=== PATIENT | female | born 1975 | race Caucasian/White ===

== ENCOUNTER 2024-12-13 10:16 | Outpatient (CLI) | payer BC, SELFPAY ==
--- OUTSIDE RECORDS SUMMARY | 2024-10-13 09:06 | XMS_ITS | Encounter Summary ---
Author Organization [place] [address] Care Team Providers Care Tankman Name Role Phone Chip Burt MD Primary Care Provider [phone] Reason for Referral * Ultrasound (Routine) - Pending Review Specialty Diagnoses / Procedures Referred By Contac t Referred To Contact Radiology Diagnoses Elevated LDL cholesterol level Transaminitis Procedures US RIGHT UPPER QUADRANT Chip Burt MD [address] [place] [address] Phone: tel: fax: Referral ID Status Reason Start Date Expiration Date V isits Requested Visits Authorized [id number] Pending Review 10/08/2024 10/08/2025 1 1 Reason for Visit * Ultrasound (Routine) - Pending Review Specialty Diagnoses / Procedures Referred By Rosemary t Referred To Contact Radiology Diagnoses Elevated LDL cholesterol level Transaminitis Procedures US RIGHT UPPER QUADRANT Chip Burt MD [address] [place] [address] Phone: tel: fax: Referral ID Status Reason Start Date Expiration Date V isits Requested Visits Authorized [id number] Pending Review 10/08/2024 10/08/2025 1 1 Encounter Details Date Type Department Care Team (Latest Contact Info) Description 10/13/2024 9:06 AM EDT - 10/13/2024 11:59 PM EDT Hospital Encounter [facility] [address] [place] [id number] Chip Burt MD [address] [place] [address] Elevated LDL cholesterol level; Transaminitis Discharge Disposition: Home or Self Care Social History Tobacco Use Types Packs/Day Years Used Date Smoking Tobacco: Some Days Cigarettes 0.5 25.6 Started: 1999 Smokeless Tobacco: Never Alcohol Use Standard Drinks/Week Comments Yes 0 (1 standard drink = 0.6 oz pur e alcohol) socially PHQ-2 Answer Date Recorded PHQ-2 Total Score 0 09/29/2024 Comments No Sex and Gender Information Value Date Recorded Sex Assigned at Not on file Legal Sex Female 12:57 AM EDT Gender Identity Not on file Sexual Orientation Not on file documented as of this encounter Functional Status * Is the person deaf or does he/she have serious difficulty hearing? Answer Date of Assessment Author No 09/29/2024 1:42 PM Shiva Lopez MA * Is the person blind or does he/she have serious difficulty seeing even when wearing glasses? Answer Date of Assessment Author No 09/29/2024 1:42 PM Shiva Lopez MA * Does this person have serious difficulty walking or climbing stairs? Answer Date of Assessment Author No 09/29/2024 1:42 PM Shiva Lopez MA * Does this person have difficulty dressing or bathing? Answer Date of Assessment Author No 09/29/2024 1:42 PM Shiva Lopez MA * Because of a physical, mental or emotional condition, does this person have difficulty doing errands alone such as visiting a doctor's office or shopping? Answer Date of Assessment Author No 09/29/2024 1:42 PM Shiva Lopez MA documented as of this encounter Mental Status * Because of a physical, mental or emotional condition, does this person have serious difficulty concentrating, remembering or making decisions? Answer Entry Date Author No 09/29/2024 1:42 PM Shiva Lopez MA documented in this encounter Medications at Time of Discharge ergocalciferol (VITAMIN D) 1,250 mcg (50,000 unit) Oral CapsuleIndications: Vitamin D deficiency Take 1 Capsule by mouth once a week. 4 Capsule 2 10/11/2024 ibuprofen (ADVIL;MOTRIN) 600 mg tablet Take 1 Tab by mouth every 8 hours as needed for Pain for 21 doses. 21 Tab 0 04/01/2012 nitrofurantoin, macrocrystal-monohy drate, (MACROBID) 100 mg Oral CapsuleIndications: UTI (urinary tract infection), uncomplicated Take 1 Capsule by mouth 2 times daily for 5 days. 10 Capsule 10/11/2024 5 documented as of this encounter Discharge Disposition Disposition Code Departure Means Destination Home or Self Care documented in this encounter Plan of Treatment Upcoming Encounters Date Type Department Care Team (Late st Contact Info) Description 12/15/2024 9:45 AM EDT Hospital Encounter [facility] [address] [place] [address] [address] [place] [address] Binh Brody MD [address] [place] [address] 12/15/2024 3:20 PM EDT Office Visit [facility] [address] [facility] [address] [place] [address] Chip Burt MD [address] [place] [address] 12/25/2024 2:00 PM EDT Appointment [facility] [address] [place] [address] Binh Brody MD [address] [place] [address] 01/04/2025 8:45 AM EDT [place] [facility] [place] [address] [place] [id number] Chuyita Moscoso MD [address] [place] [address] 02/02/2025 1:40 PM EDT Office Visit [facility] [address] [facility] [address] [place] [address] Chip Burt MD [address] [place] [address] 04/09/2025 10:00 AM EST Office Visit [facility] [address] [place] [address] Anh Patel, SCREEN CLEANER 1 [facility] [place] [address] documented as of this encounter Goals Goal Patient Goal Type Associated Problems Recent Progress Patient-Stated? Author Maintain a healthy diet, exercise regularly and maintain an ideal body weight General No Philippe Hansen MA Stay Tobacco Free Lifestyle No Philippe Hansen MA documented as of this encounter Procedures Procedure Name Priority Date/Time Associated Diagnosis Comments US RIGHT UPPER QUADRANT Routine 10/13/2024 10:00 AM EDT Elevated LDL cholesterol level Transaminitis documented in this encounter Results * US RIGHT UPPER QUADRANT (10/13/2024 10:00 AM EDT) Anatomical Region Laterality Modality Abdomen Ultrasound 10/13/2024 10:0 0 AM EDT Impressions 10/13/2024 10:33 AM EDT 1. Normal study. - - Note: Radiology results need to be interpreted within a comprehensive clinical context. If you have questions about the radiology report, please contact the office of the ordering clinician. Narrative 10/13/2024 10:33 AM EDT US RIGHT UPPER QUADRANT: 10/13/2024 10:00 AM CLINICAL HISTORY: 49 years-old; E78.00-Pure hypercholesterolemia, qoclhdardmf-NQU-22-CM R74.01-Elevation of levels of liver transaminase ucxoyc-RXH-22-CM. COMPARISON: Noncontrast abdomen and pelvis CT 02/06/2016. PROCEDURE COMMENTS: Ultrasound examination of the right upper quadrant performed by the technologist. Sent to PACS along with tech notes for radiologist review. FINDINGS: Liver echogenicity is homogeneous and normal. No focal hepatic defects identified. No intra or extra hepatic ductal dilation. Common bile duct diameter is 4 mm. Gallbladder is normal. No shadowing stones, echogenic sludge or abnormal wall thickening. Gallbladder wall thickness is 1 mm. No pericholecystic fluid or other ascites. Senior Control Systems Engineer indicates clinically negative Willson's sign while scanning. Limited assessment of proximal pancreas is unremarkable. Right kidney measures 9.2 cm in length. Total renal volume is 82.4 cm3. No hydronephrosis, solid or cystic mass lesion or echogenic shadowing stone. Procedure Note Katey Hdz MD - 10/13/2024 US RIGHT UPPER QUADRANT: 10/13/2024 10:00 AM CLINICAL HISTORY: 49 years-old; E78.00-Pure hypercholesterolemia, ttalqgjshir-QWJ-28-CM R74.01-Elevation of levels of liver transaminase wolhwz-ZNF-14-CM. COMPARISON: Noncontrast abdomen and pelvis CT 02/06/2016. PROCEDURE COMMENTS: Ultrasound examination of the right upper quadrantperformed by the technologist. Sent to PACS along with tech notes for radiologistreview. FINDINGS: Liver echogenicity is homogeneous and normal. No focal hepatic defects identified. No intra or extra hepatic ductal dilation. Common bileduct diameter is 4 mm. Gallbladder is normal. No shadowing stones, echogenic sludge or abnormalwall thickening. Gallbladder wall thickness is 1 mm. No pericholecystic fluidor other ascites. Senior Control Systems Engineer indicates clinically negative Willson's signwhile scanning. Limited assessment of proximal pancreas is unremarkable. Right kidneymeasures 9.2 cm in length. Total renal volume is 82.4 cm3. No hydronephrosis, solidor cystic mass lesion or echogenic shadowing stone. IMPRESSION: 1. Normal study. - - Note: Radiology results need to be interpreted within a comprehensiveclinical context. If you have questions about the radiology report, please contactthe office of the ordering clinician. us Chip Burt MD [facility] [place] ORDERABLES Final Resul t documented in this encounter Visit Diagnoses Diagnosis Elevated LDL cholesterol level Pure hypercholesterolemia Transaminitis Nonspecific elevation of levels of transaminase or lactic acid dehydrogenase (LDH) documented in this encounter Care Teams Tankman Relationship Specialty Start Date End Date Chip Burt MD [address] [place] [address] PCP - General Family Medicine 09/29/24 documented as of this encounter
--- OUTSIDE RECORDS SUMMARY | 2024-11-02 11:00 | XMS_ITS | Encounter Summary ---
Author Organization [place] [address] Care Team Providers Care Freight Manager Name Role Phone Chip Burt MD Primary Care Provider [phone] Reason for Referral * Consultation (Routine) - Pending Review Specialty Diagnoses / Procedures Referred By Rosemary singer Referred To Contact Otolaryngology Diagnoses Dizziness Procedures VT OFFICE/OUTPATIENT NEW MODERATE MDM 45 MINUTES Chip Burt MD [address] [place] [address] Phone: tel: fax: Jose Monsivais MD [address] [facility] [address] [place] [address] Phone: tel: fax: Referral ID Status Reason Start Date Expiration Date V isits Requested Visits Authorized [id number] Pending Review 11/02/2024 11/02/2025 99 99 Reason for Visit * Reason Comments Follow-up 4 weeks Encounter Details Date Type Department Care Team (Late st Contact Info) Description 11/02/2024 11:00 AM EDT Office Visit [facility] [address] [facility] [address] [place] [address] Chip Burt MD [address] [place] [address] Syncope, unspecified syncope type (Primary Dx); Dizziness; Cigarette smoker; Elevated LDL cholesterol level; Transaminitis; Vitamin D deficiency; Perimenopause; Other fatigue Social History Tobacco Use Types Packs/Day Years Used Date Smoking Tobacco: Some Days Cigarettes 0.5 25.6 Started: 1999 Smokeless Tobacco: Never Tobacco Cessation:Ready [...] Assessment Author No 09/29/2024 1:42 PM EDT Sihva Hansen MA * Does this person have [...] Exercises (maneuvers) for benign paroxysmal positional vertigo (Italian) documented in this encounter Ordered Prescriptions Prescription Sig Dispense Quantity Refills Last Filled Start Date End Date Blood Pressure Monitor [facility] KitIndications:Syn cope, unspecified syncope type,Other fatigue 1 Kit by [facility].(Non-Drug; Combo Route) route daily. 1 Kit 11/02/2024 [...] Echo pending Orders: - Blood Pressure Monitor [facility] Kit; 1 Kit by [facility].(Non-Drug; Combo Route) route daily. Dispense: 1 Kit; [...] hx -amenable to: NRT gum/lozenges Orders: - VT TOBACCO USE CESSATION INTERMEDIATE 3-10 MINUTES - [...] Overview: supp Lab Results Component Value Date [id number] 18.7 (L) 10/07/2024 Orders: - COMPREHENSIVE METABOLIC PANEL; Future - VITAMIN D 25 HYDROXY; Future Perimenopause Overview: supp care -LMP ~3yrs ago Orders: - COMPREHENSIVE METABOLIC PANEL; Future Other fatigue Comments: Improved Orders: - Blood Pressure Monitor [employer] Kit; 1 Kit by [employer].(Non-Drug; Combo Route) route daily. 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 Deep Tendon Reflexes: Reflexes normal. Comments: [place] Hallpike borderline+ Psychiatric: Mood and Affect: Mood normal. Behavior: Behavior normal. documented in this encounter Plan of Treatment Upcoming Encounters Date Type Department Care Team (Late st Contact Info) Description 12/15/2024 9:45 AM EDT Hospital Encounter [facility] [address] [place] [address] [address] [place] [address] Binh Brody MD [address] [place] [address] 12/15/2024 3:20 PM EDT Office Visit [facility] [address] [facility] [address] [place] [address] Chip Burt MD [address] [place] [address] 12/25/2024 2:00 PM EDT Appointment [facility] [address] [place] [address] Binh Brody MD [address] [place] [address] 01/04/2025 8:45 AM EDT Office Visit [facility] [address] [place] [address] Chuyita Moscoso MD [address] [place] [address] 02/02/2025 1:40 PM EDT Office Visit [facility] [address] [facility] [address] [place] [address] Chip Burt MD [address] [place] [address] 04/09/2025 10:00 AM EST Office Visit [facility] [place] [id number] Anh Patel, BID ANALYST 1 [facility] [place] [address] Scheduled Orders Name Type Priority Associated Diagnoses Orde r Schedule VT TOBACCO USE CESSATION INTERMEDIATE 3-10 MINUTES VT Charge Routine Cigarette smoker Ordered: 11/02/2024 COMPREHENSIVE METABOLIC PANEL Lab Routine Syncope, unspecified syncope type Other fatigue Vitamin D deficiency Transaminitis Perimenopause Elevated LDL cholesterol level Cigarette smoker Dizziness 1 Occurrences starting 11/02/2024 until 11/02/2025 CBC W/DIFF ANEMIA REFLEX Lab Routine Other fatigue Cigarette smoker Dizziness 1 Occurrences starting 11/02/2024 until 11/02/2025 Scheduled Referrals Name Type Priority Associated Diagnoses [...] Date End Da te Blood Pressure Monitor [facility] KitIndications:Annual physical exam,Syncope, unspecified syncope type,Other fatigue 1 Kit by [facility].(Non-Drug; Combo Route) route daily. Reorder 09/29/2024 11/02/2024 documented as of this encounter Orders Lab Orders Without Results Count Last Ordered D ate First Ordered Date LIPID SCREEN 1 11/02/2024 VITAMIN D 25 HYDROXY 1 11/02/2024 documented in this encounter Care Teams Freight Manager Relationship Specialty Start Date End Date Chip Burt MD [address] [place] [address] PCP - General Family Medicine 09/29/24 documented as of this encounter
--- OUTSIDE RECORDS SUMMARY | 2024-11-17 07:54 | XMS_ITS | Encounter Summary ---
Author Organization [place] [address] Care Team Providers Care Geologist Petroleum Name Role Phone Chip Burt MD Primary Care Provider [phone] Reason for Referral * Echo (Urgent) - PCP Precert Acquired Specialty Diagnoses / Procedures Referred By Rosemary singer Referred To Contact Radiology Diagnoses Syncope, unspecified syncope type Palpitations Other fatigue Procedures EC ECHOCARDIOGRAM COMPLETE W DOPPLER AND COLOR FLOW MAPPING EC ECHOCARDIOGRAM COMPLETE W DOPPLER AND COLOR FLOW MAPPING Chip Burt MD [address] [place] [address] Phone: tel: fax: Referral ID Status Reason Start Date Expiration Date V isits Requested Visits Authorized [id number] PCP Precert Acquired 09/29/2024 09/29/2026 1 1 Reason for Visit * Echo (Urgent) - PCP Precert Acquired Specialty Diagnoses / Procedures Referred By Rosemary singer Referred To Contact Radiology Diagnoses Syncope, unspecified syncope type Palpitations Other fatigue Procedures EC ECHOCARDIOGRAM COMPLETE W DOPPLER AND COLOR FLOW MAPPING EC ECHOCARDIOGRAM COMPLETE W DOPPLER AND COLOR FLOW MAPPING Chip Burt MD [address] [place] [address] Phone: tel: fax: Referral ID Status Reason Start Date Expiration Date V isits Requested Visits Authorized [id number] PCP Precert Acquired 09/29/2024 09/29/2026 1 1 Encounter Details Date Type Department Care Team (Latest Contact Info) Description 11/17/2024 7:54 AM EDT Hospital Encounter [facility] [address] [place] [place] [address] Chip Burt MD [address] [place] [address] Syncope, unspecified syncope type; Palpitations; Other fatigue [...] at Time of Discharge Blood Pressure Monitor [facility] KitIndications:Syn cope, unspecified syncope type,Other fatigue 1 Kit by [facility].(Non-El g; Combo Route) route daily. 1 Kit [...] AM EDT Hospital Encounter [facility] [address] [place] [address] [address] [place] [address] Binh Brody MD [address] [place] [address] [place] [address] 12/15/2024 3:20 PM EDT Office Visit [facility] [address] [facility] [address] [place] [address] Chip Burt MD [address] [place] [address] 12/25/2024 2:00 PM EDT Appointment [facility] [address] [place] [address] Binh Brody MD [address] [place] [address] [place] [address] 01/04/2025 8:45 AM EDT Office Visit [facility] Neu[facility] [address] [place] [address] Chuyita Moscoso MD [address] [place] [address] 02/02/2025 1:40 PM EDT Office Visit [facility] [address] [place] [address] Chip Burt MD [address] [place] [address] 04/09/2025 10:00 AM EST Office Visit [facility] [place] [address] [place] [address] Anh Patel, TRACK LAYING MACHINE OPERATOR 1 [facility] [place] [address] documented as of this encounter Goals Goal [...] normal with an estimated ejectionfraction of 55%. us Chip Burt MD IMG ECHO ORDERABLES Final Res ult documented in this encounter Visit Diagnoses Diagnosis Syncope, unspecified syncope type Palpitations Other fatigue documented in this encounter Care Teams Geologist Petroleum Relationship Specialty Start Date End Date Chip Burt MD [address] [place] [address] PCP - General Family Medicine 09/29/24 documented as of this encounter
--- OUTSIDE RECORDS SUMMARY | 2024-11-17 07:55 | XMS_ITS | Encounter Summary ---
Author Organization [place] [address] Care Team Providers Care Hot Roller Name Role Phone Chip Burt MD Primary Care Provider [phone] Encounter Details Date Type Department Care Team (Latest Contact Info) Description 11/17/2024 7:55 AM EDT - 11/17/2024 10:19 AM EDT Hospital Encounter [facility] [address] [place] [address] Chip Burt MD [address] [place] [address] Discharge Disposition: Home or Self Care Social [...] Entry Date Author No 09/29/2024 1:42 PM EDT Shiva Hansen MA documented in this encounter Medications at Time of Discharge Blood Pressure Monitor [facility] KitIndications:Syn cope, unspecified syncope type,Other fatigue 1 Kit by [facility].(Non-El g; Combo Route) route daily. 1 Kit [...] AM EDT Hospital Encounter [facility] [address] [place] [address] [address] [place] [address] Binh Brody MD [address] [place] [address] 12/15/2024 3:20 PM EDT Office Visit [facility] [address] [facility] [address] [place] [address] Chip Burt MD [address] [place], [place] [id number] 12/25/2024 2:00 PM EDT Appointment [facility] [address] [place] [address] Binh Brody MD [address] [place] [address] 01/04/2025 8:45 AM EDT Office Visit [facility] Neurology [facility] [address] [place] [address] Chuyita Moscoso MD [address] [place], [place] [id number] 02/02/2025 1:40 PM EDT Office Visit [facility] [address] [address] Chip Burt MD [address] [place] [address] 04/09/2025 10:00 AM EST Office Visit [facility] [address] [place] [address] Anh Patel, SHAFTING WORKER 1 [place] [address] documented as of this encounter Goals Goal Patient Goal Type Associated Problems Recent Progress Patient-Stated? Author Maintain a healthy diet, exercise regularly and maintain an ideal body weight General No Philippe Hansen MA Stay Tobacco Free Lifestyle No Philippe Hansen MA documented as of this encounter Visit Diagnoses Not on filedocumented in this encounter Care Teams Hot Roller Relationship Specialty Start Date End Date Chip Burt MD [address] [place] [address] PCP - General Family Medicine 09/29/24 documented as of this encounter
--- OUTSIDE RECORDS SUMMARY | 2024-11-17 10:20 | XMS_ITS | Encounter Summary ---
Author Organization [place] [address] Care Team Providers Care Cigar Patcher Name Role Phone Chip Burt MD Primary Care Provider [phone] Encounter Details Date Type Department Care Team (Latest Contact Info) Description 11/17/2024 10:20 AM EDT Hospital Encounter [facility] [address] [facility] [place] [address] [place] light chain disease; Elevated LDL cholesterol level; Vitamin D deficiency; Urinary frequency Discharge Disposition: Home or Self Care Social [...] at Time of Discharge Blood Pressure [place] [facility] KitIndications:Syn cope, unspecified syncope type,Other fatigue 1 Kit by [facility]Non-El g; Combo Route) route daily. 1 Kit [...] AM EDT Hospital Encounter [facility] [address] [place] [address] [address] [place] [id number] Binh Brody MD [address] [place] [address] 12/15/2024 3:20 PM EDT Office Visit [facility] [address] [facility] [address] [place] [address] Chip Burt MD [address] [place] [address] 12/25/2024 2:00 PM EDT Appointment [facility] [address] [place] [address] Binh Brody MD 1 [place] [address] 01/04/2025 8:45 AM EDT Office Visit SEP Neurology [facility] [address] [place] [phone] Chuyita Moscoso MD [address] [place] [id number] 02/02/2025 1:40 PM EDT Office Visit [facility] [address] [address] Chip Burt MD [address] [place] [address] 04/09/2025 10:00 AM EST Office [place] [facility] [place] [address] [place] [address] Ahn Patel, JEWEL BEARING POLISHER [address] [facility] [place], [place] [id number] documented as of this encounter Goals Goal Patient Goal Type Associated Problems Recent Progress Patient-Stated? Author Maintain a healthy diet, exercise regularly and maintain an ideal body weight General No Philippe Hansen MA Stay Tobacco Free Lifestyle No Philippe Hansen MA documented as of this encounter Procedures Procedure Name Priority Date/Time Associated Diagnosis Comments URINALYSIS Routine 11/17/2024 10:42 AM EDT Urinary frequency URINE CULTURE (NO STAIN) Routine 11/17/2024 10:42 AM EDT Urinary frequency CBC WITH DIFF STAT 11/17/2024 10:37 AM EDT [place] light chain disease COMPREHENSIVE METABOLIC PANEL STAT 11/17/2024 10:37 AM EDT [place] light chain disease documented in this encounter Results * (ABNORMAL) URINE CULTURE (NO STAIN) (11/17/2024 10:42 AM EDT) Pathologist [facility] Culture Positive Growth(A) 11/19/2024 1:32 PM EDT PREFERRED 51 Auto Culture >100,000 CFU/mL Lactobacillus species SUSCEPTIB ILITY RESULT 11/19/2024 1:32 PM EDT [facility] Comment:No further workup. Urine STRUCTURE OF URINARY TRACT PROPER / Unknown 11/17/2024 10:42 AM EDT 11/17/2024 10:47 AM EDT us Fabby Joya MD MICROBIOLOGY - GENERAL ORDERA BLES Final Result [facility] [address] [facility], [place] [address] * (ABNORMAL) URINALYSIS (11/17/2024 10:42 AM EDT) Pathologist [facility] UA Color Yellow 11/17/2024 11:14 AM EDT [facility] UA Appear Clear Clear 11/17/2024 11:14 AM EDT [facility] UA Glucose Negative Negative mg/dL 11/17/2024 11:14 AM EDT [facility] UA Ketones Negative Negative mg/dL 11/17/2024 11:14 AM EDT [facility] UA Blood Trace-Intac t(A) Negative 11/17/2024 11:14 AM EDT [facility] UA pH 6.0 5.0 - 8.0 pH 11/17/2024 11:14 AM EDT [facility] UA Protein Negative Negative mg/dL 11/17/2024 11:14 AM EDT [facility] UA Urobilinogen 0.2 <=1 mg/dL 11:14 AM EDT [facility] UA Bili Negative Negative 11/17/2024 11:14 AM EDT [facility] UA Nitrite Negative Negative 11/17/2024 11:14 AM EDT [facility] UA Leuk Est Small(A) Negative 11/17/2024 11:14 AM EDT [facility] UA Spec Grav 1.015 1.001 - 1.035 no units 11/17/2024 11:14 AM EDT [facility] Comment:Reference range nick d for random specimens only. UA WBC 1 0 - 4 /HPF 11/17/2024 11:14 AM EDT [facility] UA RBC 1 0 - 3 /HPF 11/17/2024 11:14 AM EDT [facility] UA Squam Epi 1+ /LPF 11/17/2024 11:14 AM EDT [facility] Urine STRUCTURE OF URINARY TRACT PROPER / Unknown 11/17/2024 10:42 AM EDT 11/17/2024 10:47 AM EDT us Fabby Joya MD URINE ORDERABLES Final Result [facility] [address] [place] [address] * (ABNORMAL) CBC WITH DIFF (11/17/2024 10:37 AM EDT) WBC 7.7 3.7 - 10.3 x10(3)/mcL 11/17/2024 10:42 AM EDT [facility] RBC 4.37 3.90 - 5.20 x10(6)/mcL 11/17/2024 10:42 AM EDT [facility] Hgb 13.6 11.2 - 15.7 g/dL 11/17/2024 10:42 AM EDT [facility] Hct 40.3 34.0 - 45.0 % 11/17/2024 10:42 AM EDT [facility] MCV 92.2 80.0 - 100.0 fL 11/17/2024 10:42 AM EDT [facility] MCH 31.1 26.0 - 34.0 pg 11/17/2024 10:42 AM EDT [facility] MCHC 33.7 30.7 - 35.5 g/dL 11/17/2024 10:42 AM EDT [facility] RDW 13.7 <=14.9 % 11/17/2024 10:42 AM EDT [facility] Platelet 265 155 - 369 x10(3)/mcL 11/17/2024 10:42 AM EDT [facility] MPV 9.2 8.8 - 12.5 fL 11/17/2024 10:42 AM EDT [facility] Neut Percent 48.2 % 11/17/2024 10:42 AM EDT [facility] Comment:Neutrophils equals s egs plus bands Imm Gran% 0.3 % 11/17/2024 10:42 AM EDT [facility] Comment:Automated count of m etamyelocytes, myelocytes and promyelocytes. Lymph Percent 28.0 % 11/17/2024 10:42 AM EDT [facility] [place] Percent 7.9 % 11/17/2024 10:42 AM EDT [facility] Eos Percent 14.8 % 11/17/2024 10:42 AM EDT [facility] Baso Percent 0.8 % 11/17/2024 10:42 AM EDT [facility] Neut # 3.7 1.6 - 6.1 x10(3)/[facility] 11/17/2024 10:42 AM EDT [facility] Comment:Neutrophils equals s egs plus bands IMMGRAN# 0.0 0.0 - 0.1 x10(3)/[facility] 11/17/2024 10:42 AM EDT [facility] Comment:Automated count of m etamyelocytes, myelocytes and promyelocytes. An absolute IG <0.1 is reported as 0.0. Lymph # 2.2 1.2 - 3.9 x10(3)/mcL 11/17/2024 10:42 AM EDT [facility] [place] # 0.6 0.3 - 0.9 x10(3)/[facility] 11/17/2024 10:42 AM EDT [facility] Eos# 1.1(H) 0.0 - 0.5 x10(3)/[facility] 11/17/2024 10:42 AM EDT [facility] Baso # 0.1 0.0 - 0.1 x10(3)/mcL 11/17/2024 10:42 AM EDT [facility] Blood VENOUS BLOOD / Unknown Venipuncture / Unknown 11/17/2024 10:37 AM EDT 11/17/2024 10:40 AM EDT us Fredi Trevizo MD HEMATOLOGY ORDERABLES Final Re sult [facility] [address] [place] [address] * COMPREHENSIVE METABOLIC PANEL (11/17/2024 10:37 AM EDT) Sodium 140 136 - 145 mmol/L 11/17/2024 10:57 AM EDT [facility] Potassium 3.9 3.5 - 5.0 mmol/L 11/17/2024 10:57 AM EDT [facility] Chloride 104 98 - 107 mmol/L 11/17/2024 10:57 AM EDT [facility] Total CO2 26 22 - 29 mmol/L 11/17/2024 10:57 AM EDT [facility] Anion Gap 10 7 - 16 mmol/L 11/17/2024 10:57 AM EDT [facility] Calcium 8.8 8.6 - 10.4 mg/dL 11/17/2024 10:57 AM EDT [facility] Glucose Lvl 88 70 - 99 mg/dL 11/17/2024 10:57 AM EDT [facility] BUN 13 6 - 20 mg/dL 11/17/2024 10:57 AM EDT [facility] Creatinine 0.62 0.51 - 1.30 mg/dL 11/17/2024 10:57 AM EDT [facility] Albumin 4.2 3.5 - 5.2 gm/dL 11/17/2024 10:57 AM EDT [facility] Total Protein 6.6 6.4 - 8.3 gm/dL 11/17/2024 10:57 AM EDT [facility] Bili Total 0.3 0.2 - 1.3 mg/dL 11/17/2024 10:57 AM EDT [facility] ALT 17 <=41 U/L 11/17/2024 10:57 AM EDT [facility] AST 19 <=40 U/L 11/17/2024 10:57 AM EDT [facility] Alk Phos 111 36 - 123 U/L 11/17/2024 10:57 AM EDT [facility] eGFR (CKD-EPIcr 2020) 109 >=60 mL/min/1.7 3 m2 11/17/2024 10:57 AM EDT [facility] Comment:Estimated GFR was ca lculated using the CKD-EPIcr (2020) equation refit without race. The equation is recommended by the National Kidney Foundation - [place] [employer] of Nephrology Task Force. Blood VENOUS BLOOD / Unknown Venipuncture / Unknown 11/17/2024 10:37 AM EDT 11/17/2024 10:40 AM EDT us Fredi Trevizo MD CHEMISTRY ORDERABLES Final Res ult 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
--- OUTSIDE RECORDS SUMMARY | 2024-11-17 10:21 | XMS_ITS | Encounter Summary ---
Author [place] [address] Care Team Providers Care Friction Saw Operator Name Role Phone Chip Burt MD Primary Care Provider Reason for Referral * Consultation (Routine) - Authorization Not Needed Specialty Diagnoses / Procedures Referred By Contac t Referred To Contact Cardiology Diagnoses Syncope, unspecified syncope type EKG abnormality Procedures [place] OFFICE/OUTPATIENT NEW MODERATE MDM 45 MINUTES Fredi Trevizo MD [address] [place] [address] [address] [place] [address] Phone: tel: fax: [facility] [address] [facility] [address] [place] [address] Phone: tel: fax: Referral ID Status Reason Start Date Expiration Date Visits Requested Visits Authorized [id number] Authorization Not Needed 11/17/2024 11/17/2025 99 99 Comments syncope arrhythmias * Genetic Lab Test (Emergency) - Authorization Not Needed Specialty Diagnoses / Procedures Referred By Contac t Referred To Contact 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 Procedures [place] OFFICE/OUTPATIENT NEW MODERATE MDM 45 MINUTES Chip Burt MD [address] [place] [address] Phone: tel: fax: Referral ID Status Reason Start Date Expiration Date V isits Requested Visits Authorized [id number] Pending Review 10/13/2024 10/13/2025 99 99 Encounter Details Date Type Department Care Team (Latest Contact Info) Description 11/17/2024 10:21 AM EDT - 11/17/2024 11:59 PM EDT Hospital Encounter [facility] [address] [facility] [address] [place] [address] Fredi Trevizo MD 1 [place] [address] [place]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); Syncope, unspecified [...] at Time of Discharge Blood Pressure Monitor [facility] KitIndications:Sync ope, unspecified syncope type,Other fatigue 1 Kit by [facility].(Non-El g; Combo Route) [...] Trevizo MD - 11/17/2024 11:20 AM EDT [facility] Hematology and Medical Oncology Patient: Sheryl Thompson CSN: [id number] Date of : 1975 Age: 49 y.o. 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 Elevated [place] Light Chains Labs drawn 10/07/24 with PCP [...] complex tasks: 1) Reviewing medical records in [facility] and if applicable outside records as well [...] Fredi Trevizo MD Hematology and Medical Oncology [facility] 2` documented in this encounter Plan of Treatment Upcoming Encounters Date Type Department Care Team (Late st Contact Info) Description 12/15/2024 9:45 AM EDT Hospital Encounter [facility] [address] [place] [address] [address] [place] [address] Binh Brody MD [address] [place] [address] 12/15/2024 3:20 PM EDT Office Visit [facility] [address] [facility] [address] [place] [address] Chip Burt MD [address] [place] [address] 12/25/2024 2:00 PM EDT Appointment [facility] [address] [place] [address] Binh Brody MD [address] [place] [address] 01/04/2025 8:45 AM EDT Office Visit SEP Neurology [facility] [address] [place] [address] Chuyita Moscoso MD [address] [place] [address] 02/02/2025 1:40 PM EDT Office Visit [facility] [address] [facility] [address] [place] [address] Chip Burt MD [address] [place] [address] 04/09/2025 10:00 AM EST Office Visit [facility] [place] [address] [place] [address] Anh Patel APRN 1 [place], [place] [id number] Scheduled Orders Name Type Priority Associated Diagnoses Orde r Schedule KAPPA/LAMBDA FREE LIGHT CHAINS Lab STAT [place] light chain disease Expected: 11/19/2024, Expires: 11/16/2025 [...] - 145 mmol/L 11/17/2024 10:57 AM EDT [facility] Potassium 3.9 3.5 - 5.0 mmol/L 11/17/2024 10:57 AM EDT [facility] Chloride 104 98 - 107 mmol/L 11/17/2024 10:57 AM EDT [facility] Total CO2 26 22 - 29 mmol/L 11/17/2024 10:[facility] Anion Gap 10 7 - 16 mmol/L 11/17/2024 10:57 AM [facility] Calcium 8.8 8.6 - 10.4 mg/dL 11/17/2024 10:57 [facility] Glucose Lvl 88 70 - 99 mg/dL 11/17/2024 10:57 AM [facility] BUN 13 6 - 20 mg/dL 11/17/2024 10:57 AM EDT [facility] Creatinine 0.62 0.51 - 1.30 mg/dL 11/17/2024 10:57 AM [facility] Albumin 4.2 3.5 - 5.2 gm/dL 11/17/2024 10:57 AM [facility] Total Protein 6.6 6.4 - 8.3 gm/dL 11/17/2024 10:57 AM [facility] Bili Total 0.3 0.2 - 1.3 mg/dL 11/17/2024 10:57 AM [facility] ALT 17 <=41 U/L 11/17/2024 10:57 AM [facility] AST 19 <=40 U/L 11/17/2024 10:57 AM [facility] Alk Phos 111 36 - 123 U/L 11/17/2024 10:57 AM [facility] eGFR (CKD-EPIcr 2020) 109 >=60 mL/min/1.7 3 m2 11/17/2024 10:57 AM [facility] Comment:Estimated GFR was ca lculated using the CKD-EPIcr (2020) equation refit without race. The equation is recommended by the National Kidney Foundation - [place] [employer] of Nephrology Task Force. Blood VENOUS BLOOD / Unknown Venipuncture / Unknown 11/17/2024 10:37 AM EDT 11/17/2024 10:40 AM EDT us Fredi Trevizo MD CHEMISTRY ORDERABLES Final Res ult [facility] [address] [facility] [place], [place] [id number] * (ABNORMAL) CBC WITH DIFF (11/17/2024 10:37 AM EDT) WBC 7.7 3.7 - 10.3 x10(3)/mcL 11/17/2024 10:42 AM EDT [facility] RBC 4.37 3.90 - 5.20 x10(6)/mcL 11/17/2024 10:42 AM EDT [facility] Hgb 13.6 11.2 - 15.7 g/dL 11/17/2024 10:42 AM EDT [facility] Hct 40.3 34.0 - 45.0 % 11/17/2024 10:42 AM EDT [facility] MCV 92.2 80.0 - 100.0 fL 11/17/2024 10:42 AM EDT [facility] MCH 31.1 26.0 - 34.0 pg 11/17/2024 10:42 AM EDT [facility] MCHC 33.7 30.7 - 35.5 g/dL 11/17/2024 10:42 AM EDT [facility] RDW 13.7 <=14.9 % 11/17/2024 10:42 AM EDT [facility] Platelet 265 155 - 369 x10(3)/mcL 11/17/2024 10:42 AM EDT [facility] MPV 9.2 8.8 - 12.5 fL 11/17/2024 10:42 AM EDT [facility] Neut Percent 48.2 % 11/17/2024 10:42 AM EDT [facility] Comment:Neutrophils equals s egs plus bands Imm Gran% 0.3 % 11/17/2024 10:42 AM EDT [facility] Comment:Automated count of m etamyelocytes, myelocytes and promyelocytes. Lymph Percent 28.0 % 11/17/2024 10:42 AM EDT [facility] [place] Percent 7.9 % 11/17/2024 10:42 AM EDT [facility] Eos Percent 14.8 % 11/17/2024 10:42 AM EDT [facility] Baso Percent 0.8 % 11/17/2024 10:42 AM EDT [facility] Neut # 3.7 1.6 - 6.1 x10(3)/[facility] 11/17/2024 10:42 AM EDT [facility] Comment:Neutrophils equals s egs plus bands IMMGRAN# 0.0 0.0 - 0.1 x10(3)/[facility] 11/17/2024 10:42 AM EDT [facility] Comment:Automated count of m etamyelocytes, myelocytes and promyelocytes. An absolute IG <0.1 is reported as 0.0. Lymph # 2.2 1.2 - 3.9 x10(3)/[facility] 11/17/2024 10:42 AM EDT [facility] [place] # 0.6 0.3 - 0.9 x10(3)/[facility] 11/17/2024 10:42 AM EDT [facility] Eos# 1.1(H) 0.0 - 0.5 x10(3)/[facility] 11/17/2024 10:42 AM EDT [facility] Baso # 0.1 0.0 - 0.1 x10(3)/[facility] 11/17/2024 10:42 AM EDT [facility] Blood VENOUS BLOOD / Unknown Venipuncture / Unknown 11/17/2024 10:37 AM EDT 11/17/2024 10:40 AM EDT us Fredi Trevizo MD HEMATOLOGY ORDERABLES Final Re sult [facility] [address] [place] [address] documented in this encounter Visit Diagnoses Diagnosis [place] light chain disease- Primary Multiple myeloma, without mention of having achieved remission Syncope, unspecified syncope type EKG abnormality Nonspecific abnormal electrocardiogram (ECG) (EKG) documented in this encounter Care Teams Friction Saw Operator Relationship Specialty Start Date End Date Chip Burt MD [address] [place] [address] PCP - General Family Medicine 09/29/24 documented as of this encounter
--- OUTSIDE RECORDS SUMMARY | 2024-11-23 10:20 | XMS_ITS | Encounter Summary ---
Author [place] [address] Care Team Providers Care Channel Process Supervisor Name Role Phone Marleny Burt MD Primary Care Provider [phone] Reason for Referral * Holter Monitor (Routine) - Authorization Not Needed Specialty Diagnoses / Procedures Referred By Contac t Referred To Contact Radiology Diagnoses Syncope, unspecified syncope type Dizziness Intermittent palpitations Abnormal EKG Procedures HOLTER MONITOR RECORDING AND ANALYSIS Marleny Burt MD [address] [place] [address] Phone: tel: fax: Referral ID Status Reason Start Date Expiration Date Visits Requested Visits Authorized [id number] Authorization Not Needed 11/23/2024 11/23/2026 1 1 * MRI/CAT Scan (Urgent) - PCP Precert Acquired Specialty Diagnoses / Procedures Referred By Contac t Referred To Contact Radiology Diagnoses Transient leg weakness Procedures MRI LUMBAR SPINE W WO CONTRAST Marleny Burt MD [address] [place] [address] Phone: tel: fax: Referral ID Status Reason Start Date Expiration Date V isits Requested Visits Authorized [id number] PCP Precert Acquired 11/23/2024 11/23/2025 1 1 * MRI/CAT Scan (Routine) - PCP Precert Acquired Specialty Diagnoses / Procedures [facility] To Contact Radiology Diagnoses Syncope, unspecified syncope type Dizziness Vision changes Transient leg weakness Procedures MRI BRAIN W WO CONTRAST Marleny Burt MD [address] [place] [address] Phone: tel: fax: Referral ID Status Reason Start Date Expiration Date V isits Requested Visits Authorized [id number] PCP Precert Acquired 11/23/2024 11/23/2025 1 1 * Consultation (Routine) - Authorization Not Needed Specialty Diagnoses / Procedures Referred By Contac t Referred To Contact Neurology Diagnoses Syncope, unspecified syncope type Dizziness Vision changes Transient leg weakness Procedures MO OFFICE/OUTPATIENT NEW MODERATE MDM 45 MINUTES Marleny Burt MD [address] [place] [address] Phone: tel: fax: [facility] Neurology [place] [address] [place] [address] Phone: tel: fax: Referral ID Status Reason Start Date Expiration Date Visits Requested Visits Authorized [id number] Authorization Not Needed 11/23/2024 11/23/2025 99 99 * MRI/CAT Scan (Urgent) - PCP Precert Acquired Specialty Diagnoses / Procedures Referred By Contac t Referred To Contact Radiology Diagnoses Syncope, unspecified syncope type Dizziness Vision changes Transient leg weakness Procedures CT ANGIOGRAM HEAD AND NECK W CONTRAST Marleny Burt MD [address] [place] [address] Phone: tel: fax: Referral ID Status Reason Start Date Expiration Date V isits Requested Visits Authorized [id number] PCP Precert Acquired 11/23/2024 11/23/2025 1 1 * MRI/CAT Scan (Emergency) - PCP Precert Acquired Specialty Diagnoses / Procedures Referred By Contac t Referred To Contact Radiology Diagnoses Syncope, unspecified syncope type Dizziness Vision changes Transient leg weakness Procedures CT HEAD WO CONTRAST Marleny Burt MD [address] [place] [address] Phone: tel: fax: Referral ID Status Reason Start Date Expiration Date V isits Requested Visits Authorized [id number] PCP Precert Acquired 11/23/2024 11/23/2025 1 1 * Consultation (Routine) - Closed Specialty Diagnoses / Procedures Referred By Contart t Referred To Contact Behavioral Health Diagnoses Generalized anxiety disorder Marleny Burt MD [address] [place] [address] Phone: tel: fax: [address] [place] [address] Phone: tel: fax: Referral ID Status Reason Start Date Expiration Date V isits Requested Visits Authorized [id number] Closed Specialty Services Required 11/23/2024 11/23/2025 99 99 Question Answer Provider Options First Available Reason for Visit * Reason Comments Dizziness pt state Wednesday a t work she felt overheated light headed and loss of vision. Encounter Details Date Type Department Care Team (Late st Contact Info) Description 11/23/2024 10:20 AM EDT Office Visit [facility] [address] [facility] [address] [place] [address] Marleny Burt MD [address] [place] [address] Syncope, unspecified syncope type (Primary Dx); Dizziness; Vision changes; Intermittent palpitations; Abnormal EKG; Cigarette smoker; UTI (urinary tract infection), uncomplicated; Elevated LDL cholesterol level; Transaminitis; Transient leg weakness; Generalized anxiety disorder Social History Tobacco Use Types Packs/Day Years Used Date Smoking Tobacco: Some Days Cigarettes 0.5 25.6 Started: 1999 Smokeless Tobacco: Never Tobacco Cessation:Ready to Q uit: No; Counseling Given: Not Answered Alcohol Use Standard [...] Sign Reading Time Taken Comments Blood Pressure 110/70 11/23/2024 10:27 AM EDT Pulse 87 11/23/2024 10:27 AM EDT Temperature 36.2 C (97.2 F) 11/23/2024 10:27 AM EDT Respiratory Rate - - Oxygen Saturation 99% 11/23/2024 10:27 AM EDT Inhaled Oxygen Concentration - - Weight 52.3 kg (115 lb 3.2 oz) 11/23/2024 10:27 AM EDT Height 152.4 cm (5') 11/23/2024 10:27 AM EDT Body Mass Index 22.5 11/23/2024 10:27 AM EDT documented in this encounter Functional [...] cannot be sent through Care Everywhere. * Coping with worry and stress (Italian) documented in this encounter Ordered Prescriptions Prescription Sig Dispense Quantity Refills Last Filled Start Date End Date busPIRone (BUSPAR) 5 mg Oral TabletIndications:G eneralized anxiety disorder Take 1 Tablet by mouth 2 times daily as needed. 60 Tablet 1 11/23/2024 documented in this encounter Progress Notes * Marleny Burt MD - 11/23/2024 10:20 AM EDT Assessment Diagnoses and all orders for this visit: Syncope, unspecified syncope type Comments: BG 91 Overview: Echo 10/2024 nml Head imaging pending Cardiology, Neurology referrals Orders: - CT HEAD WO CONTRAST; Future - CT ANGIOGRAM HEAD AND NECK W CONTRAST; Future - AMB REFERRAL TO NEUROLOGY - MRI BRAIN W WO CONTRAST; Future - UA W/REFLEX TO CULTURE; Future - POCT GLUCOSE - HM HOLTER MONITOR RECORDING AND ANALYSIS; Future Dizziness Comments: BG 91 Overview: Cardiology, ENT, Neurology referrals Dramamine as needed helps at times CT head, MRI head pending Echo 10/2204 LVEF 55% hydration/supp care, vestibular exercises Orders: - CT HEAD WO CONTRAST; Future - CT ANGIOGRAM HEAD AND NECK W CONTRAST; Future - AMB REFERRAL TO NEUROLOGY - MRI BRAIN W WO CONTRAST; Future - UA W/REFLEX TO CULTURE; Future - POCT GLUCOSE - HM HOLTER MONITOR RECORDING AND ANALYSIS; Future Vision changes - CT HEAD WO CONTRAST; Future - CT ANGIOGRAM HEAD AND NECK W CONTRAST; Future - AMB REFERRAL TO NEUROLOGY - MRI BRAIN W WO CONTRAST; Future Intermittent palpitations Overview: Cardiology referral Holter EKG 08/2024 SR LAD, possible LAE, iRBBB w/LAFB T wave inversions V1-V3 similar to previous 06/2024, 12/2023 No other STTW changes compared to prior Echo 10/2024 nml Orders: - HOLTER MONITOR RECORDING AND ANALYSIS; Future Abnormal EKG Overview: Cardiology referral EKG 08/2024, 06/2024, 12/2023 Orders: - HOLTER MONITOR RECORDING AND ANALYSIS; Future Cigarette smoker Overview: Worse 1ppd Prev ~0.5ppd, 25.4 years; Total pack years: 12.7 -previously tried NRT patches SE skin rxn, NRT gum ok at work, chantix worsened cravings Bupropion min relief -No seizure hx -amenable to: NRT gum -consider Bupoprion Orders: - MO TOBACCO USE CESSATION INTERMEDIATE 3-10 MINUTES UTI (urinary tract infection), uncomplicated Comments: complete Abx bactrim, hydration Orders: - UA W/REFLEX TO CULTURE; Future Elevated LDL cholesterol level Overview: diet (reduce fried foods), exercise, smoking cessation The 10-year ASCVD risk score (Diana SAENZ, et al., 2019) is: 2.6% Values used to calculate the score: Age: 49 years Sex: Female Is Non- : No Diabetic: No Tobacco smoker: Yes Systolic Blood Pressure: 110 mmHg Is BP treated: No HDL Cholesterol: 51 mg/dL Total Cholesterol: 191 mg/dL Lab Results Component Value Date CHOLESTEROL 191 10/07/2024 Lab Results Component Value Date HDL 51 10/07/2024 Lab Results Component Value Date LDLCALC 128 (H) 10/07/2024 Lab Results Component Value Date TRIG 64 10/07/2024 No results found for: CHOLHDL Transaminitis Overview: Improving US RUQ 10/2024 reassuring Lab Results Component Value Date ALT 17 11/17/2024 AST 19 11/17/2024 ALKPHOS 111 11/17/2024 Transient leg weakness - CT HEAD WO CONTRAST; Future - CT ANGIOGRAM HEAD AND NECK W CONTRAST; Future - AMB REFERRAL TO NEUROLOGY - MRI BRAIN W WO CONTRAST; Future - MRI LUMBAR SPINE W WO CONTRAST; Future Generalized anxiety disorder Overview: Mildly worse BH referral, CBT, ld buspar bid prn Orders: - AMB REFERRAL TO BEHAVIORAL HEALTH - busPIRone (BUSPAR) 5 mg Oral Tablet; Take 1 Tablet by mouth 2 times daily as needed. Dispense: 60Tablet; Refill: 1 Pt declined rec to go to ED, but amenable to complete other aspects of plan as noted. Return in about 1 week (around 11/30/2024), or if symptoms worsen or fail to improve, for Dizziness. Patient/family understood and agreed to plan. Marleny Burt MD Progress Note: Vitals: 11/23/24 1027 BP: 110/70 BP Location: Left arm Patient Position: Sitting Pulse: 87 Temp: 97.2 ??F (36.2 ??C) TempSrc: Forehead SpO2: 99% Weight: 115 lb 3.2 oz (52.3 kg) Height: 5' (1.524 m) SUBJECTIVE: Chief Complaint Patient presents with Dizziness pt state Wednesday at work she felt overheated light headed and loss of vision. Accompanied by friend Anh HPI: Dizziness intermittent, but more frequent and lasting longer now since last visit Blurry vision intermittent feels like film or bright light over eyes during episodes, none recently Hx Palpitations no episodes recently iRBBB EKG 08/2024, 06/2024, 12/2023 Hx syncope no episodes recently Intermittent Low BP? Leg weakness Merlos? Fatigue Myalgias CHAVEZ front/top of head, photophobia/sonophobia, no aura; no episodes recently Hx nausea w/o emesis seldom at times; no episodes recently CT head, CT-angio head/neck 06/2204 naf sxs worse with heat. Uhthoffs phenomenon? -Amenable to: hydration/supp care, CT head, CT angio head/neck, MRI brain, MRI L spine, ENT follow-up, Cardiology (appt 12/11/24) -->Ophthalmology (pt will reschedule appt as missed recent appt) -->Pt will consider PT, steroids Tobacco use Time spent 3min Worse 1ppd Prev ~0.5ppd, 25.4 years; Total pack years: 12.7 -previously tried NRT patches SE skin rxn, NRT gum ok at work, chantix worsened cravings Bupropion min relief -No seizure hx -amenable to: NRT gum -consider Bupoprion Vit D defic -supp Elevated LDL diet (reduce fried foods), exercise, smoking cessation vegetarian Transaminitis labs, monitor US RUQ 10/2024 reassuring [place] light chain disease -Follows with Hematology last appt 11/17/24 UTI Hx Subj fever/overheating? no flank/abdom pain or urinary sxs UA/Ucx 11/17/24 lactobacillus -Finish Bactrim Abx Anxiety possible multifactorial Mildly worse BH referral, CBT, ld buspar bid prn Psychotherapy Performed Time 11:02-11:18, 16 min Discussed triggers, responses, coping skills, and resources. Triggers: health matters, episodes of panic attacks randomly Responses: smoking, naps, talking to friends Coping Skills: per above Resources/Support: family, friends Reviewed/Discussed following -Care management -On License Of [facility] Assistance Line *Labs and imaging reviewed Review of Systems [...] Pulmonary: Effort: No respiratory distress. Breath sounds: No rales, rhonchi, wheezing or stridor Abdominal: Palpations: Abdomen is soft. Tenderness: There [...] Gait normal. Deep Tendon Reflexes: Reflexes normal. Psychiatric: Mood and Affect: Mood normal. Behavior: Behavior normal. documented in this encounter Miscellaneous Notes * Addendum Note - Marleny Burt MD - 11/23/2024 10:20 AM EDTAddended by: MARLENY BURT on: 11/23/2024 12:05 PM Modules accepted: Orders * Addendum Note - Marleny Burt MD - 11/23/2024 10:20 AM EDTAddended by: MARLENY BURT on: 11/23/2024 12:24 PM Modules accepted: Orders * Addendum Note - Silvina Newman RMA - 11/23/2024 10:20 AM EDTAddended by: SILVINA NEWMAN on: 11/23/2024 12:26 PM Modules accepted: Orders * Addendum Note - Marleny Burt MD - 11/23/2024 10:20 AM EDTAddended by: MARLENY BURT on: 11/23/2024 12:43 PM Modules accepted: Orders documented in this encounter Plan of Treatment Upcoming Encounters Date Type Department Care Team (Late st Contact Info) Description 12/15/2024 9:45 AM EDT Hospital Encounter [facility] [address] [place] [address] [address] [place] [address] Binh Brody MD [address] [place] [address] 12/15/2024 3:20 PM EDT Office Visit [facility] [address] [facility] [address] [place] [address] Marleny Burt MD [address] [place] [address] 12/25/2024 2:00 PM EDT Appointment [facility] [address] [place] [address] Binh Brody MD [address] [place] [address] 01/04/2025 8:45 AM EDT Office Visit [facility] [address] [place] [id number] Chuyita Mosocso MD [address] [place] [address] 02/02/2025 1:40 PM EDT Office Visit [facility] [address] [address] Marleny Burt MD [address] [place] [address] 04/09/2025 10:00 AM EST Office Visit [facility] [place] [address] [place], [place] [id number] Anh Patel, TOWBOAT CAPTAIN [address] [place] [address] Scheduled Orders Name Type Priority Associated Diagnoses Orde r Schedule MO TOBACCO USE CESSATION INTERMEDIATE 3-10 MINUTES MO Charge Routine Cigarette smoker Ordered: 11/23/2024 UA W/REFLEX TO CULTURE Lab Routine Syncope, unspecified syncope type Dizziness UTI (urinary tract infection), uncomplicated 1 Occurrences starting 11/23/2024 until 11/23/2025 POCT GLUCOSE Point of Care Testing Routine Syncope, unspecified syncope type Dizziness Ordered: 11/23/2024 Scheduled Referrals Name Type Priority Associated Diagnoses Orde r Schedule AMB REFERRAL TO BEHAVIORAL HEALTH Outpatient Referral Routine Generalized anxiety disorder Ordered: 11/23/2024 AMB REFERRAL TO NEUROLOGY Outpatient Referral Routine Syncope, unspecified syncope type Dizziness Vision changes Transient leg weakness Ordered: 11/23/2024 documented as of this encounter Goals Goal Patient Goal Type Associated Problems Recent Progress Patient-Stated? Author Maintain a healthy diet, exercise regularly and maintain an ideal body weight General No Philippe Hansen MA Stay Tobacco Free Lifestyle No Philippe Hansen MA documented as of this encounter Results * MRI LUMBAR SPINE W WO CONTRAST (12/01/2024 3:26 PM EDT) Anatomical Region Laterality Modality Spine, L-spine Magnetic Resonan ce 12/01/2024 3:26 PM EDT Impressions 12/01/2024 4:06 PM EDT . Multilevel discogenic disease with foraminal narrowing as described. - Note: Radiology results need to be interpreted within a comprehensive clinical context. If you have questions about the radiology report, please contact the office of the ordering clinician. Narrative 12/01/2024 4:06 PM EDT MRI LUMBAR SPINE WITH AND WITHOUT CONTRAST, 12/01/2024 3:26 PM CLINICAL HISTORY: Legs feeling heavy R29.898-Other symptoms and signs involving the musculoskeletal gjgsxc-XSJ-55-CM. COMPARISON: No prior lumbar spine MR studies are available. PROCEDURE COMMENTS: Multiplanar multiecho MR imaging of the lumbar spine with and without gadolinium. Gadolinium contrast given as recorded in Epic. FINDINGS: Normal conus medullaris positioning and signal. No enhancing mass lesion or evidence of acute infectious/inflammatory process. Mild retrolisthesis of L5 on S1. Signal alteration seen in the discs at multiple levels consistent with degenerative disc disease, most prominent at L2-S1 Marrow signal: Modic type-1 and/or type-2 marrow signal change involves one or more levels between L3 and S1. Level by level analysis: L1-L2: Unremarkable. L2-L3: Otherwise unremarkable L3-L4: Mild facet arthropathy. Mild discogenic disease with associated spurring and mild narrowing of the left L3 neural foramen. L4-L5: Mild facet arthropathy and ligamentum flavum hypertrophy. Mild broad-based discogenic disease with ventral flattening of the thecal sac. Mild narrowing of the left L4 neural foramen. L5-S1: Broad-based discogenic disease/pseudodisc bulging with associated spurring and mild narrowing of the L5 neural foramina. Mild facet arthropathy. Small amount of signal alteration posterior aspect of disc which could be due to annular cleft. Procedure Note George Keen MD - 12/01/2024 MRI LUMBAR SPINE WITH AND WITHOUT CONTRAST, 12/01/2024 3:26 PM CLINICAL HISTORY: Legs feeling heavy R29.898-Other symptoms and signsinvolving the musculoskeletal smveau-HGC-93-CM. COMPARISON: No prior lumbar spine MR studies are available. PROCEDURE COMMENTS: Multiplanar multiecho MR imaging of the lumbar spinewith and without gadolinium. Gadolinium contrast given as recorded in Epic. FINDINGS: Normal conus medullaris positioning and signal. No enhancing mass lesionor evidence of acute infectious/inflammatory process. Mild retrolisthesis of L5 on S1. Signal alteration seen in the discs at multiple levels consistent with degenerative disc disease, most prominent at L2-S1 Marrow signal: Modic type-1 and/or type-2 marrow signal change involvesone or more levels between L3 and S1. Level by level analysis: L1-L2: Unremarkable. L2-L3: Otherwise unremarkable L3-L4: Mild facet arthropathy. Mild discogenic disease with associatedspurring and mild narrowing of the left L3 neural foramen. L4-L5: Mild facet arthropathy and ligamentum flavum hypertrophy. Mild broad-based discogenic disease with ventral flattening of the thecal sac.Mild narrowing of the left L4 neural foramen. L5-S1: Broad-based discogenic disease/pseudodisc bulging with associated spurring and mild narrowing of the L5 neural foramina. Mild facetarthropathy. Small amount of signal alteration posterior aspect of disc which could bedue to annular cleft. IMPRESSION: . Multilevel discogenic disease with foraminal narrowing as described. - Note: Radiology results need to be interpreted within a comprehensiveclinical context. If you have questions about the radiology report, please contactthe office of the ordering clinician. us Marleny Burt MD [facility] MRI ORDERABLES Final Resu lt * MRI BRAIN W WO CONTRAST (12/01/2024 3:25 PM EDT) Anatomical Region Laterality Modality Head Magnetic Resonan ce 12/01/2024 3:25 PM EDT Impressions 12/01/2024 3:50 PM EDT No acute or enhancing abnormality. - Note: Radiology results need to be interpreted within a comprehensive clinical context. If you have questions about the radiology report, please contact the office of the ordering clinician. Narrative 12/01/2024 3:50 PM EDT MRI BRAIN W WO CONTRAST 12/01/2024 3:25 PM CLINICAL HISTORY: U15-Zqitezq and kxfwtedj-GAA-92-CM N66-Fgkuewpix and sevodduqd-VSD-45-CM H53.9-Unspecified visual galsegyaotj-KNH-61-CM R29.898-Other symptoms and signs involving the musculoskeletal tcjyre-[facility]-35-CM. COMPARISON: Head CT 11/23/2024 PROCEDURE COMMENTS: Multiplanar multiecho MR imaging of the brain per protocol before and following IV contrast administration. Gadolinium contrast given as recorded in Epic. FINDINGS: Mild motion artifact noted. Midline structures normally formed. Ventricles normal. No evidence of acute stroke, mass, or hemorrhage. Diffusion imaging normal. No abnormal enhancement. Major vascular flow voids preserved, suggesting patency. Included portions of the paranasal sinuses, mastoids, and orbits unremarkable. Procedure Note George Keen MD - 12/01/2024 MRI BRAIN W WO CONTRAST 12/01/2024 3:25 PM CLINICAL HISTORY: C14-Aekfwbs and csxyjzyv-ZJG-81-CM U72-Gvvicvydj and vqjslfqzm-BKT-27-CM H53.9-Unspecified visual zxfanpsomrl-TCF-05-CM R29.898-Other symptoms and signs involving the ywxbcirgwgnbfimcopwwk-WLD-24-CM. COMPARISON: Head CT 11/23/2024 PROCEDURE COMMENTS: Multiplanar multiecho MR imaging of the brain perprotocol before and following IV contrast administration. Gadolinium contrast givenas recorded in Epic. FINDINGS: Mild motion artifact noted. Midline structures normally formed. Ventricles normal. No evidence ofacute stroke, mass, or hemorrhage. Diffusion imaging normal. No abnormal enhancement. Major vascular flow voids preserved, suggesting patency. Included portions of the paranasal sinuses, mastoids, and orbitsunremarkable. IMPRESSION: No acute or enhancing abnormality. - Note: Radiology results need to be interpreted within a comprehensiveclinical context. If you have questions about the radiology report, please contactthe office of the ordering clinician. us Marleny Burt MD [facility] MRI ORDERABLES Final Resu lt * HM HOLTER MONITOR RECORDING AND ANALYSIS (12/01/2024 11:12 AM EDT) Anatomical Region Laterality Modality Holter/Event Mon itoring 12/07/2024 8:25 AM EDT Impressions 12/07/2024 10:[address] 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 Marleny Burt MD Patient was monitored for 48 hours. INDICATIONS: R55 Syncope and collapse CONCLUSION: The predominant rhythm was Sinus. The Maximum Heart Rate recorded was 143 bpm, 12/02 18:49:05, the Minimum Heart Rate recorded was 52 bpm, 12/03 09:11:39, and the Average Heart Rate was 82 bpm. There were 6 VE beats with a burden of <1 %. There were 6 SVE beats with a burden of <1 %. There was 1 Patient Trigger. SINUS RHYTHM AND SINUS BRADYCARDIA Electronically Signed On 12-07-2024 10:44:58 EDT by Donnie Lam MD Narrative Procedure Note Donnie Lam MD - 12/07/[address] 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 Marleny Burt MD Patient was monitored for 48 hours. INDICATIONS: R55 Syncope and collapse CONCLUSION: The predominant rhythm was Sinus. The Maximum Heart Rate recorded was 143 bpm, 12/02 18:49:05, theMinimum Heart Rate recorded was 52 bpm, 12/03 09:11:39, and the Average HeartRate was 82 bpm. There were 6 VE beats with a burden of <1 %. There were 6 SVE beats with a burden of <1 %. There was 1 Patient Trigger. SINUS RHYTHM AND SINUS BRADYCARDIA Electronically Signed On 12-07-2024 10:44:58 EDT by Donnie Lam MD us Marleny Burt MD IMG HOLTER MONITOR ORDERABLES Final Result * CT ANGIOGRAM HEAD AND NECK W CONTRAST (11/24/2024 10:27 AM EDT) Anatomical Region Laterality Modality Head Computed Tomogra phy 11/24/2024 10:2 7 AM EDT Impressions 11/24/2024 11:00 AM EDT No large vessel occlusion, dissection, or aneurysm identified. - Note: Radiology results need to be interpreted within a comprehensive clinical context. If you have questions about the radiology report, please contact the office of the ordering clinician. NASCET criteria used for estimates of stenosis. Narrative 11/24/2024 11:00 AM EDT CTA HEAD AND NECK WITH CONTRAST, 11/24/2024 10:27 AM CLINICAL HISTORY: F32-Eitwgfl and oftlgoac-QQC-88-CM J55-Zwzfkvvjb and gupwiidjd-NUI-41-CM H53.9-Unspecified visual feoigraefhk-NSJ-08-CM R29.898-Other symptoms and signs involving the musculoskeletal swyhqh-ZRI-06-CM. COMPARISON: Concurrently obtained CT brain, CTA 06/24/2024 PROCEDURE COMMENTS: Isovue 370 IV contrast given as recorded in EPIC. Subsequently, multi-detector helical scanning was performed through the head and neck and multiplanar reconstructions generated per protocol. Review included 3D MIP reconstructions. Dose 1 : CT DLP Total : 156.53 mGycm DLP Spiral Max : 150.23 mGycm Maximum CTDI Vol : 3.9 mGy FINDINGS: CTA NECK: ARCH: Visible aortic arch patent shows no gross aneurysm or dissection. RIGHT CAROTID SYSTEM: Common carotid artery and cervical segments of the internal carotid artery are patent without evidence of flow-limiting stenosis or dissection. LEFT CAROTID SYSTEM: Common carotid artery and cervical segments of the internal carotid artery are patent without evidence of flow-limiting stenosis or dissection. VERTEBRAL ARTERIES: Dominant left vertebral artery. 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 Vertebral arteries are grossly patent without flow-limiting stenosis or dissection. CTA HEAD: No occlusion or flow limiting stenosis of the central intracranial circulation. No aneurysm. OTHER: Visualized lung apices are clear. No neck mass or suspicious lymph nodes. Cervical spine degenerative changes. Procedure Note Cullen Rosen MD - 11/24/2024 CTA HEAD AND NECK WITH CONTRAST, 11/24/2024 10:27 AM CLINICAL HISTORY: X50-Ylmgsdv and dlnweyrx-QVY-72-CM H48-Haqeebivt and aqyhcojow-HIN-10-CM H53.9-Unspecified visual rcjeotwrzxv-IDH-02-CM R29.898-Other symptoms and signs involving the qcbkycqpbcqnptzfvqead-UDY-54-CM. COMPARISON: Concurrently obtained CT brain, CTA 06/24/2024 PROCEDURE COMMENTS: Isovue 370 IV contrast given as recorded in EPIC. Subsequently, multi-detector helical scanning was performed through thehead and neck and multiplanar reconstructions generated per protocol. Review included 3D MIP reconstructions. Dose 1 : CT DLP Total : 156.53 mGycm DLP Spiral Max : 150.23 mGycm Maximum CTDI Vol : 3.9 mGy FINDINGS: CTA NECK: ARCH: Visible aortic arch patent shows no gross aneurysm or dissection. RIGHT CAROTID SYSTEM: Common carotid artery and cervical segments of the internal carotid artery are patent without evidence of flow-limitingstenosis or dissection. LEFT CAROTID SYSTEM: Common carotid artery and cervical segments of theinternal carotid artery are patent without evidence of flow-limiting stenosis or dissection. VERTEBRAL ARTERIES: Dominant left vertebral artery. 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 Vertebral arteries are grossly patentwithout flow-limiting stenosis or dissection. CTA HEAD: No occlusion or flow limiting stenosis of the centralintracranial circulation. No aneurysm. OTHER: Visualized lung apices are clear. No neck mass or suspicious lymphnodes. Cervical spine degenerative changes. IMPRESSION: No large vessel occlusion, dissection, or aneurysm identified. - Note: Radiology results need to be interpreted within a comprehensiveclinical context. If you have questions about the radiology report, please contactthe office of the ordering clinician. NASCET criteria used for estimates of stenosis. us Marleny Burt MD IMG CT ORDERABLES Final Resul t * CT HEAD WO CONTRAST (11/23/2024 1:11 PM EDT) Anatomical Region Laterality Modality Head Computed Tomogra phy 11/23/2024 1:11 PM EDT Impressions 11/23/2024 1:16 PM EDT No acute intracranial abnormality. - Note: Radiology results need to be interpreted within a comprehensive clinical context. If you have questions about the radiology report, please contact the office of the ordering clinician. Narrative 11/23/2024 1:[address] HEAD WO CONTRAST 11/23/2024 1:11 PM CLINICAL HISTORY: M39-Pahzlso and bgpyvhkt-XIT-51-CM D27-Kxqoepeie and iwgaylmwt-OXP-00-CM H53.9-Unspecified visual qlxichbtrga-UDU-41-CM R29.898-Other symptoms and signs involving the musculoskeletal iqgsby-BSK-26-CM. COMPARISON: None. PROCEDURE COMMENTS: Routine noncontrast head CT with multiplanar reconstructions. Dose 1 : CT DLP Total : 696.99 mGycm DLP Spiral Max : 692.02 mGycm Maximum CTDI Vol : 44.06 mGy FINDINGS: HEMORRHAGE: No evidence of acute intracranial hemorrhage. MASS EFFECT / MASS LESION: No mass effect. There is no evidence of an intracranial mass or extraaxial fluid collection. ACUTE ISCHEMIC CHANGE: None. CHRONIC ISCHEMIC CHANGE: None. PARENCHYMA: The brain parenchyma is otherwise within normal limits for age. VENTRICLES: Normal caliber and morphology. OTHER: The visualized calvarium, skull base, orbits and extracranial soft tissues are normal. The visualized paranasal sinuses and mastoid air cells are clear. Procedure Note Jeremi Garnica MD - 11/23/2024 CT HEAD WO CONTRAST 11/23/2024 1:11 PM CLINICAL HISTORY: I38-Lnqtwyp and btjmgjxu-FSY-05-CM P40-Igntmrfwv and iegnbvgtj-YNQ-55-CM H53.9-Unspecified visual jycnsfsjvdh-HMR-75-CM R29.898-Other symptoms and signs involving the nheqjogiqdxcmvsqkebhj-NUF-52-CM. COMPARISON: None. PROCEDURE COMMENTS: Routine noncontrast head CT with multiplanar reconstructions. Dose 1 : CT DLP Total : 696.99 mGycm DLP Spiral Max : 692.02 mGycm Maximum CTDI Vol : 44.06 mGy FINDINGS: HEMORRHAGE: No evidence of acute intracranial hemorrhage. MASS EFFECT / MASS LESION: No mass effect. There is no evidence of an intracranial mass or extraaxial fluid collection. ACUTE ISCHEMIC CHANGE: None. CHRONIC ISCHEMIC CHANGE: None. PARENCHYMA: The brain parenchyma is otherwise within normal limits forage. VENTRICLES: Normal caliber and morphology. OTHER: The visualized calvarium, skull base, orbits and extracranialsoft tissues are normal. The visualized paranasal sinuses and mastoid air cellsare clear. IMPRESSION: No acute intracranial abnormality. - Note: Radiology results need to be interpreted within a comprehensiveclinical context. If you have questions about the radiology report, please contactthe office of the ordering clinician. us Marleny Burt MD IMG CT ORDERABLES Final Resul t documented in this encounter Visit Diagnoses Diagnosis Syncope, unspecified syncope type- Primary Dizziness Dizziness and giddiness Vision changes Unspecified visual disturbance Intermittent palpitations Abnormal EKG Nonspecific abnormal electrocardiogram (ECG) (EKG) Cigarette smoker Tobacco use disorder UTI (urinary tract infection), uncomplicated Urinary tract infection, site not specified Elevated LDL cholesterol level Pure hypercholesterolemia Transaminitis Nonspecific elevation of levels of transaminase or lactic acid dehydrogenase (LDH) Transient leg weakness Generalized anxiety disorder Syncope, unspecified syncope type Dizziness Dizziness and giddiness Vision changes Unspecified visual disturbance Transient leg weakness Syncope, unspecified syncope type Dizziness Dizziness and giddiness Vision changes Unspecified visual disturbance Transient leg weakness Syncope, unspecified syncope type Dizziness Dizziness and giddiness Intermittent palpitations Abnormal EKG Nonspecific abnormal electrocardiogram (ECG) (EKG) Transient leg weakness Syncope, unspecified syncope type Dizziness Dizziness and giddiness Vision changes Unspecified visual disturbance Transient leg weakness documented in this encounter Discontinued Medications Medication Sig Discontinue Reason Start Date End Da te dextroamphetamine-amphet amine (ADDERALL XR) 15 mg Oral Capsule, Sust. Release 24 hrIndications:unsure of exact dosage Take 15 mg by mouth daily. Indications: unsure of exact dosage Cancelled by 11/23/2024 oxyCODONE-acetaminophen (PERCOCET) 5-325 mg Oral Tablet Take 1-2 Tabs by mouth every 4 hours as needed for Pain. Cancelled by 02/06/2016 11/23/2024 documented as of this encounter Care Teams Channel Process Supervisor Relationship Specialty Start Date End Date Marleny Burt MD [address] [place] [address] PCP - General Family Medicine 09/29/24 documented as of this encounter
--- OUTSIDE RECORDS SUMMARY | 2024-11-23 13:04 | XMS_ITS | Encounter Summary ---
Author Organization [place] [address] Care Team Providers Care Laborer Road Name Role Phone Chip Burt MD Primary Care Provider [phone] Reason for Referral * MRI/CAT Scan (Emergency) - PCP Precert Acquired Specialty Diagnoses / Procedures Referred By Contac t Referred To Contact Radiology Diagnoses Syncope, unspecified syncope type Dizziness Vision changes Transient leg weakness Procedures CT HEAD WO CONTRAST Chip Burt MD [address] [place] [address] Phone: tel: fax: Referral ID Status Reason Start Date Expiration Date V isits Requested Visits Authorized [id number] PCP Precert Acquired 11/23/2024 11/23/2025 1 1 Reason for Visit * MRI/CAT Scan (Emergency) - PCP Precert Acquired Specialty Diagnoses / Procedures Referred By Contac t Referred To Contact Radiology Diagnoses Syncope, unspecified syncope type Dizziness Vision changes Transient leg weakness Procedures CT HEAD WO CONTRAST Chip Burt MD [address] [place] [address] Phone: tel: fax: Referral ID Status Reason Start Date Expiration Date V isits Requested Visits Authorized [id number] PCP Precert Acquired 11/23/2024 11/23/2025 1 1 Encounter Details Date Type Department Care Team (Latest Contact Info) Description 11/23/2024 1:04 PM EDT - 11/23/2024 11:59 PM EDT Hospital Encounter [facility] [place] [address] [address] Chip Burt MD [address] [place] [address] Syncope, unspecified syncope type; Dizziness; Vision changes; Transient leg weakness Discharge Disposition: Home or Self Care Social [...] at Time of Discharge Blood Pressure Monitor [facility] KitIndications:Syn cope, unspecified syncope type,Other fatigue 1 Kit by [facility].(Non-El g; Combo Route) route daily. 1 Kit 11/02/2024 busPIRone (BUSPAR) 5 mg Oral TabletIndications: Generalized anxiety disorder Take 1 Tablet by mouth 2 times daily as needed. 60 Tablet 1 11/23/2024 ergocalciferol (VITAMIN D) 1,250 mcg (50,000 unit) [...] AM EDT Hospital Encounter [facility] [address] [place] [address] [address] [place] [address] Binh Brody MD [address] [place] [address] 12/15/2024 3:20 PM EDT Office Visit [facility] [address] [facility] [address] [place] [address] Chip Burt MD [address] [place] [address] 12/25/2024 2:00 PM EDT Appointment [facility] [address] [place] [address] Binh Brody MD [address] [place] [address] 01/04/2025 8:45 AM EDT Office Visit [facility] Neurology [address] [place] [address] Chuyita Moscoso MD [address] [place] [address] 02/02/2025 1:40 PM EDT Office Visit [facility] [address] [place] [address] Chip Burt MD [address] [place] [address] 04/09/2025 10:00 AM EST [facility] [place] [address] [place] [address] Anh Patel, BACKEND JAVA DEVELOPER [address] [place] [address] documented as of this encounter Goals Goal Patient Goal Type Associated Problems Recent Progress Patient-Stated? Author Maintain a healthy diet, exercise regularly and maintain an ideal body weight General No Philippe Hansen MA Stay Tobacco Free Lifestyle No Philippe Hansen MA documented as of this encounter Procedures Procedure Name Priority Date/Time Associated Diagnosis Comments CT HEAD WO CONTRAST STAT 11/23/2024 1 :11 PM EDT Syncope, unspecified syncope type Dizziness Vision changes Transient leg weakness documented in this encounter Results * CT HEAD WO CONTRAST (11/23/2024 1:11 [...] WO CONTRAST 11/23/2024 1:11 PM CLINICAL HISTORY: K85-Fxouifh and csjavryf-FRO-20-CM O66-Zoowyxtlo and mzhvaufip-QDT-09-CM H53.9-Unspecified visual lfetwfsrwgq-AWY-58-CM R29.898-Other symptoms and signs involving the musculoskeletal zlnmdy-INM-40-CM. COMPARISON: None. PROCEDURE COMMENTS: Routine noncontrast head [...] WO CONTRAST 11/23/2024 1:11 PM CLINICAL HISTORY: J54-Bwjetba and gfhgdohb-ARS-56-CM N83-Efzbgwumv and sksmmjlyp-NNO-98-CM H53.9-Unspecified visual yeueawjwfte-VMW-22-CM R29.898-Other symptoms and signs involving the rjgexqtyibnqbxdhhcnzi-HNO-96-CM. COMPARISON: None. PROCEDURE COMMENTS: Routine noncontrast head [...] the ordering clinician. us Chip Burt MD IM CT ORDERABLES Final Resul t documented in this encounter Visit Diagnoses Diagnosis Syncope, unspecified syncope type Dizziness Dizziness and giddiness Vision changes Unspecified visual disturbance Transient leg weakness documented in this encounter Care Teams Laborer Road Relationship Specialty Start Date End Date Chip Burt MD [address] [place] [address] PCP - General Family Medicine 09/29/24 documented as of this encounter
--- OUTSIDE RECORDS SUMMARY | 2024-11-24 10:07 | XMS_ITS | Encounter Summary ---
Author Organization [place] [address] Care Team Providers Care Barn Hand Name Role Phone Chip Burt MD Primary Care Provider [phone] Reason for Referral * MRI/CAT Scan (Urgent) - PCP Precert Acquired Specialty Diagnoses / Procedures Referred By Gisellac t Referred To Contact Radiology Diagnoses Syncope, unspecified syncope type Dizziness Vision changes Transient leg weakness Procedures CT ANGIOGRAM HEAD AND NECK W CONTRAST Chip Burt MD [address] [place] [address] Phone: tel: fax: Referral ID Status Reason Start Date Expiration Date V isits Requested Visits Authorized [id number] PCP Precert Acquired 11/23/2024 11/23/2025 1 1 Reason for Visit * MRI/CAT Scan (Urgent) - PCP Precert Acquired Specialty Diagnoses / Procedures Referred By Contac t Referred To Contact Radiology Diagnoses Syncope, unspecified syncope type Dizziness Vision changes Transient leg weakness Procedures CT ANGIOGRAM HEAD AND NECK W CONTRAST Chip Burt MD [address] [place] [address] Phone: tel: fax: Referral ID Status Reason Start Date Expiration Date V isits Requested Visits Authorized [id number] PCP Precert Acquired 11/23/2024 11/23/2025 1 1 Encounter Details Date Type Department Care Team (Latest Contact Info) Description 11/24/2024 10:07 AM EDT - 11/24/2024 11:59 PM EDT Hospital Encounter [facility] [address] [place] [phone] Chip Burt MD [address] [place] [address] Syncope, unspecified syncope type; Dizziness; Vision changes; [...] at Time of Discharge Blood [place] [facility] KitIndications:Syn cope, unspecified syncope type,Other fatigue 1 Kit by [facility]Non-El g; Combo Route) route [...] AM EDT Hospital Encounter [facility] [address] [place] [address] [address] [place] [address] Binh Brody MD [address] [place] [address] 12/15/2024 3:20 PM EDT Office Visit [facility] [address] [facility] [address] [place] [address] Chip Burt MD [address] [place] [address] 12/25/2024 2:00 PM EDT Appointment [facility] [address] [place] [address] Binh Brody MD [address] [place] [address] [place] [address] 01/04/2025 8:45 AM EDT Office Visit [facility]rology [facility] [address] [place] [address] Chuyita Moscoso MD [address] [place] [address] 02/02/2025 1:40 PM EDT Office Visit [facility] [address] [place] [address] Chip Burt MD [address] [place] [address] 04/09/2025 10:00 AM EST Office Visit [facility] [place] [address] [place] [address] Anh Patel, EMT/PARAMEDIC 1 [facility] [place] [address] documented as of this encounter Goals Goal [...] WITH CONTRAST, 11/24/2024 10:27 AM CLINICAL HISTORY: S77-Hwmuwet and qamkxgew-SXM-31-CM O93-Aflqxrrep and iuhgwlwzw-QEL-13-CM H53.9-Unspecified visual kutqpameaxh-COP-80-CM R29.898-Other symptoms and signs involving the musculoskeletal riamwi-GQS-47-CM. COMPARISON: Concurrently obtained CT brain, CTA 06/24/2024 [...] WITH CONTRAST, 11/24/2024 10:27 AM CLINICAL HISTORY: E91-Wyjfdvl and kkkuapkz-ZTS-63-CM M47-Jzklnrpro and ygaokjows-WQQ-48-CM H53.9-Unspecified visual dxyiqlpzqzj-CUA-20-CM R29.898-Other symptoms and signs involving the jfkcgocygnlddhwzltvej-QUP-62-CM. COMPARISON: Concurrently obtained CT brain, CTA 06/24/2024 [...] NASCET criteria used for estimates of stenosis. Chip Burt MD IMG CT ORDERABLES Final [...] EDT documented in this encounter Care Teams Barn Hand Relationship Specialty Start Date End Date Chip Burt MD [address] [place] [address] PCP - General Family Medicine 09/29/24 documented as of this encounter
--- OUTSIDE RECORDS SUMMARY | 2024-11-24 13:40 | XMS_ITS | Encounter Summary ---
Author Organization [facility] Address [address] [place] [address] Care Team Providers Care Pst Supervisor Name Role Phone Gretchen Juarez MD Primary Care Provider Tiffanie bullard Reason for Visit * Reason Comments Gynecologic Exam Encounter Details Date Type Department Care Team (Late st Contact Info) Description 11/24/2024 1:40 PM EDT Office Visit [facility] - Obstetrics & Gynecology, [place] [address] [place] [address] Amalia Joya, MATERIALS HANDLING EQUIPMENT OPERATOR [address] [place] [address] Gynecologic exam normal (Primary Dx); Vaginitis and [...] 3:34 PM EST documented in this encounter Plan of Treatment Scheduled Orders Name Type Priority Associated Diagnoses Orde r Schedule MDL ONE SWAB Lab Routine Vaginitis and vulvovaginitis Ordered: 11/24/2024 documented as of this encounter Results * PAP HPV DNA, AZALIA (11/24/2024 2:43 PM EDT) Diagnosis Comment [facility] SECURITY COMPLIANCE ENGINEER AL [facility] Comment:NEGATIVE FOR INTRAEP ITHELIAL LESION OR MALIGNANCY. Adequacy Comment [facility] SECURITY COMPLIANCE ENGINEER [facility] Comment: Satisfactory for evaluation. Endocervical and/or squamous metaplastic cells (endocervical component) are present. Performed Comment [facility] SECURITY COMPLIANCE ENGINEER [facility] Comment:Anh Lainez, Cyto logist (ASCP) Notes Comment [facility] SECURITY COMPLIANCE ENGINEER AL [facility] Comment: The Pap smear is a screening test designed to aid in the detection of premalignant and malignant conditions of the uterine cervix. It is not a diagnostic procedure and should not be used as the sole means of detecting cervical cancer. Both false-positive and false-negative reports do occur. HPV 16 Henrik Negative Negative [facility] HPV 18, Henrik Negative Negative [facility] Comment: This nucleic acid amplification test detects fourteen high-risk HPV types: HPV16, HPV18 and twelve other high-risk types (31,33,35,39,45,51,52,56,58,59,66,68) without differentiation. Performed at: [facility] [address] [id number] School Counselor: Shazia Marrero MD, Phone: [phone] Performed at: - [facility] [id number] School Counselor: Shazia Marrero MD, Phone: [phone] HPV Other Types, Henrik Negative Negative [facility] Pap Vial 11/24/2024 2:43 PM EDT 11/28/2024 3:07 PM EDT us Amalia Joya MATERIALS HANDLING EQUIPMENT OPERATOR PATHOLOGY/CYTOLOGY ORDERABL ES Final Result [facility] [address] documented in this encounter Visit Diagnoses Diagnosis Gynecologic exam normal- Primary Reserved for inherently not codable concepts WITHOUT codable children Vaginitis and vulvovaginitis Postmenopausal bleeding documented in this encounter Care Teams Pst Supervisor Relationship Specialty Start Date End Date Gretchen Juarez MD PCP - General Family Medicine 05/13/12 documented as of this encounter
--- OUTSIDE RECORDS SUMMARY | 2024-11-24 14:40 | XMS_ITS | Encounter Summary ---
Author Organization [facility] Address [address] [place] [address] Care Team Providers Care Machine Pack Assembler Name Role Phone Gretchen Juarez MD Primary Care Provider Tiffanie bullard Encounter Details Date Type Department Care Team (Latest Contact Info) Description 11/24/2024 2:40 PM EDT - 11/24/2024 11:59 PM EDT Hospital Encounter Laboratory [address] [facility] [place] [address] [place] [address] Gynecologic exam normal Discharge Disposition: Home or [...] AZALIA (11/24/2024 2:43 PM EDT) Diagnosis Comment [facility] FEATURES EDITOR AL LAB Comment:NEGATIVE FOR INTRAEP ITHELIAL LESION OR MALIGNANCY. Adequacy Comment [facility] FEATURES EDITOR AL LAB Comment: Satisfactory for evaluation. Endocervical and/or squamous metaplastic cells (endocervical component) are present. Performed Comment [facility] FEATURES EDITOR AL LAB Comment:Anh Lainez, Cyto logist (ASCP) Notes Comment [facility] FEATURES EDITOR AL LAB Comment: The Pap smear is [...] types (31,33,35,39,45,51,52,56,58,59,66,68) without differentiation. Performed at: - [address] [id number] Seam Closer: Shazia Marrero MD, Phone: [phone] Performed at: = - [facility] [id number] Seam Closer: Shazia Marrero MD, Phone: [phone] HPV Other Types, Henrik Negative Negative [facility] EXTER[facility] Pap Vial 11/24/2024 2:43 PM EDT 11/28/2024 3:07 PM EDT Amalia Joya AUTO SERVICE MECHANIC PATHOLOGY/CYTOLOGY ORDERABL ES Final Result [facility] EX[facility] [address] documented in this encounter Visit Diagnoses Diagnosis Gynecologic exam normal Reserved for inherently not codable concepts WITHOUT codable children documented in this encounter Care Teams Machine Pack Assembler Relationship Specialty Start Date End Date Gretchen Juarez MD PCP - General Family Medicine 05/13/12 documented as of this encounter
--- OUTSIDE RECORDS SUMMARY | 2024-11-30 14:45 | XMS_ITS | Encounter Summary ---
Author Organization [place] [address] Care Team Providers Care Industrial Servicer Name Role Phone Chip Burt MD Primary Care Provider Reason for Visit * Reason Comments Follow-up 1 week Urinary Frequency smell to urine jessica tamez has been getting treated Encounter Details Date Type Department Care Team (Latest Contact Info) Description 11/30/2024 2:45 PM EDT Office Visit [facility] [address] [facility] [address] [place] [phone] Fabby Joya MD [address] [facility] [address] [place] [address] Dizziness (Primary Dx); Urinary frequency; UTI (urinary tract infection), uncomplicated Social History Tobacco Use Types Packs/Day Years Used Date Smoking Tobacco: Every Day Cigarettes 0.5 25.6 Started: 05/03/1999 Smokeless Tobacco: Never Alcohol Use [...] AM EDT Hospital Encounter [facility] [address] [place] [address] [address] [place] [address] Binh Brody MD [address] [place] [address] 12/15/2024 3:20 PM EDT Office Visit [facility] [address] [facility] [address] [place] [address] Chip Burt MD [address] [place] [address] 12/25/2024 2:00 PM EDT Appointment [facility] [address] [place] [address] Binh Broyd MD [address] [place] [address] 01/04/2025 8:45 AM EDT Office Visit [facility] [address] [place] [address] Chuyita Moscoso MD [address] [id number] 02/02/2025 1:40 PM EDT Office Visit [facility] [address] [address] Chip Burt MD [address] [place] [id number] 04/09/2025 10:00 AM EST Office [place] [facility] [place] [address] [place] [address] Anh Patel, CENTER LEAD CONSULTANT 1 [facility] [place] [address] documented as of this encounter Goals Goal [...] 30 hours. 12/02/2024 1:48 PM EDT PREFERRED LAB mii Urine STRUCTURE OF URINARY TRACT PROPER / Unknown 11/30/2024 3:30 PM EDT 11/30/2024 3:30 PM EDT Fabby Joya MD MICROBIOLOGY - GENERAL ORDERA BLES Final Result PREFERRED [facility] 1 [facility] , [place] [address] * (ABNORMAL) SEP URINALYSIS POC (11/30/2024 3:24 [...] POINT OF CARE TEST ORDERABLES Final Result [facility] [place] [address], [address] [place] [address] documented in this encounter Visit Diagnoses Diagnosis [...] documented as of this encounter Care Teams Industrial Servicer Relationship Specialty Start Date End Date Chip Burt MD [address] [place] [id number] PCP - General Family Medicine 09/29/24 documented as of this encounter
--- OUTSIDE RECORDS SUMMARY | 2024-12-01 10:47 | XMS_ITS | Encounter Summary ---
Author Organization [place] [address] Care Team Providers Care Defensive Fire Control Systems Operator Name Role Phone Marleny Burt MD Primary Care Provider [phone] Reason for Referral * Holter Monitor (Routine) - Authorization Not Needed Specialty Diagnoses / Procedures Referred By Contac t Referred To Contact Radiology Diagnoses Syncope, unspecified syncope type Dizziness Intermittent palpitations Abnormal EKG Procedures HOLTER MONITOR RECORDING AND ANALYSIS Marleny Burt MD [address] [place] [address] Phone: tel: fax: Referral ID Status Reason Start Date Expiration Date Visits Requested Visits Authorized [id number] Authorization Not Needed 11/23/2024 11/23/2026 1 1 Reason for Visit * Holter Monitor (Routine) - Authorization Not Needed Specialty Diagnoses / Procedures Referred By Contac t Referred To Contact Radiology Diagnoses Syncope, unspecified syncope type Dizziness Intermittent palpitations Abnormal EKG Procedures HOLTER MONITOR RECORDING AND ANALYSIS Marleny Burt MD [address] [place] [address] Phone: tel: fax: Referral ID Status Reason Start Date Expiration Date Visits Requested Visits Authorized [id number] Authorization Not Needed 11/23/2024 11/23/2026 1 1 Encounter Details Date Type Department Care Team (Latest Contact Info) Description 12/01/2024 10:47 AM EDT - 12/01/2024 1:34 PM EDT Hospital Encounter COV H[place]TER [place] [address] Marleny Burt MD [address] [place] [address] Syncope, unspecified syncope type; Dizziness; Intermittent palpitations; [...] of Assessment Author No 09/29/2024 1:42 PM Sihva Lopez MA * Because of a physical, [...] of Discharge Blood Pressure [place] [facility] KitIndications:Syn cope, unspecified syncope type,Other fatigue 1 Kit by [facility]Non-El [place]; Combo Route) route daily. 1 Kit [...] AM EDT Hospital Encounter [facility] [address] [place] [address] [address] [place] [address] Binh Brody MD [address] [place] [address] [place] [address] 12/15/2024 3:20 PM EDT Office Visit [facility] [address] [facility] [address] [place] [address] Marleny Burt MD [address] [place] [id number] 12/25/2024 2:00 PM EDT Appointment [facility] [address] [place] [address] Binh Brody MD [address] [place] [address] [place] [address] 01/04/2025 8:45 AM EDT Office Visit [facility] [place] [address] [place] [address] Chuyita Moscoso MD [address] [place] [address] 02/02/2025 1:40 PM EDT Office Visit [facility] [address] [place] [address] Marleny Burt MD [address] [place] [address] 04/09/2025 10:00 AM EST Office Visit [facility] [place] [address] [place] [address] Anh Patel APRN 1 [place] [address] documented as of this encounter Goals Goal [...] AM EDT Impressions 12/07/2024 10:45 AM EDT [facility] Test Date: 2024-12-07 Pat Name: SHERYL THOMPSON Department: DEPID Room: Gender: Female Oil Lease Buyer: : 1975 Requested By: MARLENY Villagomez Order Number: [id number] Michael MD: Donnie Lam MD Interpretive Statements Manager Games Date: 12/01/2024 Referring Provider: Dr. Marleny Burt [...] [facility] Test Date: 2024-12-07 Pat Name: SHERYL THOMPSON Department: DEPID Room: Gender: Female Oil Lease Buyer: : 1975 Requested By: MARLENY Villagomez Order Number: [id number] Reading MD: Donnie Lam MD Interpretive Statements Manager Games Date: 12/01/2024 Referring Provider: Dr. Marleny Burt [...] (EKG) documented in this encounter Care Teams Defensive Fire Control Systems Operator Relationship Specialty Start Date End Date Marleny Burt MD [address] [place] [address] PCP - General Family Medicine 09/29/24 documented as of this encounter
--- OUTSIDE RECORDS SUMMARY | 2024-12-01 13:35 | XMS_ITS | Encounter Summary ---
Author Organization [place] [address] Care Team Providers Care Radio Electronics Technician Name Role Phone Chip Burt MD Primary Care Provider [phone] Reason for Referral * MRI/CAT Scan (Urgent) - PCP Precert Acquired Specialty Diagnoses / Procedures Referred By Contac t Referred To Contact Radiology Diagnoses Transient leg weakness Procedures MRI LUMBAR SPINE W WO CONTRAST Chip Burt MD [address] [place] [address] Phone: tel: fax: Referral ID Status Reason Start Date Expiration Date V isits Requested Visits Authorized [id number] PCP Precert Acquired 11/23/2024 11/23/2025 1 1 Reason for Visit * MRI/CAT Scan (Urgent) - PCP Precert Acquired Specialty Diagnoses / Procedures Referred By Contac t Referred To Contact Radiology Diagnoses Transient leg weakness Procedures MRI LUMBAR SPINE W WO CONTRAST Chip Burt MD [address] [place] [address] Phone: tel: fax: Referral ID Status Reason Start Date Expiration Date V isits Requested Visits Authorized [id number] PCP Precert Acquired 11/23/2024 11/23/2025 1 1 Encounter Details Date Type Department Care Team (Latest Contact Info) Description 12/01/2024 1:35 PM EDT Hospital Encounter [facility] MRI [address] [place] [address] Chip Burt MD [address] [place] [address] Transient leg weakness Discharge Disposition: Home or [...] at Time of Discharge Blood Pressure Monitor [facility] KitIndications:Syn cope, unspecified syncope type,Other fatigue 1 Kit by [facility].(Non-El g; Combo Route) route daily. 1 [...] AM EDT Hospital Encounter [facility] [address] [place] [address] [address] [place] [address] Binh Brody MD [address] [place] [address] 12/15/2024 3:20 PM EDT Office Visit [facility] [address] [facility] [address] [place] [address] Chip Burt MD [address] [place] [address] 12/25/2024 2:00 PM EDT Appointment [facility] [address] [place] [address] Binh Brody MD [address] [place] [address] [place] [address] 01/04/2025 8:45 AM EDT Office [place] [facility] [place] [facility] [address] [place] [address] Chuyita Moscoso MD [address] [place] [address] 02/02/2025 1:40 PM EDT Office Visit [facility] [address] [place] [address] Chip Butr MD [address] [place] [address] 04/09/2025 10:00 AM EST Office Visit [facility] [place] [address] [place] [address] Anh Patel, INGREDIENT SPECIALIST 1 [facility] [place] [address] documented as of this encounter Goals Goal [...] R29.898-Other symptoms and signs involving the musculoskeletal swnhhm-VLC-66-CM. COMPARISON: No prior lumbar spine MR studies [...] heavy R29.898-Other symptoms and signsinvolving the musculoskeletal dogtpn-CKR-17-CM. COMPARISON: No prior lumbar spine MR studies [...] the ordering clinician. us Chip Burt MD IMG MRI ORDERABLES Final Resu lt documented in this encounter Visit Diagnoses Diagnosis Transient leg weakness documented in this encounter Care Teams Radio Electronics Technician Relationship Specialty Start Date End Date Chip Burt MD [address] [place] [address] PCP - General Family Medicine 09/29/24 documented as of this encounter
--- OUTSIDE RECORDS SUMMARY | 2024-12-01 13:36 | XMS_ITS | Encounter Summary ---
Author Organization [place] [address] Care Team Providers Care Kiln Operator Helper Name Role Phone Chip Burt MD Primary Care Provider [phone] Reason for Referral * MRI/CAT Scan (Routine) - PCP Precert Acquired Specialty Diagnoses / Procedures Referred By Contac t Referred To Contact Radiology Diagnoses Syncope, unspecified syncope type Dizziness Vision changes Transient leg weakness Procedures MRI BRAIN W WO CONTRAST Chip Burt MD [address] [place] [address] Phone: tel: fax: Referral ID Status Reason Start Date Expiration Date V isits Requested Visits Authorized [id number] PCP Precert Acquired 11/23/2024 11/23/2025 1 1 Reason for Visit * MRI/CAT Scan (Routine) - PCP Precert Acquired Specialty Diagnoses / Procedures Referred By Contac t Referred To Contact Radiology Diagnoses Syncope, unspecified syncope type Dizziness Vision changes Transient leg weakness Procedures MRI BRAIN W WO CONTRAST Chip Burt MD [address] [place] [address] Phone: tel: fax: Referral ID Status Reason Start Date Expiration Date V isits Requested Visits Authorized [id number] PCP Precert Acquired 11/23/2024 11/23/2025 1 1 Encounter Details Date Type Department Care Team (Latest Contact Info) Description 12/01/2024 1:36 PM EDT - 12/01/2024 11:59 PM EDT Hospital Encounter [facility] MRI [address] [place] [address] Chip Burt MD [facility] [place] [address] Syncope, unspecified syncope type; Dizziness; Vision changes; [...] Date Author No 09/29/2024 1:42 PM Shiva Loepz MA documented in this encounter Medications at Time of Discharge Blood Pressure Monitor [facility] KitIndications:Syn cope, unspecified syncope type,Other fatigue 1 Kit by [facility].(Non-El g; Combo Route) route daily. [...] AM EDT Hospital Encounter [facility] [address] [place] [address] [address] [place] [id number] Binh Brody MD [address] [place] [address] 12/15/2024 3:20 PM EDT Office Visit [facility] [address] [facility] [address] [place] [address] Chip Burt MD [address] [place] [phone] 12/25/2024 2:00 PM EDT Appointment [facility] [address] [place] [address] Binh Brody MD [address] [place] [address] 01/04/2025 8:45 AM EDT Office Visit [facility] Neurology [place] [address] [place] [address] Chuyita Moscoso MD [address] [place] [address] 02/02/2025 1:40 PM EDT Office Visit [facility] [address] [place] [address] Chip Butr MD [address] [place] [address] 04/09/2025 10:00 AM EST Office Visit [facility] [address] [place] [address] Anh Patel APRN 1 [facility] [place] [address] documented as of this encounter Goals Goal [...] WO CONTRAST 12/01/2024 3:25 PM CLINICAL HISTORY: O97-Jxzklej and fgruzyoo-IJN-91-CM F78-Uctofxkcc and gepcebcga-VXV-47-CM H53.9-Unspecified visual zgadgyendqy-YVI-74-CM R29.898-Other symptoms and signs involving the musculoskeletal slddnj-XIR-80-CM. COMPARISON: Head CT 11/23/2024 PROCEDURE COMMENTS: Multiplanar [...] WO CONTRAST 12/01/2024 3:25 PM CLINICAL HISTORY: M61-Hmcnwdr and rwtsxpxp-SXS-12-CM A28-Yrottwtgp and eycfalmmc-PCZ-28-CM H53.9-Unspecified visual ekpspwkyfiq-GPS-99-CM R29.898-Other symptoms and signs involving the cfyzoqijvjeqvzdsawttr-SJR-11-CM. COMPARISON: Head CT 11/23/2024 PROCEDURE COMMENTS: Multiplanar [...] ordering clinician. us Chip Burt MD IM MRI ORDERABLES Final Resu lt documented in [...] 12/01/2024 documented in this encounter Care Teams Kiln Operator Helper Relationship Specialty Start Date End Date Chip Burt MD [address] [place] [address] PCP - General Family Medicine 09/29/24 documented as of this encounter
--- OUTSIDE RECORDS SUMMARY | 2024-12-06 15:45 | XMS_ITS | Encounter Summary ---
Author Organization [place] [address] Care Team Providers Care Underground Electrician Name Role Phone Chip Burt MD Primary Care Provider [phone] Reason for Referral * Holter Monitor (Emergency) - Closed Specialty Diagnoses / Procedures Referred By Rosemary singer Referred To Contact Radiology Diagnoses Chest pain, unspecified type Procedures HOLTER MONITOR RECORDING AND ANALYSIS Gabriela Bhatt APRN [address] [place] [address] Phone: tel: fax: Referral ID Status Reason Start Date Expiration Date Visits Re quested Visits Authorized [id number] Closed 12/06/2024 12/06/2026 1 1 Reason for Visit * Reason Comments Chest Pain Pt c/o mid CP radiat ing to back. Also sts she is light headed and her legs feel heavy. Sts cannot take deep breath. Cpta:ibuprofen Encounter Details Date Type Department Care Team (Late st Contact Info) Description 12/06/2024 3:45 PM EDT - 12/06/2024 7:29 PM EDT Emergency [facility] [address] [place] [id number] Sandra Barahona MD [address] [place] [address] [place] [address] Chest pain, unspecified type (Primary [...] 3:38 PM EDT Ember Reyna RN * [place] Suicide Severity Rating Scale (Q shift for [...] this encounter Discharge Instructions * Discharge Instructions* Gabriela Bhatt APRN - 12/06/2024 7:10 PM EDT Schedule holter monitor and con continue with cardiology follow-up. Return the emergency room for new or worsening symptoms * Attachments The following attachments cannot be sent through Care Everywhere. * Chest pain (Botswanan) documented in this encounter Medications at Time of Discharge Blood Pressure Monitor [facility] KitIndications:Syn cope, unspecified syncope type,Other fatigue 1 Kit by [facility].(Non-El g; Combo Route) route daily. 1 Kit [...] Means Destination Comment s Home or Self Fpc documented in this encounter ED Notes * Kevin Gabriela Jarvis, CAYDEN - 12/06/2024 3:36 PM EDT [...] 50 mL, 50 mL, Intravenous, PRN, Mangus, Gabriela R, LINING FINISHER sodium chloride 0.9% syringe 5-10 mL, 5-10 mL, Intravenous, PRN, Mangus, Gabriela R, LINING FINISHER Current Outpatient Medications: Blood Pressure Monitor [facility] Kit, 1 Kit by [facility].(Non-Drug; Combo Route) route daily., Disp: 1 Kit, [...] 69.6 Imm Gran% 0.1 Lymph Percent 22.6 [place] Percent 4.9 Eos Percent 2.4 Baso Percent 0.4 Neut # 6.8 (*) IMMGRAN# 0.0 Lymph # 2.2 [place] # 0.5 Eos# 0.2 Baso # 0.0 [...] HIGH SENSITIVITY BASELINE W/ REFLEX - Normal fp-sNbbmnutg-O <6 Narrative: Ingestion of caleb doses of biotin (>5 mg/day) taken within 8 hours of drawing blood sample can interfere with this immunoassay test. MAGNESIUM LEVEL - Normal Magnesium 1.9 TROPONIN-T HIGH SENSITIVITY 2HR - Normal hf-zZfnppiyd-Z 2HR 7 hs-cTnT 2Hr Delta from Baseline >1 Narrative: Ingestion of caleb doses of biotin (>5 mg/day) taken within 8 hours of drawing blood sample can interfere with this immunoassay test. URINE CULTURE (NO STAIN) UA W/REFLEX TO CULTURE Narrative: The following orders were created for panel order UA W/REFLEX TO CULTURE. Procedure Abnormality Status --------- ------ URINALYSIS REFLEX[[id number]] Abnormal Final result EXTRA DEL CID URINE CX[[id number]] Final result Please view results for these [...] FINAL IMPRESSION 1. Chest pain, unspecified type Gabriela Bhatt APRN 12/06/241917 Gabriela Bhatt APRN 12/06/241919 Cosigned by Sandra Barahona [...] with KAITLYNN. ED Course as of 12/06/24 [id number] Sandra Barahona's Documentation Wed Dec 06, 2024 [...] AM EDT Hospital Encounter [facility] [address] [place] [address] [address] [place] [address] Binh Brody MD [address] [place], [place] [id number] 12/15/2024 3:20 PM EDT Office Visit [facility] [address] [facility] [address] [place] [address] Chip Burt MD [address] [place] [address] 12/25/2024 2:00 PM EDT Appointment [facility] [address] [place] [address] Binh Brody MD [address] [facility] [place] [place] [address] 01/04/2025 8:45 AM EDT Office Visit [facility] Neu[facility] [address] [place] [address] Chuyita Moscoso MD [address] [place] [address] 02/02/2025 1:40 PM EDT Office Visit [facility] [address] [facility] [address] [place] [address] Chip Burt MD [address] [place] [address] 04/09/2025 10:00 AM EST Office Visit [facility] [place] [address] [place] [address] Anh Patel, LINING FINISHER [address] [facility] [place] [address] Pending Results Name Type Priority Associated Diagnoses Date /Time HOLTER MONITOR RECORDING AND ANALYSIS Imaging Cardiology STAT Chest pain, unspecified type 12/07/2024 3:18 PM EDT Scheduled Orders Name Type Priority Associated Diagnoses Orde r Schedule HOLTER MONITOR RECORDING AND ANALYSIS Imaging Cardiology STAT Chest pain, unspecified type Expected: 12/07/2024, Expires: 12/06/2026 documented as of this encounter Goals Goal [...] EDT documented in this encounter Results * TROPONIN-T HIGH SENSITIVITY 2HR (12/06/2024 6:39 PM EDT) il-nBdkyrcno-K 2HR 7 <14 ng/L 12/06/2024 7:06 PM EDT [facility] hs-cTnT 2Hr Delta from Baseline >1 <4 ng/L 12/06/2024 7:06 PM EDT [facility] Blood VENOUS BLOOD / Unknown Venipuncture / Unknown 12/06/2024 6:39 PM EDT 12/06/2024 6:48 PM EDT Narrative [facility] - 12/06/2024 7:06 PM EDT Ingestion of caleb doses of biotin (>5 mg/day) taken within 8 hours of drawing blood sample can interfere with this immunoassay test. us Gabriela R Mangus LINING FINISHER CHEMISTRY ORDERABLES Final Result Performing Organization Address [facility]/ZIP Co de Phone Number [facility] [address] [place] [address] * URINE CULTURE (NO STAIN) (12/06/2024 5:04 PM EDT) Culture No growth at 30 hours. 12/08/2024 11:43 AM EDT [facility] Urine STRUCTURE OF URINARY TRACT PROPER / Unknown 12/06/2024 5:04 PM EDT 12/06/2024 5:15 PM EDT Gabriela Bhatt APRN MICROBIOLOGY - GENERAL ORDE RABLES Final Result Performing Organization Address [facility] Co de Phone Number [facility] [address] [place] [address], [facility] [place] [address] * EXTRA DEL CID URINE CX (12/06/2024 5:04 PM EDT) Urine STRUCTURE OF URINARY TRACT PROPER / Unknown 12/06/2024 5:04 PM EDT 12/06/2024 5:06 PM EDT Gabriela Bhatt APRN MICROBIOLOGY - GENERAL ORDE RABLES Final Result Performing Organization Address [facility] Co de Phone Number [facility] [address] [place] [address] * (ABNORMAL) URINALYSIS REFLEX (12/06/2024 5:04 PM EDT) UA Color Yellow 12/06/2024 5:15 PM EDT [facility] UA Appear Clear Clear 12/06/2024 5:15 PM EDT [facility] UA Glucose Negative Negative mg/dL 12/06/2024 5:15 PM EDT [facility] UA Ketones Negative Negative mg/dL 12/06/2024 5:15 PM EDT [facility] UA Blood Negative Negative 12/06/2024 5:15 PM EDT [facility] UA pH 6.0 5.0 - 8.0 pH 12/06/2024 5:15 PM EDT [facility] UA Protein Negative Negative mg/dL 12/06/2024 5:15 PM EDT [facility] UA Urobilinogen 0.2 <=1 mg/dL 5:15 PM EDT [facility] UA Bili Negative Negative 12/06/2024 5:15 PM EDT [facility] UA Nitrite Negative Negative 12/06/2024 5:15 PM EDT [facility] UA Leuk Est Small(A) Negative 12/06/2024 5:15 PM EDT [facility] UA Spec Grav 1.010 1.001 - 1.035 no units 12/06/2024 5:15 PM EDT [facility] Comment:Reference range nick d for random specimens only. UA WBC 5(H) 0 - 4 /HPF 12/06/2024 5:15 PM EDT [facility] UA RBC 1 0 - 3 /HPF 12/06/2024 5:15 PM EDT [facility] UA Squam Epi Rare /LPF 12/06/2024 5:15 PM EDT [facility] UA Mucus 1+ /LPF 12/06/2024 5:15 PM EDT [facility] UA Amorph Trace /HPF 12/06/2024 5:15 PM EDT [facility] Urine STRUCTURE OF URINARY TRACT PROPER / Unknown 12/06/2024 5:04 PM EDT 12/06/2024 5:06 PM EDT us Gabriela Bhatt LINING FINISHER URINE ORDERABLES Final Resu lt [facility] [address] [place] [address] * MAGNESIUM LEVEL (12/06/2024 4:51 PM EDT) Magnesium 1.9 1.6 - 2.4 mg/dL 12/06/2024 5:24 PM EDT [facility] Blood VENOUS BLOOD / Unknown Venipuncture / Unknown 12/06/2024 4:51 PM EDT 12/06/2024 4:56 PM EDT Gabriela Brownus LINING FINISHER CHEMISTRY ORDERABLES Final Result Performing Organization Address [facility] Co de Phone Number [facility] [address] [place], [place] [phone] * TROPONIN-T HIGH SENSITIVITY BASELINE W/ REFLEX (12/06/2024 4:51 PM EDT) Pathologist [facility] ue-aUtbnwxqd-P <6 <14 ng/L 12/06/2024 5:19 PM EDT [facility] Blood VENOUS BLOOD / Unknown Venipuncture / Unknown 12/06/2024 4:51 PM EDT 12/06/2024 4:56 PM EDT Narrative [facility] - 12/06/2024 5:19 PM EDT Ingestion of caleb doses of biotin (>5 mg/day) taken within 8 hours of drawing blood sample can interfere with this immunoassay test. Gabriela Brownus LINING FINISHER CHEMISTRY ORDERABLES Final Result Performing Organization Address [facility] de Phone Number [place] [address] [address] [place] [phone] * LIPASE LEVEL (12/06/2024 4:51 PM EDT) [facility] Lipase Lvl 21 13 - 60 U/L 12/06/2024 5:24 PM EDT [facility] Blood VENOUS BLOOD / Unknown Venipuncture / Unknown 12/06/2024 4:51 PM EDT 12/06/2024 4:56 PM EDT Gabriela R Mangus LINING FINISHER CHEMISTRY ORDERABLES Final Result Performing Organization Address [facility] Co de Phone Number [facility] [address] [place] [address] * COMPREHENSIVE METABOLIC PANEL (12/06/2024 4:51 PM EDT) Pathologist [facility] Sodium 141 136 - 145 mmol/L 12/06/2024 5:24 PM EDT [facility] Potassium 3.8 3.5 - 5.0 mmol/L 12/06/2024 5:24 PM EDT [facility] Chloride 105 98 - 107 mmol/L 12/06/2024 5:24 PM EDT [facility] Total CO2 28 22 - 29 mmol/L 12/06/2024 5:24 PM EDT [facility] Anion Gap 8 7 - 16 mmol/L 12/06/2024 5:24 PM EDT [facility] Calcium 8.8 8.6 - 10.4 mg/dL 12/06/2024 5:24 PM EDT [facility] Glucose Lvl 75 70 - 99 mg/dL 12/06/2024 5:24 PM EDT [facility] BUN 10 6 - 20 mg/dL 12/06/2024 5:24 PM EDT [facility] Creatinine 0.69 0.51 - 1.30 mg/dL 12/06/2024 5:24 PM EDT [facility] Albumin 4.1 3.5 - 5.2 gm/dL 12/06/2024 5:24 PM EDT [facility] Total Protein 6.6 6.4 - 8.3 gm/dL 12/06/2024 5:24 PM EDT [facility] Bili Total 0.4 0.2 - 1.3 mg/dL 12/06/2024 5:24 PM EDT [facility] ALT 14 <=41 U/L 12/06/2024 5:24 PM EDT [facility] AST 16 <=40 U/L 12/06/2024 5:24 PM EDT [facility] Alk Phos 119 36 - 123 U/L 12/06/2024 5:24 PM EDT [facility] eGFR (CKD-EPIcr 2020) 106 >=60 mL/min/1.7 3 m2 12/06/2024 5:24 PM EDT [facility] Comment:Estimated GFR was ca lculated using the CKD-EPIcr (2020) equation refit without race. The equation is recommended by the National Kidney Foundation - [place] Society of Nephrology Task Force. Blood VENOUS BLOOD / Unknown Venipuncture / Unknown 12/06/2024 4:51 PM EDT 12/06/2024 4:56 PM EDT us Gabriela Bhatt LINING FINISHER CHEMISTRY ORDERABLES Final Result [facility] [address] [place] [phone] * (ABNORMAL) CBC WITH DIFF (12/06/2024 4:51 PM EDT) WBC 9.8 3.7 - 10.3 x10(3)/mcL 12/06/2024 4:58 PM EDT [facility] RBC 4.42 3.90 - 5.20 x10(6)/mcL 12/06/2024 4:58 PM EDT [facility] Hgb 13.6 11.2 - 15.7 g/dL 12/06/2024 4:58 PM EDT [facility] Hct 41.6 34.0 - 45.0 % 12/06/2024 4:58 PM EDT [facility] MCV 94.1 80.0 - 100.0 fL 12/06/2024 4:58 PM EDT [facility] MCH 30.8 26.0 - 34.0 pg 12/06/2024 4:58 PM EDT [facility] MCHC 32.7 30.7 - 35.5 g/dL 12/06/2024 4:58 PM EDT [facility] RDW 12.9 <=14.9 % 12/06/2024 4:58 PM EDT [facility] Platelet 316 155 - 369 x10(3)/mcL 12/06/2024 4:58 PM EDT [facility] MPV 9.0 8.8 - 12.5 fL 12/06/2024 4:58 PM EDT [facility] Neut Percent 69.6 % 12/06/2024 4:58 PM EDT [facility] Comment:Neutrophils equals s egs plus bands Imm Gran% 0.1 % 12/06/2024 4:58 PM EDT [facility] Comment:Automated count of m etamyelocytes, myelocytes and promyelocytes. Lymph Percent 22.6 % 12/06/2024 4:58 PM EDT [facility] [place] Percent 4.9 % 12/06/2024 4:58 PM EDT [facility] Eos Percent 2.4 % 12/06/2024 4:58 PM EDT [facility] Baso Percent 0.4 % 12/06/2024 4:58 PM EDT [facility] Neut # 6.8(H) 1.6 - 6.1 x10(3)/[facility] 12/06/2024 4:58 PM EDT [facility] Comment:Neutrophils equals s egs plus bands IMMGRAN# 0.0 0.0 - 0.1 x10(3)/[facility] 12/06/2024 4:58 PM EDT [facility] Comment:Automated count of m etamyelocytes, myelocytes and promyelocytes. An absolute IG <0.1 is reported as 0.0. Lymph # 2.2 1.2 - 3.9 x10(3)/[facility] 12/06/2024 4:58 PM EDT [facility] [place] # 0.5 0.3 - 0.9 x10(3)/[facility] 12/06/2024 4:58 PM EDT [facility] Eos# 0.2 0.0 - 0.5 x10(3)/[facility] 12/06/2024 4:58 PM EDT [facility] Baso # 0.0 0.0 - 0.1 x10(3)/[facility] 12/06/2024 4:58 PM EDT [facility] Blood VENOUS BLOOD / Unknown Venipuncture / Unknown 12/06/2024 4:51 PM EDT 12/06/2024 4:56 PM EDT us Gabriela Bhatt LINING FINISHER HEMATOLOGY ORDERABLES Final Result [facility] [address] [place] [address] * XR CHEST PA AND LATERAL (12/06/2024 [...] normal in size. IMPRESSION: No acute finding. us Gabriela R Kevinus LINING FINISHER IMG DIAGNOSTIC IMAGING ORDE RONALDO Final Result * EK EKG 12 LEAD (12/06/2024 3:37 PM EDT) Anatomical Region Laterality Modality Electrocardiogra phy 12/06/2024 3:43 PM EDT Impressions 12/07/2024 10:17 AM EDT [facility] Test Date: 2024-12-06 Pat Name: SHERYL CORDERO Department: DEPID Room: Gender: Female Materials Technician: [facility] : 1975 Requested By: [facility] Order Number: [id number] Reading MD: Donnie Lam MD Measurements Intervals [place] Rate: 68 P: 73 HI: 159 QRS: -75 QRSD: 98 T: 86 QT: 396 QTc: 424 Interpretive Statements SINUS RHYTHM PATTERN CONSISTENT WITH PULMONARY DISEASE LEFT ANTERIOR FASCICULAR BLOCK Electronically Signed On 12-07-2024 10:17:51 EDT by Donnie Lam MD Narrative Procedure Note Donnie Lam MD - 12/07/[address] [facility] Test Date: 2024-12-06 Pat Name: SHERYL CORDERO Department: DEPID Room: Gender: Female Materials Technician: [facility] : 1975 Requested By: [facility] Order Number: [id number] Reading MD: Donnie Lam MD Measurements Intervals [place] Rate: 68 P: 73 HI: 159 QRS: -75 QRSD: 98 T: 86 QT: 396 QTc: 424 Interpretive Statements SINUS RHYTHM PATTERN CONSISTENT WITH PULMONARY DISEASE LEFT ANTERIOR FASCICULAR BLOCK Electronically Signed On 12-07-2024 10:17:51 EDT by Donnie Lam MD Sandra Barahona MD IMG ECG ORDERABLES Final Re sult documented in this encounter Visit Diagnoses Diagnosis Chest pain, unspecified type- Primary documented in this encounter Administered Medications Inactive Administered Medications - up to 1 most recent administrations Medication Order MAR Action Action Date Dose Rate Site sodium chloride 0.9% IV line flush 50 mL 50 mL, Intravenous, at 999 mL/hr, PRN, Starting on Wed12/06/24 at 1605, Until Wed12/06/24 at 2329, Line Care, Flush with 50 mL after IVPB to insure complete administration of the dose. May use the saline infusion to back flush IVPB tubing as needed., Use this order to document priming and flushing IV line after medication administration. sodium chloride 0.9% syringe 5-10 mL 5-10 mL, Intravenous, PRN, Starting on Wed12/06/24 at 1605, Until Wed12/06/24 at 2329, Line Care, Flush with 5 mL saline [...] sodium chloride 0.9% syringe 5-10 mL 1 10/2024 documented in this encounter Care Teams Underground Electrician Relationship Specialty Start Date End Date hCip Burt MD [address] [place] [address] PCP - General Family Medicine 09/29/24 documented as of this encounter
--- OUTSIDE RECORDS SUMMARY | 2024-12-07 14:56 | XMS_ITS | Encounter Summary ---
Author Organization [place] [address] Care Team Providers Care Patrol Conductor Name Role Phone Chip Burt MD Primary Care Provider [phone] Reason for Referral * Holter Monitor (Emergency) - Closed Specialty Diagnoses / Procedures Referred By Contac t Referred To Contact Radiology Diagnoses Chest pain, unspecified type Procedures HM HOLTER MONITOR RECORDING AND ANALYSIS Gabriela Bhatt APRN [address] [place] [address] Phone: tel: fax: Referral ID Status Reason Start Date Expiration Date Visits Re quested Visits Authorized [id number] Closed 12/06/2024 12/06/2026 1 1 Reason for Visit * Holter Monitor (Emergency) - Closed Specialty Diagnoses / Procedures Referred By Rosemary singer Referred To Contact Radiology Diagnoses Chest pain, unspecified type Procedures HOLTER MONITOR RECORDING AND ANALYSIS Gabriela Bhatt APRN [address] [place] [address] Phone: tel: fax: Referral ID Status Reason Start Date Expiration Date Visits Re quested Visits Authorized [id number] Closed 12/06/2024 12/06/2026 1 1 Encounter Details Date Type Department Care Team (Latest Contact Info) Description 12/07/2024 2:56 PM EDT - 12/07/2024 11:59 PM EDT Hospital Encounter [facility] [address] [facility] [address] [place] [address] Gabriela Bhatt R, SOFT BOARDER [address] [place] [address] Chest pain, unspecified type Discharge Disposition: Home or Self Care Social [...] at Time of Discharge Blood Pressure Monitor Misc KitIndications:Syn cope, unspecified syncope type,Other fatigue 1 Kit by [facility].(Non-El g; Combo Route) route daily. 1 Kit [...] AM EDT Hospital Encounter [facility] [address] [place] [address] [address] [place] [address] Binh Brody MD [address] [place] [address] 12/15/2024 3:20 PM EDT Office Visit [facility] [address] [facility] [address] [place] [phone] Chip Burt MD [address] [place] [address] 12/25/2024 2:00 PM EDT Appointment [facility] [address] [place] [phone] Binh Brody MD [address] [place] [address] [place] [address] 01/04/2025 8:45 AM EDT Office Visit [facility] [address] [place] [address] Chuyita Moscoso MD [address] [place], [place] [id number] 02/02/2025 1:40 PM EDT Office Visit [facility] [address] [place] [address] Chip Burt MD [address] [place] [address] 04/09/2025 10:00 AM EST Office Visit [facility] H&V [address] [address] Anh Patel, SOFT BOARDER [address] [place] [address] Pending Results Name Type Priority Associated Diagnoses Date /Time HOLTER MONITOR RECORDING AND ANALYSIS Imaging Cardiology STAT Chest pain, unspecified type 12/07/2024 3:18 PM EDT Scheduled Orders Name Type Priority Associated Diagnoses Orde r Schedule HOLTER MONITOR RECORDING AND ANALYSIS Imaging Cardiology STAT Chest pain, unspecified type 1 Occurrences starting 12/07/2024 until 12/07/2024 documented as of this encounter Goals Goal Patient Goal Type Associated Problems Recent Progress Patient-Stated? Author Maintain a healthy diet, exercise regularly and maintain an ideal body weight General No Philippe [place] MA Stay Tobacco Free Lifestyle No Philippe Hnasen MA documented as of this encounter Visit Diagnoses Diagnosis Chest pain, unspecified type documented in this encounter Care Teams Patrol Conductor Relationship Specialty Start Date End Date Chip Burt MD [address] [place] [address] PCP - General Family Medicine 09/29/24 documented as of this encounter
--- OUTSIDE RECORDS SUMMARY | 2024-12-08 10:00 | XMS_ITS | Encounter Summary ---
Author Organization [facility] Address [address] [place] [address] Care Team Providers Care Pie Dough Roller Name Role Phone Gretchen Juarez MD Primary Care Provider Tiffanie bullard Reason for Visit * Reason Comments Ultrasound Encounter Details Date Type Department Care Team (Latest Contact Info) Description 12/08/2024 10:00 AM EDT MA/Nurse Visit [facility] Physicians - Obstetrics & Gynecology, [place] [address] [place] [address] Postmenopausal bleeding (Primary Dx) Social [...] Priority Associated Diagnoses Orde r Schedule 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
--- OUTSIDE RECORDS SUMMARY | 2024-12-11 08:30 | XMS_ITS | Encounter Summary ---
Author Organization [place] [address] Care Team Providers Care Supervisor Endless Track Vehicle Name Role Phone Chip Burt MD Primary Care Provider [phone] Reason for Referral * Holter Monitor (Routine) - Pending Review Specialty Diagnoses / Procedures Referred By Gisellac t Referred To Contact Radiology Diagnoses Heart palpitations Procedures EV EVENT MONITOR Binh Brody MD [address] [place] [address] Phone: tel: fax: Referral ID Status Reason Start Date Expiration Date V isits Requested Visits Authorized [id number] Pending Review 12/11/2024 12/11/2026 1 1 * MRI/CAT Scan (Routine) - Pending Review Specialty Diagnoses / Procedures Referred By Rosemary singer Referred To Contact Radiology Diagnoses Precordial pain Procedures CT ANGIOGRAM CORONARY W CONTRAST Binh Brody MD [address] [place] [address] Phone: tel: fax: Referral ID Status Reason Start Date Expiration Date V isits Requested Visits Authorized [id number] Pending Review 12/11/2024 12/11/2025 1 1 Reason for Visit * Reason Comments New Patient Referral Dr. Trevizo Dizziness All the time When sh e feels her body get hot and her legs get weak, when she is moving around she really feels the dizziness * Consultation (Routine) - Authorization Not Needed Specialty Diagnoses / Procedures Referred By Contac t Referred To Contact Cardiology Diagnoses Syncope, unspecified syncope type EKG abnormality Procedures IN OFFICE/OUTPATIENT NEW MODERATE MDM 45 MINUTES Fredi Trevizo MD [address] [place] [address] Phone: tel: fax: [facility] [place] [address] [facility] [address] [place] [address] Phone: tel: fax: Referral ID Status Reason Start Date Expiration Date Visits Requested Visits Authorized [id number] Authorization Not Needed 11/17/2024 11/17/2025 99 99 Encounter Details Date Type Department Care Team (Late st Contact Info) Description 12/11/2024 8:30 AM EDT Office Visit [facility] [place] [address] [place] [address] Binh Brody MD [address] [place] [address] Precordial pain (Primary Dx); Heart palpitations Social History Tobacco Use Types Packs/Day Years Used Date Smoking Tobacco: Every Day Cigarettes 0.5 25.6 Started: 05/03/1999 Smokeless Tobacco: Never Tobacco Cessation:Ready to Q uit: No; Counseling Given: No Alcohol Use Standard Drinks/Week Comments Not Currently [...] Sign Reading Time Taken Comments Blood Pressure 110/80 12/11/2024 8:27 AM EDT Pulse 85 12/11/2024 8:27 AM EDT Temperature - - Respiratory Rate - - Oxygen Saturation 98% 12/11/2024 8:27 AM EDT Inhaled Oxygen Concentration - - Weight 52.6 kg (116 lb) 12/11/2024 8:27 AM EDT Height 152.4 cm (5') 12/11/2024 8:27 AM EDT Body Mass Index 22.65 12/11/2024 8:27 AM EDT documented in this encounter Functional [...] Shiva Lopez MA documented in this encounter Ordered Prescriptions Prescription Sig Dispense Quantity Refills Last Filled Start Date End Date metoprolol succinate (TOPROL-XL) 25 mg Oral Tablet Sustained Release 24 hr Take 1 Tablet by mouth daily. 25 Tablet 11 12/11/2024 documented in this encounter Miscellaneous Notes * Patient Instructions - Tarik Sauceda MA - 12/11/2024 8:30 AM EDT You may receive a survey via phone, mail or e-mail, regarding your visit today. Your feedback is important to us. We ask that you please take a few minutes to fill out the survey. You were assisted by Dr. Binh Brody and Blaine ELI. Thank You for choosing [facility]. We sincerely thank you for the opportunity to be a part of your care. documented in this encounter Plan of Treatment Upcoming Encounters Date Type Department Care Team (Late st Contact Info) Description 12/15/2024 9:45 AM EDT Hospital Encounter [facility] [address] [place] [address] [address] [place] [address] Binh Brody MD [address] [place] [address] 12/15/2024 3:20 PM EDT Office Visit [facility] [address] [phone] Chip Burt MD [address] [place] [address] 12/25/2024 2:00 PM EDT Appointment [facility] [address] [place] [phone] Binh Brody MD [address] [place] [address] 01/04/2025 8:45 AM EDT Office Visit [facility] Neurology [address] [place] [address] Chuyita Moscoso MD [address] [place], [place] [id number] 02/02/2025 1:40 PM EDT Office Visit [facility] [address] [phone] Chip Burt MD [address] [place] [address] 04/09/2025 10:00 AM EST Office Visit [facility] [place] [address] [place] [address] Anh Patel, VIDEO COORDINATOR [address] [facility] [address] Scheduled Orders Name Type Priority Associated Diagnoses Orde r Schedule CT ANGIOGRAM CORONARY W CONTRAST Imaging Routine Precordial pain 1 Occurrences starting 12/11/2024 until 12/11/2025 EV EVENT MONITOR Imaging Cardiology Routine Heart palpitations 1 Occurrences starting 12/11/2024 until 12/11/2026 documented as of this encounter Goals Goal Patient Goal Type Associated Problems Recent Progress Patient-Stated? Author Maintain a healthy diet, exercise regularly and maintain an ideal body weight General No Philippe Hansen MA Stay Tobacco Free Lifestyle No Philippe Hansen MA documented as of this encounter Visit Diagnoses Diagnosis Precordial pain- Primary Heart palpitations Palpitations documented in this encounter Care Teams Supervisor Endless Track Vehicle Relationship Specialty Start Date End Date Chip Burt MD [address] [place] [address] PCP - General Family Medicine 09/29/24 documented as of this encounter
--- OUTSIDE RECORDS SUMMARY | 2024-12-13 10:24 | XMS_ITS | Encounter Summary ---
Author Organization [place] [address] Care Team Providers Care Medical Collections Name Role Phone Chip Burt MD Primary Care Provider [phone] Encounter Details Date Type Department Care Team (Late st Contact Info) Description 10/14/2024 Results Follow-Up [facility] [address] [facility] [address] [place] [phone] Chip Burt MD [address] [place] [address] RIGHT UPPER QUADRANT Social History Tobacco Use Types Packs/Day Years [...] of Assessment Author No 09/29/2024 1:42 PM Shvia Lopez MA * Does this person have [...] Shiva Hansen MA documented in this encounter Plan of Treatment Upcoming Encounters Date Type Department Care Team (Late st Contact Info) Description 12/15/2024 9:45 AM EDT Hospital Encounter [facility] [address] [place] [address] [address] [place] [address] Binh Brody MD [address] [place] [address] 12/15/2024 3:20 PM EDT Office Visit [facility] [address] [facility] [address] [place] [address] Chip Burt MD [address] [place] [address] 12/25/2024 2:00 PM EDT Appointment [facility] [address] [place] [address] Binh Brody MD [address] [place] [address] 01/04/2025 8:45 AM EDT Office Visit [facility] [address] [place] [address] Chuyita Moscoso MD [address] [place] [address] 02/02/2025 1:40 PM EDT Office Visit [facility] [address] [place] [address] Chip Burt MD [address] [place] [address] 04/09/2025 10:00 AM EST Office Visit [facility] [place] [address] [place], [place] [phone] Anh Patel APRN 1 [place] [address] documented as of this encounter Goals Goal Patient Goal Type Associated Problems Recent Progress Patient-Stated? Author Maintain a healthy diet, exercise regularly and maintain an ideal body weight General No Philippe Hansen MA Stay Tobacco Free Lifestyle No Philippe Hansen MA documented as of this encounter Visit Diagnoses Not on filedocumented in this encounter Care Teams Medical Collections Relationship Specialty Start Date End Date Chip Burt MD [address] [place] [address] PCP - General Family Medicine 09/29/24 documented as of this encounter
--- OUTSIDE RECORDS SUMMARY | 2024-12-13 10:24 | XMS_ITS | Encounter Summary ---
Author Organization [place] [address] Care Team Providers Care News Intern Name Role Phone Chip Burt MD Primary Care Provider [phone] Encounter Details Date Type Department Care Team (Late st Contact Info) Description 11/17/2024 Telephone [facility] [address] [facility] [address] [place] [address] Keri Peralta MA Social History Tobacco Use Types Packs/Day Years [...] Shiva Hansen MA documented in this encounter Miscellaneous Notes * Telephone Encounter - Gabriela Garduno - 11/17/2024 10:40 AM EDT FORWARDING TO CLASS * Telephone Encounter - Keri Peralta MA - 11/17/2024 10:30 AM EDT [place] lambda ordered by Dr. Trevizo on 11/17/24. Needs PA documented in this encounter Plan of Treatment Upcoming Encounters Date Type Department Care Team (Late st Contact Info) Description 12/15/2024 9:45 AM EDT Hospital Encounter [facility] [address] [place] [address] [address] [place] [address] Binh Brody MD [address] [place] [address] 12/15/2024 3:20 PM EDT Office Visit [facility] [address] [facility] [address] [place] [address] Chip Burt MD [address] [place] [address] 12/25/2024 2:00 PM EDT Appointment [facility] [address] [place] [address] Binh Brody MD [address] [place] [address] 01/04/2025 8:45 AM EDT Office Visit [facility] Neu[facility] [address] [place] [address] Chuyita Moscoso MD [address] [place] [address] 02/02/2025 1:40 PM EDT Office Visit [facility] [address] [facility] [address] [place] [address] Chip Burt MD [address] [place] [address] 04/09/2025 10:00 AM EST Office Visit [facility] [place] [address] [place] [address] Anh Patel, PAINT SPRAYING MACHINE OPERATOR HELPER [address] [facility] [place] [address] documented as of this encounter Goals Goal Patient Goal Type Associated Problems Recent Progress Patient-Stated? Author Maintain a healthy diet, exercise regularly and maintain an ideal body weight General No Philippe Hansen MA Stay Tobacco Free Lifestyle No Philippe Hansen MA documented as of this encounter Visit Diagnoses Not on filedocumented in this encounter Care Teams News Intern Relationship Specialty Start Date End Date Chip Burt MD [address] [place] [address] PCP - General Family Medicine 09/29/24 documented as of this encounter
--- OUTSIDE RECORDS SUMMARY | 2024-12-13 10:24 | XMS_ITS | Encounter Summary ---
Author Organization [place] [address] Care Team Providers Care Cushion Filler Name Role Phone Chip Burt MD Primary Care Provider [phone] Reason for Visit * Reason Onset Date Comments Results 11/23/2024 Encounter Details Date Type Department Care Team (Late st Contact Info) Description 11/23/2024 Telephone [facility] [address] [facility] [address] [place] [address] Leti Bustillo MA Results Social History Tobacco Use Types Packs/Day Years [...] No 09/29/2024 1:42 PM EDShiva Patterson MA * Is the person blind or [...] encounter Miscellaneous Notes * Telephone Encounter - Philippe Hansen MA - 11/23/2024 2:09 PM EDT Laboratory results received, patient notified by: Patient informed directly. * Telephone Encounter - Chip Burt MD - 11/23/2024 1:[address] head naf as noted ty * Telephone Encounter - Leti Bustillo MA - 11/23/2024 1:21 PM EDT Clementine from Radiology called and CT of the head is Final documented in this encounter Plan of Treatment Upcoming Encounters Date Type Department Care Team (Late st Contact Info) Description 12/15/2024 9:45 AM EDT Hospital Encounter [facility] [address] [place] [address] [address] [place] [address] Binh Brody MD [address] [place] [address] 12/15/2024 3:20 PM EDT Office Visit [facility] [address] [facility] [address] [place] [address] Chip Burt MD [address] [place] [address] 12/25/2024 2:00 PM EDT Appointment [facility] [address] [place] [address] Binh Brody MD [address] [place] [address] 01/04/2025 8:45 AM EDT Office Visit [facility] [address] [place] [address] Chuyita Moscoso MD [address] [place] [address] 02/02/2025 1:40 PM EDT Office Visit [facility] [address] [phone] Chip Burt MD [address] [place] [address] 04/09/2025 10:00 AM EST Office Visit [facility] [place] [address] [place] [address] Anh Patel APRN 1 [place] [address] documented as of this encounter Goals Goal Patient Goal Type Associated Problems Recent Progress Patient-Stated? Author Maintain a healthy diet, exercise regularly and maintain an ideal body weight General No Philippe Hansen MA Stay Tobacco Free Lifestyle No Philippe Hansen MA documented as of this encounter Visit Diagnoses Not on filedocumented in this encounter Care Teams Cushion Filler Relationship Specialty Start Date End Date Chip Burt MD [address] [place] [address] PCP - General Family Medicine 09/29/24 documented as of this encounter
--- OUTSIDE RECORDS SUMMARY | 2024-12-13 10:24 | XMS_ITS | Encounter Summary ---
Author Organization [place] [address] Care Team Providers Care Cotton Header Name Role Phone Chip Burt MD Primary Care Provider [phone] Encounter Details Date Type Department Care Team (Late st Contact Info) Description 11/17/2024 Results Follow-Up [facility] 1500 [facility] [address] [place] [address] Fabby Joya MD 1500 [facility] [address] [place] [address] URINALYSIS, URINE CULTURE (NO STAIN) Social History Tobacco Use Types Packs/Day Years [...] 09/29/2024 1:42 PM EDShiva Patterson MA * Does this person have serious [...] Shiva Hansen MA documented in this encounter Ordered Prescriptions Prescription Sig Dispense Quantity Refills Last Filled Start Date End Date sulfamethoxazole-tr imethoprim (BACTRIM DS) 800-160 mg Oral TabletIndications:U TI (urinary tract infection), uncomplicated Take 1 Tablet by mouth every 12 hours for 5 days. 10 Tablet 11/17/2024 documented in this encounter Plan of Treatment Upcoming Encounters Date Type Department Care Team (Late st Contact Info) Description 12/15/2024 9:45 AM EDT Hospital Encounter [facility] [address] [place] [address] [address] [place] [id number] Binh Brody MD [address] [place] [address] 12/15/2024 3:20 PM EDT Office Visit SEP [facility] [address] [facility] [address] [place] [address] Chip Burt MD [address] [place] [address] 12/25/2024 2:00 PM EDT Appointment [facility] [address] [place] [address] Binh Brody MD [address] [place] [address] 01/04/2025 8:45 AM EDT Office Visit SEP Neurology [facility] [address] [place] [address] Chuyita Moscoso MD [address] [place] [address] 02/02/2025 1:40 PM EDT Office Visit [facility] [address] [facility] [address] [place] [address] Chip Burt MD [address] [place] [address] 04/09/2025 10:00 AM EST Office Visit [facility] [address] [place] [address] Anh Patel APRN 1 [place] [address] documented as of this encounter Goals Goal Patient Goal Type Associated Problems Recent Progress Patient-Stated? Author Maintain a healthy diet, exercise regularly and maintain an ideal body weight General No Philippe Hansen MA Stay Tobacco Free Lifestyle No Philippe Hansen MA documented as of this encounter Visit Diagnoses Diagnosis UTI (urinary tract infection), uncomplicated- Primary Urinary tract infection, site not specified documented in this encounter Care Teams Cotton Header Relationship Specialty Start Date End Date Chip Burt MD [address] [place] [address] PCP - General Family Medicine 09/29/24 documented as of this encounter
--- OUTSIDE RECORDS SUMMARY | 2024-12-13 10:24 | XMS_ITS | Encounter Summary ---
Author Organization [place] [address] Care Team Providers Care Filer Helper Name Role Phone Chip Burt MD Primary Care Provider [phone] Reason for Visit * Reason Onset Date Comments Other 11/17/2024 Encounter Details Date Type Department Care Team (Late st Contact Info) Description 11/17/2024 Telephone [facility] 1500 [facility] 201 [place] [address] Leti Bustillo MA Other Social History Tobacco Use Types Packs/Day Years [...] encounter Miscellaneous Notes * Telephone Encounter - Leti Bustillo MA - 11/17/2024 8:17 AM EDT Alissa from EKG downstairs called double checking if patient is supposed to have EKG- looked through notes and did not see anything, we actually were trying to get her in for an appointment today. Echocardiogram was the only thing I could see ordered. documented in this encounter Plan of Treatment Upcoming Encounters Date Type Department Care Team (Late st Contact Info) Description 12/15/2024 9:45 AM EDT Hospital Encounter [facility] [address] [place] [address] [address] [place] [address] Binh Brody MD [address] [place] [address] 12/15/2024 3:20 PM EDT Office Visit [facility] [address] [facility] [address] [place] [address] Chip Burt MD [address] [place] [address] 12/25/2024 2:00 PM EDT Appointment [facility] [address] [place] [address] Binh Brody MD [address] [place] [address] 01/04/2025 8:45 AM EDT Office Visit SEP Neurology [facility] [address] [place] [address] Chuyita Moscoso MD [address] [place] [address] 02/02/2025 1:40 PM EDT Office Visit [facility] [address] [place] [address] Chip Burt MD [address] [place] [address] 04/09/2025 10:00 AM EST Office Visit [facility] [place] [address] [place] [address] Anh Patel, TRANSLATOR 1 [facility] [place] [address] documented as of this encounter Goals Goal Patient Goal Type Associated Problems Recent Progress Patient-Stated? Author Maintain a healthy diet, exercise regularly and maintain an ideal body weight General No Philippe Hansen MA Stay Tobacco Free Lifestyle No Philippe Hansen MA documented as of this encounter Visit Diagnoses Not on filedocumented in this encounter Care Teams Filer Helper Relationship Specialty Start Date End Date Chip Burt MD [address] [place] [address] PCP - General Family Medicine 09/29/24 documented as of this encounter
--- OUTSIDE RECORDS SUMMARY | 2024-12-13 10:24 | XMS_ITS | Encounter Summary ---
Author Organization [place] [address] Care Team Providers Care Slasher Name Role Phone Marleny Burt MD Primary Care Provider [phone] Reason for Referral * Consultation (Routine) - Pending Review Specialty Diagnoses / Procedures Referred By Rosemary singer Referred To Contact Internal Medicine-Hematology and Oncology Diagnoses Euharlee light chain disease Procedures RI OFFICE/OUTPATIENT NEW MODERATE MDM 45 MINUTES Marleny Burt MD [address] [place] [address] Phone: tel: fax: Referral ID Status Reason Start Date Expiration Date V isits Requested Visits Authorized [id number] Pending Review 10/13/2024 10/13/2025 99 99 Question Answer Service Hematology Provider Options First Available * Ultrasound (Routine) - Pending Review Specialty Diagnoses / Procedures Referred By Rosemary singer Referred To Contact Radiology Diagnoses Elevated LDL cholesterol level Transaminitis Procedures US RIGHT UPPER QUADRANT Marleny Burt MD [address] [place] [address] Phone: tel: fax: Referral ID Status Reason Start Date Expiration Date V isits Requested Visits Authorized [id number] Pending Review 10/08/2024 10/08/2025 1 1 Reason for Visit * Reason Onset Date Comments Results 10/08/2024 Labs 10/07- Dr.Gor mota / Results given Medication Management 10/08/2024 FYI pharma cy change Encounter Details Date Type Department Care Team (Latest Contact Info) Description 10/08/2024 Results Follow-Up SEP [facility] [address] [place] [address] Marleny Burt MD [address] [place] [address] HEPATITIS B SURFACE ANTIBODY, COMPREHENSIVE METABOLIC PANEL, LIPID SCREEN, Additional followed-up results: 21 Social History Tobacco Use Types Packs/Day Years [...] Refills Last Filled Start Date End Date cefdinir (OMNICEF) 300 mg Oral CapsuleIndications :Acute cystitis without hematuria Take 1 Capsule by mouth 2 times daily for 7 days. 14 Capsule 10/09/2024 5 ergocalciferol (VITAMIN D) 1,250 mcg (50,000 unit) Oral CapsuleIndications :Vitamin D deficiency Take 1 Capsule by mouth once a week. 4 Capsule 2 10/09/2024 5 cefdinir (OMNICEF) 300 mg Oral CapsuleIndications :Acute cystitis without hematuria Take 1 Capsule by mouth 2 times daily for 7 days. 14 Capsule 10/08/2024 5 ergocalciferol (VITAMIN D) 1,250 mcg (50,000 unit) Oral CapsuleIndications :Vitamin D deficiency Take 1 Capsule by mouth once a week. 4 Capsule 2 10/08/2024 5 documented in this encounter Miscellaneous Notes * Addendum Note - Marleny Burt MD - 10/13/2024 8:37 AM EDTAddended by: MARLENY BURT on: 10/13/2024 08:37 AM Modules accepted: Orders * Addendum Note - Josue Sosa MA - 10/09/2024 12:15 PM EDTAddended by: JOSUE SOSA on: 10/09/2024 12:15 PM Modules accepted: Orders * Telephone Encounter - Josue Sosa MA - 10/09/2024 12:05 PM EDT Images from the original note were not included. Select the most appropriate reason for this telephone message: Patient Calling for Results Patient called for results on Lab Which Provider ordered the test? Marleny Burt MD Date of test: 10/07 Advised patient of: Below result. Patient Instructions/ Questions: Patient aware -She states that she is still having symptoms, would like to proceed with the ultrasound. Please place order. -Says that she still plans to complete the 24 urine, has not had a chance to do this yet. Plans to do this weekend. Medications Ordered/Pended (if yes, list medication): Yes - Vitamin D and Omnicef sent to pharmacy already Medications/Orders Needed (if yes, list orders): Yes - Ultrasound not yet ordered Pharmacy Location Verified: Yes Pharmacy Location: - Medications were sent to incorrect pharmacy, see message below. [id number] [place] [id number] - [address] [facility] - [phone] [[id number]] Other: Please put in the patient results note that patient is aware of the following results thank you! Marleny Burt MD 10/08/2024 8:28 PM EDT Urinalysis suggestive of urinary tract infection with urine culture in process. Start antibiotic Omnicef, ensure adequate hydration, monitor symptoms. Will adjust antibiotic if needed per urine culture. Liver enzyme AST marginally/borderline elevated. Will monitor. Alkaline phosphatase borderline elevated, but better then prev. Will monitor. Can consider right upper abdominal ultrasound if having symptoms/patient amenable. Bad cholesterol/LDL marginally elevated. Vitamin D is low. Please start supplement. Otherwise overall your results from your recent labs/tests were stable compared to your previous blood work. Continue a healthy diet and regular exercise in addition to your medications. Select the most appropriate reason for this telephone message: Medication Management/Problem Who is calling? Patient What medication(s) do you have concerns about: ergocalciferol (VITAMIN D) 1,250 mcg (50,000 unit) Oral Capsule4 Darmrrs52/8/2025-- Sig - Route: Take 1 Capsule by mouth once a week. - Oral cefdinir (OMNICEF) 300 mg Oral Schpdmn08 Cyzmipg95/ Sig - Route: Take 1 Capsule by mouth 2 times daily for 7 days. - Oral Prescribing provider: What are your concerns/request: [facility] I spoke to Loretta at [facility], cancelled on their end. [facility] Receipt confirmed by pharmacy per [facility]. Desired outcome: Direct Contact - see encounter details Is medication requested to be corrected prescribed from hospitalist/ER Physician?: No Last appointment date: 09/29 Pharmacy: [id number] - [place] [phone] - [address] [facility] [phone] [[id number]] Return Method of Communication: N/A Additional Information: FYI Pharmacy change per patient request, verified original Rx is cancelled,Rx resent to requested pharmacy.No further workup needed. documented in this encounter Plan of Treatment Upcoming Encounters Date Type Department Care Team (Late st Contact Info) Description 12/15/2024 9:45 AM EDT Hospital Encounter [facility] [address] [place] [address] [address] [place] [address] Binh Brody MD [address] [place] [address] 12/15/2024 3:20 PM EDT Office Visit [facility] [address] [facility] 201 [place] [address] Marleny Burt MD [address] [place] [address] 12/25/2024 2:00 PM EDT Appointment [facility] [address] [place] [address] Binh Brody MD [address] [place] [address] 01/04/2025 8:45 AM EDT Office Visit SEP Neurology [facility] [address] [place] [address] Chuyita Moscoso MD [address] [place] [address] 02/02/2025 1:40 PM EDT Office Visit [facility] [address] [address] Marleny Burt MD [address] [place] [address] 04/09/2025 10:00 AM EST Office Visit [facility] [address] [place] [address] Anh Patel APRN 1 [facility] [place] [address] Scheduled Referrals Name Type Priority Associated Diagnoses Order Schedule AMB REFERRAL TO HEMATOLOGY ONCOLOGY Outpatient Referral Routine Euharlee light chain disease Ordered: 10/13/2024 documented as of this encounter Goals Goal Patient Goal Type Associated Problems Recent Progress Patient-Stated? Author Maintain a healthy diet, exercise regularly and maintain an ideal body weight General No Philippe Hansen MA Stay Tobacco Free Lifestyle No Philippe Hansen MA documented as of this encounter Results * US RIGHT UPPER [...] AM CLINICAL HISTORY: 49 years-old; E78.00-Pure hypercholesterolemia, ympnzuizbgc-YSL-56-CM R74.01-Elevation of levels of liver transaminase otqekr-OFK-39-CM. COMPARISON: Noncontrast abdomen and pelvis CT 02/06/2016. [...] mm. No pericholecystic fluid or other ascites. Returned Telephone Equipment Appraiser indicates clinically negative Willson's sign while scanning. Limited assessment of proximal pancreas is unremarkable. Right kidney measures 9.2 cm in length. Total renal volume is 82.4 cm3. No hydronephrosis, solid or cystic mass lesion or echogenic shadowing stone. Procedure Note Katey Hdz MD - 10/13/2024 US RIGHT UPPER QUADRANT: 10/13/2024 10:00 AM CLINICAL HISTORY: 49 years-old; E78.00-Pure hypercholesterolemia, fnfauqbmkns-LHG-27-CM R74.01-Elevation of levels of liver transaminase hadadp-OWN-98-CM. COMPARISON: Noncontrast abdomen and pelvis CT 02/06/2016. [...] 1 mm. No pericholecystic fluidor other ascites. Returned Telephone Equipment Appraiser indicates clinically negative Willson's signwhile scanning. Limited [...] please contactthe office of the ordering clinician. Marleny Burt MD [facility] US ORDERABLES Final Resul t documented in this encounter Visit Diagnoses Diagnosis Elevated LDL cholesterol level- Primary Pure hypercholesterolemia Transaminitis Nonspecific elevation of levels of transaminase or lactic acid dehydrogenase (LDH) Vitamin D deficiency Unspecified vitamin D deficiency Acute cystitis without hematuria Acute cystitis Euharlee light chain disease Multiple myeloma, without mention of having achieved remission Elevated LDL cholesterol level Pure hypercholesterolemia Transaminitis Nonspecific elevation of levels of transaminase or lactic acid dehydrogenase (LDH) documented in this encounter Discontinued Medications Medication Sig Discontinue Reason Start Date End Da te ergocalciferol (VITAMIN D) 1,250 mcg (50,000 unit) Oral CapsuleIndications:Vitam in D deficiency Take 1 Capsule by mouth once a week. Reorder 10/08/2024 10/09/2024 cefdinir (OMNICEF) 300 mg Oral CapsuleIndications:Acute cystitis without hematuria Take 1 Capsule by mouth 2 times daily for 7 days. Reorder 10/08/2024 10/09/2024 documented as of this encounter Care Teams Slasher Relationship Specialty Start Date End Date Marleny Burt MD [address] [place] [address] PCP - General Family Medicine 09/29/24 documented as of this encounter
--- OUTSIDE RECORDS SUMMARY | 2024-12-13 10:25 | XMS_ITS | Encounter Summary ---
Author Organization [place] [address] Care Team Providers Care Mission Systems Engineer Name Role Phone Chip Burt MD Primary Care Provider [phone] Reason for Visit * Reason Onset Date Comments Central Order Completion Outreach 11/30/2024 cologuard Encounter Details Date Type Department Care Team (Late st Contact Info) Description 11/30/2024 Patient Outreach SEP [facility] [address] [place] [address] Chip Burt MD [address] [place] [address] Central Order Completion Outreach (cologuard) Social History Tobacco Use Types Packs/Day Years [...] documented in this encounter Progress Notes * Eli Fuentes RN - 11/30/2024 9:09 AM EDT SEP Order Completion Outcome Tracking Contact Attempt:: No Contact Attempted Cologuard Outcome:: Acute Reason (acute visit with pcp today) documented in this encounter Plan of Treatment Upcoming Encounters Date Type Department Care Team (Late st Contact Info) Description 12/15/2024 9:45 AM EDT Hospital Encounter [facility] [place] [address] Binh Brody MD [address] [place] [address] 12/15/2024 3:20 PM EDT Office Visit SE[facility] [address] [facility] [address] [place] [address] Chip Burt MD [address] [place] [address] 12/25/2024 2:00 PM EDT Appointment [facility] [address] [place] [address] Binh Brody MD [address] [place] [address] 01/04/2025 8:45 AM EDT Office Visit SEP Neurology [facility] [address] [place] [address] Chuyita Moscoso MD [address] [place] [address] 02/02/2025 1:40 PM EDT Office Visit [facility] [address] [address] Chip Burt MD [address] [place] [address] 04/09/2025 10:00 AM EST Office Visit [facility] [address] [place] [address] Anh Patel, MACHINE OPERATOR HELPER 1 [place] [address] documented as of this encounter Goals Goal Patient Goal Type Associated Problems Recent Progress Patient-Stated? Author Maintain a healthy diet, exercise regularly and maintain an ideal body weight General No Philippe Hansen MA Stay Tobacco Free Lifestyle No Philippe Hansen MA documented as of this encounter Visit Diagnoses Not on filedocumented in this encounter Care Teams Mission Systems Engineer Relationship Specialty Start Date End Date Chip Burt MD [address] [place] [address] PCP - General Family Medicine 09/29/24 documented as of this encounter
--- OUTSIDE RECORDS SUMMARY | 2024-12-13 10:25 | XMS_ITS | Encounter Summary ---
Author Organization [facility] [place] [address] Care Team Providers Care Wild Life Manager Name Role Phone Chip Burt MD Primary Care Provider [phone] Encounter Details Date Type Department Care Team (Latest Contact Info) Description 12/11/2024 Travel Social History Tobacco Use Types Packs/Day Years [...] 9:45 AM EDT Hospital Encounter [facility] [address] [place] [address] [address] [place] [address] Binh Brody MD [address] [place], [place] [address] 12/15/2024 3:20 PM EDT Office Visit SEP [facility] [address] [facility] 201 [place] [address] Chip Burt MD [address] [place] [address] 12/25/2024 2:00 PM EDT Appointment [facility] [address] [place] [address] Binh Brody MD [address] [place], [place] [address] 01/04/2025 8:45 AM EDT Office Visit [facility] Neurology [place] [address] [place] [address] Chuyita Moscoso MD [address] [place] [address] 02/02/2025 1:40 PM EDT Office Visit [facility] [address] [facility] [address] [place] [address] Chip Burt MD [address] [place] [address] 04/09/2025 10:00 AM EST Office Visit [facility] [address] [place] [address] Anh Patel, STRAW HAT PLUNGER OPERATOR 1 [facility] [place] [address] documented as of this encounter Goals Goal Patient Goal Type Associated Problems Recent Progress Patient-Stated? Author Maintain a healthy diet, exercise regularly and maintain an ideal body weight General No Philippe Hansen MA Stay Tobacco Free Lifestyle No Philippe Hansen MA documented as of this encounter Visit Diagnoses Not on filedocumented in this encounter Care Teams Wild Life Manager Relationship Specialty Start Date End Date Chip Burt MD [address] [place] [address] PCP - General Family Medicine 09/29/24 documented as of this encounter
--- OUTSIDE RECORDS SUMMARY | 2024-12-13 10:25 | XMS_ITS | Encounter Summary ---
Author Organization [facility] [place] [address] Care Team Providers Care Jazz Singer Name Role Phone Chip Burt MD Primary Care Provider [phone] Encounter Details Date Type Department Care Team (Latest Contact Info) Description 11/30/2024 Travel Social History Tobacco Use Types Packs/Day [...] AM EDT Hospital Encounter [facility] BON[facility]AINE [address] [place] [address] [address] [place] [address] Binh Brody MD [address] [place], [place] [address] 12/15/2024 3:20 PM EDT Office Visit SEP [facility] [address] [facility] [address] [place] [address] Chip Burt MD [address] [place] [address] 12/25/2024 2:00 PM EDT Appointment [facility] [address] [place] [address] Binh Brody MD [address] [place], [place] [address] 01/04/2025 8:45 AM EDT Office Visit [facility] Neurology [place] [address] [place] [address] Chuyita Moscoso MD [address] [place] [address] 02/02/2025 1:40 PM EDT Office Visit [facility] [address] [facility] [address] [place] [address] Chip Burt MD [address] [place] [address] 04/09/2025 10:00 AM EST Office Visit [facility] [address] [place] [address] Anh Patel, ORGANIC CHEMISTRY PROFESSOR 1 [facility] [place] [address] documented as of this encounter Goals Goal Patient Goal Type Associated Problems Recent Progress Patient-Stated? Author Maintain a healthy diet, exercise regularly and maintain an ideal body weight General No Philippe Hansen MA Stay Tobacco Free Lifestyle No Philippe Hansen MA documented as of this encounter Visit Diagnoses Not on filedocumented in this encounter Care Teams Jazz Singer Relationship Specialty Start Date End Date Chip Burt MD [address] [place] [address] PCP - General Family Medicine 09/29/24 documented as of this encounter
--- OUTSIDE RECORDS SUMMARY | 2024-12-13 10:25 | XMS_ITS | Clinical Summary ---
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 4:58 PM EDT [facility] Blood VENOUS BLOOD / Unknown Venipuncture / Unknown 12/06/2024 4:51 PM EDT 12/06/2024 4:56 PM EDT us Gabriela R Mangus BEADWORKER HEMATOLOGY ORDERABLES Final Result Performing Organization Address City/[facility] de Phone Number [facility] [address] [place] [address] * MAGNESIUM LEVEL (12/06/2024 4:51 PM EDT) Only the most recent of2 resultswithin the time period is included. Magnesium 1.9 1.6 - 2.4 mg/dL 12/06/2024 5:24 PM EDT [facility] Blood VENOUS BLOOD / Unknown Venipuncture / Unknown 12/06/2024 4:51 PM EDT 12/06/2024 4:56 PM EDT us Gabriela R Mangus BEADWORKER CHEMISTRY ORDERABLES Final Result Performing Organization Address [facility] de Phone Number [facility] [address] [place] [address] * LIPASE LEVEL (12/06/2024 4:51 PM EDT) Lipase Lvl 21 13 - 60 U/L 12/06/2024 5:24 PM EDT [facility] Blood VENOUS BLOOD / Unknown Venipuncture / Unknown 12/06/2024 4:51 PM EDT 12/06/2024 4:56 PM EDT us Gabriela R Mangus BEADWORKER CHEMISTRY ORDERABLES Final Result Performing Organization Address City/[facility] de Phone Number [facility] [address] [place] [address] * COMPREHENSIVE METABOLIC PANEL (12/06/2024 4:51 PM EDT) Only the most recent of3 resultswithin the time period is included. Sodium 141 136 - 145 mmol/L 12/06/2024 5:24 PM EDT [facility] Potassium 3.8 3.5 - 5.0 mmol/L 12/06/2024 5:24 PM EDT [facility] Chloride 105 98 - 107 mmol/L 12/06/2024 5:24 PM EDT [facility] Total CO2 28 22 - 29 mmol/L 12/06/2024 5:24 PM EDT [facility] Anion Gap 8 7 - 16 mmol/L 12/06/2024 5:24 PM EDT [facility] Calcium 8.8 8.6 - 10.4 mg/dL 12/06/2024 5:24 PM EDT [facility] Glucose Lvl 75 70 - 99 mg/dL 12/06/2024 5:24 PM EDT [facility] BUN 10 6 - 20 mg/dL 12/06/2024 5:24 PM EDT [facility] Creatinine 0.69 0.51 - 1.30 mg/dL 12/06/2024 5:24 PM EDT [facility] Albumin 4.1 3.5 - 5.2 gm/dL 12/06/2024 5:24 PM EDT [facility] Total Protein 6.6 6.4 - 8.3 gm/dL 12/06/2024 5:24 PM EDT [facility] Bili Total 0.4 0.2 - 1.3 mg/dL 12/06/2024 5:24 PM EDT [facility] ALT 14 <=41 U/L 12/06/2024 5:24 PM EDT [facility] AST 16 <=40 U/L 12/06/2024 5:24 PM EDT [facility] Alk Phos 119 36 - 123 U/L 12/06/2024 5:24 PM EDT [facility] eGFR (CKD-EPIcr 2020) 106 >=60 mL/min/1.7 3 m2 12/06/2024 5:24 PM EDT [facility] Comment:Estimated GFR was ca lculated using the CKD-EPIcr (2020) equation refit without race. The equation is recommended by the National Kidney Foundation - [place] [employer] of Nephrology Task Force. Blood VENOUS BLOOD / Unknown Venipuncture / Unknown 12/06/2024 4:51 PM EDT 12/06/2024 4:56 PM EDT Gabriela Bhatt BEADWORKER CHEMISTRY ORDERABLES Final Result [facility] [address] [place] [address] * XR CHEST PA AND LATERAL (12/06/2024 [...] size. IMPRESSION: No acute finding. us Gabriela Bhatt BEADWORKER IMG DIAGNOSTIC IMAGING ORDE RABLES Final Result * EK EKG 12 LEAD (12/06/2024 3:37 PM EDT) Anatomical Region Laterality Modality Electrocardiogra phy 12/06/2024 3:43 PM EDT Impressions 12/07/2024 10:[address] [facility] Test Date: 2024-12-06 Pat Name: SHERYL CORDERO Department: DEPID Room: Gender: Female [employer]: [facility] : 1975 Requested By: [employer] [facility] Order Number: [id number] Reading MD: Donnie Lam MD Measurements Intervals [place] Rate: 68 P: 73 [place]: 159 QRS: -75 QRSD: 98 T: 86 QT: 396 QTc: 424 Interpretive Statements SINUS RHYTHM PATTERN CONSISTENT WITH PULMONARY DISEASE LEFT ANTERIOR FASCICULAR BLOCK Electronically Signed On 12-07-2024 10:17:51 EDT by Donnie Lam MD Narrative Procedure Note Donnie Lam MD - 12/07/[address] [facility] Test Date: 2024-12-06 Pat Name: SHERYL CORDERO Department: DEPID Room: Gender: Female [employer]: [facility] : 1975 Requested By: [facility] Order Number: [id number] Reading MD: Donnie Lam MD Measurements Intervals [place] Rate: 68 P: 73 [place]: 159 QRS: -75 QRSD: 98 T: 86 QT: 396 QTc: 424 Interpretive Statements SINUS RHYTHM PATTERN CONSISTENT WITH PULMONARY DISEASE LEFT ANTERIOR FASCICULAR BLOCK Electronically Signed On 12-07-2024 10:17:51 EDT by Donnie Lam MD us Sandra Barahona MD IMG ECG ORDERABLES Final Re sult * MRI LUMBAR SPINE W WO CONTRAST [...] R29.898-Other symptoms and signs involving the musculoskeletal vkaqbk-RKF-48-CM. COMPARISON: No prior lumbar spine MR studies [...] heavy R29.898-Other symptoms and signsinvolving the musculoskeletal kqsbzo-XIA-24-CM. COMPARISON: No prior lumbar spine MR studies [...] WO CONTRAST 12/01/2024 3:25 PM CLINICAL HISTORY: H24-Ierjoic and upyrhyxn-JNU-52-CM X96-Bmjkevtta and qpfffjaog-YUX-59-CM H53.9-Unspecified visual xfllpdwpfjx-BZU-33-CM R29.898-Other symptoms and signs involving the musculoskeletal rrencf-IWL-57-CM. COMPARISON: Head CT 11/23/2024 PROCEDURE COMMENTS: Multiplanar [...] WO CONTRAST 12/01/2024 3:25 PM CLINICAL HISTORY: V61-Busndyq and duwtayac-EWF-56-CM L35-Oyctxjewv and cvxmfuhan-OOJ-58-CM H53.9-Unspecified visual wskwrvasbvu-VPS-62-CM R29.898-Other symptoms and signs involving the wynfomnpbfljocndpbieg-HSI-46-CM. COMPARISON: Head CT 11/23/2024 PROCEDURE COMMENTS: Multiplanar [...] the ordering clinician. 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 Marleny Burt [...] IMG HOLTER MONITOR ORDERABLES Final Result * (ABNORMAL) SEP URINALYSIS POC (11/30/2024 3:24 PM EDT) [facility] UA Color POC Yellow Color 11/30/2024 3:26 [...] POINT OF CARE TEST ORDERABLES Final Result [facility] [address] [facility], [address] [place] [address] * CT ANGIOGRAM HEAD AND NECK W [...] WITH CONTRAST, 11/24/2024 10:27 AM CLINICAL HISTORY: O95-Cxmamck and czelrvum-FYH-83-CM H08-Wmhcoulfx and kjwopipzw-JZQ-34-CM H53.9-Unspecified visual sehagivohzh-FFB-51-CM R29.898-Other symptoms and signs involving the musculoskeletal pzjtgb-RLY-00-CM. COMPARISON: Concurrently obtained CT brain, CTA 06/24/2024 [...] WITH CONTRAST, 11/24/2024 10:27 AM CLINICAL HISTORY: W13-Rnqhjsg and vcqtndxo-OUX-39-CM I32-Yxwzkchib and hjkhucxvu-TGJ-56-CM H53.9-Unspecified visual crndhskxile-TBK-53-CM R29.898-Other symptoms and signs involving the grdsiuoflfonjfoxremcc-QUM-58-CM. COMPARISON: Concurrently obtained CT brain, CTA 06/24/2024 [...] WO CONTRAST 11/23/2024 1:11 PM CLINICAL HISTORY: A49-Iymhzmt and nzgpmckz-DDY-45-CM D58-Vxvyjxmbd and qorftouvr-BHB-00-CM H53.9-Unspecified visual wvmlgttjelp-ELC-59-CM R29.898-Other symptoms and signs involving the musculoskeletal juvhcf-HII-85-CM. COMPARISON: None. PROCEDURE COMMENTS: Routine noncontrast head [...] WO CONTRAST 11/23/2024 1:11 PM CLINICAL HISTORY: I52-Nbgqfqt and kpidykvj-CGJ-10-CM E97-Yokbipdhl and vuhfqsxgl-UMU-18-CM H53.9-Unspecified visual ospebqblhni-YDX-40-CM R29.898-Other symptoms and signs involving the qzeufqetdbpedtbjdibyf-LYF-40-CM. COMPARISON: None. PROCEDURE COMMENTS: Routine noncontrast head [...] of the ordering clinician. Marleny Burt MD [facility] ORDERABLES Final Resul t * (ABNORMAL) URINALYSIS (11/17/2024 10:42 AM EDT) UA Color Yellow 11/17/2024 11:14 AM EDT [facility] UA Appear Clear Clear 11/17/2024 11:14 AM EDT [facility] UA Glucose Negative Negative mg/dL 11/17/2024 11:14 AM EDT [facility] UA Ketones Negative Negative mg/dL 11/17/2024 11:14 AM EDT [facility] UA Blood Trace-Intac t(A) Negative 11/17/2024 11:14 AM EDT [facility] UA pH 6.0 5.0 - 8.0 pH 11/17/2024 11:14 AM EDT [facility] UA Protein Negative Negative mg/dL 11/17/2024 11:14 AM EDT [facility] UA Urobilinogen 0.2 <=1 mg/dL 11:14 AM EDT [facility] UA Bili Negative Negative 11/17/2024 11:14 AM EDT [facility] UA Nitrite Negative Negative 11/17/2024 11:14 AM EDT [facility] UA Leuk Est Small(A) Negative 11/17/2024 11:14 AM EDT [facility] UA Spec Grav 1.015 1.001 - 1.035 no units 11/17/2024 11:14 AM EDT [facility] Comment:Reference range nick d for random specimens only. UA WBC 1 0 - 4 /HPF 11/17/2024 11:14 AM EDT [facility] UA RBC 1 0 - 3 /HPF 11/17/2024 11:14 AM EDT [facility] UA Squam Epi 1+ /LPF 11/17/2024 11:14 AM EDT [facility] Urine STRUCTURE OF URINARY TRACT PROPER / Unknown 11/17/2024 10:42 AM EDT 11/17/2024 10:47 AM EDT us Fabby Joya MD URINE ORDERABLES Final Result [facility] [address] [place] [address] * EC ECHOCARDIOGRAM COMPLETE W DOPPLER AND [...] with an estimated ejectionfraction of 55%. us Marleny Burt MD IMG ECHO ORDERABLES Final Res ult * US RIGHT UPPER QUADRANT (10/13/2024 10:00 [...] AM CLINICAL HISTORY: 49 years-old; E78.00-Pure hypercholesterolemia, pybgtdcbyoz-GGM-20-CM R74.01-Elevation of levels of liver transaminase tvjgjs-EDW-58-CM. COMPARISON: Noncontrast abdomen and pelvis CT 02/06/2016. [...] mm. No pericholecystic fluid or other ascites. Plastic Molder indicates clinically negative Willson's sign while scanning. Limited assessment of proximal pancreas is unremarkable. Right kidney measures 9.2 cm in length. Total renal volume is 82.4 cm3. No hydronephrosis, solid or cystic mass lesion or echogenic shadowing stone. Procedure Note Katey Hdz MD - 10/13/2024 US RIGHT UPPER QUADRANT: 10/13/2024 10:00 AM CLINICAL HISTORY: 49 years-old; E78.00-Pure hypercholesterolemia, yivphjizhdh-QPK-22-CM R74.01-Elevation of levels of liver transaminase oipicc-NTB-67-CM. COMPARISON: Noncontrast abdomen and pelvis CT 02/06/2016. [...] 1 mm. No pericholecystic fluidor other ascites. Plastic Molder indicates clinically negative Willson's signwhile scanning. Limited [...] of the ordering clinician. Marleny Burt MD [facility] ORDERABLES Final Resul t * (ABNORMAL) SERUM IMMUNOTYPING (10/07/2024 10:27 AM EDT) IgA 130 70 - 400 mg/dL 10/09/2024 1:38 PM EDT [facility] IgG 962 700 - 1,600 mg/dL 10/09/2024 1:38 PM EDT [facility] IgM 116 40 - 230 mg/dL 10/09/2024 1:38 PM EDT [facility] Albumin SPE 3.8 3.1 - 5.0 gm/dL 10/09/2024 1:38 PM EDT [facility] Alpha 1 Globulin 0.3 0.1 - 0.3 gm/dL 10/09/2024 1:38 PM EDT [facility] Alpha 2 Globulin 0.6 0.5 - 1.0 gm/dL 10/09/2024 1:38 PM EDT [facility] Beta Globulin 0.7 0.5 - 1.4 gm/dL 10/09/2024 1:38 PM EDT [facility] Gamma Globulin MARY 0.8 0.6 - 1.6 gm/dL 10/09/2024 1:38 PM EDT [facility], [facility] Total Protein 6.2(L) 6.4 - 8.3 gm/dL 10/09/2024 1:38 PM EDT [facility] SPE/IT Interp M-protein not apparent on serum protein electrophoresis. M-protein not apparent on immunotyping (IT). This test has been reviewed and approved by Leo Ferrara MD, JAIRO. 10/09/2024 1:38 PM EDT [facility] Blood VENOUS BLOOD / Unknown Venipuncture / Unknown 10/07/2024 10:27 AM EDT 10/07/2024 10:27 AM EDT us Marleny Burt MD IMMUNOLOGY ORDERABLES Final R esult Performing Organization Address [facility]/ZIP Co de Phone Number [facility] [place] [id number] * ANEMIA REFLEX (10/07/2024 10:27 AM EDT) Blood VENOUS BLOOD / Unknown Venipuncture / Unknown 10/07/2024 10:27 AM EDT 10/07/2024 10:27 AM EDT us Marleny Burt MD CHEMISTRY ORDERABLES Final Re sult Performing Organization Address City/[facility]/ZIP Co de Phone Number [address] [address] * IRON+TIBC (10/07/2024 10:27 AM EDT) Iron 75 30 - 160 mcg/dL 10/07/2024 2:43 PM EDT [facility], [facility] Transferrin 218 200 - 360 mg/dL 10/07/2024 2:43 PM EDT [facility] Transferr[facility] Saturation 25 20 - 50 % 10/07/2024 2:43 PM EDT [facility] TIBC 305 250 - 400 mcg/dL 10/07/2024 2:43 PM EDT [facility] Blood VENOUS BLOOD / Unknown Venipuncture / Unknown 10/07/2024 10:27 AM EDT 10/07/2024 10:27 AM EDT us Marleny Burt MD CHEMISTRY ORDERABLES Final Re sult Performing Organization Address [facility]/ZIP Co de Phone Number [facility] [address] [facility], [place] [address] * LH/FSH (10/07/2024 10:27 AM EDT) LH 43.70 mIU/mL 10/07/2024 2:23 PM EDT [facility] Comment: Suggested Reference Ranges (mIU/mL) Females Follicular Phase 2.4 - 12.6 Ovulation Phase 14.0 - 95.6 Luteal Phase 1.0 - 11.4 Postmenopause 7.7 - 58.5 Males 1.7 - 8.6 FSH 83.20 mIU/mL 10/07/2024 2:23 PM EDT [facility] Comment: Suggested Reference Range (mIU/mL) Females Follicular Phase 3.5 - 12.5 Ovulation Phase 4.7 - 21.5 Luteal Phase 1.7 - 7.7 Postmenopause 25.8 - 134.8 Males 1.5 - 12.4 Blood VENOUS BLOOD / Unknown Venipuncture / Unknown 10/07/2024 10:27 AM EDT 10/07/2024 10:27 AM EDT Narrative [facility] - 10/07/2024 2:23 PM EDT Ingestion of caleb doses of biotin (>5 mg/day) taken within 8 hours of drawing blood sample can interfere with this immunoassay test. us Marleny Burt MD IMMUNOLOGY ORDERABLES Final R esult Performing Organization Address [facility]/ZIP Co de Phone Number [facility] [address] [facility] , [place] [address] * VITAMIN B12/ FOLIC ACID (10/07/2024 10:27 AM EDT) Pathologist [facility] Vitamin B12 409 232 - 1,245 pg/mL 10/07/2024 2:31 PM EDT [facility] Folate 9.87 >=4.80 ng/mL 10/07/2024 2:31 PM EDT [facility] Blood VENOUS BLOOD / Unknown Venipuncture / Unknown 10/07/2024 10:27 AM EDT 10/07/2024 10:27 AM EDT Narrative [facility] - 10/07/2024 2:31 PM EDT Ingestion of caleb doses of biotin (>5 mg/day) taken within 8 hours of drawing blood sample can interfere with this immunoassay test. us Marleny Burt MD CHEMISTRY ORDERABLES Final Re sult Performing Organization Address [facility] de Phone Number [facility] , [place] [address] * (ABNORMAL) VITAMIN D 25 HYDROXY (10/07/2024 10:27 AM EDT) Pathologist [facility] Vit D 25 OH 18.7(L) 30.0 - 150.0 ng/mL 10/07/2024 2:31 PM EDT [facility] Comment: Preferred: >= 30 ng/mL Insufficient: 21-29 ng/mL Deficient <= 20 ng/mL Possible Toxicity: >150 ng/mL Samples should not be taken from patients receiving therapy with high biotin doses (i.e. > 5 mg/day) until at least 8 hours following the last biotin administration. Blood VENOUS BLOOD / Unknown Venipuncture / Unknown 10/07/2024 10:27 AM EDT 10/07/2024 10:27 AM EDT Marleny Burt MD CHEMISTRY ORDERABLES Final Re sult Performing Organization Address [facility] Co de Phone Number [facility] [address] [facility] , [place] [address] * (ABNORMAL) KAPPA/LAMBDA FREE LIGHT CHAINS (10/07/2024 10:27 AM EDT) [place] Free Light Chains 24.58(H) 3.30 - 19.40 mg/L 10/09/2024 10:35 AM EDT [facility] Lambda Free Light Chains 16.63 5.70 - 26.30 mg/L 10/09/2024 10:35 AM EDT [facility] [place]/Lambda FLC Ratio 1.48 0.26 - 1.65 10/09/2024 10:35 AM EDT [facility] Blood VENOUS BLOOD / Unknown Venipuncture / Unknown 10/07/2024 10:27 AM EDT 10/07/2024 10:27 AM EDT us Marleny Burt MD CHEMISTRY ORDERABLES Final Re sult [facility], [facility] [address] [facility] , [place] [address] * ESTROGENS, FRACTIONATED BY TMS -REF LAB (10/07/2024 10:27 AM EDT) Estradiol 18.0 pg/mL 10/17/2024 3:03 PM EDT [employer] Comment: REFERENCE INTERVAL: Estradiol by Fnps For a complete set of all established reference intervals, refer to [employer]/Tests/Pub/[id number]. This test was developed and its performance characteristics determined by [employer]. It has not been cleared or approved by the [place] Food and Drug Administration. This test was performed in a CLIA certified laboratory and is intended for clinical purposes. Estrone by 13.6 pg/mL 10/17/2024 3:03 PM EDT [employer] Comment: INTERPRETIVE INFORMATION: Estrone by Fnps For a complete set of all established reference intervals, refer to [employer]/Tests/Pub/[id number]. This test was developed and its performance characteristics determined by [employer]. It has not been cleared or approved by the [place] Food and Drug Administration. This test was performed in a CLIA certified laboratory and is intended for clinical purposes. Estrogens Total 31.6 pg/mL 3:03 PM EDT [email or web address] Comment: Reference interval of estrogens (pg/mL) Estrone Estradiol Total Estrogens Early follicular <150.0 30.0-100.0 30.0-250.0 Late follicular 100.0-250.0 100.0-400.0 200.0-650.0 Luteal <200.0 50.0-150.0 50.0-350.0 Post-menopausal 3.0-32.0 2.0-21.0 5.0-52.0 REFERENCE INTERVAL: Estrogens Total Calculation For a complete set of all established reference intervals, refer to [email or web address][employer]/Tests/Pub/[id number]. Performed By: [employer] [address] [place] [address] Leather Grader: Larry Olivarez MD, PhD CLIA Number: [id number] Blood VENOUS BLOOD / Unknown Venipuncture / Unknown 10/07/2024 10:27 AM EDT 10/11/2024 5:27 PM EDT us Marleny Burt MD CHEMISTRY ORDERABLES Final Re sult [email or web address] [address] [place] [address] * HEPATITIS B SURFACE ANTIBODY (10/07/2024 10:27 AM EDT) Hep Bs Ab 6.52 mIU/mL 10/07/2024 2:36 PM EDT Memonic Comment: < 10 mIU/mL - Non-reactive (Result not consistent with protective immunity.) >= 10 mIU/mL - Reactive (Result consistent with protective immunity.) Blood VENOUS BLOOD / Unknown Venipuncture / Unknown 10/07/2024 10:27 AM EDT 10/07/2024 10:27 AM EDT Narrative [facility]onic - 10/07/2024 2:36 PM EDT Test performed using [employer] electrochemiluminescence immunassay (ECLIA). us Marleny Burt MD IMMUNOLOGY ORDERABLES Final R esult Performing Organization Address [facility] Co de Phone Number [employer] [facility] [address] [facility] , [place] [address] * THYROID STIMULATING HORMONE (10/07/2024 10:27 AM EDT) TSH 2.840 0.270 - 4.200 mcIU/mL 10/07/2024 2:43 PM EDT [facility] Blood VENOUS BLOOD / Unknown Venipuncture / Unknown 10/07/2024 10:27 AM EDT 10/07/2024 10:27 AM EDT Narrative Memonic - 10/07/2024 2:43 PM EDT Ingestion of caleb doses of biotin (>5 mg/day) taken within 8 hours of drawing blood sample can interfere with this immunoassay test. us Marleny Burt MD CHEMISTRY ORDERABLES Final Re sult Performing Organization Address [facility] de Phone Number Memonic [address] [facility] , [place] [address] * T4, FREE (THYROXINE) (10/07/2024 10:27 AM EDT) Free T4 0.95 0.80 - 1.80 ng/dL 10/07/2024 2:43 PM EDT [facility]onic Blood VENOUS BLOOD / Unknown Venipuncture / Unknown 10/07/2024 10:27 AM EDT 10/07/2024 10:27 AM EDT Narrative Memonic - 10/07/2024 2:43 PM EDT Ingestion of caleb doses of biotin (>5 mg/day) taken within 8 hours of drawing blood sample can interfere with this immunoassay test. us Marleny Burt MD CHEMISTRY ORDERABLES Final Re sult Performing Organization Address [facility] Co de Phone Number Ideal Me [facility] [address] [facility] , [place] [address] * PHOSPHORUS LEVEL (10/07/2024 10:27 AM EDT) Pathologist [facility] Phosphorus 3.1 2.5 - 4.5 mg/dL 10/07/2024 2:43 PM EDT PREFERRED [facility] Blood VENOUS BLOOD / Unknown Venipuncture / Unknown 10/07/2024 10:27 AM EDT 10/07/2024 10:27 AM EDT Marleny Burt MD CHEMISTRY ORDERABLES Final Re sult Performing Organization Address [facility]/ZIP Co de Phone Number PREFERRED Distill [facility] [address] [facility] , [place] [address] * NT PROBNP (10/07/2024 10:27 AM EDT) [facility] NT Pro-BNP <36 <=192 pg/mL 10/07/2024 2:09 PM EDT [facility] Col[facility] Blood VENOUS BLOOD / Unknown Venipuncture / Unknown 10/07/2024 10:27 AM EDT 10/07/2024 10:27 AM EDT Narrative PREFERRED [facility] - 10/07/2024 2:09 PM EDT An NT pro-BNP level less than 300 pg/mL in any patient, regardless of age, effectively rules out acute CHF with a 99% negative predictive value. Ingestion of caleb doses of biotin (>5 mg/day) taken within 8 hours of drawing blood sample can interfere with this immunoassay test. Marleny Burt MD CHEMISTRY ORDERABLES Final Re sult Performing Organization Address [facility]/ZIP Co de Phone Number [facility] [address] [facility] , [place] [address] * HEMOGLOBIN A1C (10/07/2024 10:27 AM EDT) Pathologist [facility] Hgb A1C 5.6 4.2 - 5.6 % 10/07/2024 2:19 PM EDT [facility] Est. Avg Glucose 114 mg/dL 10/07/2024 2:19 PM EDT [facility] Blood VENOUS BLOOD / Unknown Venipuncture / Unknown 10/07/2024 10:27 AM EDT 10/07/2024 10:27 AM EDT Narrative PREFERRED Distill [facility] - 10/07/2024 2:19 PM EDT REFERENCE RANGE: Normal: 4.0-5.6% Pre-diabetes: 5.7-6.4% Provisional diagnosis of diabetes: >6.4% Hgb F>10% and anything which shortens red cell survival, such as hemolytic anemia, or unstable hemoglobin variants such as HbSS, HbSC, or HbCC, will lower the HbA1c value associated with a given level of glycemic control. us Mraleny Burt MD CHEMISTRY ORDERABLES Final Re sult Performing Organization Address City/[facility] Co de Phone Number [facility] [address] [facility] , [place] [address] * CREATINE KINASE (10/07/2024 10:27 AM EDT) CK 177 26 - 192 U/L 10/07/2024 2:43 PM EDT [facility] Blood VENOUS BLOOD / Unknown Venipuncture / Unknown 10/07/2024 10:27 AM EDT 10/07/2024 10:27 AM EDT us Marleny Burt MD CHEMISTRY ORDERABLES Final Re sult Performing Organization Address City/[facility] Co de Phone Number [facility] [address] [facility] , [place] [address] * (ABNORMAL) LIPID SCREEN (10/07/2024 10:27 AM EDT) Cholesterol 191 <200 mg/dL 10/07/2024 2:43 PM EDT [facility] Comment: < 200 Desirable 200 - 239 Borderline High >= 240 High Triglyceride 64 <150 mg/dL 10/07/2024 2:43 PM EDT [facility] Comment: < 150 Normal 150 - 199 Borderline High 200 - 499 High >= 500 Very High HDL 51 >=40 mg/dL 10/07/2024 2:43 PM EDT Memonic Comment: > 60 Optimal 40 - 60 Acceptable < 40 Low LDL Calculated 128(H) <100 mg/dL 10/07/2024 2:43 PM EDT Memonic Comment: < 100 Optimal 100 - 129 Near or above optimal 130 - 159 Borderline High 160 - 189 High >= 190 Very High The National Institutes of Health (NIH) equation is used for all lipid panels that report calculated LDL (LDL-C). Non-HDL-C Calculated 140(H) <=129 mg/dL 10/07/2024 2:43 PM EDT Memonic Comment: <130 Desirable 130-159 Above Desirable 160-189 Borderline High 190-219 High >= 220 Very High Fasting Specimen? Yes None 025 2:43 PM EDT [facility] Blood VENOUS BLOOD / Unknown Venipuncture / Unknown 10/07/2024 10:27 AM EDT 10/07/2024 10:27 AM EDT us Marleny Burt MD CHEMISTRY ORDERABLES Final Re sult [facility] 1 [facility], [place] [address] * (ABNORMAL) POCT EKG (09/29/2024 2:53 PM EDT) 09/29/2024 2:53 PM EDT Impressions SEP OFFICE - 09/29/2024 2:57 PM EDT SR LAD, possible LAE, iRBBB w/LAFB T wave inversions V1-V3 similar to previous 06/2024, 12/2023 No other STTW changes compared to prior us Marleny Burt MD POINT OF CARE CARDIOLOGY Wandy l Result SEP OFFICE * APPLICATION DEVELOPER CYTOLOGY REPORT (11/07/2015 1:27 PM EDT) Blade Sharpener Cytology Report PATIENT NAME:SHERYL CORDERO Blade Sharpener Cytology Report Accession Number Collected Date/Time Received Date/Time [id number] 11/07/15 13:27 EDT 11/07/15 16:13 EDT GY Specimen Source Specimen Vag/Cerv/Endocx?: Cervical Statement of Adequacy Satisfactory for Evaluation. Transformation Zone Absent. Diagnosis NEGATIVE FOR INTRAEPITHELIAL LESION OR MALIGNANCY. Comment This case was not successfully Imaged due to technical reasons and was manually rescreened. The Pap Smear is a screening test that aids in the detection of cervical cancer and cancer precursors. Both false positive and false negative results can occur. The test should be used at regular intervals, and positive results should be confirmed before definitive therapy. Processed using the [employer] Pulley Worker automated cytology screening device ([employer]). Technology Project Manager: DT 11/08/2015 Completed by: NICCI Russell (Electronically signed by) 11/08/2015 [facility] 11/07/2015 1:27 PM EDT Amalia Joya APRN PATHOLOGY ORDERABLES Final Res ult [facility] [address] [place] [address] from Last 3 Months or Most Recently Relevant to Health Maintenance Insurance [facility] [employer] [facility] [address] [place] [address] Member Subscriber Plan / Payer (Ef fective 2024-) Name:Sheryl Cordero Relation to Subscriber:Self Name:Sheryl Cordero Payer ID:[id number] (NAIC) Group ID:Not on file Type:Not on file Address: [address] HEALTH PLAN BY [facility] Care Teams Communication Coordinator Relationship Specialty Start Date End Date Marleny Burt MD [address] [place] [address] PCP - General Family Medicine 09/29/24
--- OUTSIDE RECORDS SUMMARY | 2024-12-13 10:25 | XMS_ITS | Encounter Summary ---
Author Organization [place] [address] Care Team Providers Care Front End Loader Driver Name Role Phone Chpi Burt MD Primary Care Provider [phone] Encounter Details Date Type Department Care Team (Late st Contact Info) Description 12/02/2024 Results Follow-Up [facility] [address] [place] [address] Fabby Joya MD [address] [place] [address] URINE CULTURE (NO STAIN) Social History Tobacco [...] AM EDT Hospital Encounter [facility] [address] [facility] [address] [place] [address] Binh Brody MD [address] [place] [address] [place] [address] 12/15/2024 3:20 PM EDT Office Visit [facility] [place] [facility] [address] [facility] [address] [place] [phone] Chip Burt MD [address] [place] [address] 12/25/2024 2:00 PM EDT Appointment [place] [facility] [address] [place] [phone] Binh Brody MD [address] [place] [address] [place] [address] 01/04/2025 8:45 AM EDT Office Visit [facility] Neurology [address] [place] [address] Chuyita Moscoso MD [address] [place] [address] 02/02/2025 1:40 PM EDT Office Visit [facility] [place] [facility] [address] [place] [address] Chip Burt MD [address] [place] [address] 04/09/2025 10:00 AM EST Office Visit [facility] [place] [address] [place] [address] Anh Patel APRN 1 [place] [address] Scheduled Orders Name Type Priority Associated Diagnoses Orde r Schedule URINALYSIS Lab Routine Hematuria, microscopic 1 Occurrences starting 12/02/2024 until 12/02/2025 documented as of this encounter Goals Goal Patient Goal Type Associated Problems Recent Progress Patient-Stated? Author Maintain a healthy diet, exercise regularly and maintain an ideal body weight General No Philippe Hansen MA Stay Tobacco Free Lifestyle No Philippe Hansen MA documented as of this encounter Visit Diagnoses Diagnosis Hematuria, microscopic- Primary Microscopic hematuria documented in this encounter Care Teams Front End Loader Driver Relationship Specialty Start Date End Date Chip Burt MD [address] [place] [address] PCP - General Family Medicine 09/29/24 documented as of this encounter
--- OUTSIDE RECORDS SUMMARY | 2024-12-13 10:25 | XMS_ITS | Clinical Summary ---
Author Organization [facility] Address [address] [place] [address] Care Team Providers Care Over Hauler Helper Name Role Phone Gretchen Juarez MD Primary Care Provider Tiffanie lable Allergies Active Allergy Reactions Criticality Noted Date Comments Codeine 07/18/2012 Medications ibuprofen (MOTRIN) 600 mg PO tablet prn Active famotidine (PEPCID) 20 mg PO tablet Take 20 mg by mouth 2 times daily. Active sertraline (ZOLOFT) 25 mg tablet 1/2 po qhs for a week then inc to 1 at hs 30 Tab 0 01/15/2016 Active dextroamphetami ne-amphetamine (ADDERALL XR) 15 mg Capsule, Sust. Release 24 hr Take 15 mg by mouth. Active valACYclovir (VALTREX) 1 gram tablet 2 po bid for 1 day 4 Tablet 3 12/25/2020 Active ergocalciferol (ERGOCALCIFEROL ) 1,250 mcg (50,000 unit) Capsule Take 50,000 Units by mouth. Active methylPREDNISol one (MEDROL) 4 mg tablet Take as directed on package insert. May take all tablets for ear day as a single dose in morning with food. 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 Diarrhea 01/10/2013 Foot pain, right 01/10/2013 Epigastric abdominal pain 01/10/2013 ADHD (attention deficit hyperactivity disorder) 01/10/2013 Encounters Date Type Department Care Team Description 12/08/2024 10:00 AM EDT MA/Nurse Visit [facility] [address] [address] Postmenopausal bleeding (Primary Dx) 11/28/2024 Results Follow-Up [facility] [address] [address] Amalia Joya APRN PAP HPV DNA, AZALIA 11/24/2024 2:40 PM EDT - 11/24/2024 11:59 PM EDT Hospital Encounter Laboratory [address] [place] [address] Gynecologic exam normal Discharge Disposition: Home or Self Care 11/24/2024 1:40 PM EDT Office Visit [facility] [address] [place], [place] [address] Amalia Joya APRN Gynecologic exam normal (Primary Dx); Vaginitis and vulvovaginitis; Postmenopausal bleeding from Last 3 Months Family History Medical History Relation Name Comments COPD Mother Heart Problems Mother Thyroid Disease Mother Heart Problems Sister Relation Name Status Comments Mother Sister Social History Tobacco Use Types Packs/Day Years [...] on file Sexual Orientation Not on file Last Filed Vital Signs Vital Sign Reading Time Taken Comments Blood Pressure 106/62 11/24/2024 2:10 PM EDT Pulse 80 01/15/2016 12:05 PM EDT Temperature 36.4 C (97.6 F) 01/15/2016 12:05 PM EDT Respiratory Rate - - Oxygen Saturation - - Inhaled Oxygen Concentration - - Weight 52.2 kg (115 lb) 11/24/2024 2:10 PM EDT Height 152.4 cm (5') 06/24/2016 3:34 PM EST Body Mass Index 22.46 06/24/2016 3:34 PM EST Plan of Treatment Health Maintenance Due Date Last Done Comments Cologuard 1975 Colonoscopy 1975 Colorectal Cancer Screening 1975 FIT 1975 Tobacco Cessation Counseling 1987 Tetanus Vaccination (Every 1 0 Years) 1993 COVID-19 Vaccine (2023-2 5 season) 2024 09/19/2020 Depression Screening 05/03/2024 Influenza Vaccination (#1) 2025 03/18/2020 Cervical Cancer Screening 11/25/20272024, 11/07/2015, 11/07/2015 Lipid Screening 10/07/2029 10/07/2024 Influenza Vaccination (Yearly) Discontinued 03/18/2020 Procedures Procedure Name Priority Date/Time Associated Diagnosis Comments PAP HPV DNA, AZALIA Routine 11/24/2024 2:4 3 PM EDT Gynecologic exam normal from Last 3 Months Results * PAP HPV DNA, AZALIA (11/24/2024 2:43 PM EDT) Diagnosis Comment [facility] INVESTMENT BANKING ANALYST [facility] Comment:NEGATIVE FOR INTRAEP ITHELIAL LESION OR MALIGNANCY. Adequacy Comment [facility] INVESTMENT BANKING ANALYST [facility] Comment: Satisfactory for evaluation. Endocervical and/or squamous metaplastic cells (endocervical component) are present. Performed Comment [facility] INVESTMENT BANKING ANALYST [facility] Comment:Anh Lainez, Cyto logist (ASCP) Notes Comment [facility] INVESTMENT BANKING ANALYST [facility] Comment: The Pap smear is a screening test designed to aid in the detection of premalignant and malignant conditions of the uterine cervix. It is not a diagnostic procedure and should not be used as the sole means of detecting cervical cancer. Both false-positive and false-negative reports do occur. HPV 16 Henrik Negative Negative [facility] EXT ERNAL LAB HPV 18, Henrik Negative Negative [facility] EX TERNAL LAB Comment: This nucleic acid amplification test detects fourteen high-risk HPV types: HPV16, HPV18 and twelve other high-risk types (31,33,35,39,45,51,52,56,58,59,66,68) without differentiation. Performed at: [address], [place] [id number] Dredge Pipe Operator: Shazia Marrero MD, Phone: [phone] Performed at: = - [facility]za[place], [place] [id number] Dredge Pipe Operator: Shazia Marrero MD, Phone: [phone] HPV Other Types, Henrik Negative Negative [facility] EXTERNAL [facility] Pap Vial 11/24/2024 2:43 PM EDT 11/28/2024 3:07 PM EDT us Amalia Joya SENIOR ENLISTED ADVISOR PATHOLOGY/CYTOLOGY ORDERABL ES Final Result [facility] EXTERNAL [facility] [address] [place] [address], [facility] from Last 3 Months Insurance [place] [facility] [address] [place] [address] Care Teams Over Hauler Helper Relationship Specialty Start Date End Date Gretchen Juarez MD PCP - General Family Medicine 05/13/12
--- OUTSIDE RECORDS SUMMARY | 2024-12-13 10:25 | XMS_ITS | Encounter Summary ---
Author Organization [facility] Address [address] [place] [address] Care Team Providers Care Stone Cutter Name Role Phone Gretchen Juarez MD Primary Care Provider Tiffanie bullard Encounter Details Date Type Department Care Team (Late st Contact Info) Description 11/28/2024 Results Follow-Up [facility] Physicians - Obstetrics & Gynecology, [place] [address] [place] [address] Amalia Joya APRN [address] [place], [place] [id number] PAP HPV DNA, AZALIA Social History Tobacco Use Types Packs/Day Years [...] on file documented as of this encounter Plan of Treatment Not on file documented as of this encounter Visit Diagnoses Not on filedocumented in this encounter Care Teams Stone Cutter Relationship Specialty Start Date End Date Gretchen Juarez MD PCP - General Family Medicine 05/13/12 documented as of this encounter
--- OUTSIDE RECORDS SUMMARY | 2024-12-13 10:25 | XMS_ITS | Encounter Summary ---
Author Organization [place] [address] Care Team Providers Care Oil Expert Name Role Phone Chip Hobbs MD Primary Care Provider [phone] Reason for Visit * Reason Onset Date Comments Paperwork/forms 12/04/2024 Encounter Details Date Type Department Care Team (Late st Contact Info) Description 12/04/2024 Telephone [facility] [address] [place] [phone] Chip Hobbs MD [address] [place] [address] Paperwork/forms Social History Tobacco Use Types Packs/Day Years [...] 3:38 PM EDT Ember Reyna RN * [place] Suicide Severity Rating Scale (Q shift for [...] Telephone Encounter - Leti Bustillo MA - 12/08/2024 9:39 AM EDT Called pt and informed her dr hobbs is on vacation, we received the paperwork and will be filled out when he returns. Advised her paperwork timeline is usually 7-10 business days. Pt stated work wasjust wanting an update. * Telephone Encounter - Diamond Young - 12/08/2024 9:36 AM EDT Select the most appropriate reason for this telephone message: Follow Up Follow Up Who is Calling:Patient What is the caller following up on (make sure to reference any prior documentation/encounter): pt wants to know if these forms have been faxed, please advise. Further follow-up needed?:Yes Return Method of Communication:Mychart message Additional Information:N/A * Telephone Encounter - Philippe Hansen MA - 12/04/2024 3:07 PM EDT Forms on desk in pink folder. Thanks * Telephone Encounter - Janna Grayson MA - 12/04/2024 2:34 PM EDT Forms placed in folder and put on MA's desk * Telephone Encounter - Alison Vences - 12/04/2024 2:14 PM EDT Patient came in and dropped of short term disability form to be filled out. Form are in the front back bin. Christopher has been filled out for forms to be faxed after completion. Christopher has been scanned to chart. Call patient when forms are completed. Forms have been paid for of $30. documented in this encounter Plan of Treatment Upcoming Encounters Date Type Department Care Team (Late st Contact Info) Description 12/15/2024 9:45 AM EDT Hospital Encounter [facility] [address] [place] [address] [address] [place] [address] Binh Brody MD [address] [place] [address] [facility] [id number] 12/15/2024 3:20 PM EDT Office Visit [facility] [address] [phone] Chip Hobbs MD [address] [place] [address] 12/25/2024 2:00 PM EDT Appointment [facility] [address] [place] [address] Binh Brody MD [address] [place] [address] 01/04/2025 8:45 AM EDT Office Visit [facility] Neurology [address] [place] [phone] Chuyita Moscoso MD [address] [place] [address] 02/02/2025 1:40 PM EDT Office Visit [facility] [address] [address] Chip Hobbs MD [address] [place] [address] 04/09/2025 10:00 AM EST Office Visit [facility] [place] [address] [place], [place] [phone] Anh Patel APRN [address] [facility] [facility] [place] [address] documented as of this encounter Goals Goal Patient Goal Type Associated Problems Recent Progress Patient-Stated? Author Maintain a healthy diet, exercise regularly and maintain an ideal body weight General No Philippe Hansen MA Stay Tobacco Free Lifestyle No Philippe Hansen MA documented as of this encounter Visit Diagnoses Not on filedocumented in this encounter Care Teams Oil Expert Relationship Specialty Start Date End Date Chip Hobbs MD [address] [place] [address] PCP - General Family Medicine 09/29/24 documented as of this encounter
--- OUTSIDE RECORDS SUMMARY | 2024-12-13 10:25 | XMS_ITS | Encounter Summary ---
Author Organization [place] [address] Care Team Providers Care Apple Peeler Operator Name Role Phone Chip Burt MD Primary Care Provider [phone] Reason for Visit * Reason Onset Date Comments Results 11/23/2024 11/24/24 CT Angio gram Encounter Details Date Type Department Care Team (Late st Contact Info) Description 11/23/2024 Results Follow-Up [facility] [address] [facility] [address] [place] [phone] Chip Burt MD [address] [place] [address] CT HEAD WO CONTRAST, CT ANGIOGRAM HEAD AND NECK W CONTRAST Social History Tobacco Use Types Packs/Day Years [...] encounter Miscellaneous Notes * Telephone Encounter - Lyn Conley MA - 11/27/2024 1:45 PM EDT Select the most appropriate reason for this telephone message: Patient Calling for Results Patient called for results on Imaging CT ANGIOGRAM HEAD AND NECK W CONTRAST Which Provider ordered the test? Chip Burt MD Date of test: 11/24/24 Advised patient of: normal result. Patient Instructions/ Questions: Pt advised to continue plan as otherwise discussed Medications Ordered/Pended (if yes, list medication): N/A Medications/Orders Needed (if yes, list orders): N/A Pharmacy Location Verified: No Other: Please put in the patient results note that pt is aware of the following results Chip Burt MD 11/27/2024 12:19 PM EDT Great news! CT angio head/neck reassuring.. Continue plan as otherwise discussed. documented in this encounter Plan of Treatment Upcoming Encounters Date Type Department Care Team (Late st Contact Info) Description 12/15/2024 9:45 AM EDT Hospital Encounter [facility] [address] [place] [address] [address] [place] [address] Binh Brody MD [address] [place] [address] [place] [address] 12/15/2024 3:20 PM EDT Office Visit [facility] [address] [phone] Chip Burt MD [address] [place] [address] 12/25/2024 2:00 PM EDT Appointment [facility] [address] [place] [address] Binh Brody MD [address] [place] [address] 01/04/2025 8:45 AM EDT Office Visit [facility] Neurology [address] [place] [phone] Chuyita Moscoso MD [address] [place] [address] 02/02/2025 1:40 PM EDT Office Visit SE[facility] [address] [address] Chip Burt MD [address] [place] [address] 04/09/2025 10:00 AM EST Office Visit [facility] [place] [address] [place] [address] Anh Patel APRN 1 [facility] [place] [address] documented as of this encounter Goals Goal Patient Goal Type Associated Problems Recent Progress Patient-Stated? Author Maintain a healthy diet, exercise regularly and maintain an ideal body weight General No Philippe Hansen MA Stay Tobacco Free Lifestyle No Philippe Hansen MA documented as of this encounter Visit Diagnoses Not on filedocumented in this encounter Care Teams Apple Peeler Operator Relationship Specialty Start Date End Date Chip Burt MD [address] [place] [address] PCP - General Family Medicine 09/29/24 documented as of this encounter
--- OUTSIDE RECORDS SUMMARY | 2024-12-13 10:26 | XMS_ITS | Encounter Summary ---
Author Organization [place] [address] Care Team Providers Care Junior Brand Manager Name Role Phone Chip Burt MD Primary Care Provider [phone] Reason for Visit * Reason Onset Date Comments Other 12/08/2024 faxed forms Encounter Details Date Type Department Care Team (Late st Contact Info) Description 12/08/2024 Telephone [facility] [address] [facility] [address] [place] [address] Chip Burt MD [address] [place] [address] Other (faxed forms) Social History Tobacco Use Types Packs/Day Years [...] Encounter - Leti Bustillo MA - 12/08/2024 2:49 PM EDT called back and let them know we received on 12/[address] faby WADE and it can take 7-10 business days for docs to complete paperwork. * Telephone Encounter - Sarthak Barahona - 12/08/2024 2:42 PM EDT Select the most appropriate reason for this telephone message: Other Who is calling (name & relationship to patient if not the patient): concepción west/ daniel matthews What is needed OR why are they calling: Concepción sent over some forms on November 30 to receive officevisit notes for patient and just wanted to make sure that provider is aware of the forms and will like them to be sent back completed as soon as possible. When is this needed by: today Where does this information need to go: Dr Faby Mclaughlin Method of Communication: Phone Call Additional information:N/A documented in this encounter Plan of Treatment Upcoming Encounters Date Type Department Care Team (Late st Contact Info) Description 12/15/2024 9:45 AM EDT Hospital Encounter [facility] [address] [facility] [address] [place] [address] Binh Brody MD [address] [place] [address] [place] [address] 12/15/2024 3:20 PM EDT Office Visit [facility] [address] [facility] [address] [place] [address] Chip Burt MD [address] [place] [address] 12/25/2024 2:00 PM EDT Appointment [facility] [address] [place] [address] Binh Brody MD [address] [place] [address] [place] [address] 01/04/2025 8:45 AM EDT Office Visit [facility] [address] [place] [place] [id number] Chuyita Moscoso MD [address] [place], [place] [address] 02/02/2025 1:40 PM EDT Office Visit [facility] [address] [facility] [address] [place] [address] Chip Burt MD [address] [place] [address] 04/09/2025 10:00 AM EST Office [place] [address] Anh Patel APRN [address] [facility] [address] [place] [address] documented as of this encounter Goals Goal Patient Goal Type Associated Problems Recent Progress Patient-Stated? Author Maintain a healthy diet, exercise regularly and maintain an ideal body weight General No Philippe Hansen MA Stay Tobacco Free Lifestyle No Philippe Hansen MA documented as of this encounter Visit Diagnoses Not on filedocumented in this encounter Care Teams Junior Brand Manager Relationship Specialty Start Date End Date Chip Burt MD [address] [place] [address] PCP - General Family Medicine 09/29/24 documented as of this encounter
--- OUTSIDE RECORDS SUMMARY | 2024-12-13 10:26 | XMS_ITS | Encounter Summary ---
Author Organization [facility] [place] [address] Care Team Providers Care Internet Assessor Name Role Phone Chip Burt MD Primary Care Provider [phone] Encounter Details Date Type Department Care Team (Latest Contact Info) Description 12/06/2024 Travel Social History Tobacco Use Types Packs/Day [...] 3:38 PM EDT Ember Reyna RN * Dodge Suicide Severity Rating Scale (Q shift for [...] AM EDT Hospital Encounter [facility] [address] [place] [address] [address] [place] [address] Binh Brody MD [address] [place] [address] 12/15/2024 3:20 PM EDT Office Visit [facility] [address] [facility] [address] [place] [phone] Chip Burt MD [address] [place] [address] 12/25/2024 2:00 PM EDT Appointment [facility] [address] [place] [address] Binh Brody MD [address] [place] [address] 01/04/2025 8:45 AM EDT Office Visit [facility] [address] [place] [address] Chuyita Moscoso MD [address] [place] [address] 02/02/2025 1:40 PM EDT Office Visit [facility] [address] [address] Chip Burt MD [address] [place] [address] 04/09/2025 10:00 AM EST Office Visit [facility] [place] [address] [place] [address] Anh Patel, CHIEF HYDROELECTRIC STATION OPERATOR 1 [place] [address] documented as of this encounter Goals Goal Patient Goal Type Associated Problems Recent Progress Patient-Stated? Author Maintain a healthy diet, exercise regularly and maintain an ideal body weight General No Philippe Hansen MA Stay Tobacco Free Lifestyle No Philippe Hansen MA documented as of this encounter Visit Diagnoses Not on filedocumented in this encounter Care Teams Internet Assessor Relationship Specialty Start Date End Date Chip Burt MD [address] [place] [address] PCP - General Family Medicine 09/29/24 documented as of this encounter
[2024-12-13 11:17] LABS: Hematocrit 40.3 % (37.0-47.0); Hemoglobin 13.5 g/dL (12.2-16.2); Immature Granulocytes % 0.3 %; Mean Corpuscular HGB Conc 33.5 g/dL (31.8-35.4); Mean Corpuscular Hemoglobin 31.0 pg (27.0-31.2); Mean Corpuscular Volume 92.4 fl (81-99); Nucleated Red Blood Cells % 0 %; Platelet Count 315 K/mm3 (142-424); Red Blood Count 4.36 M/mm3 (4.20-5.40); Red Cell Distribution Width-SD 43.9 fL; White Blood Count 12.2 K/mm3 (4.8-10.8)
[2024-12-13 11:51] LABS: Albumin Level 4.3 g/dl (3.5-5.0); Chloride 103 mmol/L (98-107); Sodium 140 mmol/L (136-145)
[2024-12-13 11:52] LABS: Potassium 4.3 mmoL/L (3.5-5.1)
[2024-12-13 11:54] LABS: Alanine Aminotransferase 15 U/L (12-78); Alkaline Phosphatase 99 U/L (38-126); Anion Gap 9.3 mEq/L (5-15); Aspartate Amino Transferase 25 U/L (14-36); Bilirubin,Direct 0.3 mg/dl (0.0-0.4); Bilirubin,Indirect 0.0 mg/dL (0.0-0.9); Bilirubin,Total 0.3 mg/dl (0.2-1.3); Bilirubin,Unconjugated 0.0 mg/dL (0.0-1.1); Blood Urea Nitrogen 9 mg/dl (7-17); Calcium 9.1 mg/dl (8.4-10.2); Carbon Dioxide 32 mmol/L (22.0-30.0); Cholesterol 195 mg/dl (140-200); Creatinine,Serum 0.50 mg/dl (0.52-1.04); Estimated Glomerular Filt Rate 131 ml/min (>60); GFR (African American) 159 ML/MIN (>60); Glucose 102 mg/dl (74-100); Total Protein,Serum 6.7 g/dl (6.3-8.2); Triglycerides 152 mg/dl (30-150)
[2024-12-13 11:55] LABS: HDL Cholesterol 51 mg/dl (40-60); Magnesium 2.0 mg/dl (1.6-2.3)
[2024-12-13 12:15] LABS: Free T4 (Free Thyroxine) 1.04 ng/dl (0.78-2.19)
[2024-12-13 12:26] LABS: Thyroid Stimulating Hormone 1.58 uIU/mL (0.465-4.68)
== END 2024-12-13 23:59 | disposition home or self-care (01) ==
LOC: LAB 10:19
PROVIDERS: Visit Provider Nurse Practitioner
DX: I49.1 Atrial premature depolarization (principal); I49.3 Ventricular premature depolarization; R55 Syncope and collapse
CPT/HCPCS: 36415; 80048; 80061; 80076; 83735; 84439; 84443; 85025; 93270

== ENCOUNTER 2024-12-28 11:53 | Outpatient (CLI) | payer BC, SELFPAY ==
--- OUTSIDE RECORDS SUMMARY | 2024-11-02 11:00 | XMS_ITS | Encounter Summary ---
Author Organization [place] [address] Care Team Providers Care Gas Engine Repairer Name Role Phone Chip Burt MD Primary Care Provider [phone] Reason for Referral * Consultation (Routine) - Pending Review Specialty Diagnoses / Procedures Referred By Rosemary singer Referred To Contact Otolaryngology Diagnoses Dizziness Procedures MA OFFICE/OUTPATIENT NEW MODERATE MDM 45 MINUTES Chip Burt MD [address] [place] [address] Phone: tel: fax: Jose Monsivais MD [address] [facility] [address] [place] [address] Phone: tel: fax: Referral ID Status Reason Start Date Expiration Date V isits Requested Visits Authorized [id number] Pending Review 11/02/2024 11/02/2025 99 99 Reason for Visit * Reason Comments Follow-up 4 weeks Encounter Details Date Type Department Care Team (Late st Contact Info) Description 11/02/2024 11:00 AM EDT Office Visit [facility] [address] [facility] [address] [place] [address] Chip Burt MD [address] [place] [address] Syncope, unspecified syncope type (Primary Dx); Dizziness; Cigarette smoker; Elevated LDL cholesterol level; Transaminitis; Vitamin D deficiency; Perimenopause; Other fatigue Social History Tobacco Use Types Packs/Day Years Used Date Smoking Tobacco: Some Days Cigarettes 0.5 25.7 Started: 1999 Smokeless Tobacco: Never Tobacco Cessation:Ready to Q uit: Not Asked; Counseling Given: Not Answered Alcohol Use Standard Drinks/Week Comments Yes 0 (1 standard drink = 0.6 oz pur e alcohol) socially PHQ-2 Answer Date Recorded PHQ-2 Total Score 0 09/29/2024 Comments No Sex and Gender Information Value Date Recorded Sex Assigned at Not on file Legal Sex Female 12:57 AM EDT Gender Identity Not on file Sexual Orientation Not on file documented as of this encounter Last Filed Vital Signs Vital Sign Reading Time Taken Comments Blood Pressure 112/72 11/02/2024 11:05 AM EDT Pulse 71 11/02/2024 11:05 AM EDT Temperature 36.2 C (97.1 F) 11/02/2024 11:05 AM EDT Respiratory Rate - - Oxygen Saturation 97% 11/02/2024 11:05 AM EDT Inhaled Oxygen Concentration - - Weight 50.8 kg (112 lb) 11/02/2024 11:05 AM EDT Height 152.4 cm (5') 11/02/2024 11:05 AM EDT Body Mass Index 21.87 11/02/2024 11:05 AM EDT documented in this encounter Functional Status * Is the person deaf or does he/she have serious difficulty hearing? Answer Date of Assessment Author No 09/29/2024 1:42 PM EDT Shiva Hansen MA * Is the person blind or does he/she have serious difficulty seeing even when wearing glasses? Answer Date of Assessment Author No 09/29/2024 1:42 PM EDT Shiva Hansen MA * Does this person have serious difficulty walking or climbing stairs? Answer Date of Assessment Author No 09/29/2024 1:42 PM ASPENT Shiva Hansen MA * Does this person have difficulty dressing or bathing? Answer Date of Assessment Author No 09/29/2024 1:42 PM EDT Shiva Hansen MA * Because of a physical, mental [...] Shiva Lopez MA documented in this encounter Patient Instructions * Attachments The following attachments cannot be sent through Care Everywhere. * Exercises (maneuvers) for benign paroxysmal positional vertigo ([place]) documented in this encounter Ordered Prescriptions Prescription Sig Dispense Quantity Refills Last Filled Start Date End Date Blood Pressure Monitor [facility] [place] KitIndications:Syn cope, unspecified syncope type,Other fatigue 1 Kit by [facility].(Non-Drug; Combo Route) route daily. 1 Kit 11/02/2024 nicotine polacrilex (COMMIT) 2 mg Bucl LozengeIndications :Cigarette smoker Place 1 Lozenge inside cheek as needed for Smoking cessation for up to 30 days. 80 Lozenge 11/02/2024 documented in this encounter Progress Notes * Chip Burt MD - 11/02/2024 11:00 AM EDT Assessment Diagnoses and all orders for this visit: Syncope, unspecified syncope type Comments: Negative Orthostatic vitals : labs, hydration, echo -->Pt will consider US carotid, MRI brain, Cardiology, Neurology referrals Overview: Echo pending Orders: - Blood Pressure Monitor [facility] Kit; 1 Kit by [facility].(Non-Drug; Combo Route) route daily. Dispense: 1 Kit; Refill: 0 - COMPREHENSIVE METABOLIC PANEL; Future Dizziness Overview: Dramamine as needed helps at times hydration/supp care, vestibular exercises, echo 11/17/24, ENT referral -->Pt will consider US carotid, MRI brain, Cardiology, Neurology, PT referrals Orders: - COMPREHENSIVE METABOLIC PANEL; Future - CBC W/DIFF ANEMIA REFLEX; Future - AMB REFERRAL TO ENT Cigarette smoker Overview: Min change ~0.5ppd, 25.4 years; Total pack years: 12.7 -previously tried NRT patches SE skin rxn, NRT gum ok at work, chantix worsened cravings Bupropion min relief -No seizure hx -amenable to: NRT gum/lozenges Orders: - MA TOBACCO USE CESSATION INTERMEDIATE 3-10 MINUTES - nicotine polacrilex (COMMIT) 2 mg Bucl Lozenge; Place 1 Lozenge inside cheek as needed for Smoking cessation for up to 30 days. Dispense: 80 Lozenge; Refill: 0 - COMPREHENSIVE METABOLIC PANEL; Future - CBC W/DIFF ANEMIA REFLEX; Future Elevated LDL cholesterol level Overview: diet (reduce fried foods), exercise, smoking cessation The 10-year ASCVD risk score (Diana SAENZ, et al., 2019) is: 2.7% Values used to calculate the score: Age: 49 years Sex: Female Is Non- : No Diabetic: No Tobacco smoker: Yes Systolic Blood Pressure: 112 mmHg Is BP treated: No HDL Cholesterol: 51 mg/dL Total Cholesterol: 191 mg/dL Lab Results Component Value Date CHOLESTEROL 191 10/07/2024 Lab Results Component Value Date HDL 51 10/07/2024 Lab Results Component Value Date LDLCALC 128 (H) 10/07/2024 Lab Results Component Value Date TRIG 64 10/07/2024 No results found for: CHOLHDL Orders: - COMPREHENSIVE METABOLIC PANEL; Future - LIPID SCREEN; Future Transaminitis Overview: Improving US RUQ 10/2024 reassuring Lab Results Component Value Date ALT 37 10/07/2024 AST 43 (H) 10/07/2024 ALKPHOS 124 (H) 10/07/2024 Orders: - COMPREHENSIVE METABOLIC PANEL; Future Vitamin D deficiency Overview: supp Lab Results Component Value Date ZULH04QW 18.7 (L) 10/07/2024 Orders: - COMPREHENSIVE METABOLIC PANEL; Future - VITAMIN D 25 HYDROXY; Future Perimenopause Overview: supp care -LMP ~3yrs ago Orders: - COMPREHENSIVE METABOLIC PANEL; Future Other fatigue Comments: Improved Orders: - Blood Pressure Monitor [facility] [employer] Kit; 1 Kit by [employer] [facility].(Non-Drug; Combo Route) route daily. Dispense: 1 Kit; Refill: 0 - COMPREHENSIVE METABOLIC PANEL; Future - CBC W/DIFF ANEMIA REFLEX; Future Return in about 3 months (around 02/02/2025), or if symptoms worsen or fail to improve, for Palpitations, CHAVEZ, vit d defic, HDL, ODETTE, BP. Patient/family understood and agreed to plan. Chip Burt MD Progress Note: Vitals: 11/02/24 1105 BP: 112/72 BP Location: Left arm Patient Position: Sitting Pulse: 71 Temp: 97.1 ??F (36.2 ??C) TempSrc: Forehead SpO2: 97% Weight: 112 lb (50.8 kg) Height: 5' (1.524 m) SUBJECTIVE: Chief Complaint Patient presents with Follow-up 4 weeks HPI: Dizziness intermittent, using dramamine Blurry vision intermittent feels like film over eyes during episodes, none recently Hx Palpitations no episodes recently iRBBB EKG 08/2024, 06/2024, 12/2023 Hx syncope no episodes recently Intermittent Low BP? Merlos? Fatigue improving Myalgias improved CHAVEZ front/top of head, photophobia/sonophobia, no aura; no episodes recently Mild nausea w/o emesis seldom at times; no episodes recently Overall improving -Amenable to: hydration/supp care, vestibular exercises, echo 11/17/24, ENT referral -->Pt will consider US carotid, MRI brain, Cardiology, Neurology, PT referrals Tobacco use Time spent 3min ~0.5ppd, 25.4 years; Total pack years: 12.7 -previously tried NRT patches SE skin rxn, NRT gum ok at work, chantix worsened cravings Bupropion min relief -No seizure hx -amenable to: NRT gum Perimenopause sxs doing better -LMP ~3yrs ago Vit D defic -supp Elevated LDL diet (reduce fried foods), exercise, smoking cessation vegetarian Transaminitis labs US RUQ 10/2024 reassuring [place] light chain disease -Hematology appt 11/17/24 Hx UTI Hx Subj fever/overheating? no flank/abdom pain or urinary sxs, n/v/c/d -improved s/p Abx -omnnicef switched to macrobid due to initial concern for possible allergy but pt dx with uri w/adenovirus and denied cont allergic sxs related to Rx omnicef Anxiety possible multifactorial Improving will consider BH, CBT, Rx *Labs and imaging reviewed Review of Systems per above OBJECTIVE: Physical Exam Vitals and nursing note reviewed. Constitutional: General: She is not in acute distress. HENT: Head: Normocephalic and atraumatic. Right Ear: External ear normal. Left Ear: External ear normal. Nose: Nose normal. Mouth/Throat: Mouth: Mucous membranes are moist. Pharynx: No oropharyngeal exudate or posterior oropharyngeal erythema. Eyes: Extraocular Movements: Extraocular movements intact. Pupils: Pupils are equal, round, and reactive to light. Cardiovascular: Rate and Rhythm: Normal rate and regular rhythm. Pulses: Normal pulses. Heart sounds: Normal heart sounds. Pulmonary: Effort: No respiratory distress. Breath sounds: Rhonchi (trace) present. Abdominal: Palpations: Abdomen is soft. Tenderness: There is no abdominal tenderness. There is no right CVA tenderness or left CVA tenderness. Musculoskeletal: General: No tenderness or deformity. Normal range of motion. Cervical back: Normal range of motion and neck supple. No tenderness. Lymphadenopathy: Cervical: No cervical adenopathy. Skin: General: Skin is warm and dry. Coloration: Skin is not jaundiced or pale. Neurological: General: No focal deficit present. Mental Status: She is alert and oriented to person, place, and time. Gait: Gait normal. Deep Tendon Reflexes: Reflexes normal. Comments: [place] borderline+ Psychiatric: Mood and Affect: Mood normal. Behavior: Behavior normal. documented in this encounter Plan of Treatment Upcoming Encounters Date Type Department Care Team (Late st Contact Info) Description 01/04/2025 8:45 AM EDT Office Visit [facility] [place] [facility] [address] [place] [address] Chuytia Moscoso MD [address] [place] [address] 03/12/2025 1:40 PM EST Office Visit [facility] [address] [facility] [address] [place] [address] Chip Burt MD [address] [place] [address] 04/09/2025 10:00 AM EST Office Visit [facility] [place] [facility] [place] [address] [place] [address] Anh Patel, BARREL FILLER HEAD [address] [place] [address] Scheduled Orders Name Type Priority Associated Diagnoses Orde r Schedule MA TOBACCO USE CESSATION INTERMEDIATE 3-10 MINUTES MA Charge Routine Cigarette smoker Ordered: 11/02/2024 Scheduled Referrals Name Type Priority Associated Diagnoses Orde r Schedule AMB REFERRAL TO ENT Outpatient Referral Routine Dizziness Ordered: 11/02/2024 documented as of this encounter Goals Goal Patient Goal Type Associated Problems Recent Progress Patient-Stated? Author Maintain a healthy diet, exercise regularly and maintain an ideal body weight General No Philippe Hansen MA Stay Tobacco Free Lifestyle No Philippe Hansen MA documented as of this encounter Visit Diagnoses Diagnosis Syncope, unspecified syncope type- Primary Dizziness Dizziness and giddiness Cigarette smoker Tobacco use disorder Elevated LDL cholesterol level Pure hypercholesterolemia Transaminitis Nonspecific elevation of levels of transaminase or lactic acid dehydrogenase (LDH) Vitamin D deficiency Unspecified vitamin D deficiency Perimenopause Symptomatic menopausal or female climacteric states Other fatigue documented in this encounter Discontinued Medications Medication Sig Discontinue Reason Start Date End Da te Blood Pressure Monitor [facility] [place] KitIndications:Annual physical exam,Syncope, unspecified syncope type,Other fatigue 1 Kit by [facility].(Non-Drug; Combo Route) route daily. Reorder 09/29/2024 11/02/2024 documented as of this encounter Orders Lab Orders Without Results Count Last Ordered D ate First Ordered Date LIPID SCREEN 1 11/02/2024 VITAMIN D 25 HYDROXY 1 11/02/2024 documented in this encounter Care Teams Gas Engine Repairer Relationship Specialty Start Date End Date Chip Burt MD [address] [place] [address] PCP - General Family Medicine 09/29/24 documented as of this encounter
--- OUTSIDE RECORDS SUMMARY | 2024-11-17 07:54 | XMS_ITS | Encounter Summary ---
Author Organization [place] [address] Care Team Providers Care Warehouse Shipper Name Role Phone Chip Burt MD Primary Care Provider [phone] Reason for Referral * Echo (Urgent) - PCP Precert Acquired Specialty Diagnoses / Procedures Referred By Rosemary singer Referred To Contact Radiology Diagnoses Syncope, unspecified syncope type Palpitations Other fatigue Procedures EC ECHOCARDIOGRAM COMPLETE W DOPPLER AND COLOR FLOW MAPPING EC ECHOCARDIOGRAM COMPLETE W DOPPLER AND COLOR FLOW MAPPING Chip Burt MD [address] [place] [address] Phone: tel: fax: Referral ID Status Reason Start Date Expiration Date V isits Requested Visits Authorized [id number] PCP Precert Acquired 09/29/2024 09/29/2026 1 1 Reason for Visit * Echo (Urgent) - PCP Precert Acquired Specialty Diagnoses / Procedures Referred By Rosemary singer Referred To Contact Radiology Diagnoses Syncope, unspecified syncope type Palpitations Other fatigue Procedures EC ECHOCARDIOGRAM COMPLETE W DOPPLER AND COLOR FLOW MAPPING EC ECHOCARDIOGRAM COMPLETE W DOPPLER AND COLOR FLOW MAPPING Chip Burt MD [address] [place] [address] Phone: tel: fax: Referral ID Status Reason Start Date Expiration Date V isits Requested Visits Authorized [id number] PCP Precert Acquired 09/29/2024 09/29/2026 1 1 Encounter Details Date Type Department Care Team (Latest Contact Info) Description 11/17/2024 7:54 AM EDT Hospital Encounter [facility] [place] [address] Chip Burt MD [address] [place] [address] Syncope, unspecified syncope type; Palpitations; Other fatigue Discharge Disposition: Home or Self Care Social History Tobacco Use Types Packs/Day Years Used Date Smoking Tobacco: Some Days Cigarettes 0.5 25.7 Started: 1999 Smokeless Tobacco: Never Alcohol Use [...] this encounter Medications at Time of Discharge Blood Pressure Monitor [facility] KitIndications:Syn cope, unspecified syncope type,Other fatigue [address] [facility].(Non-El g; Combo Route) route daily. 1 Kit 11/02/2024 ergocalciferol (VITAMIN D) 1,250 mcg (50,000 unit) Oral CapsuleIndications :Vitamin D deficiency Take 1 Capsule by mouth once a week. 4 Capsule 2 10/11/2024 ibuprofen (ADVIL;MOTRIN) 600 mg tablet Take 1 Tab by mouth every 8 hours as needed for Pain for 21 doses. 21 Tab 0 04/01/2012 documented as of this encounter Discharge Disposition Disposition Code Departure Means Destination Home or Self Care documented in this encounter Plan of Treatment Upcoming Encounters Date Type Department Care Team (Late st Contact Info) Description 01/04/2025 8:45 AM EDT Office Visit [facility] Neurology [facility] [address] [place] [address] Chuyita Moscoso MD [address] [place] [address] 03/12/2025 1:40 PM EST Office Visit [facility] [address] [facility] [address] [place] [address] Chip Burt MD [address] [place] [address] 04/09/2025 10:00 AM EST Office Visit [facility] H&[facility] [place] [address] [place] [address] Anh Patel APRN [address] [place] [address] documented as of this encounter Goals Goal Patient Goal Type Associated Problems Recent Progress Patient-Stated? Author Maintain a healthy diet, exercise regularly and maintain an ideal body weight General No Philippe Hansen MA Stay Tobacco Free Lifestyle No Philippe Hansen MA documented as of this encounter Procedures Procedure Name Priority Date/Time Associated Diagnosis Comments EC ECHOCARDIOGRAM COMPLETE W DOPPLER AND COLOR FLOW MAPPING Routine 11/17/2024 8:47 AM EDT Syncope, unspecified syncope type Palpitations Other fatigue documented in this encounter Results * EC ECHOCARDIOGRAM COMPLETE W DOPPLER AND COLOR FLOW MAPPING (11/17/2024 8:47 AM EDT) LV DIASTOLIC PLAX 4.35 cm PYRAMIS Ejection Fraction 55% PYRAMIS MITRAL REGURGITATION trace PYRAMIS AORTIC STENOSIS no PYRAMIS Anatomical Region Laterality Modality Vascular Imaging 11/17/2024 8:10 AM EDT Impressions 11/17/2024 10:06 AM EDT Conclusions * Left ventricular chamber dimension is normal. * Left ventricular function is normal with an estimated ejection fraction of 55%. Narrative Procedure Note Jeffrey Bui MD - 11/17/2024 IMPRESSION Conclusions * Left ventricular chamber dimension is normal. * Left ventricular function is normal with an estimated ejectionfraction of 55%. Chip Burt MD IMG ECHO ORDERABLES Final Res ult documented in this encounter Visit Diagnoses Diagnosis Syncope, unspecified syncope type Palpitations Other fatigue documented in this encounter Care Teams Warehouse Shipper Relationship Specialty Start Date End Date Chip Burt MD [address] [place] [address] PCP - General Family Medicine 09/29/24 documented as of this encounter
--- OUTSIDE RECORDS SUMMARY | 2024-11-17 07:55 | XMS_ITS | Encounter Summary ---
Author Organization [place] [address] Care Team Providers Care Software Program Manager Name Role Phone Chip Burt MD Primary Care Provider [phone] Encounter Details Date Type Department Care Team (Latest Contact Info) Description 11/17/2024 7:55 AM EDT - 11/17/2024 10:19 AM EDT Hospital Encounter [facility] [address] [place] [address] Chip Burt MD [address] [place] [address] Discharge Disposition: Home or Self Care Social [...] 09/29/2024 1:42 PM EDT Shiva Hansen MA documented as of this encounter Mental Status * Because of a physical, mental or emotional condition, does this person have serious difficulty concentrating, remembering or making decisions? Answer Entry Date Author No 09/29/2024 1:42 PM EDShiva Patterson MA documented in this encounter Medications at Time of Discharge Blood Pressure Monitor [facility] KitIndications:Syn cope, unspecified syncope type,Other fatigue 1 Kit by [facility].(Non-El g; Combo Route) route daily. 1 Kit [...] Description 01/04/2025 8:45 AM EDT Office Visit [facility] Neu[facility] [address] [place] [address] Chuyita Moscoso MD [address] [address] 03/12/2025 1:40 PM EST Office Visit [facility] [address] [address] Chip Burt MD [address] [place] [address] 04/09/2025 10:00 AM EST Office Visit [facility] [place] [address] [place] [address] Anh Patel APRN 1 [facility] [place] [address] documented as of this encounter Goals Goal Patient Goal Type Associated Problems Recent Progress Patient-Stated? Author Maintain a healthy diet, exercise regularly and maintain an ideal body weight General No Philippe Hansen MA Stay Tobacco Free Lifestyle No Philippe Hansen MA documented as of this encounter Visit Diagnoses Not on filedocumented in this encounter Care Teams Software Program Manager Relationship Specialty Start Date End Date Chip Burt MD [address] [place] [address] PCP - General Family Medicine 09/29/24 documented as of this encounter
--- OUTSIDE RECORDS SUMMARY | 2024-11-17 10:20 | XMS_ITS | Encounter Summary ---
Author Organization [place] [address] Care Team Providers Care Reheater Helper Name Role Phone Chip Burt MD Primary Care Provider [phone] Encounter Details Date Type Department Care Team (Latest Contact Info) Description 11/17/2024 10:20 AM EDT Hospital Encounter [facility] [address] [facility] [place] [address] [place] light chain disease; Elevated LDL cholesterol level; [...] at Time of Discharge Blood Pressure Monitor [facility] KitIndications:Syn cope, unspecified syncope type,Other fatigue 1 Kit by [facility].(Non-El g; Combo Route) route daily. 1 Kit [...] 8:45 AM EDT Office Visit [facility] Neurology [facility] [address] [place] [address] Chuyita Moscoso MD [address] [place] [address] 03/12/2025 1:40 PM EST Office Visit [facility] [address] [address] Chip Burt MD [address] [place] [address] 04/09/2025 10:00 AM EST Office Visit [facility] [place] [address] [facility] [place] [address] Anh Patel APRN [address] [facility] [place] [address] documented as of this encounter Goals [...] WITH DIFF STAT 11/17/2024 10:37 AM EDT [place] light chain disease COMPREHENSIVE METABOLIC PANEL STAT 11/17/2024 10:37 AM EDT [place] disease documented in this encounter Results * (ABNORMAL) URINE CULTURE (NO STAIN) (11/17/2024 10:42 AM EDT) Culture Positive Growth(A) 11/19/2024 1:32 PM EDT [facility] Culture >100,000 CFU/mL Lactobacillus species SUSCEPTIB ILITY RESULT 11/19/2024 1:32 PM EDT [facility] Comment:No further workup. Urine STRUCTURE OF URINARY TRACT PROPER / Unknown 11/17/2024 10:42 AM EDT 11/17/2024 10:47 AM EDT us Fabby Joya MD MICROBIOLOGY - GENERAL SYLVIE RAIN Final Result [facility] [address] [facility] , [address] [address] * (ABNORMAL) URINALYSIS (11/17/2024 10:42 AM EDT) UA Color Yellow 11/17/2024 11:14 AM EDT [facility] UA Appear Clear Clear 11/17/2024 11:14 AM EDT [facility] UA Glucose Negative Negative mg/dL 11/17/2024 11:14 AM EDT [facility] UA Ketones Negative Negative mg/dL 11/17/2024 11:14 AM EDT [facility] UA Blood Trace-Intac t(A) Negative 11/17/2024 11:14 AM EDT [facility] UA pH 6.0 5.0 - 8.0 pH 11/17/2024 11:14 AM EDT [facility] UA Protein Negative Negative mg/dL 11/17/2024 11:14 AM EDT [facility] UA Urobilinogen 0.2 <=1 mg/dL 11:14 AM EDT [facility] UA Bili Negative Negative 11/17/2024 11:14 AM EDT [facility] UA Nitrite Negative Negative 11/17/2024 11:14 AM EDT [facility] UA Leuk Est Small(A) Negative 11/17/2024 11:14 AM EDT [facility] UA Spec Grav 1.015 1.001 - 1.035 no units 11/17/2024 11:14 AM EDT [facility] Comment:Reference range nick d for random specimens only. UA WBC 1 0 - 4 /HPF 11/17/2024 11:14 AM EDT [facility] UA RBC 1 0 - 3 /HPF 11/17/2024 11:14 AM EDT [facility] UA Squam Epi 1+ /LPF 11/17/2024 11:14 AM EDT [facility] Urine STRUCTURE OF URINARY TRACT PROPER / Unknown 11/17/2024 10:42 AM EDT 11/17/2024 10:47 AM EDT us Fabby Joya MD URINE ORDERABLES Final Result [address] [place] [address] * (ABNORMAL) CBC WITH DIFF (11/17/2024 10:37 AM EDT) [facility] Signature WBC 7.7 3.7 - 10.3 x10(3)/mcL 11/17/2024 10:42 AM EDT [facility] RBC 4.37 3.90 - 5.20 x10(6)/mcL 11/17/2024 10:42 AM EDT [facility] Hgb 13.6 11.2 - 15.7 g/dL 11/17/2024 10:42 AM EDT [facility] Hct 40.3 34.0 - 45.0 % 11/17/2024 10:42 AM EDT [facility] MCV 92.2 80.0 - 100.0 fL 11/17/2024 10:42 AM EDT [facility] MCH 31.1 26.0 - 34.0 pg 11/17/2024 10:42 AM EDT [facility] MCHC 33.7 30.7 - 35.5 g/dL 11/17/2024 10:42 AM EDT [facility] RDW 13.7 <=14.9 % 11/17/2024 10:42 AM EDT [facility] Platelet 265 155 - 369 x10(3)/mcL 11/17/2024 10:42 AM EDT [facility] MPV 9.2 8.8 - 12.5 fL 11/17/2024 10:42 AM EDT [facility] Neut Percent 48.2 % 11/17/2024 10:42 AM EDT [facility] Comment:Neutrophils equals s egs plus bands Imm Gran% 0.3 % 11/17/2024 10:42 AM EDT [facility] Comment:Automated count of m etamyelocytes, myelocytes and promyelocytes. Lymph Percent 28.0 % 11/17/2024 10:42 AM EDT [facility] Bradley Percent 7.9 % 11/17/2024 10:42 AM EDT [facility] Eos Percent 14.8 % 11/17/2024 10:42 AM EDT [facility] Baso Percent 0.8 % 11/17/2024 10:42 AM EDT [facility] Neut # 3.7 1.6 - 6.1 x10(3)/[facility] 11/17/2024 10:42 AM EDT [facility] Comment:Neutrophils equals s egs plus bands IMMGRAN# 0.0 0.0 - 0.1 x10(3)/[facility] 11/17/2024 10:42 AM EDT [facility] Comment:Automated count of m etamyelocytes, myelocytes and promyelocytes. An absolute IG <0.1 is reported as 0.0. Lymph # 2.2 1.2 - 3.9 x10(3)/[facility] 11/17/2024 10:42 AM EDT [facility] Bradley # 0.6 0.3 - 0.9 x10(3)/[facility] 11/17/2024 10:42 AM EDT [facility] Eos# 1.1(H) 0.0 - 0.5 x10(3)/[facility] 11/17/2024 10:42 AM EDT [facility] Baso # 0.1 0.0 - 0.1 x10(3)/[facility] 11/17/2024 10:42 AM EDT [facility] Blood VENOUS BLOOD / Unknown Venipuncture / Unknown 11/17/2024 10:37 AM EDT 11/17/2024 10:40 AM EDT us Fredi Trevizo MD HEMATOLOGY ORDERABLES Final Re sult [facility] [address] [place] [address] * COMPREHENSIVE METABOLIC PANEL (11/17/2024 10:37 AM EDT) Sodium 140 136 - 145 mmol/L 11/17/2024 10:57 AM EDT [facility] Potassium 3.9 3.5 - 5.0 mmol/L 11/17/2024 10:57 AM [facility] Chloride 104 98 - 107 mmol/L 11/17/2024 10:57 AM [facility] Total CO2 26 22 - 29 mmol/L 11/17/2024 10:57 AM [facility] Anion Gap 10 7 - 16 mmol/L 11/17/2024 10:57 AM [facility] Calcium 8.8 8.6 - 10.4 mg/dL 11/17/2024 10:57 AM [facility] Glucose Lvl 88 70 - 99 mg/dL 11/17/2024 10:57 AM [facility] BUN 13 6 - 20 mg/dL 11/17/2024 10:57 AM [facility] Creatinine 0.62 0.51 - 1.30 mg/dL 11/17/2024 10:57 AM [facility] Albumin 4.2 3.5 - 5.2 gm/dL 11/17/2024 10:57 AM [facility] Total Protein 6.6 6.4 - 8.3 gm/dL 11/17/2024 10:57 AM [facility] Bili Total 0.3 0.2 - 1.3 mg/dL 11/17/2024 10:57 AM [facility] ALT 17 <=41 U/L 11/17/2024 10:57 AM [facility] AST 19 <=40 U/L 11/17/2024 10:57 AM [facility] Alk Phos 111 36 - 123 U/L 11/17/2024 10:57 AM [facility] eGFR (CKD-EPIcr 2020) 109 >=60 mL/min/1.7 3 m2 11/17/2024 10:57 AM [facility] Comment:Estimated GFR was ca lculated using the CKD-EPIcr (2020) equation refit without race. The equation is recommended by the [employer] - [place] [employer]ph[employer] Task Force. Blood VENOUS BLOOD / Unknown Venipuncture / Unknown 11/17/2024 10:37 AM EDT 11/17/2024 10:40 AM EDT us Fredi Trevizo MD CHEMISTRY ORDERABLES Final Res ult [facility] [address] [place] [id number] documented in this encounter Visit Diagnoses Diagnosis [place] disease Multiple myeloma, without mention of having achieved remission Elevated LDL cholesterol level Pure hypercholesterolemia Vitamin D deficiency Unspecified vitamin D deficiency Urinary frequency documented in this encounter Care Teams Reheater Helper Relationship Specialty Start Date End Date Chip Burt MD [address] [place] [address] PCP - General Family Medicine 09/29/24 documented as of this encounter
--- OUTSIDE RECORDS SUMMARY | 2024-11-17 10:21 | XMS_ITS | Encounter Summary ---
Author [place] [address] Care Team Providers Care Complaint Inspector Name Role Phone Chip Burt MD Primary Care Provider [phone] Reason for Referral * Consultation (Routine) - Authorization Not Needed Specialty Diagnoses / Procedures Referred By Contac t Referred To Contact Cardiology Diagnoses Syncope, unspecified syncope type EKG abnormality Procedures [place] OFFICE/OUTPATIENT NEW MODERATE MDM 45 MINUTES Fredi Trevizo MD [address] [place] [address] [address] [place] [address] Phone: tel: fax: [facility] [address] [facility] [address] [place] [address] Phone: tel: fax: Referral ID Status Reason Start Date Expiration Date Visits Requested Visits Authorized [id number] Authorization Not Needed 11/17/2024 11/17/2025 99 99 Comments syncope arrhythmias * Genetic Lab Test (Emergency) - Authorization Not Needed Specialty Diagnoses / Procedures Referred By Contac t Referred To Contact 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 Procedures [place] OFFICE/OUTPATIENT NEW MODERATE MDM 45 MINUTES Chip Burt MD [address] [place] [address] Phone: tel: fax: Referral ID Status Reason Start Date Expiration Date V isits Requested Visits Authorized [id number] Pending Review 10/13/2024 10/13/2025 99 99 Encounter Details Date Type Department Care Team (Latest Contact Info) Description 11/17/2024 10:21 AM EDT - 11/17/2024 11:59 PM EDT Hospital Encounter [facility] [address] [facility] [address] [place] [address] Fredi Trevizo MD 1 [place] [address] [place]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); Syncope, unspecified [...] at Time of Discharge Blood Pressure Monitor [facility] KitIndications:Sync ope, unspecified syncope type,Other fatigue 1 Kit by [facility].(Non-El g; Combo Route) route daily. 1 Kit [...] Trevizo MD - 11/17/2024 11:20 AM EDT [facility] Patient: Sheryl Thompson CSN: [id number] Date of : 1975 Age: 49 y.o. Date of Service: 11/17/2024 HEMATOLOGY/ONCOLOGY NEW PATIENT VISIT Primary Care Physician: Chip Burt MD Referring Physician: Chip Burt MD Reason for Referral: Compton Disease DIAGNOSIS & TREATMENT HISTORY: Oncology History [...] 36.8 06/24/2024 25.7 02/06/2016 13.9 04/23/2012 25.7 [place] Percent (%) Date Value 11/17/2024 7.9 10/07/2024 [...] regarding workup of plasma cell dyscrasia. Elevated [place] Light Chains Labs drawn 10/07/24 with PCP [...] complex tasks: 1) Reviewing medical records in [facility] and if applicable outside records as well [...] Fredi Trevizo MD Hematology and Medical Oncology [facility] 2` documented in this encounter Plan of Treatment Upcoming Encounters Date Type Department Care Team (Late st Contact Info) Description 01/04/2025 8:45 AM EDT Office Visit [facility] Neurology [facility] [address] [place] [address] Chuyita Moscoso MD [address] [place] [address] 03/12/2025 1:40 PM EST Office Visit [facility] [address] [facility] [address] [place] [address] Chip Burt MD [address] [place] [address] 04/09/2025 10:00 AM EST Office Visit [facility] H[facility]V [facility] [address] [place] [address] Anh Patel, NUCLEAR LICENSING ENGINEER 1 [facility] [place], [place] [id number] Scheduled Orders Name Type Priority Associated Diagnoses Orde r Schedule KAPPA/LAMBDA FREE LIGHT CHAINS Lab STAT [place] light chain disease Expected: 11/19/2024, Expires: 11/16/2025 [...] - 145 mmol/L 11/17/2024 10:57 AM EDT [facility] Potassium 3.9 3.5 - 5.0 mmol/L 11/17/2024 10:57 AM EDT [facility] Chloride 104 98 - 107 mmol/L 11/17/2024 10:57 AM EDT [facility] Total CO2 26 22 - 29 mmol/L 11/17/2024 10:57 AM [facility] Anion Gap 10 7 - 16 mmol/L 11/17/2024 10:57 AM [facility] Calcium 8.8 8.6 - 10.4 mg/dL 11/17/2024 10:57 AM [facility] Glucose Lvl 88 70 - 99 mg/dL 11/17/2024 10:57 AM EDT [facility] BUN 13 6 - 20 mg/dL 11/17/2024 10:57 AM EDT [facility] Creatinine 0.62 0.51 - 1.30 mg/dL 11/17/2024 10:57 AM T [facility] Albumin 4.2 3.5 - 5.2 gm/dL 11/17/2024 10:57 AM EDT [facility] Total Protein 6.6 6.4 - 8.3 gm/dL 11/17/2024 10:57 AM EDT [facility] Bili Total 0.3 0.2 - 1.3 mg/dL 11/17/2024 10:57 AM EDT [facility] ALT 17 <=41 U/L 11/17/2024 10:57 AM EDT [facility] AST 19 <=40 U/L 11/17/2024 10:57 AM EDT [facility] Alk Phos 111 36 - 123 U/L 11/17/2024 10:57 AM EDT [facility] eGFR (CKD-EPIcr 2020) 109 >=60 mL/min/1.7 3 m2 11/17/2024 10:57 AM EDT [facility] Comment:Estimated GFR was ca lculated using the CKD-EPIcr (2020) equation refit without race. The equation is recommended by the National Kidney Foundation - [place] Society of Nephrology Task Force. Blood VENOUS BLOOD / Unknown Venipuncture / Unknown 11/17/2024 10:37 AM EDT 11/17/2024 10:40 AM EDT us Fredi Trevizo MD CHEMISTRY ORDERABLES Final Res ult [facility] [address] [place] [address] * (ABNORMAL) CBC WITH DIFF (11/17/2024 10:37 AM EDT) WBC 7.7 3.7 - 10.3 x10(3)/mcL 11/17/2024 10:42 AM EDT [facility] RBC 4.37 3.90 - 5.20 x10(6)/mcL 11/17/2024 10:42 AM EDT [facility] Hgb 13.6 11.2 - 15.7 g/dL 11/17/2024 10:42 AM EDT [facility] Hct 40.3 34.0 - 45.0 % 11/17/2024 10:42 AM EDT [facility] MCV 92.2 80.0 - 100.0 fL 11/17/2024 10:42 AM EDT [facility] MCH 31.1 26.0 - 34.0 pg 11/17/2024 10:42 AM EDT [facility] MCHC 33.7 30.7 - 35.5 g/dL 11/17/2024 10:42 AM EDT [facility] RDW 13.7 <=14.9 % 11/17/2024 10:42 AM EDT [facility] Platelet 265 155 - 369 x10(3)/mcL 11/17/2024 10:42 AM EDT [facility] MPV 9.2 8.8 - 12.5 fL 11/17/2024 10:42 AM EDT [facility] Neut Percent 48.2 % 11/17/2024 10:42 AM EDT [facility] Comment:Neutrophils equals s egs plus bands Imm Gran% 0.3 % 11/17/2024 10:42 AM EDT [facility] Comment:Automated count of m etamyelocytes, myelocytes and promyelocytes. Lymph Percent 28.0 % 11/17/2024 10:42 AM EDT [facility] [place] Percent 7.9 % 11/17/2024 10:42 AM EDT [facility] Eos Percent 14.8 % 11/17/2024 10:42 AM EDT [facility] Baso Percent 0.8 % 11/17/2024 10:42 AM EDT [facility] Neut # 3.7 1.6 - 6.1 x10(3)/[facility] 11/17/2024 10:42 AM EDT [facility] Comment:Neutrophils equals s egs plus bands IMMGRAN# 0.0 0.0 - 0.1 x10(3)/mcL 11/17/2024 10:42 AM EDT [facility] Comment:Automated count of m etamyelocytes, myelocytes and promyelocytes. An absolute IG <0.1 is reported as 0.0. Lymph # 2.2 1.2 - 3.9 x10(3)/mcL 11/17/2024 10:42 AM EDT [facility] [place] # 0.6 0.3 - 0.9 x10(3)/[facility] 11/17/2024 10:42 AM EDT [facility] Eos# 1.1(H) 0.0 - 0.5 x10(3)/[facility] 11/17/2024 10:42 AM EDT [facility] Baso # 0.1 0.0 - 0.1 x10(3)/[facility] 11/17/2024 10:42 AM EDT [facility] Blood VENOUS BLOOD / Unknown Venipuncture / Unknown 11/17/2024 10:37 AM EDT 11/17/2024 10:40 AM EDT us Fredi Trevizo MD HEMATOLOGY ORDERABLES Final Re sult 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
--- OUTSIDE RECORDS SUMMARY | 2024-11-23 10:20 | XMS_ITS | Encounter Summary ---
Author Organization [place] [address] Care Team Providers Care Waterproof Bag Sewer Name Role Phone Marleny Burt MD Primary Care Provider [phone] Reason for Referral * Holter Monitor (Routine) - Authorization Not Needed Specialty Diagnoses / Procedures Referred By Contac t Referred To Contact Radiology Diagnoses Syncope, unspecified syncope type Dizziness Intermittent palpitations Abnormal EKG Procedures HOLTER MONITOR RECORDING AND ANALYSIS Marleny Burt MD [address] [place] [address] Phone: tel: fax: Referral ID Status Reason Start Date Expiration Date Visits Requested Visits Authorized [id number] Authorization Not Needed 11/23/2024 11/23/2026 1 1 * MRI/CAT Scan (Urgent) - PCP Precert Acquired Specialty Diagnoses / Procedures Referred By Contac t Referred To Contact Radiology Diagnoses Transient leg weakness Procedures MRI LUMBAR SPINE W WO CONTRAST Marleny Burt MD [address] [place] [address] Phone: tel: fax: Referral ID Status Reason Start Date Expiration Date V isits Requested Visits Authorized [id number] PCP Precert Acquired 11/23/2024 11/23/2025 1 1 * MRI/CAT Scan (Routine) - PCP Precert Acquired Specialty Diagnoses / Procedures [facility] To Contact Radiology Diagnoses Syncope, unspecified syncope type Dizziness Vision changes Transient leg weakness Procedures MRI BRAIN W WO CONTRAST Marleny Burt MD [address] [place] [address] Phone: tel: fax: Referral ID Status Reason Start Date Expiration Date V isits Requested Visits Authorized [id number] PCP Precert Acquired 11/23/2024 11/23/2025 1 1 * Consultation (Routine) - Authorization Not Needed Specialty Diagnoses / Procedures Referred By Contac t Referred To Contact Neurology Diagnoses Syncope, unspecified syncope type Dizziness Vision changes Transient leg weakness Procedures CO OFFICE/OUTPATIENT NEW MODERATE MDM 45 MINUTES Marleny Burt MD [address] [place] [address] Phone: tel: fax: [facility] Neurology [place] [address] [place] [address] Phone: tel: fax: Referral ID Status Reason Start Date Expiration Date Visits Requested Visits Authorized [id number] Authorization Not Needed 11/23/2024 11/23/2025 99 99 * MRI/CAT Scan (Urgent) - PCP Precert Acquired Specialty Diagnoses / Procedures Referred By Contac t Referred To Contact Radiology Diagnoses Syncope, unspecified syncope type Dizziness Vision changes Transient leg weakness Procedures CT ANGIOGRAM HEAD AND NECK W CONTRAST Marleny Burt MD [address] [place] [address] Phone: tel: fax: Referral ID Status Reason Start Date Expiration Date V isits Requested Visits Authorized [id number] PCP Precert Acquired 11/23/2024 11/23/2025 1 1 * MRI/CAT Scan (Emergency) - PCP Precert Acquired Specialty Diagnoses / Procedures Referred By Contac t Referred To Contact Radiology Diagnoses Syncope, unspecified syncope type Dizziness Vision changes Transient leg weakness Procedures CT HEAD WO CONTRAST Marleny Burt MD [address] [place] [address] Phone: tel: fax: Referral ID Status Reason Start Date Expiration Date V isits Requested Visits Authorized [id number] PCP Precert Acquired 11/23/2024 11/23/2025 1 1 * Consultation (Routine) - Closed Specialty Diagnoses / Procedures Referred By Contart t Referred To Contact Behavioral Health Diagnoses Generalized anxiety disorder Marleny Burt MD [address] [place] [address] Phone: tel: fax: [address] [place] [address] Phone: tel: fax: Referral ID Status Reason Start Date Expiration Date V isits Requested Visits Authorized [id number] Closed Specialty Services Required 11/23/2024 11/23/2025 99 99 Question Answer Provider Options First Available Reason for Visit * Reason Comments Dizziness pt state Wednesday a t work she felt overheated light headed and loss of vision. Encounter Details Date Type Department Care Team (Late st Contact Info) Description 11/23/2024 10:20 AM EDT Office Visit [facility] [address] [facility] [address] [place] [address] Marleny Burt MD [address] [place] [address] Syncope, unspecified syncope type (Primary Dx); Dizziness; [...] Everywhere. * Coping with worry and stress (Armenian) documented in this encounter Ordered Prescriptions Prescription [...] to: NRT gum -consider Bupoprion Orders: - CO TOBACCO USE CESSATION INTERMEDIATE 3-10 MINUTES UTI [...] Transaminitis labs, monitor US RUQ 10/2024 reassuring [place] light chain disease -Follows with Hematology last [...] Resources/Support: family, friends Reviewed/Discussed following -Care management -[facility] Assistance Line *Labs and imaging reviewed Review [...] 8:45 AM EDT Office Visit [facility] [address] [place] [address] Chuyita Moscoos MD [address] [place] [address] 03/12/2025 1:40 PM EST Office Visit [facility] [address] [address] Marleny Burt MD [address] [place] [address] 04/09/2025 10:00 AM EST Office Visit [facility] [address] [place] [address] Anh Patel, TOOL GRINDER OPERATOR [address] [facility] VIJAY Guidry [phone] Scheduled Orders Name Type Priority Associated Diagnoses Orde r Schedule CO TOBACCO USE CESSATION INTERMEDIATE 3-10 MINUTES CO Charge Routine Cigarette smoker Ordered: 11/23/2024 UA [...] R29.898-Other symptoms and signs involving the musculoskeletal dwgxft-CKO-32-CM. COMPARISON: No prior lumbar spine MR studies [...] heavy R29.898-Other symptoms and signsinvolving the musculoskeletal eaafxd-URQ-70-CM. COMPARISON: No prior lumbar spine MR studies [...] ordering clinician. us Marleny Burt MD IMG MRI ORDERABLES Final Resu lt * MRI [...] WO CONTRAST 12/01/2024 3:25 PM CLINICAL HISTORY: X74-Ibcddhq and spzuyajk-YYB-19-CM W27-Mvzkrxpby and ccatgrucg-HIN-35-CM H53.9-Unspecified visual jthpattapol-TAV-00-CM R29.898-Other symptoms and signs involving the musculoskeletal sywtym-EQI-01-CM. COMPARISON: Head CT 11/23/2024 PROCEDURE COMMENTS: Multiplanar [...] WO CONTRAST 12/01/2024 3:25 PM CLINICAL HISTORY: L18-Tofpwbp and wntihxqo-AJV-08-CM X17-Rybzwpvir and lslaikcwr-QHA-78-CM H53.9-Unspecified visual qemmrwnxnld-ATW-28-CM R29.898-Other symptoms and signs involving the apzvqjxmphnnqxpvxixpw-YRQ-13-CM. COMPARISON: Head CT 11/23/2024 PROCEDURE COMMENTS: Multiplanar [...] ordering clinician. 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 Marleny Burt [...] 12-07-2024 10:44:58 EDT by Donnie Lam MD Marleny Burt MD IMG HOLTER MONITOR ORDERABLES [...] WITH CONTRAST, 11/24/2024 10:27 AM CLINICAL HISTORY: F52-Vybgqcb and dhfboijm-BMV-37-CM S65-Lzlnpfwoz and fajowawht-FKX-48-CM H53.9-Unspecified visual vgtemmixiff-SIB-65-CM R29.898-Other symptoms and signs involving the musculoskeletal eivnkv-AFR-94-CM. COMPARISON: Concurrently obtained CT brain, CTA 06/24/2024 [...] WITH CONTRAST, 11/24/2024 10:27 AM CLINICAL HISTORY: Y52-Gxrllzx and bsiornbs-BEG-67-CM E67-Vneuomcfs and vwcyrucxb-FJQ-19-CM H53.9-Unspecified visual ctoramycqiv-CTZ-51-CM R29.898-Other symptoms and signs involving the vbymnctfhnpkebinacylx-YNS-62-CM. COMPARISON: Concurrently obtained CT brain, CTA 06/24/2024 [...] WO CONTRAST 11/23/2024 1:11 PM CLINICAL HISTORY: Q39-Potyrxe and nslpcpvg-TDQ-60-CM S99-Updzimiin and aowaueybs-IMQ-03-CM H53.9-Unspecified visual jsjamklxawf-YJZ-31-CM R29.898-Other symptoms and signs involving the musculoskeletal ftewin-PTF-49-CM. COMPARISON: None. PROCEDURE COMMENTS: Routine noncontrast head [...] WO CONTRAST 11/23/2024 1:11 PM CLINICAL HISTORY: Z92-Zlnunog and lxeokmiu-ATU-85-CM A09-Tfsneatbl and lrhhunsxf-BXI-80-CM H53.9-Unspecified visual ifnnnagxgli-QKT-12-CM R29.898-Other symptoms and signs involving the lyefazmeszwqszkpjuqah-EYL-76-CM. COMPARISON: None. PROCEDURE COMMENTS: Routine noncontrast head [...] documented as of this encounter Care Teams Waterproof Bag Sewer Relationship Specialty Start Date End Date Marleny Burt MD [address] [place] [address] PCP - General Family Medicine 09/29/24 documented as of this encounter
--- OUTSIDE RECORDS SUMMARY | 2024-11-23 13:04 | XMS_ITS | Encounter Summary ---
Author Organization [place] [address] Care Team Providers Care Gas Regulator Repairer Helper Name Role Phone Chip Burt MD Primary Care Provider [phone] Reason for Referral * MRI/CAT Scan (Emergency) - PCP Precert Acquired Specialty Diagnoses / Procedures Referred By Contac t Referred To Contact Radiology Diagnoses Syncope, unspecified syncope type Dizziness Vision changes Transient leg weakness Procedures CT HEAD WO CONTRAST Chip Burt MD [address] [place] [address] Phone: tel: fax: Referral ID Status Reason Start Date Expiration Date V isits Requested Visits Authorized [id number] PCP Precert Acquired 11/23/2024 11/23/2025 1 1 Reason for Visit * MRI/CAT Scan (Emergency) - PCP Precert Acquired Specialty Diagnoses / Procedures Referred By Contac t Referred To Contact Radiology Diagnoses Syncope, unspecified syncope type Dizziness Vision changes Transient leg weakness Procedures CT HEAD WO CONTRAST Chip Burt MD [address] [place] [address] Phone: tel: fax: Referral ID Status Reason Start Date Expiration Date V isits Requested Visits Authorized [id number] PCP Precert Acquired 11/23/2024 11/23/2025 1 1 Encounter Details Date Type Department Care Team (Latest Contact Info) Description 11/23/2024 1:04 PM EDT - 11/23/2024 11:59 PM EDT Hospital Encounter [facility] [place] [address] Chip Burt MD [address] [place] [address] Syncope, unspecified syncope type; Dizziness; Vision changes; [...] at Time of Discharge Blood Pressure Monitor [facility] KitIndications:Syn cope, unspecified syncope type,Other fatigue 1 Kit by [facility].(Non-El g; Combo Route) route daily. [...] 8:45 AM EDT Office Visit [facility] [address] [place] [address] Chuyita Moscoso MD [address] [place] [address] 03/12/2025 1:40 PM EST Office Visit [facility] [address] [facility] [address] [place] [address] Chip Burt MD [address] [place] [address] 04/09/2025 10:00 AM EST Office Visit [facility] [place] [address] [place], [place] [id number] Anh Patel APRN 1 [facility] [place] [id number] documented as of this encounter Goals Goal [...] WO CONTRAST 11/23/2024 1:11 PM CLINICAL HISTORY: H35-Acvjukm and xjbgmtmw-WLK-86-CM Y22-Fftqkobnt and azzgklkxr-YEL-06-CM H53.9-Unspecified visual vgxwybcomzc-NIC-73-CM R29.898-Other symptoms and signs involving the musculoskeletal eylkxi-PWD-55-CM. COMPARISON: None. PROCEDURE COMMENTS: Routine noncontrast head [...] WO CONTRAST 11/23/2024 1:11 PM CLINICAL HISTORY: Z01-Fzssjem and ojcygiim-POC-97-CM R74-Itziealuz and zvhpsvqru-LTM-21-CM H53.9-Unspecified visual klizsizazaf-CFP-39-CM R29.898-Other symptoms and signs involving the jmpfauzzwqteplmceauge-KIJ-76-CM. COMPARISON: None. PROCEDURE COMMENTS: Routine noncontrast head [...] weakness documented in this encounter Care Teams Gas Regulator Repairer Helper Relationship Specialty Start Date End Date Chip Burt MD [address] [place] [address] PCP - General Family Medicine 09/29/24 documented as of this encounter
--- OUTSIDE RECORDS SUMMARY | 2024-11-24 10:07 | XMS_ITS | Encounter Summary ---
Author Organization [place] [address] Care Team Providers Care Powder Hand Name Role Phone Chip Burt MD Primary Care Provider [phone] Reason for Referral * MRI/CAT Scan (Urgent) - PCP Precert Acquired Specialty Diagnoses / Procedures Referred By Gisellac t Referred To Contact Radiology Diagnoses Syncope, unspecified syncope type Dizziness Vision changes Transient leg weakness Procedures CT ANGIOGRAM HEAD AND NECK W CONTRAST Chip Burt MD [address] [place] [address] Phone: tel: fax: Referral ID Status Reason Start Date Expiration Date V isits Requested Visits Authorized [id number] PCP Precert Acquired 11/23/2024 11/23/2025 1 1 Reason for Visit * MRI/CAT Scan (Urgent) - PCP Precert Acquired Specialty Diagnoses / Procedures Referred By Contac t Referred To Contact Radiology Diagnoses Syncope, unspecified syncope type Dizziness Vision changes Transient leg weakness Procedures CT ANGIOGRAM HEAD AND NECK W CONTRAST Chip Burt MD [address] [place] [address] Phone: tel: fax: Referral ID Status Reason Start Date Expiration Date V isits Requested Visits Authorized [id number] PCP Precert Acquired 11/23/2024 11/23/2025 1 1 Encounter Details Date Type Department Care Team (Latest Contact Info) Description 11/24/2024 10:07 AM EDT - 11/24/2024 11:59 PM EDT Hospital Encounter [facility] [address] [place] [id number] Chip Burt MD [address] [place] [address] Syncope, unspecified syncope type; Dizziness; Vision changes; [...] at Time of Discharge Blood Pressure Monitor [facility] KitIndications:Syn cope, unspecified syncope type,Other fatigue 1 Kit by [facility].(Non-El g; Combo Route) route daily. 1 Kit [...] 8:45 AM EDT Office Visit [facility] [address] [place] [address] Chuyita Moscoso MD [address] [place] [address] 03/12/2025 1:40 PM EST Office Visit [facility] [address] [facility] [address] [place] [address] Chip Burt MD [address] [place] [address] 04/09/2025 10:00 AM EST Office Visit [facility] [place] [address] [place] [address] Anh Patel APRN 1 [facility] [address] documented as of this encounter Goals Goal Patient Goal Type Associated Problems Recent Progress Patient-Stated? Author Maintain a healthy diet, exercise regularly and maintain an ideal body weight General No Philippe Hansen MA Stay Tobacco Free Lifestyle No Philippe Hansen MA documented as of this encounter Procedures Procedure Name Priority Date/Time Associated Diagnosis Comments CT ANGIOGRAM HEAD AND NECK W CONTRAST WINNIE 11/24/2024 10:27 AM EDT Syncope, unspecified syncope type Dizziness Vision changes Transient leg weakness documented in this encounter Results * CT ANGIOGRAM HEAD AND NECK W [...] WITH CONTRAST, 11/24/2024 10:27 AM CLINICAL HISTORY: A26-Wwijaxi and snfwaxgx-QZP-90-CM U71-Xsfpmjnjp and dblrdudpl-ACV-13-CM H53.9-Unspecified visual gykbowwmkcb-LEM-77-CM R29.898-Other symptoms and signs involving the musculoskeletal suzzvt-RYP-87-CM. COMPARISON: Concurrently obtained CT brain, CTA 06/24/2024 [...] WITH CONTRAST, 11/24/2024 10:27 AM CLINICAL HISTORY: Q39-Evxdbyv and erxlulko-RZN-85-CM T51-Dpvyqvomb and gyytxzrbr-JBX-13-CM H53.9-Unspecified visual tfzwlcqurmt-OQZ-40-CM R29.898-Other symptoms and signs involving the zldentyzohrtdmimsiitf-BFC-72-CM. COMPARISON: Concurrently obtained CT brain, CTA 06/24/2024 [...] criteria used for estimates of stenosis. us Chip Burt MD IMG CT ORDERABLES Final Resul t documented in this encounter Visit Diagnoses Diagnosis Syncope, unspecified syncope type Dizziness Dizziness and giddiness Vision changes Unspecified visual disturbance Transient leg weakness documented in this encounter Administered Medications Inactive Administered Medications - up to 1 most recent administrations Medication Order MAR Action Action Date Dose Rate Site iopamidoL (ISOVUE-370) 370 mg iodine /mL (76 %) injection (LOW) 75 mL 75 mL, Intravenous, ONCE PRN, 1 dose, Starting on Wed11/24/24 at 1016, Until Wed11/24/24 at 1027, Radiography/Imaging, Radiology Procedure, VESICANT , CT (Contrasts) Given 11/24/2024 10:27 AM EDT 75 mL sodium chloride 0.9% syringe Intravenous, ONCE PRN, 1 dose, Starting on Wed11/24/24 at 1016, Until Wed11/24/24 at 1027, Line Care, Flush peripheral lines every 12 hours, central lines every 8 hours, and after IV medication, CT (Contrasts) Given 11/24/2024 10:27 AM EDT documented in this encounter Care Teams Powder Hand Relationship Specialty Start Date End Date Chip Burt MD [address] [place] [address] PCP - General Family Medicine 09/29/24 documented as of this encounter
--- OUTSIDE RECORDS SUMMARY | 2024-11-24 13:40 | XMS_ITS | Encounter Summary ---
Author Organization [facility] Address [address] [place] [address] Care Team Providers Care Criminal Justice Lawyer Name Role Phone Gretchen Juarez MD Primary Care Provider Tiffanie bullard Reason for Visit * Reason Comments Gynecologic Exam Encounter Details Date Type Department Care Team (Late st Contact Info) Description 11/24/2024 1:40 PM EDT Office Visit [facility] Physicians - Obstetrics & Gynecology, [place] [address] [place] [address] Amalia Joya, NETWORK SYSTEMS ANALYST [address] [place] [address] Gynecologic exam normal (Primary Dx); Vaginitis and vulvovaginitis; Postmenopausal bleeding Social History Tobacco Use Types Packs/Day Years Used Date Smoking Tobacco: Some Days Cigarettes Smokeless Tobacco: Never Tobacco Cessation:Ready to Q uit: Not Asked; Counseling Given: Not Answered Alcohol Use Standard Drinks/Week Comments Yes 0 (1 standard drink = 0.6 oz pur e alcohol) socially Comments No Sex and Gender Information Value Date Recorded Sex Assigned at Not on file Legal Sex Female 7:23 PM EST Gender Identity Not on file Sexual Orientation Not on file documented as of this encounter Last Filed Vital Signs Vital Sign Reading Time Taken Comments Blood Pressure 106/62 11/24/2024 2:10 PM EDT Pulse - - Temperature - - Respiratory Rate - - Oxygen Saturation - - Inhaled Oxygen Concentration - - Weight 52.2 kg (115 lb) 11/24/2024 2:10 PM EDT Height - - Body Mass Index 22.46 06/24/2016 3:34 PM EST documented in this encounter Progress Notes * Kalina Joyay AndreGaurang, NETWORK SYSTEMS ANALYST - 11/24/2024 1:40 PM EDT Subjective Subjective: Patient ID: Sheryl Thompson Age: 49 y.o. (: 1975) Ethnicity: Non- Race: White/ Gender: female Chief Complaint: Chief Complaint Patient presents with Gynecologic Exam Annual well female exam. Return to practice. Last seen 2016. LMP 2021 until bleeding November 03-. 10/2024--FSH 83.2 Not currently SA. Tubal ligation. Hx abnormal pap. LEEP 2006. Hx frequent BV infections-- + discharge, odor, lower pelvic aching. Currently on Bactrim for UTI. Has not had mammogram yet. Past Medical History[1] OB History Para Term AB Living 2 2 1 1 2 SAB IAB Ectopic Multiple Live Births 2 # Outcome Date GA Lbr Christian/2nd Weight Sex Type Anes PTL Lv 2 Term 02/07/08 40w0d 3.317 kg (7 lb 5 oz) M Vag-Spont DANUTA 1 09/12/93 36w0d 2.722 kg (6 lb) M Vag-Spont DANUTA Past Surgical History[2] Social History[3] Social History Substance and Sexual Activity Sexual Activity Not Currently Partners: Male control/protection: Surgical Social History Social History Narrative Not on file Family History[4] Medications: Current Medications[5] Allergies: Allergies[6] Review of Systems General Negative Skin Negative Eyes Negative for visions concerns HENT Negative Endo Negative Respiratory Negative for shortness of breath Cardiovascular Negative for chest pain, palpitations Neurological Negative for migraines or neurological issues GI Negative for pain, persistent bloating or ongoing change in bowel habits and bloody stool Negative for incontinence, dysuria, hematuria, currently on antibiotic for UTI, c/o frequent BV,recent bleeding Musculoskeletal Negative Psychological Anxiety Objective Objective: BP 106/62 Wt 115 lb (52.2 kg) LMP 11/03/2024 (Exact Date) BMI 22.46 kg/m?? Physical Exam Vitals reviewed. Constitutional: Appearance: She is well-developed. HENT: Head: Normocephalic and atraumatic. Cardiovascular: Rate and Rhythm: Normal rate and regular rhythm. Heart sounds: Normal heart sounds. Pulmonary: Effort: Pulmonary effort is normal. Breath sounds: Normal breath sounds. Chest: Breasts: Breasts are symmetrical. Right: No mass, nipple discharge or tenderness. Left: No mass, nipple discharge or tenderness. Comments: bilateral implants Abdominal: Palpations: Abdomen is soft. Genitourinary: General: Normal vulva. Vagina: Normal. No vaginal discharge, erythema or tenderness. Cervix: No cervical motion tenderness, discharge or friability. Uterus: Not enlarged and not tender. Adnexa: Right: No mass, tenderness or fullness. Left: No mass, tenderness or fullness. Rectum: Normal. Musculoskeletal: General: Normal range of motion. Cervical back: Normal range of motion. Skin: General: Skin is warm and dry. Neurological: Mental Status: She is alert and oriented to person, place, and time. Psychiatric: Mood and Affect: Mood normal. Behavior: Behavior normal. Thought Content: Thought content normal. Judgment: Judgment normal. Assessment Assessment: ICD-10-CM 1. Gynecologic exam normal Z01.419 PAP HPV DNA, AZALIA 2. Vaginitis and vulvovaginitis N76.0 MDL ONE SWAB 3. Postmenopausal bleeding N95.0 Plan: Orders Placed This Encounter Procedures MDL One Swab PAP IHPV DNA, AZALIA Encounter Meds Discussed recent bleeding episode and possible causes. Plan pelvic u/s to further evaluate. MDL culture obtained to check for infection. Will call with results to discuss further and treat as needed. Pap obtained. Encouraged SBE. Encouraged mammogram---pt declines---worried over old implants and possible rupture. Health maintenance discussed. F/u 1yr/PRN. Follow-up and Dispositions Return in about 1 year (around 11/24/2025) for annual exam. [1] Past Medical History: Diagnosis Date Attention deficit disorder Backache Concussion w/o coma Fever blister [2] Past Surgical History: Procedure Laterality Date HX BREAST ENHANCEMENT SURGERY HX TUBAL LIGATION HX WISDOM TOOTH EXTRACTION [3] Social History Tobacco Use Smoking status: Some Days Current packs/day: 5.00 Types: Cigarettes Smokeless tobacco: Never Vaping Use Vaping status: Never Used Substance Use Topics Alcohol use: Yes Comment: socially Drug use: No [4] Family History Problem Relation Name Age of Onset COPD Mother Heart Problems Mother Thyroid Disease Mother Heart Problems Sister [5] Current Outpatient Medications Medication Sig Dispense Refill dextroamphetamine-amphetamine (ADDERALL XR) 15 mg Capsule, Sust. Release 24 hr Take 15 mg by mouth. ergocalciferol (ERGOCALCIFEROL) 1,250 mcg (50,000 unit) Capsule Take 50,000 Units by mouth. famotidine (PEPCID) 20 mg PO tablet Take 20 mg by mouth 2 times daily. ibuprofen (MOTRIN) 600 mg PO tablet prn methylPREDNISolone (MEDROL) 4 mg tablet Take as directed on package insert. May take all tablets for ear day as a single dose in morning with food. sertraline (ZOLOFT) 25 mg tablet 1/2 po qhs for a week then inc to 1 at hs 30 Tab 0 valACYclovir (VALTREX) 1 gram tablet 2 po bid for 1 day 4 Tablet 3 No current facility-administered medications for this visit. [6] Allergies Allergen Reactions Codeine documented in this encounter Plan of Treatment Scheduled Orders Name Type Priority Associated Diagnoses Orde r Schedule MDL ONE SWAB Lab Routine Vaginitis and vulvovaginitis Ordered: 11/24/2024 documented as of this encounter Results * PAP HPV DNA, AZALIA (11/24/2024 2:43 PM EDT) Diagnosis Comment [facility] Comment:NEGATIVE FOR INTRAEP ITHELIAL LESION OR MALIGNANCY. Adequacy Comment [facility] Comment: Satisfactory for evaluation. Endocervical and/or squamous metaplastic cells (endocervical component) are present. Performed Comment [facility] Comment:Anh Lainez, Cyto logist (ASCP) Notes Comment [facility] Comment: The Pap smear is a screening test designed to aid in the detection of premalignant and malignant conditions of the uterine cervix. It is not a diagnostic procedure and should not be used as the sole means of detecting cervical cancer. Both false-positive and false-negative reports do occur. HPV 16 Henrik Negative Negative [facility] HPV 18, Henrik Negative Negative [facility] Comment: This nucleic acid amplification test detects fourteen high-risk HPV types: HPV16, HPV18 and twelve other high-risk types (31,33,35,39,45,51,52,56,58,59,66,68) without differentiation. Performed at: - [facility] [id number] [employer] Consultant: Shazia Marrero MD, Phone: [phone] Performed at: = - [facility] [address] [id number] [employer] Consultant: Shazia Marrero MD, Phone: [phone] HPV Other Types, Henrik Negative Negative [facility] Pap Vial 11/24/2024 2:43 PM EDT 11/28/2024 3:07 PM EDT Amalia Joya NETWORK SYSTEMS ANALYST PATHOLOGY/CYTOLOGY ORDERABL ES Final Result [facility] [address] [place] [address], [facility] documented in this encounter Visit Diagnoses Diagnosis Gynecologic exam normal- Primary Reserved for inherently not codable concepts WITHOUT codable children Vaginitis and vulvovaginitis Postmenopausal bleeding documented in this encounter Care Teams Criminal Justice Lawyer Relationship Specialty Start Date End Date Gretchen Juarez MD PCP - General Family Medicine 05/13/12 documented as of this encounter
--- OUTSIDE RECORDS SUMMARY | 2024-11-24 14:40 | XMS_ITS | Encounter Summary ---
Author Organization [facility] Address [address] [place] [address] Care Team Providers Care Tax Analyst Name Role Phone Gretchen Juarez MD Primary Care Provider Tiffanie bullard Encounter Details Date Type Department Care Team (Latest Contact Info) Description 11/24/2024 2:40 PM EDT - 11/24/2024 11:59 PM EDT Hospital Encounter Laboratory [address] [facility] [place] [address] [place] [address] Gynecologic exam normal Discharge Disposition: Home or [...] AZALIA (11/24/2024 2:43 PM EDT) Diagnosis Comment [facility] PRODUCTION LINE WELDER AL LAB Comment:NEGATIVE FOR INTRAEP ITHELIAL LESION OR MALIGNANCY. Adequacy Comment [facility] PRODUCTION LINE WELDER AL LAB Comment: Satisfactory for evaluation. Endocervical and/or squamous metaplastic cells (endocervical component) are present. Performed Comment [facility] PRODUCTION LINE WELDER AL LAB Comment:Anh Lainez, Cyto logist (ASCP) Notes Comment [facility] PRODUCTION LINE WELDER AL [facility] Comment: The Pap smear is [...] types (31,33,35,39,45,51,52,56,58,59,66,68) without differentiation. Performed at: - [address] [id number] Junior Marketing Associate: Shazia Marrero MD, Phone: [phone] Performed at: = - [facility] [id number] Junior Marketing Associate: Shazia Marrero MD, Phone: [phone] HPV Other Types, Henrik Negative Negative [facility] EX[facility] Pap Vial 11/24/2024 2:43 PM EDT 11/28/2024 3:07 PM EDT Amalia Joya EDGER MACHINE SETTER PATHOLOGY/CYTOLOGY ORDERABL ES Final Result [facility] EXTERNAL [facility] [address] documented in this encounter Visit Diagnoses Diagnosis Gynecologic exam normal Reserved for inherently not codable concepts WITHOUT codable children documented in this encounter Care Teams Tax Analyst Relationship Specialty Start Date End Date Gretchen Juarez MD PCP - General Family Medicine 05/13/12 documented as of this encounter
--- OUTSIDE RECORDS SUMMARY | 2024-11-30 14:45 | XMS_ITS | Encounter Summary ---
Author Organization [facility] [place] [address] Care Team Providers Care Research And Development Engineer Name Role Phone Chip Burt MD Primary Care Provider Reason for Visit * Reason Comments Follow-up 1 week Urinary Frequency smell to urine jessica tamez has been getting treated Encounter Details Date Type Department Care Team (Latest Contact Info) Description 11/30/2024 2:45 PM EDT Office Visit [facility] [address] [facility] [address] [place] [phone] Fabby Joya MD [address] [facility] [address] [place] [address] Dizziness (Primary Dx); Urinary frequency; UTI (urinary tract infection), uncomplicated Social History Tobacco Use Types Packs/Day Years Used Date Smoking Tobacco: Every Day Cigarettes 0.5 25.7 Started: 05/03/1999 Smokeless Tobacco: Never Alcohol Use Standard Drinks/Week Comments Not Currently 1 (1 standard drink = 0.6 oz pur e alcohol) Socially PHQ-2 Answer Date Recorded PHQ-2 Total Score 0 09/29/2024 Sexually Active Control Partners Comments Not Currently Male Post menopausa l Comments No Sex and Gender Information Value Date Recorded Sex Assigned at Not on file Legal Sex Female 12:57 AM EDT Gender Identity Not on file Sexual Orientation Not on file documented as of this encounter Last Filed Vital Signs Vital Sign Reading Time Taken Comments Blood Pressure 100/70 11/30/2024 2:49 PM EDT Pulse 79 11/30/2024 2:49 PM EDT Temperature 36.2 C (97.1 F) 11/30/2024 2:49 PM EDT Respiratory Rate - - Oxygen Saturation 99% 11/30/2024 2:49 PM EDT Inhaled Oxygen Concentration - - Weight 53 kg (116 lb 12.8 oz) 11/30/2024 2:49 PM EDT Height 152.4 cm (5') 11/30/2024 2:49 PM EDT Body Mass Index 22.81 11/30/2024 2:49 PM EDT documented in this encounter Functional Status [...] Shiva Hansen MA documented in this encounter Progress Notes * Fabby Joya MD - 11/30/2024 2:45 PM EDTAssociated Problem(s): Dizziness Encourage hydration, consider florinef or midodrine if holter monitor and MRI normal * Fabby Joya MD - 11/30/2024 2:45 PM EDT Assessment & Plan Dizziness Encourage hydration, consider florinef or midodrine if holter monitor and MRI normal Urinary frequency Orders: SEP URINALYSIS POC URINE CULTURE (NO STAIN); Future UTI (urinary tract infection), uncomplicated Orders: URINE CULTURE (NO STAIN); Future Progress Note: Vitals: 11/30/24 1449 BP: 100/70 BP Location: Left arm Patient Position: Sitting Pulse: 79 Temp: 97.1 ??F (36.2 ??C) TempSrc: Forehead SpO2: 99% Weight: 116 lb 12.8 oz (53 kg) Height: 5' (1.524 m) Body mass index is 22.81 kg/m??. SUBJECTIVE: Chief Complaint Patient presents with Follow-up 1 week Urinary Frequency smell to urine ongoing has been getting treated HPI: Dizziness: She has been having longer episodes of feeling weak and lightheaded. The lightheadednessimproved some with dramamine yesterday but starting to feel bad again today. It is worse with heat and with standing or walking. When she gets the episodes she starts to get anxiety flare as well. Buspar helps with the anxiety over 1-2 hours. She still has MRI and holter monitor pending. Cardiology appointment is 12/11. Discussed concern for orthostatic hypotension, would consider florinef or midodrine if these are normal. Urinary odor: has been persistent since last UTI. She completed 10 days of antibiotics then second course. Discussed rechecking UA and culture, only treating if culture positive. Review of Systems Constitutional: Positive for activity change. Negative for chills and fever. HENT: Negative for congestion. Eyes: Negative for visual disturbance. Respiratory: Negative for cough and shortness of breath. Cardiovascular: Negative for chest pain and palpitations. Gastrointestinal: Negative for abdominal pain. Genitourinary: Positive for frequency. Negative for dysuria. Neurological: Positive for dizziness and light-headedness. Negative for syncope, weakness and headaches. Psychiatric/Behavioral: The patient is nervous/anxious. OBJECTIVE: Physical Exam Vitals and nursing note reviewed. Constitutional: General: She is not in acute distress. Appearance: Normal appearance. She is well-developed. She is not ill-appearing. HENT: Head: Normocephalic and atraumatic. Mouth/Throat: Mouth: Mucous membranes are moist. Pharynx: Oropharynx is clear. Eyes: Extraocular Movements: Extraocular movements intact. Conjunctiva/sclera: Conjunctivae normal. Neck: Thyroid: No thyromegaly. Trachea: No tracheal deviation. Cardiovascular: Rate and Rhythm: Normal rate and regular rhythm. Heart sounds: Normal heart sounds. No murmur heard. Pulmonary: Effort: Pulmonary effort is normal. No respiratory distress. Breath sounds: Normal breath sounds. No wheezing or rales. Abdominal: General: There is no distension. Palpations: Abdomen is soft. Tenderness: There is no abdominal tenderness. There is no guarding or rebound. Musculoskeletal: General: Normal range of motion. Cervical back: Normal range of motion and neck supple. Right lower leg: No edema. Left lower leg: No edema. Skin: General: Skin is warm and dry. Findings: No erythema or rash. Neurological: Mental Status: She is alert and oriented to person, place, and time. Mental status is at baseline. Motor: No abnormal muscle tone. documented in this encounter Plan of Treatment Upcoming Encounters Date Type Department Care Team (Late st Contact Info) Description 01/04/2025 8:45 AM EDT Office Visit [facility] [address] [place] [phone] Chuyita Moscoso MD [address] [place] [address] 03/12/2025 1:40 PM EST Office Visit [facility] [address] [phone] Chip Burt MD [address] [place] [address] 04/09/2025 10:00 AM EST Office Visit [facility] [place] [address] [place] [address] Anh Patel APRN 1 [facility] [place] [address] documented as of this encounter Goals Goal Patient Goal Type Associated Problems Recent Progress Patient-Stated? Author Maintain a healthy diet, exercise regularly and maintain an ideal body weight General No Philippe Hansen MA Stay Tobacco Free Lifestyle No Philippe Hansen MA documented as of this encounter Procedures Procedure Name Priority Date/Time Associated Diagnosis Comments URINE CULTURE (NO STAIN) Routine 11/30/2024 3:30 PM EDT Urinary frequency UTI (urinary tract infection), uncomplicated SEP URINALYSIS POC Routine 11/30/2024 3: 24 PM EDT Urinary frequency documented in this encounter Results * URINE CULTURE (NO STAIN) (11/30/2024 3:30 PM EDT) Culture No growth at 30 hours. 12/02/2024 1:48 PM EDT [facility] Urine STRUCTURE OF URINARY TRACT PROPER / Unknown 11/30/2024 3:30 PM EDT 11/30/2024 3:30 PM EDT us Fabby Joya MD MICROBIOLOGY - GENERAL ORDERA BLES Final Result [facility] [address] [facility] , [place] [address] * (ABNORMAL) SEP URINALYSIS POC (11/30/2024 3:24 PM EDT) UA Color POC Yellow Color 11/30/2024 3:26 PM EDT [facility] UA Appear POC Clear Clear 11/30/2024 3:26 PM EDT [facility]A Gluc POC Negative Negative mg/dL 11/30/2024 3:26 PM EDT [facility] Bili POC Negative Negative 11/30/2024 3:26 PM EDT [facility] Ketones POC Negative Negative mg/dL 11/30/2024 3:26 PM EDT [facility] UA SG POC 1.015 1.001 - 1.035 no units 11/30/2024 3:26 PM EDT [facility] Blood POC Moderate(A) Negative 11/30/2024 3:26 PM EDT [facility] pH POC 7.0 5.0 - 8.0 pH 11/30/2024 3:26 PM EDT [facility] Protein POC Negative Negative mg/dL 11/30/2024 3:26 PM EDT [facility] Urobilinogen POC 0.2 0.2, 1.0 11/30/2024 3:26 PM EDT [facility] Nitrite POC Negative Negative 11/30/2024 3:26 PM EDT [facility] Leuk Est POC Trace(A) Negative 3:26 PM EDT [facility] Urine STRUCTURE OF URINARY TRACT PROPER / Unknown 11/30/2024 3:24 PM EDT 11/30/2024 3:26 PM EDT us Fabby Joya MD POINT OF CARE TEST ORDERABLES Final Result [facility] [address], [address] [place] [address] documented in this encounter Visit Diagnoses Diagnosis Dizziness- Primary Dizziness and giddiness Urinary frequency UTI (urinary tract infection), uncomplicated Urinary tract infection, site not specified documented in this encounter Discontinued Medications Medication Sig Discontinue Reason Start Date End Da te nicotine polacrilex (COMMIT) 2 mg Bucl LozengeIndications:Ciga rette smoker Place 1 Lozenge inside cheek as needed for Smoking cessation for up to 30 days. Cancelled by 11/02/2024 11/30/2024 documented as of this encounter Care Teams Research And Development Engineer Relationship Specialty Start Date End Date Chip Burt MD [address] [place] [address] PCP - General Family Medicine 09/29/24 documented as of this encounter
--- OUTSIDE RECORDS SUMMARY | 2024-12-01 10:47 | XMS_ITS | Encounter Summary ---
Author Organization [place] [address] Care Team Providers Care Rug Sample Beveler Name Role Phone Chip Burt MD Primary Care Provider [phone] Reason for Referral * Holter Monitor (Routine) - Authorization Not Needed Specialty Diagnoses / Procedures Referred By Contac t Referred To Contact Radiology Diagnoses Syncope, unspecified syncope type Dizziness Intermittent palpitations Abnormal EKG Procedures HOLTER MONITOR RECORDING AND ANALYSIS Chip Burt MD [address] [place] [address] Phone: tel: fax: Referral ID Status Reason Start Date Expiration Date Visits Requested Visits Authorized [id number] Authorization Not Needed 11/23/2024 11/23/2026 1 1 Reason for Visit * Holter Monitor (Routine) - Authorization Not Needed Specialty Diagnoses / Procedures Referred By Contac t Referred To Contact Radiology Diagnoses Syncope, unspecified syncope type Dizziness Intermittent palpitations Abnormal EKG Procedures HOLTER MONITOR RECORDING AND ANALYSIS Chip Burt MD [address] [place] [address] Phone: tel: fax: Referral ID Status Reason Start Date Expiration Date Visits Requested Visits Authorized [id number] Authorization Not Needed 11/23/2024 11/23/2026 1 1 Encounter Details Date Type Department Care Team (Latest Contact Info) Description 12/01/2024 10:47 AM EDT - 12/01/2024 1:34 PM EDT Hospital Encounter [facility]OV HOLTER MONITOR [facility] [place] [address] Chip Burt MD [address] [place] [address] Syncope, unspecified syncope type; Dizziness; Intermittent palpitations; [...] Time of Discharge Blood Pressure Monitor [facility] KitIndications:Syn cope, unspecified syncope type,Other fatigue 1 Kit by [facility].(Non-El g; Combo Route) route [...] Description 01/04/2025 8:45 AM EDT Office Visit [facility] [facility] [place] [facility] [address] [place] [address] Chuyita Moscoso MD [address] [place] [address] 03/12/2025 1:40 PM EST Office Visit [facility] [address] [facility] [address] [place] [address] Chip Burt MD [address] [place] [address] 04/09/2025 10:00 AM EST Office Visit [facility] H&[facility] [place] [address] [place] [address] Anh Patel APRN [address] [facility] [place] [address] documented as of this encounter Goals Goal [...] MANA THOMPSON Department: DEPID Room: Gender: Female Refrigerator Crater: : 1975 Requested By: CHIP Villagomez Order Number: [id number] Michael MD: Donnie Lam MD Interpretive Statements Server Cashier Date: 12/01/2024 Referring Provider: Dr. Chip Burt [...] MANA THOMPSON Department: DEPID Room: Gender: Female Refrigerator Crater: : 1975 Requested By: CHIP Villagomez Order Number: [id number] Michael ALVARADO: Donnie Lam MD Interpretive Statements Server Cashier Date: 12/01/2024 Referring Provider: Dr. Chip Burt [...] (EKG) documented in this encounter Care Teams Rug Sample Beveler Relationship Specialty Start Date End Date Chip Burt MD [address] [place] [address] PCP - General Family Medicine 09/29/24 documented as of this encounter
--- OUTSIDE RECORDS SUMMARY | 2024-12-01 13:35 | XMS_ITS | Encounter Summary ---
Author Organization [place] [address] Care Team Providers Care Chemical Instrumentation Officer Name Role Phone Chip Burt MD Primary Care Provider [phone] Reason for Referral * MRI/CAT Scan (Urgent) - PCP Precert Acquired Specialty Diagnoses / Procedures Referred By Contac t Referred To Contact Radiology Diagnoses Transient leg weakness Procedures MRI LUMBAR SPINE W WO CONTRAST Chip Burt MD [address] [place] [address] Phone: tel: fax: Referral ID Status Reason Start Date Expiration Date V isits Requested Visits Authorized [id number] PCP Precert Acquired 11/23/2024 11/23/2025 1 1 Reason for Visit * MRI/CAT Scan (Urgent) - PCP Precert Acquired Specialty Diagnoses / Procedures Referred By Contac t Referred To Contact Radiology Diagnoses Transient leg weakness Procedures MRI LUMBAR SPINE W WO CONTRAST Chip Burt MD [address] [place] [address] Phone: tel: fax: Referral ID Status Reason Start Date Expiration Date V isits Requested Visits Authorized [id number] PCP Precert Acquired 11/23/2024 11/23/2025 1 1 Encounter Details Date Type Department Care Team (Latest Contact Info) Description 12/01/2024 1:35 PM EDT Hospital Encounter [facility] MRI [address] [place] [address] Chip Burt MD [address] [place] [address] Transient leg weakness Discharge Disposition: Home or [...] Description 01/04/2025 8:45 AM EDT Office Visit [facility] [place] [facility] [address] [place] [address] [place] [address] Chuyita Moscoso MD [address] [place] [address] 03/12/2025 1:40 PM EST Office Visit [facility] [address] [facility] [address] [place] [phone] Chip Burt MD [address] [place], [place] [id number] 04/09/2025 10:00 AM EST Office Visit [facility] [address] [place] [address] Anh Patel APRN 1 [facility] [place], [place] [id number] documented as of this encounter Goals Goal [...] R29.898-Other symptoms and signs involving the musculoskeletal jxotnx-MBM-50-CM. COMPARISON: No prior lumbar spine MR studies [...] heavy R29.898-Other symptoms and signsinvolving the musculoskeletal xdkcaq-CAT-89-CM. COMPARISON: No prior lumbar spine MR studies [...] of the ordering clinician. Chip Burt MD [facility] MRI ORDERABLES Final Resu lt documented in this encounter Visit Diagnoses Diagnosis Transient leg weakness documented in this encounter Care Teams Chemical Instrumentation Officer Relationship Specialty Start Date End Date Chip Burt MD [address] [place] [address] PCP - General Family Medicine 09/29/24 documented as of this encounter
--- OUTSIDE RECORDS SUMMARY | 2024-12-01 13:36 | XMS_ITS | Encounter Summary ---
Author Organization [place] [address] Care Team Providers Care Beading Machine Operator Name Role Phone Chip Burt MD Primary Care Provider [phone] Reason for Referral * MRI/CAT Scan (Routine) - PCP Precert Acquired Specialty Diagnoses / Procedures Referred By Contac t Referred To Contact Radiology Diagnoses Syncope, unspecified syncope type Dizziness Vision changes Transient leg weakness Procedures MRI BRAIN W WO CONTRAST Chip Burt MD [address] [place] [address] Phone: tel: fax: Referral ID Status Reason Start Date Expiration Date V isits Requested Visits Authorized [id number] PCP Precert Acquired 11/23/2024 11/23/2025 1 1 Reason for Visit * MRI/CAT Scan (Routine) - PCP Precert Acquired Specialty Diagnoses / Procedures Referred By Contac t Referred To Contact Radiology Diagnoses Syncope, unspecified syncope type Dizziness Vision changes Transient leg weakness Procedures MRI BRAIN W WO CONTRAST Chip Burt MD [address] [place] [address] Phone: tel: fax: Referral ID Status Reason Start Date Expiration Date V isits Requested Visits Authorized [id number] PCP Precert Acquired 11/23/2024 11/23/2025 1 1 Encounter Details Date Type Department Care Team (Latest Contact Info) Description 12/01/2024 1:36 PM EDT - 12/01/2024 11:59 PM EDT Hospital Encounter [facility] MRI [address] [place] [address] Chip Burt MD [facility] [place] [address] Syncope, unspecified syncope type; Dizziness; Vision changes; [...] at Time of Discharge Blood Pressure Monitor [facility] KitIndications:Syn cope, unspecified syncope type,Other fatigue 1 Kit by [facility].(Non-El g; Combo Route) route daily. 1 Kit [...] Description 01/04/2025 8:45 AM EDT Office Visit [facility] [place] [facility] [address] [place] [address] Chuyita Moscoso MD [address] [place] [address] 03/12/2025 1:40 PM EST Office Visit [facility] [address] [facility] [address] [place] [address] Chip Burt MD [address] [place] [address] 04/09/2025 10:00 AM EST Office Visit [facility] [place] [address] [place] [address] Anh Patel APRN 1 [facility] [place] [address] documented as of this encounter Goals Goal [...] WO CONTRAST 12/01/2024 3:25 PM CLINICAL HISTORY: O17-Jeixyqt and sosqubwq-HVZ-87-CM T86-Dksvqhcwc and cheyglhrw-UUQ-44-CM H53.9-Unspecified visual xbqfotwjnoe-DVD-64-CM R29.898-Other symptoms and signs involving the musculoskeletal uapdyx-IPM-60-CM. COMPARISON: Head CT 11/23/2024 PROCEDURE COMMENTS: Multiplanar [...] WO CONTRAST 12/01/2024 3:25 PM CLINICAL HISTORY: I84-Etsnrfz and yzeqkvhy-VHI-79-CM I19-Wrwcymtvi and yiqrdecxk-NEH-25-CM H53.9-Unspecified visual ztuipruwowj-XOQ-28-CM R29.898-Other symptoms and signs involving the vmyzuwjtuwoxtffppoqnh-PWB-25-CM. COMPARISON: Head CT 11/23/2024 PROCEDURE COMMENTS: Multiplanar [...] 12/01/2024 documented in this encounter Care Teams Beading Machine Operator Relationship Specialty Start Date End Date Chip Burt MD [address] [place] [address] PCP - General Family Medicine 09/29/24 documented as of this encounter
--- OUTSIDE RECORDS SUMMARY | 2024-12-06 15:45 | XMS_ITS | Encounter Summary ---
Author Organization [place] [address] Care Team Providers Care Motor Vehicle Licence Examiner Name Role Phone Chip Burt MD Primary Care Provider Reason for Referral * Holter Monitor (Emergency) - Closed Specialty Diagnoses / Procedures Referred By Rosemary singer Referred To Contact Radiology Diagnoses Chest pain, unspecified type Procedures HOLTER MONITOR RECORDING AND ANALYSIS Rohan Bhatt APRN [address] [place] [address] Phone: tel: fax: Referral ID Status Reason Start Date Expiration Date Visits Re quested Visits Authorized [id number] Closed 12/06/2024 12/06/2026 1 1 Reason for Visit * Reason Comments Chest Pain Pt c/o mid CP radiat ing to back. Also sts she is light headed and her legs feel heavy. Sts cannot take deep breath. Cpta:ibuprofen Encounter Details Date Type Department Care Team (Late st Contact Info) Description 12/06/2024 3:45 PM EDT - 12/06/2024 7:29 PM EDT [facility] [address] [place] [address] Sandra Barahona MD [address] [place] [address] [place] [address] Chest pain, unspecified type (Primary [...] 3:38 PM EDT Ember Reyna RN * [place] Suicide Severity Rating Scale (Q shift for [...] sent through Care Everywhere. * Chest pain (Nigerien) documented in this encounter Medications at Time of Discharge Blood Pressure Monitor [facility] [place] [place] KitIndications:Syn cope, unspecified syncope type,Other fatigue 1 Kit by [facility] [place] [place].(Non-El g; Combo Route) route daily. 1 Kit [...] Means Destination Comment s Home or Self Senior Care documented in this encounter ED Notes * Kevin Rohan Jarvis, CAYDEN - 12/06/2024 3:36 PM [...] 50 mL, Intravenous, PRN, Mangus, Rohan R, LEAD GENERATION MARKETING MANAGER sodium chloride 0.9% syringe 5-10 mL, 5-10 mL, Intravenous, PRN, Mangus, Rohan R, LEAD GENERATION MARKETING MANAGER Current Outpatient Medications: Blood Pressure Monitor [facility] [place] [place] Kit, 1 Kit by [facility] [place] [place].(Non-Drug; Combo Route) route daily., Disp: 1 Kit, [...] 69.6 Imm Gran% 0.1 Lymph Percent 22.6 Sherman Percent 4.9 Eos Percent 2.4 Baso Percent 0.4 Neut # 6.8 (*) IMMGRAN# 0.0 Lymph # 2.2 Sherman # 0.5 Eos# 0.2 Baso # 0.0 [...] HIGH SENSITIVITY BASELINE W/ REFLEX - Normal jx-wFitgmqbk-X <6 Narrative: Ingestion of caleb doses of biotin (>5 mg/day) taken within 8 hours of drawing blood sample can interfere with this immunoassay test. MAGNESIUM LEVEL - Normal Magnesium 1.9 TROPONIN-T HIGH SENSITIVITY 2HR - Normal vy-uIkzqfkft-C 2HR 7 hs-cTnT 2Hr Delta from Baseline >1 Narrative: Ingestion of caleb doses of biotin (>5 mg/day) taken within 8 hours of drawing blood sample can interfere with this immunoassay test. URINE CULTURE (NO STAIN) UA W/REFLEX TO CULTURE Narrative: The following orders were created for panel order UA W/REFLEX TO CULTURE. Procedure Abnormality Status --------- ------ URINALYSIS REFLEX[[id number]] Abnormal Final result EXTRA DEL CID URINE CX[[id number]] Final result Please view results for these [...] with KAITLYNN. ED Course as of 12/06/24 3346 Sandra Barahona's Documentation Wed Dec 06, 2024 [...] AM EDT Office Visit SEP Neurology [facility] [address] [place] [phone] Chuyita Moscoso MD [address] [place] [address] 03/12/2025 1:40 PM EST Office Visit [facility] [address] [facility] [address] [place] [phone] Chip Burt MD [address] [place] [address] 04/09/2025 10:00 AM EST Office Visit [facility]P [facility] [address] [address] Anh Patel, CAY[place] 1 [facility] VIJAY Guidry [phone] documented as of this encounter Goals Goal [...] AM EDT Impressions 12/13/2024 3:54 PM EDT [facility] Test Date: 2024-12-13 Pat Name: SHERYL CORDERO [facility] Gender: Female Wardrobe Manager: : 1975 Requested By: ROHAN Conley Order Number: [id number] Michael MD: Anthony Cummings MD Interpretive Statements Supervisor Travel Information Center Date: 12/07/2024 Referring Provider: Dr. Chip Burt [...] Note Anthony Cummings MD - 12/13/2024 IMPRESSION [facility] Test Date: 2024-12-13 Pat Name: SHERYL CORDERO Department: DEPID Room: Gender: Female Wardrobe Manager: : 1975 Requested By: ROHAN Conley Order Number: [id number] Michael MD: Anthony Cummings MD Interpretive Statements Supervisor Travel Information Center Date: 12/07/2024 Referring Provider: Dr. Chip Burt [...] HIGH SENSITIVITY 2HR (12/06/2024 6:39 PM EDT) rr-iFjsonapd-O 2HR 7 <14 ng/L 12/06/2024 7:06 PM EDT [facility] hs-cTnT 2Hr Delta from Baseline >1 <4 ng/L 12/06/2024 7:06 PM EDT [facility] Blood VENOUS BLOOD / Unknown Venipuncture / Unknown 12/06/2024 6:39 PM EDT 12/06/2024 6:48 PM EDT Narrative [facility] - 12/06/2024 7:06 PM EDT Ingestion of caleb doses of biotin (>5 mg/day) taken within 8 hours of drawing blood sample can interfere with this immunoassay test. Rohan Bhatt APRN CHEMISTRY ORDERABLES Final Result Performing Organization Address City/[facility]/ZIP Co de Phone Number [facility] [address] [place] [phone] * URINE CULTURE (NO STAIN) (12/06/2024 5:04 PM EDT) Culture No growth at 30 hours. 12/08/2024 11:43 AM EDT [facility] Urine STRUCTURE OF URINARY TRACT PROPER / Unknown 12/06/2024 5:04 PM EDT 12/06/2024 5:15 PM EDT Rohan Bhatt APRN MICROBIOLOGY - GENERAL ORDE RABLES Final Result [facility] [address] [place] [address] , [place] [address] * EXTRA DEL CID URINE CX (12/06/2024 5:04 PM EDT) Urine STRUCTURE OF URINARY TRACT PROPER / Unknown 12/06/2024 5:04 PM EDT 12/06/2024 5:06 PM EDT Rohan Bhatt LEAD GENERATION MARKETING MANAGER MICROBIOLOGY - GENERAL ORDE RONALDO Final Result [facility] [address] [place] [address] * (ABNORMAL) URINALYSIS REFLEX (12/06/2024 5:04 PM EDT) UA Color Yellow 12/06/2024 5:15 PM EDT [facility] UA Appear Clear Clear 12/06/2024 5:15 PM EDT [facility] UA Glucose Negative Negative mg/dL 12/06/2024 5:15 PM EDT [facility] UA Ketones Negative Negative mg/dL 12/06/2024 5:15 PM EDT [facility] UA Blood Negative Negative 12/06/2024 5:15 PM EDT [facility] UA pH 6.0 5.0 - 8.0 pH 12/06/2024 5:15 PM EDT [facility] UA Protein Negative Negative mg/dL 12/06/2024 5:15 PM EDT [facility] UA Urobilinogen 0.2 <=1 mg/dL 5:15 PM EDT [facility] UA Bili Negative Negative 12/06/2024 5:15 PM EDT [facility] UA Nitrite Negative Negative 12/06/2024 5:15 PM EDT [facility] UA Leuk Est Small(A) Negative 12/06/2024 5:15 PM EDT [facility] UA Spec Grav 1.010 1.001 - 1.035 no units 12/06/2024 5:15 PM EDT [facility] Comment:Reference range nick d for random specimens only. UA WBC 5(H) 0 - 4 /HPF 12/06/2024 5:15 PM EDT [facility] UA RBC 1 0 - 3 /HPF 12/06/2024 5:15 PM EDT [facility] UA Squam Epi Rare /LPF 12/06/2024 5:15 PM EDT [facility] UA Mucus 1+ /LPF 12/06/2024 5:15 PM EDT [facility] UA Amorph Trace /HPF 12/06/2024 5:15 PM EDT [facility] Urine STRUCTURE OF URINARY TRACT PROPER / Unknown 12/06/2024 5:04 PM EDT 12/06/2024 5:06 PM EDT Rohan R Kevinus LEAD GENERATION MARKETING MANAGER URINE ORDERABLES Final Resu lt [facility] [address] [place] [address] * MAGNESIUM LEVEL (12/06/2024 4:51 PM EDT) Magnesium 1.9 1.6 - 2.4 mg/dL 12/06/2024 5:24 PM EDT [facility] Blood VENOUS BLOOD / Unknown Venipuncture / Unknown 12/06/2024 4:51 PM EDT 12/06/2024 4:56 PM EDT Rohan Bhatt LEAD GENERATION MARKETING MANAGER CHEMISTRY ORDERABLES Final Result Performing Organization Address [facility]/ZIP Co de Phone Number [facility] [address] [place] [address] * TROPONIN-T HIGH SENSITIVITY BASELINE W/ REFLEX (12/06/2024 4:51 PM EDT) ot-uTjirptxo-N <6 <14 ng/L 12/06/2024 5:19 PM EDT [facility] Blood VENOUS BLOOD / Unknown Venipuncture / Unknown 12/06/2024 4:51 PM EDT 12/06/2024 4:56 PM EDT Narrative [facility] - 12/06/2024 5:19 PM EDT Ingestion of caleb doses of biotin (>5 mg/day) taken within 8 hours of drawing blood sample can interfere with this immunoassay test. us Rohan R Mangus LEAD GENERATION MARKETING MANAGER CHEMISTRY ORDERABLES Final Result Performing Organization Address City/[facility]/ZIP Co de Phone Number [facility] [address] [place], [place] [id number] * LIPASE LEVEL (12/06/2024 4:51 PM EDT) Lipase Lvl 21 13 - 60 U/L 12/06/2024 5:24 PM EDT [facility] Blood VENOUS BLOOD / Unknown Venipuncture / Unknown 12/06/2024 4:51 PM EDT 12/06/2024 4:56 PM EDT Rohan R Mangus LEAD GENERATION MARKETING MANAGER CHEMISTRY ORDERABLES Final Result Performing Organization Address [facility] de Phone Number [facility] [address] [place] [address] * COMPREHENSIVE METABOLIC PANEL (12/06/2024 4:51 PM EDT) Sodium 141 136 - 145 mmol/L 12/06/2024 5:24 PM EDT [facility] Potassium 3.8 3.5 - 5.0 mmol/L 12/06/2024 5:24 PM EDT [facility] Chloride 105 98 - 107 mmol/L 12/06/2024 5:24 PM EDT [facility] Total CO2 28 22 - 29 mmol/L 12/06/2024 5:24 PM EDT [facility] Anion Gap 8 7 - 16 mmol/L 12/06/2024 5:24 PM EDT [facility] Calcium 8.8 8.6 - 10.4 mg/dL 12/06/2024 5:24 PM EDT [facility] Glucose Lvl 75 70 - 99 mg/dL 12/06/2024 5:24 PM EDT [facility] BUN 10 6 - 20 mg/dL 12/06/2024 5:24 PM EDT [facility] Creatinine 0.69 0.51 - 1.30 mg/dL 12/06/2024 5:24 PM EDT [facility] Albumin 4.1 3.5 - 5.2 gm/dL 12/06/2024 5:24 PM EDT [facility] Total Protein 6.6 6.4 - 8.3 gm/dL 12/06/2024 5:24 PM EDT [facility] Bili Total 0.4 0.2 - 1.3 mg/dL 12/06/2024 5:24 PM EDT [facility] ALT 14 <=41 U/L 12/06/2024 5:24 PM EDT [facility] AST 16 <=40 U/L 12/06/2024 5:24 PM EDT [facility] Alk Phos 119 36 - 123 U/L 12/06/2024 5:24 PM EDT [facility] eGFR (CKD-EPIcr 2020) 106 >=60 mL/min/1.7 3 m2 12/06/2024 5:24 PM EDT [facility] Comment:Estimated GFR was ca lculated using the CKD-EPIcr (2020) equation refit without race. The equation is recommended by the National Kidney Foundation - [place] [employer] Society of Nephrology Task Force. Blood VENOUS BLOOD / Unknown Venipuncture / Unknown 12/06/2024 4:51 PM EDT 12/06/2024 4:56 PM EDT us Rohan Bhatt LEAD GENERATION MARKETING MANAGER CHEMISTRY ORDERABLES Final Result [facility] [address] [place] [phone] * (ABNORMAL) CBC WITH DIFF (12/06/2024 4:51 PM EDT) WBC 9.8 3.7 - 10.3 x10(3)/mcL 12/06/2024 4:58 PM EDT [facility] RBC 4.42 3.90 - 5.20 x10(6)/mcL 12/06/2024 4:58 PM EDT [facility] Hgb 13.6 11.2 - 15.7 g/dL 12/06/2024 4:58 PM EDT [facility] Hct 41.6 34.0 - 45.0 % 12/06/2024 4:58 PM EDT [facility] MCV 94.1 80.0 - 100.0 fL 12/06/2024 4:58 PM EDT [facility] MCH 30.8 26.0 - 34.0 pg 12/06/2024 4:58 PM EDT [facility] MCHC 32.7 30.7 - 35.5 g/dL 12/06/2024 4:58 PM EDT [facility] RDW 12.9 <=14.9 % 12/06/2024 4:58 PM EDT [facility] Platelet 316 155 - 369 x10(3)/mcL 12/06/2024 4:58 PM EDT [facility] MPV 9.0 8.8 - 12.5 fL 12/06/2024 4:58 PM EDT [facility] Neut Percent 69.6 % 12/06/2024 4:58 PM EDT [facility] Comment:Neutrophils equals s egs plus bands Imm Gran% 0.1 % 12/06/2024 4:58 PM EDT [facility] Comment:Automated count of m etamyelocytes, myelocytes and promyelocytes. Lymph Percent 22.6 % 12/06/2024 4:58 PM EDT [facility] Sherman Percent 4.9 % 12/06/2024 4:58 PM EDT [facility] Eos Percent 2.4 % 12/06/2024 4:58 PM EDT [facility] Baso Percent 0.4 % 12/06/2024 4:58 PM EDT [facility] Neut # 6.8(H) 1.6 - 6.1 x10(3)/mcL 12/06/2024 4:58 PM EDT [facility] Comment:Neutrophils equals s egs plus bands IMMGRAN# 0.0 0.0 - 0.1 x10(3)/mcL 12/06/2024 4:58 PM EDT [facility] Comment:Automated count of m etamyelocytes, myelocytes and promyelocytes. An absolute IG <0.1 is reported as 0.0. Lymph # 2.2 1.2 - 3.9 x10(3)/mcL 12/06/2024 4:58 PM EDT [facility] Sherman # 0.5 0.3 - 0.9 x10(3)/mcL 12/06/2024 4:58 PM EDT [facility] Eos# 0.2 0.0 - 0.5 x10(3)/mcL 12/06/2024 4:58 PM EDT [facility] Baso # 0.0 0.0 - 0.1 x10(3)/mcL 12/06/2024 4:58 PM EDT [facility] Blood VENOUS BLOOD / Unknown Venipuncture / Unknown 12/06/2024 4:51 PM EDT 12/06/2024 4:56 PM EDT us Rohan Bhatt LEAD GENERATION MARKETING MANAGER HEMATOLOGY ORDERABLES Final Result [facility] [address] [place] [address] * XR CHEST PA AND LATERAL (12/06/2024 [...] IMPRESSION: No acute finding. Rohan Jarvis Bhatt LEAD GENERATION MARKETING MANAGER IMG DIAGNOSTIC IMAGING ORDE RONALDO Final Result * EK EKG 12 LEAD (12/06/2024 3:37 PM EDT) Anatomical Region Laterality Modality Electrocardiogra phy 12/06/2024 3:43 PM EDT Impressions 12/07/2024 10:[address] [facility] Test Date: 2024-12-06 Pat Name: SHERYL CORDERO Department: DEPID Room: Gender: Female Wardrobe Manager: [employer] : 1975 Requested By: [facility] Order Number: [id number] Reading MD: Donnie Lam MD Measurements Intervals Sixes Rate: 68 P: 73 WI: 159 QRS: -75 QRSD: 98 T: 86 QT: 396 QTc: 424 Interpretive Statements SINUS RHYTHM PATTERN CONSISTENT WITH PULMONARY DISEASE LEFT ANTERIOR FASCICULAR BLOCK Electronically Signed On 12-07-2024 10:17:51 EDT by Donnie Lam MD Narrative Procedure Note Donnie Lam MD - 12/07/[address] [facility] Test Date: 2024-12-06 Pat Name: SHERYL CORDERO Department: DEPID Room: Gender: Female Wardrobe Manager: [employer] : 1975 Requested By: [facility] Order Number: [id number] Reading MD: Donnie Lam MD Measurements Intervals Sixes Rate: 68 P: 73 WI: 159 QRS: -75 QRSD: 98 T: 86 [...] 10/2024 documented in this encounter Care Teams Motor Vehicle Licence Examiner Relationship Specialty Start Date End Date Chip Burt MD [address] [place] [address] PCP - General Family Medicine 09/29/24 documented as of this encounter
--- OUTSIDE RECORDS SUMMARY | 2024-12-07 14:56 | XMS_ITS | Encounter Summary ---
Author Organization [place] [address] Care Team Providers Care Shingles Roofer Helper Name Role Phone Chip Burt MD Primary Care Provider [phone] Reason for Referral * Holter Monitor (Emergency) - Closed Specialty Diagnoses / Procedures Referred By Contac t Referred To Contact Radiology Diagnoses Chest pain, unspecified type Procedures HM HOLTER MONITOR RECORDING AND ANALYSIS Gabriela Bhatt APRN [address] [place] [address] Phone: tel: fax: Referral ID Status Reason Start Date Expiration Date Visits Re quested Visits Authorized [id number] Closed 12/06/2024 12/06/2026 1 1 Reason for Visit * Holter Monitor (Emergency) - Closed Specialty Diagnoses / Procedures Referred By Rosemary singer Referred To Contact Radiology Diagnoses Chest pain, unspecified type Procedures HOLTER MONITOR RECORDING AND ANALYSIS Gabriela Bhatt APRN [address] [place] [address] Phone: tel: fax: Referral ID Status Reason Start Date Expiration Date Visits Re quested Visits Authorized [id number] Closed 12/06/2024 12/06/2026 1 1 Encounter Details Date Type Department Care Team (Latest Contact Info) Description 12/07/2024 2:56 PM EDT - 12/07/2024 11:59 PM EDT Hospital Encounter [facility] [address] [facility] [address] [place] [address] Gabriela Bhatt R, MUSICAL INSTRUMENT MAKER OR REPAIRER [address] [place] [address] Chest pain, unspecified type Discharge Disposition: Home [...] unspecified syncope type,Other fatigue 1 Kit by [facility]Non-El g; Combo Route) route daily. 1 Kit [...] 01/04/2025 8:45 AM EDT Office Visit [facility] [address] [place] [address] [place] [address] Chuyita Moscoso MD [address] [place] [address] 03/12/2025 1:40 PM EST Office Visit [facility] [address] [facility] [address] [place] [phone] Chip Burt MD [address] [place] [address] 04/09/2025 10:00 AM EST Office [place] [facility] [place] [address] [place] [address] Anh Patel APRN [address] [facility] [place], [place] [id number] documented as of this encounter Goals Goal Patient Goal Type Associated Problems Recent Progress Patient-Stated? Author Maintain a healthy diet, exercise regularly and maintain an ideal body weight General No Philippe Hansen MA Stay Tobacco Free Lifestyle No Philippe Hansen MA documented as of this encounter Procedures Procedure Name Priority Date/Time Associated Diagnosis Comments HOLTER MONITOR RECORDING AND ANALYSIS STAT 12/07/2024 3:18 PM EDT Chest pain, unspecified type documented in this encounter Results * HOLTER MONITOR RECORDING AND ANALYSIS (12/07/2024 3:18 PM EDT) Anatomical Region Laterality Modality Holter/Event Mon itoring 12/13/2024 9:4 2 AM EDT Impressions 12/13/2024 3:54 PM EDT [facility] Test Date: 2024-12-13 Pat Name: MANA THOMPSON Department: DEPID Room: Gender: Female Material Engineer: : 1975 Requested By: GABRIELA Conley Order Number: [id number] Michael MD: Anthony Cummings MD Interpretive Statements Sharepoint Net Developer Date: 12/07/2024 Referring Provider: Dr. Chip Burt [...] Note Anthony Cummings MD - 12/13/2024 IMPRESSION [facility] Test Date: 2024-12-13 Pat Name: MANA THOMPSON Department: DEPID Room: Gender: Female Material Engineer: : 1975 Requested By: GABRIELA Conley Order Number: [id number] Michael MD: Anthony Cummings MD Interpretive Statements Sharepoint Net Developer Date: 12/07/2024 Referring Provider: Dr. Chip Burt [...] 12-13-2024 15:54:08 EDT by Anthony Cummings MD Gabriela Bhatt MUSICAL INSTRUMENT MAKER OR REPAIRER IMG HOLTER MONITOR ORDERABL ES Final Result documented in this encounter Visit Diagnoses Diagnosis Chest pain, unspecified type documented in this encounter Care Teams Shingles Roofer Helper Relationship Specialty Start Date End Date Chip Burt MD [address] [place] [address] PCP - General Family Medicine 09/29/24 documented as of this encounter
--- OUTSIDE RECORDS SUMMARY | 2024-12-08 10:00 | XMS_ITS | Encounter Summary ---
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
--- OUTSIDE RECORDS SUMMARY | 2024-12-11 08:30 | XMS_ITS | Encounter Summary ---
Author Organization [place] [address] Care Team Providers Care Legal Assistant Name Role Phone Chip Burt MD Primary Care Provider [phone] Reason for Referral * Holter Monitor (Routine) - Authorization Not Needed Specialty Diagnoses / Procedures Referred By Contac t Referred To Contact Radiology Diagnoses Heart palpitations Procedures EV EVENT MONITOR Binh Brody MD [address] [place] [address] Phone: tel: fax: Referral ID Status Reason Start Date Expiration Date Visits Requested Visits Authorized [id number] Authorization Not Needed 12/11/2024 12/11/2026 1 1 * MRI/CAT Scan (Routine) - PCP Precert Acquired Specialty Diagnoses / Procedures Referred By Contac t Referred To Contact Radiology Diagnoses Precordial pain Procedures CT ANGIOGRAM CORONARY W CONTRAST Binh Brody MD [address] [place] [address] Phone: tel: fax: Referral ID Status Reason Start Date Expiration Date V isits Requested Visits Authorized [id number] PCP Precert Acquired 12/11/2024 12/11/2025 1 1 Reason for Visit [...] Syncope, unspecified syncope type EKG abnormality Procedures UT OFFICE/OUTPATIENT NEW MODERATE MDM 45 MINUTES Fredi Trevizo MD 1 [place] [address] Phone: tel: fax: [facility] [place] [address] [facility] [address] [place] [address] Phone: tel: fax: Referral ID Status Reason Start Date Expiration Date Visits Requested Visits Authorized [id number] Authorization Not Needed 11/17/2024 11/17/2025 99 99 Encounter Details Date Type Department Care Team (Late st Contact Info) Description 12/11/2024 8:30 AM EDT Office Visit [facility] [place] [address] Binh Brody MD [address] [place] [address] Precordial pain (Primary Dx); Heart palpitations Social History Tobacco Use Types Packs/Day Years Used Date Smoking Tobacco: Every Day Cigarettes 0.5 25.7 Started: 05/03/1999 Smokeless Tobacco: Never Tobacco Cessation:Ready [...] Tablet 11 12/11/2024 documented in this encounter Progress Notes * Binh Brody MD - 12/11/2024 8:30 AM EDT Images from the original note were not included. Heart and Vascular Initial Office Visit CHIEF COMPLAINT Chief Complaint Patient presents with New Patient Referral Dr. Santhosh Domingo All the time When she feels her body get hot and her legs get weak, when she is moving around she really feels the dizziness SUBJECTIVE Sheryl Thompson is a 49 y.o. female without a significant past medical history presents for lightheadedness dizziness. The patient reports what sounds like a vagal type event where she will feel overheated and then felt like she might pass out. The patient is also experiencing chest tightness and some shortness of breath. Interestingly the patient has had 2 Holter monitors and very rapid succession essentially within a week. She is not sure whether or not she had an event while wearing these. Patient is obviously concerned about her ongoing symptoms. The patient does report palpitations. Some of her symptoms are exertional some of them are not Social History: Half a pack a day smoker. No significant alcohol. Works at [employer] Family History: Father had brain cancer Surgical History: Breast enhancement Cardiac Studies Past Surgical History Past Surgical History: Procedure Laterality Date BREAST ENHANCEMENT SURGERY Bilateral TUBAL LIGATION WISDOM TOOTH EXTRACTION Bilateral Allergy Allergies Allergen Reactions Codeine Family History Family History Problem Relation Age of Onset Heart Disease Mother 40 - 49 COPD Mother Arrhythmia Mother Cervical Cancer Mother Not sure of age my mom had hysterectomy Brain Cancer Father Arrhythmia Sister Other (MVC) Brother Social History Social History Tobacco Use Smoking status: Every Day Current packs/day: 0.50 Average packs/day: 0.5 packs/day for 25.6 years (12.8 ttl pk-yrs) Types: Cigarettes Start date: 05/03/1999 Smokeless tobacco: Never Substance Use Topics Alcohol use: Not Currently Alcohol/week: 0.6 oz Types: 1 Standard drinks or equivalent per week Comment: Socially ROS Review of Systems Constitutional: Positive for activity change and fatigue. Negative for chills, diaphoresis and fever. HENT: Negative for dental problem, trouble swallowing and voice change. Eyes: Negative for visual disturbance. Respiratory: Positive for chest tightness and shortness of breath. Negative for cough and wheezing. Cardiovascular: Positive for chest pain and palpitations. Negative for leg swelling. Gastrointestinal: Positive for nausea. Negative for abdominal pain and blood in stool. Endocrine: Negative for polydipsia and polyuria. Genitourinary: Negative for difficulty urinating. Musculoskeletal: Positive for arthralgias and back pain. Negative for myalgias. Skin: Negative for color change and pallor. Neurological: Positive for dizziness, syncope (pre), weakness and light- headedness. Negative for numbness. Hematological: Does not bruise/bleed easily. Psychiatric/Behavioral: Negative for behavioral problems and sleep disturbance. The patient is not nervous/anxious. All other review of systems negative, except for those noted. MEDICATIONS Current Outpatient Medications Medication Sig Dispense Refill busPIRone (BUSPAR) 5 mg Oral Tablet Take 1 Tablet by mouth 2 times daily as needed. 60 Tablet 1 ergocalciferol (VITAMIN D) 1,250 mcg (50,000 unit) Oral Capsule Take 1 Capsule by mouth once a week. 4 Capsule 2 ibuprofen (ADVIL;MOTRIN) 600 mg tablet Take 1 Tab by mouth every 8 hours as needed for Pain for 21 doses. 21 Tab 0 Blood Pressure Monitor Misc Kit 1 Kit by 24Symbols.(Non-Drug; Combo Route) route daily. (Patient not taking: Reported on 12/11/2024) 1 Kit 0 metoprolol succinate (TOPROL-XL) 25 mg Oral Tablet Sustained Release 24 hr Take 1 Tablet by mouth daily. 25 Tablet 11 No current facility-administered medications for this visit. ALLERGIES Allergies Allergen Reactions Codeine PHYSICAL EXAM Vital Signs: BP 110/80 Pulse 85 Ht 5' (1.524 m) Wt 116 lb (52.6 kg) LMP (LMP Unknown) SpO2 98% No BMI 22.65 kg/m?? Physical Exam Vitals reviewed. Constitutional: General: She is not in acute distress. Appearance: Normal appearance. HENT: Head: Normocephalic and atraumatic. Eyes: General: No scleral icterus. Extraocular Movements: Extraocular movements intact. Pupils: Pupils are equal, round, and reactive to light. Cardiovascular: Rate and Rhythm: Normal rate and regular rhythm. Pulses: Normal pulses. Radial pulses are 2+ on the right side. Heart sounds: No murmur heard. Pulmonary: Effort: Pulmonary effort is normal. Prolonged expiration present. No respiratory distress. Breath sounds: No wheezing, rhonchi or rales. Abdominal: General: Abdomen is flat. There is no distension. Palpations: Abdomen is soft. Musculoskeletal: General: No swelling, deformity or signs of injury. Cervical back: Normal range of motion and neck supple. Right lower leg: No edema. Left lower leg: No edema. Skin: General: Skin is warm and dry. Coloration: Skin is not jaundiced. Neurological: General: No focal deficit present. Mental Status: She is alert and oriented to person, place, and time. Psychiatric: Mood and Affect: Mood normal. Behavior: Behavior normal. Thought Content: Thought content normal. Judgment: Judgment normal. LABORATORY AND STUDIES: Any pertinent laboratory/study information has been reviewed, including information on the latest cardiac catheterization, echocardiogram, ECG, stress test or holter monitor. Lab Results Component Value Date CHOLESTEROL 191 10/07/2024 HDL 51 10/07/2024 LDLCALC 128 (H) 10/07/2024 TRIG 64 10/07/2024 No results found for: INR , PROTIME Lab Results Component Value Date WBC 9.8 12/06/2024 HGB 13.6 12/06/2024 HCT 41.6 12/06/2024 MCV 94.1 12/06/2024 PLT 316 12/06/2024 Lab Results Component Value Date HGBA1C 5.6 10/07/2024 Lab Results Component Value Date NA 141 12/06/2024 K 3.8 12/06/2024 BUN 10 12/06/2024 CALCIUM 8.8 12/06/2024 CL 105 12/06/2024 CO2 28 12/06/2024 CREATININE 0.69 12/06/2024 GLU 75 12/06/2024 Lab Results Component Value Date ALT 14 12/06/2024 AST 16 12/06/2024 ALKPHOS 119 12/06/2024 Lab Results Component Value Date TSH 2.840 10/07/2024 ECG: No results found for this visit on 12/11/24. FINAL DIAGNOSIS 1. Precordial pain CT ANGIOGRAM CORONARY W CONTRAST 2. Heart palpitations EV EVENT MONITOR VISIT ORDERS Orders Placed This Encounter Procedures CT angiogram coronary with contrast Standing Status: Future Expiration Date: 12/11/2025 Release to Patient: Immediate Reason for exam:: chest pain DISCHARGE MEDS Outpatient Encounter Medications as of 12/11/2024 Medication Sig Dispense Refill busPIRone (BUSPAR) 5 mg Oral Tablet Take 1 Tablet by mouth 2 times daily as needed. 60 Tablet 1 ergocalciferol (VITAMIN D) 1,250 mcg (50,000 unit) Oral Capsule Take 1 Capsule by mouth once a week. 4 Capsule 2 ibuprofen (ADVIL;MOTRIN) 600 mg tablet Take 1 Tab by mouth every 8 hours as needed for Pain for 21 doses. 21 Tab 0 Blood Pressure Monitor [facility] Kit 1 Kit by Misc.(Non-Drug; Combo Route) route daily. (Patient not taking: Reported on 12/11/2024) 1 Kit 0 metoprolol succinate (TOPROL-XL) 25 mg Oral Tablet Sustained Release 24 hr Take 1 Tablet by mouth daily. 25 Tablet 11 No facility-administered encounter medications on file as of 12/11/2024. ASSESSMENT/PLAN Presyncope Palpitations Chest pain Shortness of breath - Unfortunately symptoms are little nonspecific - Suggested trialing metoprolol for symptomatic relief - Very rapid succession of Holter monitors and patient is not sure whether or not she had symptoms,needs an event monitor for longer-term monitoring - With complaints of chest pain shortness of breath and risk factors for coronary artery disease including tobacco abuse recommend coronary CTA - Normal echo with normal systolic function October 2024 - Reviewed patient's symptoms explained that we need to work through and rule out more serious etiologies - See if metoprolol provides relief 1. The patient indicates understanding of these issues and agrees with the plan. 2. I reviewed the patient's medical information and medical history. 3. I have reviewed the past medical, family, and social history sections including the medications and allergies listed in the above medical record. Electronically signed by: Binh Brody MD, 12/15/2024 8:07 AM documented in this encounter Miscellaneous Notes * Patient Instructions - Tarik Sauceda MA - 12/11/2024 8:30 AM EDT You may receive a survey via phone, mail or e-mail, regarding your visit today. Your feedback is important to us. We ask that you please take a few minutes to fill out the survey. You were assisted by Dr. Binh Brody and Blaine Sauceda [facility]. Thank You for choosing [facility] Heart and Vascular. We sincerely thank you for the opportunity to be a part of your care. documented in this encounter Plan of Treatment Upcoming Encounters Date Type Department Care Team (Late st Contact Info) Description 01/04/2025 8:45 AM EDT Office Visit [facility] Neurology [facility] [address] [place] [address] Chuyita Moscoso MD [address] [place] [address] 03/12/2025 1:40 PM EST Office Visit [facility] [address] [place] [address] Chip Burt MD [address] [place] [address] 04/09/2025 10:00 AM EST Office Visit [facility] [place] [address] [place], [place] [id number] Anh Patel, WAREHOUSE INSULATION WORKER [address] [place] [address] Scheduled Orders Name Type Priority Associated Diagnoses [...] Palpitations documented in this encounter Care Teams Legal Assistant Relationship Specialty Start Date End Date Chip Burt MD [address] [place] [address] PCP - General Family Medicine 09/29/24 documented as of this encounter
--- OUTSIDE RECORDS SUMMARY | 2024-12-15 15:20 | XMS_ITS | Encounter Summary ---
Author Organization [place] [address] Care Team Providers Care Systems Testing Laboratory Technician Name Role Phone Chip Burt MD Primary Care Provider [phone] Reason for Referral * Consultation (Routine) - Closed Specialty Diagnoses / Procedures Referred By Contac t Referred To Contact Neurology Diagnoses Dizziness Syncope, unspecified syncope type Procedures [place] OFFICE/OUTPATIENT NEW MODERATE MDM 45 MINUTES Chip Burt MD [address] [place] [address] Phone: tel: fax: [facility] [place] [facility] [address] [place] [address] Phone: tel: fax: Referral ID Status Reason Start Date Expiration Date Visits Re quested Visits Authorized [id number] Closed 12/15/2024 12/15/2025 99 99 * Consultation (Routine) - Authorization Not Needed Specialty Diagnoses / Procedures Referred By Contac t Referred To Contact Diagnoses Dizziness Syncope, unspecified syncope type Procedures [place] OFFICE/OUTPATIENT NEW MODERATE MDM 45 MINUTES Chip Burt MD [address] [place] [address] Phone: tel: fax: Referral ID Status Reason Start Date Expiration Date Visits Requested Visits Authorized [id number] Authorization Not Needed 12/15/2024 12/15/[address] Patti May in [place] Reason for Visit * Reason Comments Dizziness e and Wednesday wa s horrible with headaches and feeling dizzy. Other pt states getting hi ves on back of knees pt has picture. Encounter Details Date Type Department Care Team (Late st Contact Info) Description 12/15/2024 3:20 PM EDT Office Visit [facility] [address] [facility] [address] [place] [phone] Chip Burt MD [address] [place] [address] Syncope, unspecified syncope type (Primary Dx); Dizziness; Intermittent palpitations; Abnormal EKG; Cigarette smoker; Incomplete RBBB; Elevated LDL cholesterol level; [place] light chain disease; Transaminitis; Nausea; Vitamin D deficiency; Generalized anxiety disorder Social History Tobacco Use [...] Sign Reading Time Taken Comments Blood Pressure 98/50 12/15/2024 3:32 PM EDT Pulse 95 12/15/2024 3:32 PM EDT Temperature 36.2 C (97.2 F) 12/15/2024 3:32 PM EDT Respiratory Rate - - Oxygen Saturation 98% 12/15/2024 3:32 PM EDT Inhaled Oxygen Concentration - - Weight 51.4 kg (113 lb 6.4 oz) 12/15/2024 3:32 P M EDT Height 152.4 cm (5') 12/15/2024 3:32 PM EDT Body Mass Index 22.15 12/15/2024 3:32 PM EDT documented in this encounter Functional [...] Refills Last Filled Start Date End Date meclizine (ANTIVERT) 12.5 mg Oral TabletIndications: Dizziness Take 1 Tablet by mouth 3 times daily as needed for up to 30 doses. 30 Tablet 1 12/15/2024 ondansetron (ZOFRAN-ODT) 4 mg Oral Tablet, Rapid DissolveIndication s:Nausea Dissolve 1 Tablet by mouth every 8 hours as needed for Nausea for up to 20 doses. 20 Tablet 12/15/2024 documented in this encounter Progress Notes * Chip Burt MD - 12/15/2024 3:20 PM EDT Assessment Diagnoses and all orders for this visit: Syncope, unspecified syncope type Overview: Echo 10/2024 nml MRI brain 12/[address] head, CT angio head/neck 10/2024 naf Cardiology following Neurology referral Orders: - AMB REFERRAL TO CARDIOLOGY - AMB REFERRAL TO NEUROLOGY - COMPREHENSIVE METABOLIC PANEL; Future - CBC W/DIFF ANEMIA REFLEX; Future Dizziness Overview: Follows with Cardiology ENT, Neurology referrals Dramamine as needed helps at times CT head 10/[address] angio head/neck 10/2024 naf MRI brain 12/2024 naf Echo 10/2204 LVEF 55% Stress, Cardiac MRI, CT coronary angio pending hydration/supp care, vestibular exercises Orders: - AMB REFERRAL TO CARDIOLOGY - meclizine (ANTIVERT) 12.5 mg Oral Tablet; Take 1 Tablet by mouth 3 times daily as needed for up to 30 doses. Dispense: 30 Tablet; Refill: 1 - AMB REFERRAL TO NEUROLOGY - COMPREHENSIVE METABOLIC PANEL; Future - CBC W/DIFF ANEMIA REFLEX; Future Intermittent palpitations Overview: Follows with Cardiology Holter EKG 08/2024 SR LAD, possible LAE, iRBBB w/LAFB T wave inversions V1-V3 similar to previous 06/2024, 12/2023 No other STTW changes compared to prior Echo 10/2024 nml Orders: - COMPREHENSIVE METABOLIC PANEL; Future - CBC W/DIFF ANEMIA REFLEX; Future Abnormal EKG Overview: Follows with cardiology EKG 08/2024, 06/2024, 12/2023 Orders: - COMPREHENSIVE METABOLIC PANEL; Future Cigarette smoker Overview: Min change 1ppd Prev ~0.5ppd, 25.4 years; Total pack years: 12.7 -previously tried NRT patches [place] skin rxn, NRT gum ok at work, chantix worsened cravings Bupropion min relief -No seizure hx -amenable to: NRT gum -consider Bupoprion Orders: - COMPREHENSIVE METABOLIC PANEL; Future - CBC W/DIFF ANEMIA REFLEX; Future Incomplete RBBB Overview: Follows with Cardiology EKG 08/2024, 06/2024, 12/2023 Orders: - COMPREHENSIVE METABOLIC PANEL; Future Elevated LDL cholesterol level Overview: diet (reduce fried foods), exercise, smoking cessation The 10-year ASCVD risk score (Diana SAENZ, et al., 2019) is: 2.1% Values used to calculate the score: Age: 49 years Sex: Female Is Non- : No Diabetic: No Tobacco smoker: Yes Systolic Blood Pressure: 98 mmHg Is BP treated: No HDL Cholesterol: 51 mg/dL Total Cholesterol: 191 mg/dL Lab Results Component Value Date CHOLESTEROL 191 10/07/2024 Lab Results Component Value Date HDL 51 10/07/2024 Lab Results Component Value Date LDLCALC 128 (H) 10/07/2024 Lab Results Component Value Date TRIG 64 10/07/2024 No results found for: CHOLHDL Orders: - COMPREHENSIVE METABOLIC PANEL; Future - LIPID PANEL REFLEX; Future [place] light chain disease (Chronic) Overview: Follows with Hematology 10/2024 lvl 24.58 Orders: - COMPREHENSIVE METABOLIC PANEL; Future Transaminitis Overview: Improving US RUQ 10/2024 reassuring Lab Results Component Value Date ALT 14 12/06/2024 AST 16 12/06/2024 ALKPHOS 119 12/06/2024 Orders: - COMPREHENSIVE METABOLIC PANEL; Future Nausea - ondansetron (ZOFRAN-ODT) 4 mg Oral Tablet, Rapid Dissolve; Dissolve 1 Tablet by mouth every 8 hours as needed for Nausea for up to 20 doses. Dispense: 20 Tablet; Refill: 0 - COMPREHENSIVE METABOLIC PANEL; Future - CBC W/DIFF ANEMIA REFLEX; Future Vitamin D deficiency Overview: supp Lab Results Component Value Date ZWRJ90VG 18.7 (L) 10/07/2024 Orders: - COMPREHENSIVE METABOLIC PANEL; Future - VITAMIN D 25 HYDROXY; Future Generalized anxiety disorder Overview: Mildly worse BH referral, CBT, ld buspar bid prn Orders: - COMPREHENSIVE METABOLIC PANEL; Future Return in about 3 months (around 03/17/2025), or if symptoms worsen or fail to improve, for Dizziness, Tob Cess, Vit D defic, Elevated LDL. Patient/family understood and agreed to plan. Chip Burt MD Progress Note: Vitals: 12/15/24 1532 BP: 98/50 BP Location: Left arm Patient Position: Sitting Pulse: 95 Temp: 97.2 ??F (36.2 ??C) TempSrc: Forehead SpO2: 98% Weight: 113 lb 6.4 oz (51.4 kg) Height: 5' (1.524 m) SUBJECTIVE: Chief Complaint Patient presents with Dizziness wed and Wednesday was horrible with headaches and feeling dizzy. Other pt states getting hives on back of knees pt has picture. HPI: Dizziness intermittent, but more frequent and lasting longer now since last visit Blurry vision intermittent feels like film or bright light over eyes during episodes, none recently Hx Palpitations no episodes recently iRBBB EKG 08/2024, 06/2024, 12/2023 Hx syncope no episodes recently Intermittent Low BP? Leg weakness Merlos? Fatigue Myalgias Fam hx Arrhythmogenic Right Ventricular Cardiomyopathy? (sister, mom) CHAVEZ front/top of head, photophobia/sonophobia, no aura; new episodes recently restarted Hx nausea w/o emesis seldom at times; episodes recently restarted CT head, CT-angio head/neck 06/2204 naf sxs worse with heat. Uhthoffs phenomenon? -ED visit 12/06/24 -noted Cardiology appt 12/11/24 w/[facility] -external cardiology appt 12/13/24 (Dr. Patti May in [place]) --pt has not started BB yet -Ophthalmology appt -CT head, CT angio head/neck 10/2024 naf -MRI brain 12/2024 naf -MRI L spine 12/2024 Multilevel discogenic disease with foraminal narrowing as described. -Holter monitor -Echo 10/2024 LVEF 55%, trace MR, TR, trivial pericardial effusion -Amenable to: Stress test, CT coronary angiogram, Cardiac MRI, hydration/supp care, ENT follow-up, Cardiology follow-up (Dr. Patti May) , start BB Tobacco use Min change 1ppd Prev ~0.5ppd, 25.4 years; Total pack years: 12.7 -previously tried NRT patches SE skin rxn, NRT gum ok at work, chantix worsened cravings Bupropion min relief -No seizure hx -amenable to: NRT gum -consider Bupoprion Vit D defic -supp Elevated LDL diet (reduce fried foods), exercise, smoking cessation vegetarian Transaminitis labs, monitor US RUQ 10/2024 reassuring [place] light chain disease -Follows with Hematology last appt 11/17/24 Intermittent rash, knees -OTC zyrtec, benadryl, supp care Anxiety possible multifactorial Mildly worse BH referral, CBT, ld buspar bid prn *Labs and imaging reviewed Review of Systems [...] and Affect: Mood normal. Behavior: Behavior normal. *Total time spent in patient care including but not limited to chart reviewing, medical decision making, and educating patient/family 45 min. This time excludes any procedures performed during this encounter. documented in this encounter Plan of Treatment Upcoming Encounters Date Type Department Care Team (Late st Contact Info) Description 01/04/2025 8:45 AM EDT Office Visit [facility] [place] [facility] [address] [place] [address] Chuyita Moscoso MD [facility] [place] [address] 03/12/2025 1:40 PM EST Office Visit [facility] [address] [address] Chip Burt MD [address] [place] [address] 04/09/2025 10:00 AM EST Office Visit [facility] [place] [address] [place] [address] Anh Patel, FIRE CLAIMS ADJUSTER 1 [facility] [place] [address] Scheduled Orders Name Type Priority Associated Diagnoses Orde r Schedule COMPREHENSIVE METABOLIC PANEL Lab Routine Syncope, unspecified syncope type Dizziness Intermittent palpitations Abnormal EKG Cigarette smoker Incomplete RBBB [place] light chain disease Transaminitis Nausea Vitamin D deficiency Generalized anxiety disorder Elevated LDL cholesterol level 1 Occurrences starting 12/15/2024 until 12/15/2025 CBC W/DIFF ANEMIA REFLEX Lab Routine Syncope, unspecified syncope type Dizziness Intermittent palpitations Cigarette smoker Nausea 1 Occurrences starting 12/15/2024 until 12/15/2025 LIPID PANEL REFLEX Lab Routine Elevated LDL cholesterol level 1 Occurrences starting 12/15/2024 until 12/15/2025 VITAMIN D 25 HYDROXY Lab Routine Vitamin D deficiency 1 Occurrences starting 12/15/2024 until 12/15/2025 Scheduled Referrals Name Type Priority Associated Diagnoses Orde r Schedule AMB REFERRAL TO CARDIOLOGY Outpatient Referral Routine Dizziness Syncope, unspecified syncope type Ordered: 12/15/2024 AMB REFERRAL TO NEUROLOGY Outpatient Referral Routine Dizziness Syncope, unspecified syncope type Ordered: 12/15/2024 documented as of this encounter Goals Goal Patient Goal Type Associated Problems Recent Progress Patient-Stated? Author Maintain a healthy diet, exercise regularly and maintain an ideal body weight General No Philippe Hansen MA Stay Tobacco Free Lifestyle No Philippe Hansen MA documented as of this encounter Visit Diagnoses Diagnosis Syncope, unspecified syncope type- Primary Dizziness Dizziness and giddiness Intermittent palpitations Abnormal EKG Nonspecific abnormal electrocardiogram (ECG) (EKG) Cigarette smoker Tobacco use disorder Incomplete RBBB Right bundle branch block Elevated LDL cholesterol level Pure hypercholesterolemia [place] light chain disease Multiple myeloma, without mention of having achieved remission Transaminitis Nonspecific elevation of levels of transaminase or lactic acid dehydrogenase (LDH) Nausea Nausea alone Vitamin D deficiency Unspecified vitamin D deficiency Generalized anxiety disorder documented in this encounter Care Teams Systems Testing Laboratory Technician Relationship Specialty Start Date End Date Chip Burt MD [address] [place] [address] PCP - General Family Medicine 09/29/24 documented as of this encounter
--- NOTE | 2024-12-28 | CA_ITS ---
APPROVED REPORT Exam: Pharmacologic Technologist: Alicia Stevens Ht: 5 ft 0 in Wt: 117 lbs BSA: 1.49 m2 HR: 93 bpm BP: 120/57 mmHg Rhythm: SR no ectopy Medical History Cardiac Risk Factors: Smoking Stress Test Details HR Resting HR: 93 bpm Max Heart Rate (APMHR): 171 bpm Target HR (85% APMHR): 145 bpm Recovery HR: 108 bpm BP Resting BP: 120.0/57.0 mmHg Recovery BP: 116.0/65.0 mmHg ECG Resting ECG: SR no ectopy Stress ECG Conclusion During lexiscan pt experinced CP, abdominal cramps, muscle cramps of extremities. PAC/ one nonconducted complex. Less than .5mm upsloping ST segment changes. Nondiagnostic ECG lexiscan. Electronically signed by : Ania Peacock MD 12/29/2024 00:47:15
--- OUTSIDE RECORDS SUMMARY | 2024-12-28 11:56 | XMS_ITS | Encounter Summary ---
Author [place] [address] Care Team Providers Care Guide Winder Name Role Phone Chip Burt MD Primary Care Provider [phone] Reason for Visit * Reason Onset Date Comments Results 11/23/2024 Encounter Details Date Type Department Care Team (Late st Contact Info) Description 11/23/2024 Telephone [facility] 1500 [facility] [address] [place] [address] Leti Bustillo MA Results Social [...] 8:45 AM EDT Office Visit SEP Neurology [facility] [address] [place] [address] Chuyita Moscoso MD [address] [place] [address] 03/12/2025 1:40 PM EST Office Visit SEP [facility] [address] [facility] [address] [place] [address] Chip Burt MD [address] [place] [address] 04/09/2025 10:00 AM EST Office Visit [facility] [place] [address] [place] [address] Anh Patel APRN 1 [facility] [place] [address] documented as of this encounter Goals Goal Patient Goal Type Associated Problems Recent Progress Patient-Stated? Author Maintain a healthy diet, exercise regularly and maintain an ideal body weight General No Philippe Hansen MA Stay Tobacco Free Lifestyle No Philippe Hansen MA documented as of this encounter Visit Diagnoses Not on filedocumented in this encounter Care Teams Guide Winder Relationship Specialty Start Date End Date Chip Burt MD [address] [place] [address] PCP - General Family Medicine 09/29/24 documented as of this encounter
--- OUTSIDE RECORDS SUMMARY | 2024-12-28 11:56 | XMS_ITS | Encounter Summary ---
Author Organization [place] [address] Care Team Providers Care Retail Department Reset Name Role Phone Chip Burt MD Primary Care Provider [phone] Encounter Details Date Type Department Care Team (Late st Contact Info) Description 11/17/2024 Telephone [facility] [address] [place] [address] Keri Peralta MA Social History [...] of Assessment Author No 09/29/2024 1:42 PM hSiva Lopez MA * Does this person have [...] Peralta MA - 11/17/2024 10:30 AM EDT [place] lambda ordered by Dr. Trevizo on 11/17/24. Needs PA documented in this encounter Plan of Treatment Upcoming Encounters Date Type Department Care Team (Late st Contact Info) Description 01/04/2025 8:45 AM EDT Office Visit SEP Neurology [facility] [address] [place] [address] Chuyita Moscoso MD [facility] [place] [address] 03/12/2025 1:40 PM EST Office Visit SEP [facility] [address] [facility] [address] [place] [address] Chip Burt MD [address] [place] [address] 04/09/2025 10:00 AM EST Office Visit SEP H&V [address] [address] Anh Patel, DIGITAL MARKETING LEAD [address] [facility] [address] [place], [place] [address] documented as of this encounter Goals Goal Patient Goal Type Associated Problems Recent Progress Patient-Stated? Author Maintain a healthy diet, exercise regularly and maintain an ideal body weight General No Philippe Hansen MA Stay Tobacco Free Lifestyle No Philippe Hansen MA documented as of this encounter Visit Diagnoses Not on filedocumented in this encounter Care Teams Retail Department Reset Relationship Specialty Start Date End Date Chip Burt MD [address] [place], [place] [address] PCP - General Family Medicine 09/29/24 documented as of this encounter
--- OUTSIDE RECORDS SUMMARY | 2024-12-28 11:56 | XMS_ITS | Encounter Summary ---
Author Organization [place] [address] Care Team Providers Care Coal Equipment Operator Name Role Phone Chip Burt MD Primary Care Provider [phone] Encounter Details Date Type Department Care Team (Late st Contact Info) Description 12/02/2024 Results Follow-Up [facility] 1500 [place] [address] Fabby Joya MD 1500 [place] [address] URINE CULTURE (NO STAIN) Social History Tobacco [...] 8:45 AM EDT Office Visit SEP Neurology [facility] [address] Field Mechanic/[place] [address] Chuyita Moscoso MD [address] [place] [address] 03/12/2025 1:40 PM EST Office Visit SEP [facility] [address] [facility] [address] [place] [address] Chip Burt MD [address] [place] [address] 04/09/2025 10:00 AM EST Office Visit [facility] [place] [address] [place] [address] Anh Patel APRN 1 [facility] [place] [address] Scheduled Orders Name Type Priority Associated Diagnoses [...] hematuria documented in this encounter Care Teams Coal Equipment Operator Relationship Specialty Start Date End Date Chip Burt MD [address] [place] [address] PCP - General Family Medicine 09/29/24 documented as of this encounter
--- OUTSIDE RECORDS SUMMARY | 2024-12-28 11:56 | XMS_ITS | Encounter Summary ---
Author Organization [place] [address] Care Team Providers Care Supervisor Quilting Name Role Phone Chip Burt MD Primary Care Provider [phone] Reason for Visit * Reason Onset Date Comments Other 11/17/2024 Encounter Details Date Type Department Care Team (Late st Contact Info) Description 11/17/2024 Telephone [facility] 1500 [facility] [address] [place] [address] Leti Bustillo MA Other Social [...] 8:45 AM EDT Office Visit SEP Neurology [facility] [address] [place] [address] Chuyita Moscoso MD [address] [place] [address] 03/12/2025 1:40 PM EST Office Visit SEP [facility] [address] [place] [address] Chip Burt MD [address] [place] [address] 04/09/2025 10:00 AM EST Office Visit [facility] [place] [address] [place] [address] Anh Patel, OFFAL SEPARATOR [address] [facility] [place] [address] documented as of this encounter Goals Goal Patient Goal Type Associated Problems Recent Progress Patient-Stated? Author Maintain a healthy diet, exercise regularly and maintain an ideal body weight General No Philippe Hansen MA Stay Tobacco Free Lifestyle No Philippe Hansen MA documented as of this encounter Visit Diagnoses Not on filedocumented in this encounter Care Teams Supervisor Quilting Relationship Specialty Start Date End Date Chip Burt MD [address] [place] [address] PCP - General Family Medicine 09/29/24 documented as of this encounter
--- OUTSIDE RECORDS SUMMARY | 2024-12-28 11:56 | XMS_ITS | Encounter Summary ---
Author [place] [address] Care Team Providers Care Escrow Closer Name Role Phone Chip Burt MD Primary Care Provider [phone] Encounter Details Date Type Department Care Team (Late st Contact Info) Description 11/17/2024 Results Follow-Up [facility] 1500 [facility] [address] [place] [address] Fabby Joya MD 1500 [facility] 201 [place] [address] URINALYSIS, URINE CULTURE (NO STAIN) Social History [...] 8:45 AM EDT Office Visit SEP Neurology [facility] [address] [place] [address] Chuyita Moscoso MD [address] [place] [address] 03/12/2025 1:40 PM EST Office Visit SEP [facility] [address] [facility] [address] [place] [address] Chip Burt MD [address] [place] [address] 04/09/2025 10:00 AM EST Office Visit [facility] [place] [address] [place] [address] Anh Patel, CAYDEN 1 [facility] [place], [place] [address] documented as of this encounter Goals Goal [...] specified documented in this encounter Care Teams Escrow Closer Relationship Specialty Start Date End Date Chip Burt MD [address] [place] [address] PCP - General Family Medicine 09/29/24 documented as of this encounter
--- OUTSIDE RECORDS SUMMARY | 2024-12-28 11:56 | XMS_ITS | Clinical Summary ---
Author Organization [facility] Address [address] [place] [address] Care Team Providers Care Furniture Designer Name Role Phone Gretchen Juarez MD Primary [...] 12/08/2024 10:00 AM EDT MA/Nurse Visit [facility] [address] [address] Postmenopausal bleeding (Primary Dx) 11/28/2024 Results Follow-Up [facility] [address] [address] Amalia Joya APRN PAP HPV DNA, AZALIA 11/24/2024 2:40 PM EDT - 11/24/2024 11:59 PM EDT Hospital Encounter Laboratory [address] [place] [address] Gynecologic exam normal Discharge Disposition: Home or Self Care 11/24/2024 1:40 PM EDT Office [facility] [address] [place], [place] [address] Amalia [...] AZALIA (11/24/2024 2:43 PM EDT) Diagnosis Comment [facility]ULLET CASTING OPERATOR AL [facility] Comment:NEGATIVE FOR INTRAEP ITHELIAL LESION OR MALIGNANCY. Adequacy Comment [facility]ST[facility] Comment: Satisfactory for evaluation. Endocervical and/or squamous metaplastic cells (endocervical component) are present. Performed Comment [facility]ST[facility]PER[facility] Comment:Anh Lainez, Cyto logist (ASCP) Notes Comment [facility]ST[facility]PER[facility] Comment: The Pap smear is a screening test designed to aid in the detection of premalignant and malignant conditions of the uterine cervix. It is not a diagnostic procedure and should not be used as the sole means of detecting cervical cancer. Both false-positive and false-negative reports do occur. HPV 16 Henrik Negative Negative [facility] EXT ERNAL [facility] HPV 18, Henrik Negative Negative [facility] TER[facility] Comment: This nucleic acid amplification test detects fourteen high-risk HPV types: HPV16, HPV18 and twelve other high-risk types (31,33,35,39,45,51,52,56,58,59,66,68) without differentiation. Performed at: [address], [place] [id number] Commercial Roofer: Shazia Marrero MD, Phone: [phone] Performed at: = - [facility] [address]za[place], [place] [id number] Commercial Roofer: Shazia Marrero MD, Phone: [phone] HPV Other Types, Henrik Negative Negative [facility] Pap Vial 11/24/2024 2:43 PM EDT 11/28/2024 3:07 PM EDT us Amalia Joya PRIVATE BRANCH EXCHANGE REPAIRER PATHOLOGY/CYTOLOGY ORDERABL ES Final Result [facility] [address] [place] [address], [facility] from Last 3 Months Insurance [facility] [facility] Address: [facility] [address] [place] [address] [facility] [address] [place] [address] Care Teams Furniture Designer Relationship Specialty Start Date End Date Gretchen Juarez MD PCP - General Family Medicine 05/13/12
--- OUTSIDE RECORDS SUMMARY | 2024-12-28 11:56 | XMS_ITS | Encounter Summary ---
Author Organization [place] [address] Care Team Providers Care Quarry Plug And Feather Driller Name Role Phone Chip Burt MD Primary Care Provider [phone] Reason for Visit * Reason Onset Date Comments Follow Up 12/20/2024 Short Term Disab ility Encounter Details Date Type Department Care Team (Late st Contact Info) Description 12/20/2024 Telephone [facility] 1500 [facility] [address] [place] [address] Leti Bustillo MA Follow Up (Short Term Disability ) Social History Tobacco Use Types Packs/Day Years [...] encounter Miscellaneous Notes * Telephone Encounter - Brent Cruz RN - 12/27/2024 1:52 PM EDT trying to refax paperwork, only receiving errors faxing to Timmichelle Saab * Telephone Encounter - Philippe Hansen MA - 12/21/2024 1:40 PM EDT I was not the one who faxed them on Wednesday but they were faxed. I printed and re faxed again. * Telephone Encounter - Leti Bustillo MA - 12/21/2024 11:15 AM EDT did you fax this on 12/15 by any chance? if not can it be faxed if you have it? looks like it is in the media tab as well * Telephone Encounter - Keily Lopez - 12/21/2024 11:07 AM EDT Select the most appropriate reason for this telephone message: Follow Up Follow Up Who is Calling:Patient What is the caller following up on (make sure to reference any prior documentation/encounter):pt called to follow up on Short term disability paperwork. Adv pt of message in chart Tim Short term disability on Dr Falcon desk Pt stated that paperwork should be done and already faxed o azul to Tim Saab. Pt stated that Dr Burt filled out [facility] term [facility]. Pt stated pt hasn't received a paycheck this week due to paperwork not being faxed. Pt would like called back. Further follow-up needed?:Yes Return Method of Communication:Phone call Additional Information:N/A * Telephone Encounter - Leti Bustillo MA - 12/20/2024 5:01 PM EDT Tim Saab Short term disability on your desk in yellow folder. documented in this encounter Plan of Treatment Upcoming Encounters Date Type Department Care Team (Late st Contact Info) Description 01/04/2025 8:45 AM EDT Office Visit [facility] Neurology [facility] [address] [place] [address] Chuyita Moscoso MD [address] [place] [address] 03/12/2025 1:40 PM EST Office Visit SEP [facility] [address] [place] [address] Chip Burt MD [address] [place] [address] 04/09/2025 10:00 AM EST Office Visit [facility] H&V [place] [address] [place] [address] Anh Patel APRN [address] [facility] [place] [address] documented as of this encounter Goals Goal Patient Goal Type Associated Problems Recent Progress Patient-Stated? Author Maintain a healthy diet, exercise regularly and maintain an ideal body weight General No Philippe Hansen MA Stay Tobacco Free Lifestyle No Philippe Hansen MA documented as of this encounter Visit Diagnoses Not on filedocumented in this encounter Care Teams Quarry Plug And Feather Driller Relationship Specialty Start Date End Date Chip Burt MD [address] [place] [address] PCP - General Family Medicine 09/29/24 documented as of this encounter
--- OUTSIDE RECORDS SUMMARY | 2024-12-28 11:56 | XMS_ITS | Encounter Summary ---
Author Organization [place] [address] Care Team Providers Care Bulk Driver Name Role Phone Chip Hobbs MD Primary Care Provider [phone] Reason for Visit * Reason Onset Date Comments Paperwork/forms 12/04/2024 Encounter Details Date Type Department Care Team (Late st Contact Info) Description 12/04/2024 Telephone [facility] [address] [place] [address] Chip Hobbs MD [address] [place] [address] Paperwork/forms Social History Tobacco Use Types Packs/Day [...] 3:38 PM EDT Ember Reyna RN * [place] Suicide Severity Rating Scale (Q shift for [...] 8:45 AM EDT Office Visit SEP Neurology [facility] [address] [place] [address] Chuyita Moscoso MD [address] [place] [address] 03/12/2025 1:40 PM EST Office Visit [facility] [address] [place] [phone] Chip Hobbs MD [address] [place] [address] 04/09/2025 10:00 AM EST Office Visit [facility] H&V [place] [address] [place] [address] Anh Patel, ASSOCIATE STORE MANAGER 1 [facility] [place] [address] documented as of this encounter Goals Goal Patient Goal Type Associated Problems Recent Progress Patient-Stated? Author Maintain a healthy diet, exercise regularly and maintain an ideal body weight General No Philippe Hansen MA Stay Tobacco Free Lifestyle No Philippe Hansen MA documented as of this encounter Visit Diagnoses Not on filedocumented in this encounter Care Teams Bulk Driver Relationship Specialty Start Date End Date Chip Hobbs MD [address] [place] [address] PCP - General Family Medicine 09/29/24 documented as of this encounter
--- OUTSIDE RECORDS SUMMARY | 2024-12-28 11:56 | XMS_ITS | Encounter Summary ---
Author Organization [place] [address] Care Team Providers Care Engine Repairer Name Role Phone Chip Burt MD Primary Care Provider [phone] Reason for Referral * Consultation (Routine) - Pending Review Specialty Diagnoses / Procedures Referred By Rosemary singer Referred To Contact Internal Medicine-Hematology and Oncology Diagnoses Belford light chain disease Procedures AR OFFICE/OUTPATIENT NEW MODERATE MDM 45 MINUTES Chip Burt MD [address] [place] [address] Phone: tel: fax: Referral ID Status Reason Start Date Expiration Date V isits Requested Visits Authorized [id number] Pending Review 10/13/2024 10/13/2025 99 99 Question Answer Service Hematology Provider Options First Available * Ultrasound (Routine) - Pending Review Specialty Diagnoses / Procedures Referred By Rosemary singer Referred To Contact Radiology Diagnoses Elevated LDL cholesterol level Transaminitis Procedures US RIGHT UPPER QUADRANT Chip Burt MD [address] [place] [address] Phone: tel: fax: Referral ID Status Reason Start Date Expiration Date V isits Requested Visits Authorized [id number] Pending Review 10/08/2024 10/08/2025 1 1 Reason for Visit * Reason Onset Date Comments Results 10/08/2024 Labs 10/07- Dr.Gor mota / Results given Medication Management 10/08/2024 FYI pharma cy change Encounter Details Date Type Department Care Team (Latest Contact Info) Description 10/08/2024 Results Follow-Up [facility] [address] [place] [address] Chip Burt MD [address] [place] [address] HEPATITIS B SURFACE ANTIBODY, COMPREHENSIVE METABOLIC PANEL, [...] encounter Miscellaneous Notes * Addendum Note - Chip Burt MD - 10/13/2024 8:37 AM EDTAddended by: CHIP BURT on: 10/13/2024 08:37 AM Modules accepted: Orders * Addendum Note - Josue Roldan MA - 10/09/2024 12:15 PM EDTAddended by: JOSUE ROLDAN on: 10/09/2024 12:15 PM Modules accepted: Orders * Telephone Encounter - Josue Roldan MA - 10/09/2024 12:05 PM EDT Images from the original note were not included. Select the most appropriate reason for this telephone message: Patient Calling for Results Patient called for results on Lab Which Provider ordered the test? Chip Burt MD Date of test: 10/07 Advised [...] sent to incorrect pharmacy, see message below. [id number] [place] [id number] - [address] [facility] - [phone] [[id number]] Other: Please put in the patient results note that patient is aware of the following results thank you! Chip Burt MD 10/08/2024 8:28 PM EDT Urinalysis [...] D) 1,250 mcg (50,000 unit) Oral Capsule4 Lwuqiti65/8/2025-- Sig - Route: Take 1 Capsule by mouth once a week. - Oral cefdinir (OMNICEF) 300 mg Oral Cprpfyv14 Madkxht55/ Sig - Route: Take 1 Capsule by mouth 2 times daily for 7 days. - Oral Prescribing provider: What are your concerns/request: [facility], cancelled on their end. [facility] Receipt confirmed by pharmacy per [facility]. Desired outcome: Direct Contact - see encounter details Is medication requested to be corrected prescribed from hospitalist/ER Physician?: No Last appointment date: 09/29 Pharmacy: [id number] - [place] [id number] - [phone] [facility] - [phone] [[id number]] Return Method of Communication: N/A Additional Information: FYI Pharmacy change per patient request, verified original Rx is cancelled,Rx resent to requested pharmacy.No further workup needed. documented in this encounter Plan of Treatment Upcoming Encounters Date Type Department Care Team (Late st Contact Info) Description 01/04/2025 8:45 AM EDT Office Visit [facility] Neurology [facility] [address] [place] [address] Chuyita Moscoso MD [address] [place] [address] 03/12/2025 1:40 PM EST Office Visit [facility] [address] [facility] [address] [place] [address] Chip Burt MD [address] [place] [address] 04/09/2025 10:00 AM EST Office Visit [facility] H&V [place] [address] [place] [address] Anh Patel APRN 1 [facility] [place] [address] Scheduled Referrals Name Type Priority Associated Diagnoses Order Schedule AMB REFERRAL TO HEMATOLOGY ONCOLOGY Outpatient Referral Routine Belford light chain disease Ordered: 10/13/2024 documented as [...] AM CLINICAL HISTORY: 49 years-old; E78.00-Pure hypercholesterolemia, jietfeikvfe-UAA-92-CM R74.01-Elevation of levels of liver transaminase fbjlbp-LAR-49-CM. COMPARISON: Noncontrast abdomen and pelvis CT 02/06/2016. [...] mm. No pericholecystic fluid or other ascites. Forge Shop Machine Repairer indicates clinically negative Willson's sign while scanning. Limited assessment of proximal pancreas is unremarkable. Right kidney measures 9.2 cm in length. Total renal volume is 82.4 cm3. No hydronephrosis, solid or cystic mass lesion or echogenic shadowing stone. Procedure Note Katey Hdz MD - 10/13/2024 US RIGHT UPPER QUADRANT: 10/13/2024 10:00 AM CLINICAL HISTORY: 49 years-old; E78.00-Pure hypercholesterolemia, sytvizhxqqa-EZC-59-CM R74.01-Elevation of levels of liver transaminase rvsaue-SPO-65-CM. COMPARISON: Noncontrast abdomen and pelvis CT 02/06/2016. [...] 1 mm. No pericholecystic fluidor other ascites. Forge Shop Machine Repairer indicates clinically negative Willson's signwhile scanning. Limited [...] the ordering clinician. us Chip Burt MD [facility] [place] ORDERABLES Final Resul t documented in this encounter Visit Diagnoses Diagnosis Elevated LDL cholesterol level- Primary Pure hypercholesterolemia Transaminitis Nonspecific elevation of levels of transaminase or lactic acid dehydrogenase (LDH) Vitamin D deficiency Unspecified vitamin D deficiency Acute cystitis without hematuria Acute cystitis Belford light chain disease Multiple myeloma, without mention [...] documented as of this encounter Care Teams Engine Repairer Relationship Specialty Start Date End Date Chip Burt MD [address] [place] [address] PCP - General Family Medicine 09/29/24 documented as of this encounter
--- OUTSIDE RECORDS SUMMARY | 2024-12-28 11:56 | XMS_ITS | Encounter Summary ---
Author Organization [place] [address] Care Team Providers Care Medication Manager Name Role Phone Chip Burt MD Primary Care Provider [phone] Encounter Details Date Type Department Care Team (Late st Contact Info) Description 10/14/2024 Results Follow-Up SEP [facility] [address] [facility] [address] [place] [phone] Chip Burt MD [address] [place] [address] RIGHT UPPER QUADRANT Social History Tobacco Use [...] 3:38 PM EDT Ember Reyna RN * [place] Suicide Severity Rating Scale (Q shift for moderate and high) Question Answer Date of Assessment Author 1. In the past month, have y ou wished you were or wished you could go to sleep and not wake up? 0 12/06/2024 3:38 PM EDT Kosta Dao, CLAUDE 2. In the past month, have y [...] 8:45 AM EDT Office Visit SEP Neurology [facility] [address] [facility] [place] [address] Chuyita Moscoso MD [address] [place] [address] 03/12/2025 1:40 PM EST Office Visit SEP [facility] [address] [address] Chip Burt MD [address] [place] [address] 04/09/2025 10:00 AM EST Office Visit [facility] [address] [place] [address] Anh Patel APRN 1 [facility] [place] [address] documented as of this encounter Goals Goal Patient Goal Type Associated Problems Recent Progress Patient-Stated? Author Maintain a healthy diet, exercise regularly and maintain an ideal body weight General No Philippe Hansen MA Stay Tobacco Free Lifestyle No Philippe Hansen MA documented as of this encounter Visit Diagnoses Not on filedocumented in this encounter Care Teams Medication Manager Relationship Specialty Start Date End Date Chip Burt MD [address] [place] [address] PCP - General Family Medicine 09/29/24 documented as of this encounter
--- OUTSIDE RECORDS SUMMARY | 2024-12-28 11:56 | XMS_ITS | Encounter Summary ---
Author Organization [facility] Address [address] [place] [address] Care Team Providers Care Fork Lift Technician Name Role Phone Gretchen Juarez MD Primary Care Provider Tiffanie bullard Encounter Details Date Type Department Care Team (Late st Contact Info) Description 11/28/2024 Results Follow-Up [facility] Physicians - Obstetrics & Gynecology, [place] [address] [place] [address] Amalia Joya APRN [address] [place], [place] [id number] PAP HPV DNA, AZAL[place] Social History Tobacco [...] on filedocumented in this encounter Care Teams Fork Lift Technician Relationship Specialty Start Date End Date Gretchen Juarez MD PCP - General Family Medicine 05/13/12 documented as of this encounter
--- OUTSIDE RECORDS SUMMARY | 2024-12-28 11:57 | XMS_ITS | Encounter Summary ---
Author Organization [facility] [place] [address] Care Team Providers Care Power Reactor Supervisor Name Role Phone Chip Burt MD Primary Care Provider [phone] Encounter Details Date Type Department Care Team [...] 8:45 AM EDT Office Visit SEP Neurology [facility] [address] [place] [address] Chuyita Moscoso MD [address] [place] [address] 03/12/2025 1:40 PM EST Office Visit SEP [facility] [address] [facility] [address] [place] [phone] Chip Burt MD [address] [place] [address] 04/09/2025 10:00 AM EST Office Visit [facility] [place] [address] [place], [place] [phone] Anh Patel APRN 1 [place] [address] documented as of this encounter Goals Goal Patient Goal Type Associated Problems Recent Progress Patient-Stated? Author Maintain a healthy diet, exercise regularly and maintain an ideal body weight General No Philippe Hansen MA Stay Tobacco Free Lifestyle No Philippe Hansen MA documented as of this encounter Visit Diagnoses Not on filedocumented in this encounter Care Teams Power Reactor Supervisor Relationship Specialty Start Date End Date Chip Burt MD [address] [place] [address] PCP - General Family Medicine 09/29/24 documented as of this encounter
--- OUTSIDE RECORDS SUMMARY | 2024-12-28 11:57 | XMS_ITS | Encounter Summary ---
Author Organization [facility] [place] [address] Care Team Providers Care Water Softener Service Supervisor Name Role Phone Chip Burt MD Primary Care Provider [phone] Encounter Details Date Type Department Care Team (Latest Contact Info) Description 12/15/2024 Travel Social History Tobacco Use Types Packs/Day [...] 8:45 AM EDT Office Visit SEP Neurology [facility] [address] [place] [address] Chuyita Moscoso MD [address] [place] [address] 03/12/2025 1:40 PM EST Office Visit SEP [facility] [address] [facility] [address] [place] [phone] Chip Burt MD [address] [place] [address] 04/09/2025 10:00 AM EST Office Visit [facility] [place] [address] [place], [place] [phone] Anh Patel APRN 1 [place] [address] documented as of this encounter Goals Goal Patient Goal Type Associated Problems Recent Progress Patient-Stated? Author Maintain a healthy diet, exercise regularly and maintain an ideal body weight General No Philippe Hansen MA Stay Tobacco Free Lifestyle No Philippe Hansen MA documented as of this encounter Visit Diagnoses Not on filedocumented in this encounter Care Teams Water Softener Service Supervisor Relationship Specialty Start Date End Date Chip Burt MD [address] [place] [address] PCP - General Family Medicine 09/29/24 documented as of this encounter
--- OUTSIDE RECORDS SUMMARY | 2024-12-28 11:57 | XMS_ITS | Encounter Summary ---
Author Organization [place] [address] Care Team Providers Care Medicaid Service Coordinator Name Role Phone Chip Burt MD Primary Care Provider [phone] Reason for Visit * Reason Onset Date Comments Release of Information 12/16/2024 Encounter Details Date Type Department Care Team (Late st Contact Info) Description 12/16/2024 Telephone [facility] [address] [facility] [address] [place], [place] [phone] Chip Burt MD [address] [place] [address] Release of Information Social History Tobacco Use Types Packs/Day Years [...] encounter Miscellaneous Notes * Telephone Encounter - Manuela Francisco, Clerical Staff - 12/16/2024 7:34 AM EDT Medical record request sent to [facility] for processing documented in this encounter Plan of Treatment Upcoming Encounters Date Type Department Care Team (Late st Contact Info) Description 01/04/2025 8:45 AM EDT Office Visit SEP Neurology [facility] [address] [place] [address] Chuyita Moscoso MD [facility] [place] [address] 03/12/2025 1:40 PM EST Office Visit SEP [facility] [address] [address] Chip Burt MD [address] [place] [address] 04/09/2025 10:00 AM EST Office Visit SEP [facility] [address] [address] Anh Patel, RATE CLERK 1 [facility] [address] [place], [place] [id number] documented as of this encounter Goals Goal Patient Goal Type Associated Problems Recent Progress Patient-Stated? Author Maintain a healthy diet, exercise regularly and maintain an ideal body weight General No Philippe Hansen MA Stay Tobacco Free Lifestyle No Philippe Hansen MA documented as of this encounter Visit Diagnoses Not on filedocumented in this encounter Care Teams Medicaid Service Coordinator Relationship Specialty Start Date End Date Chip Burt MD [address] [place], [place] [id number] PCP - General Family Medicine 09/29/24 documented as of this encounter
--- OUTSIDE RECORDS SUMMARY | 2024-12-28 11:57 | XMS_ITS | Encounter Summary ---
Author Organization [place] [address] Care Team Providers Care Stonecutter Name Role Phone Chip Burt MD Primary Care Provider [phone] Reason for Visit * Reason Onset Date Comments Results 11/23/2024 11/24/24 CT Angio gram Encounter Details Date Type Department Care Team (Late st Contact Info) Description 11/23/2024 Results Follow-Up SEP [facility] [address] [facility] [address] [place] [phone] Chip Burt MD [address] [place] [address] CT HEAD WO CONTRAST, CT ANGIOGRAM HEAD [...] Description 01/04/2025 8:45 AM EDT Office Visit [facility] Neurology [facility] [address] [place] [address] Chuyita Moscoso MD [address] [place] [place] [address] 03/12/2025 1:40 PM EST Office Visit SEP [facility] [facility] [address] [place] [phone] Chip Burt MD [address] [place] [address] 04/09/2025 10:00 AM EST Office Visit [facility] [place] [address] [place], [place] [phone] Anh Patel APRN 1 [place] [address] documented as of this encounter Goals Goal Patient Goal Type Associated Problems Recent Progress Patient-Stated? Author Maintain a healthy diet, exercise regularly and maintain an ideal body weight General No Philippe Hansen MA Stay Tobacco Free Lifestyle No Philippe Hansen MA documented as of this encounter Visit Diagnoses Not on filedocumented in this encounter Care Teams Stonecutter Relationship Specialty Start Date End Date Chip Burt MD [address] [place] [address] PCP - General Family Medicine 09/29/24 documented as of this encounter
--- OUTSIDE RECORDS SUMMARY | 2024-12-28 11:57 | XMS_ITS | Encounter Summary ---
Author Organization [facility] [place] [address] Care Team Providers Care Music Internship Name Role Phone Chip Burt MD Primary Care Provider [phone] Encounter Details Date Type Department Care Team [...] Assessment Author No 09/29/2024 1:42 PM Shiva Lpoez MA * Does this person have serious [...] EDT Office Visit SEP Neurology [facility] [address] [place] [address] Chuyita Moscoso MD [address] [place] [address] 03/12/2025 1:40 PM EST Office Visit SEP [facility] [address] [facility] [address] [place] [phone] Chip Burt MD [address] [place] [address] 04/09/2025 10:00 AM EST Office Visit [facility]P [facility] [place] [address] [place], [place] [phone] Anh Patel APRN 1 [place] [address] documented as of this encounter Goals Goal Patient Goal Type Associated Problems Recent Progress Patient-Stated? Author Maintain a healthy diet, exercise regularly and maintain an ideal body weight General No Philippe Hansen MA Stay Tobacco Free Lifestyle No Philippe Hansen MA documented as of this encounter Visit Diagnoses Not on filedocumented in this encounter Care Teams Music Internship Relationship Specialty Start Date End Date Chip Burt MD [address] [place] [address] PCP - General Family Medicine 09/29/24 documented as of this encounter
--- OUTSIDE RECORDS SUMMARY | 2024-12-28 11:57 | XMS_ITS | Encounter Summary ---
Author Organization [facility] [address] Care Team Providers Care Mobile Development Manager Name Role Phone Chip Burt MD Primary Care Provider [phone] Encounter Details Date Type Department Care Team [...] No Risk 12/06/2024 3:38 PM EDT Ember Ryena RN * [place] Suicide Severity Rating Scale (Q shift for [...] 8:45 AM EDT Office Visit SEP Neurology [facility] [address] [place] [phone] Chuyita Moscoso MD [address] [place] [address] 03/12/2025 1:40 PM EST Office Visit SEP [facility] [address] [phone] Chip Burt MD [address] [place] [address] 04/09/2025 10:00 AM EST Office Visit [facility] [place] [address] [place], [place] [phone] Anh Patel APRN 1 [facility] [place] [address] documented as of this encounter Goals Goal Patient Goal Type Associated Problems Recent Progress Patient-Stated? Author Maintain a healthy diet, exercise regularly and maintain an ideal body weight General No Philippe Hansen MA Stay Tobacco Free Lifestyle No Philippe Hansen MA documented as of this encounter Visit Diagnoses Not on filedocumented in this encounter Care Teams Mobile Development Manager Relationship Specialty Start Date End Date Chip Burt MD [address] [place] [address] PCP - General Family Medicine 09/29/24 documented as of this encounter
--- OUTSIDE RECORDS SUMMARY | 2024-12-28 11:57 | XMS_ITS | Clinical Summary ---
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 S22-Jfbatve and awkicdvx-XZI-56-CM E50-Cwmjbtvjc and sfxdmftjd-UIQ-91-CM H53.9-Unspecified visual yzjuevsgqvt-JJI-70-CM R29.898-Other symptoms and signs involving the musculoskeletal qfckwr-MPK-38-CM. COMPARISON: Concurrently obtained CT brain, CTA 06/24/2024 [...] WITH CONTRAST, 11/24/2024 10:27 AM CLINICAL HISTORY: Q15-Qgbcmkr and kswztuad-REY-52-CM Y24-Wiylkszyv and qblffsvtw-CEX-15-CM H53.9-Unspecified visual vdjxzhwpurs-OKD-73-CM R29.898-Other symptoms and signs involving the tjvkufpgigggpetcvzhpk-NLB-07-CM. COMPARISON: Concurrently obtained CT brain, CTA 06/24/2024 [...] estimates of stenosis. us Chip Burt MD [facility] CT ORDERABLES Final Resul t * CT [...] WO CONTRAST 11/23/2024 1:11 PM CLINICAL HISTORY: D62-Clmyehw and xgijexyr-PAT-97-CM U17-Mkgcnuhdq and mhgkivjss-RXF-94-CM H53.9-Unspecified visual hnzfintjjqf-MXD-54-CM R29.898-Other symptoms and signs involving the musculoskeletal yxvzxa-MXB-78-CM. COMPARISON: None. PROCEDURE COMMENTS: Routine noncontrast head [...] WO CONTRAST 11/23/2024 1:11 PM CLINICAL HISTORY: O74-Rterdpx and sjhfhubj-PAV-90-CM T09-Idruvlgfs and lvbbvwawn-IUN-60-CM H53.9-Unspecified visual fqsmamkxnlv-QYD-47-CM R29.898-Other symptoms and signs involving the uyzzmakobznlirfundqkx-IUA-39-CM. COMPARISON: None. PROCEDURE COMMENTS: Routine noncontrast head [...] IMG CT ORDERABLES Final Resul t * (ABNORMAL) URINALYSIS (11/17/2024 10:42 AM EDT) UA Color Yellow 11/17/2024 11:14 AM EDT [facility] UA Appear Clear Clear 11/17/2024 11:14 AM EDT [facility] UA Glucose Negative Negative mg/dL 11/17/2024 11:14 AM EDT [facility] UA Ketones Negative Negative mg/dL 11/17/2024 11:14 AM EDT [facility] UA Blood Trace-Intac t(A) Negative 11/17/2024 11:14 AM EDT [facility] UA pH 6.0 5.0 - 8.0 pH 11/17/2024 11:14 AM EDT [facility] UA Protein Negative Negative mg/dL 11/17/2024 11:14 AM EDT [facility] UA Urobilinogen 0.2 <=1 mg/dL 11:14 AM EDT [facility] UA Bili Negative Negative 11/17/2024 11:14 AM EDT [facility] UA Nitrite Negative Negative 11/17/2024 11:14 AM EDT [facility] UA Leuk Est Small(A) Negative 11/17/2024 11:14 AM EDT [facility] UA Spec Grav 1.015 1.001 - 1.035 no units 11/17/2024 11:14 AM EDT [facility] Comment:Reference range nick d for random specimens only. UA WBC 1 0 - 4 /HPF 11/17/2024 11:14 AM EDT [facility] UA RBC 1 0 - 3 /HPF 11/17/2024 11:14 AM EDT [facility] UA Squam Epi 1+ /LPF 11/17/2024 11:14 AM EDT [facility] Urine STRUCTURE OF URINARY TRACT PROPER / Unknown 11/17/2024 10:42 AM EDT 11/17/2024 10:47 AM EDT us Fabby Joya MD URINE ORDERABLES Final Result [facility] [address] [facility] [place] [address] * EC ECHOCARDIOGRAM COMPLETE W [...] AM CLINICAL HISTORY: 49 years-old; E78.00-Pure hypercholesterolemia, nfxkqkbuqql-AIJ-81-CM R74.01-Elevation of levels of liver transaminase hkqqpi-UKU-41-CM. COMPARISON: Noncontrast abdomen and pelvis CT 02/06/2016. [...] mm. No pericholecystic fluid or other ascites. Excellence Manager indicates clinically negative Willson's sign while scanning. Limited assessment of proximal pancreas is unremarkable. Right kidney measures 9.2 cm in length. Total renal volume is 82.4 cm3. No hydronephrosis, solid or cystic mass lesion or echogenic shadowing stone. Procedure Note Katey Hdz MD - 10/13/2024 US RIGHT UPPER QUADRANT: 10/13/2024 10:00 AM CLINICAL HISTORY: 49 years-old; E78.00-Pure hypercholesterolemia, qhjpzbglvav-TWZ-57-CM R74.01-Elevation of levels of liver transaminase gbqcje-JZQ-44-CM. COMPARISON: Noncontrast abdomen and pelvis CT 02/06/2016. [...] 1 mm. No pericholecystic fluidor other ascites. Excellence Manager indicates clinically negative Willson's signwhile scanning. Limited [...] contactthe office of the ordering clinician. Chip Brut MD [facility] US ORDERABLES Final Resul t * (ABNORMAL) SERUM IMMUNOTYPING (10/07/2024 10:27 AM EDT) IgA 130 70 - 400 mg/dL 10/09/2024 1:38 PM EDT [facility] IgG 962 700 - 1,600 mg/dL 10/09/2024 1:38 PM EDT [facility] IgM 116 40 - 230 mg/dL 10/09/2024 1:38 PM EDT [facility] Albumin SPE 3.8 3.1 - 5.0 gm/dL 10/09/2024 1:38 PM EDT [facility] Alpha 1 Globulin 0.3 0.1 - 0.3 gm/dL 10/09/2024 1:38 PM EDT [facility] Alpha 2 Globulin 0.6 0.5 - 1.0 gm/dL 10/09/2024 1:38 PM EDT [facility] Beta Globulin 0.7 0.5 - 1.4 gm/dL 10/09/2024 1:38 PM EDT [facility] Gamma Globulin MARY 0.8 0.6 - 1.6 gm/dL 10/09/2024 1:38 PM EDT [facility] Total Protein 6.2(L) 6.4 - 8.3 gm/dL 10/09/2024 1:38 PM EDT [facility] SPE/IT Interp M-protein not apparent on serum protein electrophoresis. M-protein not apparent on immunotyping (IT). This test has been reviewed and approved by Leo Ferrara MD, JAIRO. 10/09/2024 1:38 PM EDT [facility] [place], [facility] Blood VENOUS BLOOD / Unknown Venipuncture / Unknown 10/07/2024 10:27 AM EDT 10/07/2024 10:27 AM EDT us Chip Burt MD IMMUNOLOGY ORDERABLES Final R esult [facility] [place], [facility] [address] [facility] , [place] [address] * ANEMIA REFLEX (10/07/2024 10:27 AM EDT) Blood VENOUS BLOOD / Unknown Venipuncture / Unknown 10/07/2024 10:27 AM EDT 10/07/2024 10:27 AM EDT us Chip Burt MD CHEMISTRY ORDERABLES Final Re sult Performing Organization Address [facility]/ZIP Co de Phone Number [facility] [address] [place] [address] * IRON+TIBC (10/07/2024 10:27 AM EDT) Iron 75 30 - 160 mcg/dL 10/07/2024 2:43 PM EDT [facility] Transferrin 218 200 - 360 mg/dL 10/07/2024 2:43 PM EDT [facility] Saturation 25 20 - 50 % 10/07/2024 2:43 PM EDT [facility] TIBC 305 250 - 400 mcg/dL 10/07/2024 2:43 PM EDT [facility] [place], [facility] Blood VENOUS BLOOD / Unknown Venipuncture / Unknown 10/07/2024 10:27 AM EDT 10/07/2024 10:27 AM EDT Chip Burt MD CHEMISTRY ORDERABLES Final Re sult Performing Organization Address [facility] Co de Phone Number [facility], [facility] [address] [facility] [address], [place] [address] * LH/FSH (10/07/2024 10:27 AM EDT) LH 43.70 mIU/mL 10/07/2024 2:23 PM EDT [facility] [place], [facility] Comment: Suggested Reference Ranges (mIU/mL) Females Follicular Phase 2.4 - 12.6 Ovulation Phase 14.0 - 95.6 Luteal Phase 1.0 - 11.4 Postmenopause 7.7 - 58.5 Males 1.7 - 8.6 FSH 83.20 mIU/mL 10/07/2024 2:23 PM EDT [facility] [place] Comment: Suggested Reference Range (mIU/mL) Females Follicular Phase 3.5 - 12.5 Ovulation Phase 4.7 - 21.5 Luteal Phase 1.7 - 7.7 Postmenopause 25.8 - 134.8 Males 1.5 - 12.4 Blood VENOUS BLOOD / Unknown Venipuncture / Unknown 10/07/2024 10:27 AM EDT 10/07/2024 10:27 AM EDT Narrative [facility] - 10/07/2024 2:23 PM EDT Ingestion of caleb doses of biotin (>5 mg/day) taken within 8 hours of drawing blood sample can interfere with this immunoassay test. Chip Brut MD IMMUNOLOGY ORDERABLES Final R esult Performing Organization Address [facility] Co de Phone Number [facility] [employer] [address] , [place] [address] * VITAMIN B12/ FOLIC ACID (10/07/2024 10:27 AM EDT) Vitamin B12 409 232 - 1,245 pg/mL 10/07/2024 2:31 PM EDT [facility] Folate 9.87 >=4.80 ng/mL 10/07/2024 2:31 PM EDT [facility] Blood VENOUS BLOOD / Unknown Venipuncture / Unknown 10/07/2024 10:27 AM EDT 10/07/2024 10:27 AM EDT Narrative [employer] - 10/07/2024 2:31 PM EDT Ingestion of caleb doses of biotin (>5 mg/day) taken within 8 hours of drawing blood sample can interfere with this immunoassay test. us Chip Burt MD CHEMISTRY ORDERABLES Final Re sult Performing Organization Address [facility] Co de Phone Number [facility] [address] , [place] [address] * (ABNORMAL) VITAMIN D 25 HYDROXY (10/07/2024 10:27 AM EDT) Vit D 25 OH 18.7(L) 30.0 - 150.0 ng/mL 10/07/2024 2:31 PM EDT [employer] [facility] Comment: Preferred: >= 30 ng/mL Insufficient: 21-29 ng/mL Deficient <= 20 ng/mL Possible Toxicity: >150 ng/mL Samples should not be taken from patients receiving therapy with high biotin doses (i.e. > 5 mg/day) until at least 8 hours following the last biotin administration. Blood VENOUS BLOOD / Unknown Venipuncture / Unknown 10/07/2024 10:27 AM EDT 10/07/2024 10:27 AM EDT Chip Burt MD CHEMISTRY ORDERABLES Final Re sult Performing Organization Address City/[facility] Co de Phone Number [facility], [address] , [place] [address] * (ABNORMAL) KAPPA/LAMBDA FREE LIGHT CHAINS (10/07/2024 10:27 AM EDT) [place] Free Light Chains 24.58(H) 3.30 - 19.40 mg/L 10/09/2024 10:35 AM EDT [facility] [place], [facility] Lambda Free Light Chains 16.63 5.70 - 26.30 mg/L 10/09/2024 10:35 AM EDT [facility] [place], [facility] [place]/Lambda FLC Ratio 1.48 0.26 - 1.65 10/09/2024 10:35 AM EDT [facility] [place], [facility] Blood VENOUS BLOOD / Unknown Venipuncture / Unknown 10/07/2024 10:27 AM EDT 10/07/2024 10:27 AM EDT Chip Burt MD CHEMISTRY ORDERABLES Final Re sult Performing Organization Address [facility]/ZIP Co de Phone Number [facility], [address] , [place] [address] * ESTROGENS, FRACTIONATED BY TMS -REF LAB (10/07/2024 10:27 AM EDT) Estradiol 18.0 pg/mL 10/17/2024 3:03 PM EDT [employer] Comment: REFERENCE INTERVAL: Estradiol by Syrup Mixer Assistant For a complete set of all established reference intervals, refer to [employer]Tests/Pub/[id number]. This test was developed and its performance characteristics determined by [employer]. It has not been cleared or approved by the US Food and Drug Administration. This test was performed in a CLIA certified laboratory and is intended for clinical purposes. Estrone by 13.6 pg/mL 10/17/2024 3:03 PM EDT [employer] Comment: INTERPRETIVE INFORMATION: Estrone by Syrup Mixer Assistant For a complete set of all established reference intervals, refer to [employer]Tests/Pub/[id number]. This test was developed and its performance characteristics determined by [facility]. It has not been cleared or approved by the US Food and Drug Administration. This test was performed in a CLIA certified laboratory and is intended for clinical purposes. Estrogens Total 31.6 pg/mL 3:03 PM EDT [employer] Comment: Reference interval of estrogens (pg/mL) Estrone Estradiol Total Estrogens Early follicular <150.0 30.0-100.0 30.0-250.0 Late follicular 100.0-250.0 100.0-400.0 200.0-650.0 Luteal <200.0 50.0-150.0 50.0-350.0 Post-menopausal 3.0-32.0 2.0-21.0 5.0-52.0 REFERENCE INTERVAL: Estrogens Total Calculation For a complete set of all established reference intervals, refer to [employer]Tests/Pub/[id number]. Performed By: [facility] [address] [id number] Data Administrator: Larry Olivarez MD, PhD CLIA Number: [id number] Blood VENOUS BLOOD / Unknown Venipuncture / Unknown 10/07/2024 10:27 AM EDT 10/11/2024 5:27 PM EDT us Chip Burt MD CHEMISTRY ORDERABLES Final Re sult [facility] [address] [id number] * HEPATITIS B SURFACE ANTIBODY (10/07/2024 10:27 AM EDT) Pathologist [facility] Hep Bs Ab 6.52 mIU/mL 10/07/2024 2:36 PM EDT [facility] [employer] [facility] Comment: < 10 mIU/mL - Non-reactive (Result not consistent with protective immunity.) >= 10 mIU/mL - Reactive (Result consistent with protective immunity.) Blood VENOUS BLOOD / Unknown Venipuncture / Unknown 10/07/2024 10:27 AM EDT 10/07/2024 10:27 AM EDT Narrative [facility] [employer] [facility] - 10/07/2024 2:36 PM EDT Test performed using [employer] electrochemiluminescence immunassay (ECLIA). Chip Burt MD IMMUNOLOGY ORDERABLES Final R esult Performing Organization Address [facility] Co de Phone Number [facility] , [place] [address] * THYROID STIMULATING HORMONE (10/07/2024 10:27 AM EDT) [facility] TSH 2.840 0.270 - 4.200 mcIU/mL 10/07/2024 2:43 PM EDT [facility] Blood VENOUS BLOOD / Unknown Venipuncture / Unknown 10/07/2024 10:27 AM EDT 10/07/2024 10:27 AM EDT Narrative [facility] - 10/07/2024 2:43 PM EDT Ingestion of caleb doses of biotin (>5 mg/day) taken within 8 hours of drawing blood sample can interfere with this immunoassay test. Chip Burt MD CHEMISTRY ORDERABLES Final Re sult Performing Organization Address [facility] Co de Phone Number [facility] , [place] [address] * T4, FREE (THYROXINE) (10/07/2024 10:27 AM EDT) [facility] Free T4 0.95 0.80 - 1.80 ng/dL 10/07/2024 2:43 PM EDT [facility] Blood VENOUS BLOOD / Unknown Venipuncture / Unknown 10/07/2024 10:27 AM EDT 10/07/2024 10:27 AM EDT Narrative [facility] [employer] [facility] - 10/07/2024 2:43 PM EDT Ingestion of caleb doses of biotin (>5 mg/day) taken within 8 hours of drawing blood sample can interfere with this immunoassay test. Chip Burt MD CHEMISTRY ORDERABLES Final Re sult Performing Organization Address [facility] Co de Phone Number [facility] [employer] [address] , [place] [id number] * PHOSPHORUS LEVEL (10/07/2024 10:27 AM EDT) Phosphorus 3.1 2.5 - 4.5 mg/dL 10/07/2024 2:43 PM EDT [facility] [facility] Blood VENOUS BLOOD / Unknown Venipuncture / Unknown 10/07/2024 10:27 AM EDT 10/07/2024 10:27 AM EDT us Chip Burt MD CHEMISTRY ORDERABLES Final Re sult Performing Organization Address [facility] Co de Phone Number [facility] [address] [facility] , [place] [address] * NT PROBNP (10/07/2024 10:27 AM EDT) NT Pro-BNP <36 <=192 pg/mL 10/07/2024 2:09 PM EDT [facility] [facility] Blood VENOUS BLOOD / Unknown Venipuncture / Unknown 10/07/2024 10:27 AM EDT 10/07/2024 10:27 AM EDT Narrative [facility] [employer] [facility] - 10/07/2024 2:09 PM EDT An NT pro-BNP level less than 300 pg/mL in any patient, regardless of age, effectively rules out acute CHF with a 99% negative predictive value. Ingestion of caleb doses of biotin (>5 mg/day) taken within 8 hours of drawing blood sample can interfere with this immunoassay test. Chip Burt MD CHEMISTRY ORDERABLES Final Re sult Performing Organization Address [facility] de Phone Number [facility] [employer] [address] , [place] [address] * HEMOGLOBIN A1C (10/07/2024 10:27 AM EDT) Hgb A1C 5.6 4.2 - 5.6 % 10/07/2024 2:19 PM EDT [facility] [facility] Est. Avg Glucose 114 mg/dL 10/07/2024 2:19 PM EDT [facility] [employer] [facility] Blood VENOUS BLOOD / Unknown Venipuncture / Unknown 10/07/2024 10:27 AM EDT 10/07/2024 10:27 AM EDT Narrative [facility] [employer] [facility] - 10/07/2024 2:19 PM EDT REFERENCE RANGE: Normal: 4.0-5.6% Pre-diabetes: 5.7-6.4% Provisional diagnosis of diabetes: >6.4% Hgb F>10% and anything which shortens red cell survival, such as hemolytic anemia, or unstable hemoglobin variants such as HbSS, HbSC, or HbCC, will lower the HbA1c value associated with a given level of glycemic control. Chip Burt MD CHEMISTRY ORDERABLES Final Re sult Performing Organization Address [facility] de Phone Number [facility] [employer] [address] , [place] [address] * CREATINE KINASE (10/07/2024 10:27 AM EDT) CK 177 26 - 192 U/L 10/07/2024 2:43 PM EDT [facility] [employer] [facility] Blood VENOUS BLOOD / Unknown Venipuncture / Unknown 10/07/2024 10:27 AM EDT 10/07/2024 10:27 AM EDT Chip Burt MD CHEMISTRY ORDERABLES Final Re sult [employer] [facility] [address] [facility] , [place] [address] * (ABNORMAL) LIPID SCREEN (10/07/2024 10:27 AM EDT) Cholesterol 191 <200 mg/dL 10/07/2024 2:43 PM EDT [employer] Comment: < 200 Desirable 200 - 239 Borderline High >= 240 High Triglyceride 64 <150 mg/dL 10/07/2024 2:43 PM EDT [employer] Comment: < 150 Normal 150 - 199 Borderline High 200 - 499 High >= 500 Very High HDL 51 >=40 mg/dL 10/07/2024 2:43 PM EDT [employer] Comment: > 60 Optimal 40 - 60 Acceptable < 40 Low LDL Calculated 128(H) <100 mg/dL 10/07/2024 2:43 PM EDT [employer] Comment: < 100 Optimal 100 - 129 Near or above optimal 130 - 159 Borderline High 160 - 189 High >= 190 Very High The National Institutes of Health (NIH) equation is used for all lipid panels that report calculated LDL (LDL-C). Non-HDL-C Calculated 140(H) <=129 mg/dL 10/07/2024 2:43 PM EDT [employer] Comment: <130 Desirable 130-159 Above Desirable 160-189 Borderline High 190-219 High >= 220 Very High Fasting Specimen? Yes None 025 2:43 PM EDT [facility] [employer] [facility] Blood VENOUS BLOOD / Unknown Venipuncture / Unknown 10/07/2024 10:27 AM EDT 10/07/2024 10:27 AM EDT us Chip Burt MD CHEMISTRY ORDERABLES Final Re bandart [facility] [employer] [facility] [address] [facility] , [place] [address] * (ABNORMAL) POCT EKG (09/29/2024 2:53 PM EDT) 09/29/2024 2:53 PM EDT [facility] - 09/29/2024 2:57 PM EDT SR LAD, possible LAE, iRBBB w/LAFB T wave inversions V1-V3 similar to previous 06/2024, 12/2023 No other STTW changes compared to prior us Chip Burt MD POINT OF CARE CARDIOLOGY Wandy l Result SEP OFFICE * PHYSICIAN CODER CYTOLOGY REPORT (11/07/2015 1:27 PM EDT) Suggestion Clerk Cytology Report PATIENT NAME:SHERYL CORDERO Suggestion Clerk Cytology Report Accession Number Collected Date/Time Received Date/Time [id number] 11/07/15 13:27 EDT 11/07/15 16:13 EDT GY [...] confirmed before definitive therapy. Processed using the [employer]Prep Computer Builder automated cytology screening device (The Rowing Team). Insurance Defense Paralegal: JERARDO 11/08/2015 Completed by: NICCI Russell (Electronically signed by) 11/08/2015 [facility] 11/07/2015 1:27 PM EDT us Amalia Joya APRN PATHOLOGY ORDERABLES Final Res ult Performing Organization Address City/[facility]/ZIP Co de Phone Number [facility] [address] [place] [address] from Last 3 Months or Most Recently Relevant to Health Maintenance Insurance [address] [place] [address], [place] [address] [facility] BY [facility] Care Teams Lead Caster Relationship Specialty Start Date End Date Chip Burt MD [address] [place] [address] PCP - General Family Medicine 09/29/24
--- OUTSIDE RECORDS SUMMARY | 2024-12-28 11:57 | XMS_ITS | Encounter Summary ---
Author Organization [employer] [place] [address] Care Team Providers Care Textile Artist Name Role Phone Chip Burt MD Primary Care Provider [phone] Reason for Visit * Reason Onset Date Comments Other 12/08/2024 faxed forms Encounter Details Date Type Department Care Team (Late st Contact Info) Description 12/08/2024 Telephone [facility] [address] [facility] [address] [place] [address] Chip Burt MD [address] [place] [address] Other (faxed forms) Social History Tobacco Use [...] 8:45 AM EDT Office Visit SEP Neurology [facility] [address] [place] [phone] Chuyita Moscoso MD [address] [place], [place] [id number] 03/12/2025 1:40 PM EST Office Visit SEP [facility] [address] [place] [address] Chip Burt MD [address] [place] [address] 04/09/2025 10:00 AM EST Office Visit [facility] [place] [address] [place] [address] Anh Patel, CAYDEN 1 [place], [place] [id number] documented as of this encounter Goals Goal Patient Goal Type Associated Problems Recent Progress Patient-Stated? Author Maintain a healthy diet, exercise regularly and maintain an ideal body weight General No Philippe Hansen MA Stay Tobacco Free Lifestyle No Philippe Hansen MA documented as of this encounter Visit Diagnoses Not on filedocumented in this encounter Care Teams Textile Artist Relationship Specialty Start Date End Date Chip Burt MD [address] [place] [address] PCP - General Family Medicine 09/29/24 documented as of this encounter
--- OUTSIDE RECORDS SUMMARY | 2024-12-28 11:57 | XMS_ITS | Encounter Summary ---
Author Organization [place] [address] Care Team Providers Care Smelter Operator Name Role Phone Chip Burt MD Primary Care Provider [phone] Encounter Details Date Type Department Care Team (Late st Contact Info) Description 12/15/2024 Results Follow-Up SEP [facility] [address] [facility] [address] [place] [phone] Chip Burt MD [address] [place] [address] URINE CULTURE (NO STAIN) Social History Tobacco [...] AM EDT Office Visit SEP Neurology [facility] [address] [place] [address] Chuyita Moscoso MD [address] [place] [address] 03/12/2025 1:40 PM EST Office Visit SEP [facility] [address] [facility] [address] [place] [address] Chip Burt MD [address] [place] [address] 04/09/2025 10:00 AM EST Office Visit [facility] [address] [place] [address] Anh Patel APRN 1 [facility] [place], [place] [id number] documented as of this encounter Goals Goal Patient Goal Type Associated Problems Recent Progress Patient-Stated? Author Maintain a healthy diet, exercise regularly and maintain an ideal body weight General Philippe Love MA Stay Tobacco Free Lifestyle Philippe Love MA documented as of this encounter Visit Diagnoses Not on filedocumented in this encounter Care Teams Smelter Operator Relationship Specialty Start Date End Date Chip Burt MD [address] [place] [address] PCP - General Family Medicine 09/29/24 documented as of this encounter
--- OUTSIDE RECORDS SUMMARY | 2024-12-28 11:57 | XMS_ITS | Encounter Summary ---
Author Organization [place] [address] Care Team Providers Care Pipe Line Repairer Name Role Phone Chip Burt MD Primary Care Provider [phone] Reason for Visit * Reason Onset Date Comments Central Order Completion Outreach 11/30/2024 cologuard Encounter Details Date Type Department Care Team (Late st Contact Info) Description 11/30/2024 Patient Outreach SEP [facility] [address] [place] [address] Chip Burt MD [address] [place] [address] Central Order Completion Outreach (cologuard) Social History [...] 8:45 AM EDT Office Visit SEP Neurology [address] [place] [address] Chuyita Moscoso MD [address] [place] [address] 03/12/2025 1:40 PM EST Office Visit SEP [facility] [address] [phone] Chip Burt MD [address] [place] [address] 04/09/2025 10:00 AM EST Office Visit [facility] [place] [address] [place] [address] Anh Patel, VIDEOTAPE OPERATOR 1 [place] [address] documented as of this encounter Goals Goal Patient Goal Type Associated Problems Recent Progress Patient-Stated? Author Maintain a healthy diet, exercise regularly and maintain an ideal body weight General No Philippe Hansen MA Stay Tobacco Free Lifestyle No Philippe Hansen MA documented as of this encounter Visit Diagnoses Not on filedocumented in this encounter Care Teams Pipe Line Repairer Relationship Specialty Start Date End Date Chip Burt MD [address] [place] [address] PCP - General Family Medicine 09/29/24 documented as of this encounter
--- NOTE | 2024-12-28 12:00 | NM_ITS ---
APPROVED REPORT Exam: Nuclear Stress Test Indication: dysrhythmia, fm hx, tob use, c.p., sob, palpitations, syncope Patient Location: Outpatient Stress Tech: Alicia Stevens [place] Tech:Adrienne BeckDONALD RT(R)(N) Ht: 5 ft 1 in Wt: 115 lbs Bra Size: 32c HR: 78 bpm BP: 120/51 mmHg BSA: 1.49 m2 TID: 1.05 BMI: 21.7 History: dysrhythmia, fm hx, tob use, c.p., sob, palpitations, syncope Procedure: Patient received 0.4 mg of intravenous Lexiscan, resting heart rate 78 bpm, resting blood pressure 120/51 mmHg, with Lexiscan maximum heart rate achieved was 150 bpm which is % of the maximum predicted heart rate and blood pressure was 120/64 mmHg. With Lexiscan, patient denied any complaint of chest pain. Cardiac Stress and Resting SPECT Images: Cardiac Stress and Resting SPECT images were obtained using technetium 99m Myoview 32.6 mCi stress and 10.16 mCi at rest. Resting and stress imaging in supine and prone positions demonstrate no evidence of fixed or reversible perfusion defects. Gated imaging demonstrates normal global and regional LV systolic function. LVEF is considered at 53%. Conclusion: No evidence of fixed or reversible perfusion defects. Gated imaging demonstrates normal global and regional LV systolic function. LVEF is considered at 53%. Electronically signed by : Ania Peacock MD 12/29/2024 00:43:24
[2024-12-28] MEDS: ISOTOPE MYOVIEW (PER STUDY) 1 DOSE IV (13:34)
[2024-12-28] MEDS: SODIUM CHLORIDE 0.9% 10ML SYR (RAD ONLY) 10 ML IV ×2 (13:34→13:35)
== END 2024-12-28 23:59 | disposition home or self-care (01) ==
LOC: RAD 11:54
PROVIDERS: PCP Nurse Practitioner; Visit Provider Nurse Practitioner
DX: I49.1 Atrial premature depolarization (principal); M54.9 Dorsalgia, unspecified; G89.29 Other chronic pain; R55 Syncope and collapse; R53.83 Other fatigue; R94.31 Abnormal electrocardiogram [ECG] [EKG]; Z82.49 Family history of ischemic heart disease and other diseases of the circulatory system; Z72.0 Tobacco use
CPT/HCPCS: 78452; 93017; 93018; A9502; J2785

== ENCOUNTER 2024-12-29 10:22 | Outpatient (CLI) | payer BC, SELFPAY ==
--- OUTSIDE RECORDS SUMMARY | 2024-11-02 11:00 | XMS_ITS | Encounter Summary ---
Author Organization [place] [address] Care Team Providers Care Grain Elevator Man Name Role Phone Chip Burt MD Primary Care Provider [phone] Reason for Referral * Consultation (Routine) - Pending Review Specialty Diagnoses / Procedures Referred By Rosemary singer Referred To Contact Otolaryngology Diagnoses Dizziness Procedures DC OFFICE/OUTPATIENT NEW MODERATE MDM 45 MINUTES Chip Burt MD [address] [place] [address] Phone: tel: fax: Jose Monsivais MD 20 [facility] [address] [place] [address] Phone: tel: fax: Referral ID Status Reason Start Date Expiration Date V isits Requested Visits Authorized [id number] Pending Review 11/02/2024 11/02/2025 99 99 Reason for Visit * Reason Comments Follow-up 4 weeks Encounter Details Date Type Department Care Team (Late st Contact Info) Description 11/02/2024 11:00 AM EDT Office Visit [facility] [address] [facility] [address] [place] [address] Chip Burt MD [address] [place] [address] Syncope, unspecified syncope type (Primary Dx); Dizziness; [...] Exercises (maneuvers) for benign paroxysmal positional vertigo ([place]) documented in this encounter Ordered Prescriptions Prescription Sig Dispense Quantity Refills Last Filled Start Date End Date Blood Pressure Monitor [facility] KitIndications:Syn cope, unspecified syncope type,Other fatigue 1 Kit by [facility].(Non-Drug; Combo Route) route daily. 1 [...] Echo pending Orders: - Blood Pressure Monitor [facility] Kit; 1 Kit by [facility].(Non-Drug; Combo Route) route daily. Dispense: [...] hx -amenable to: NRT gum/lozenges Orders: - DC TOBACCO USE CESSATION INTERMEDIATE 3-10 MINUTES - [...] Overview: supp Lab Results Component Value Date [id number] 18.7 (L) 10/07/2024 Orders: - COMPREHENSIVE METABOLIC PANEL; Future - VITAMIN D 25 HYDROXY; Future Perimenopause Overview: supp care -LMP ~3yrs ago Orders: - COMPREHENSIVE METABOLIC PANEL; Future Other fatigue Comments: Improved Orders: - Blood Pressure Monitor [employer] Kit; 1 Kit by [employer].(Non-Drug; Combo Route) route daily. 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 Deep Tendon Reflexes: Reflexes normal. Comments: [place] Hallpike borderline+ Psychiatric: Mood and Affect: Mood normal. Behavior: Behavior normal. documented in this encounter Plan of Treatment Upcoming Encounters Date Type Department Care Team (Late st Contact Info) Description 01/04/2025 8:45 AM EDT Office Visit [facility] Neurology [facility] [address] [place] [address] Chuyita Moscoso MD [address] [place] [address] 03/12/2025 1:40 PM EST Office Visit [facility] [address] [facility] [address] [place] [address] Chip Burt MD [address] [place] [address] 04/09/2025 10:00 AM EST Office Visit [facility] H&[facility] [place] [address] [place] [address] Anh Patel, SENIOR LINUX SYSTEMS ENGINEER 1 [facility] [place] [address] Scheduled Orders Name Type Priority Associated Diagnoses Orde r Schedule DC TOBACCO USE CESSATION INTERMEDIATE 3-10 MINUTES DC Charge Routine Cigarette smoker Ordered: 11/02/2024 Scheduled [...] Date End Da te Blood Pressure Monitor [facility] KitIndications:Annual physical exam,Syncope, unspecified syncope type,Other fatigue 1 Kit by [facility].(Non-Drug; Combo Route) route daily. Reorder 09/29/2024 11/02/2024 documented as of this encounter Orders Lab Orders Without Results Count Last Ordered D ate First Ordered Date LIPID SCREEN 1 11/02/2024 VITAMIN D 25 HYDROXY 1 11/02/2024 documented in this encounter Care Teams Grain Elevator Man Relationship Specialty Start Date End Date Chip Burt MD [address] [place] [address] PCP - General Family Medicine 09/29/24 documented as of this encounter
--- OUTSIDE RECORDS SUMMARY | 2024-11-17 07:54 | XMS_ITS | Encounter Summary ---
Author Organization [place] [address] Care Team Providers Care Adventure Challenge Instructor Name Role Phone Chip Burt MD Primary Care Provider Reason for Referral * Echo (Urgent) - PCP Precert Acquired Specialty Diagnoses / Procedures Referred By Rosemary singer Referred To Contact Radiology Diagnoses Syncope, unspecified syncope type Palpitations Other fatigue Procedures EC ECHOCARDIOGRAM COMPLETE W DOPPLER AND COLOR FLOW MAPPING EC ECHOCARDIOGRAM COMPLETE W DOPPLER AND COLOR FLOW MAPPING Chip Burt MD [address] [place] [address] Phone: tel: fax: Referral ID Status Reason Start Date Expiration Date V isits Requested Visits Authorized [id number] PCP Precert Acquired 09/29/2024 09/29/2026 1 1 Reason for Visit * Echo (Urgent) - PCP Precert Acquired Specialty Diagnoses / Procedures Referred By Rosemary singer Referred To Contact Radiology Diagnoses Syncope, unspecified syncope type Palpitations Other fatigue Procedures EC ECHOCARDIOGRAM COMPLETE W DOPPLER AND COLOR FLOW MAPPING EC ECHOCARDIOGRAM COMPLETE W DOPPLER AND COLOR FLOW MAPPING Chip Burt MD [address] [place] [address] Phone: tel: fax: Referral ID Status Reason Start Date Expiration Date V isits Requested Visits Authorized [id number] PCP Precert Acquired 09/29/2024 09/29/2026 1 1 Encounter Details Date Type Department Care Team (Latest Contact Info) Description 11/17/2024 7:54 AM EDT Hospital Encounter [facility] [place] [address] Chip Burt MD [address] [place] [address] Syncope, unspecified syncope type; Palpitations; Other fatigue [...] Discharge Blood Pressure Monitor [facility] KitIndications:Syn cope, unspecified syncope type,Other fatigue [address] [facility]Non-El g; Combo Route) route daily. 1 Kit [...] Description 01/04/2025 8:45 AM EDT Office [place] [facility] [place] [facility] [address] [place] [address] Chuyita Moscoso MD [address] [place] [address] 03/12/2025 1:40 PM EST Office Visit [facility] [address] [facility] [address] [place] [address] Chip Burt MD [address] [place] [address] 04/09/2025 10:00 AM EST Office Visit [facility] [place] [address] [place] [address] Anh Patel [address]N [address] [facility] [place] [address] documented as of this encounter Goals Goal [...] fatigue documented in this encounter Care Teams Adventure Challenge Instructor Relationship Specialty Start Date End Date Chip Burt MD [address] [place] [address] PCP - General Family Medicine 09/29/24 documented as of this encounter
--- OUTSIDE RECORDS SUMMARY | 2024-11-17 10:20 | XMS_ITS | Encounter Summary ---
Author Organization [place] [address] Care Team Providers Care Tar Pot Man Name Role Phone Chip Burt MD Primary Care Provider Encounter Details Date Type Department Care Team (Latest Contact Info) Description 11/17/2024 10:20 AM EDT Hospital Encounter [facility] [address] [facility] [place] [address] [place] light chain disease; Elevated LDL cholesterol level; [...] Author No 09/29/2024 1:42 PM EDT Shiva Hansne MA * Does this person have difficulty dressing or bathing? Answer Date of Assessment Author No 09/29/2024 1:42 PM EDT Shiva Hansen MA * Because of a physical, mental or emotional condition, does this person have difficulty doing errands alone such as visiting a doctor's office or shopping? Answer Date of Assessment Author No 09/29/2024 1:42 PM EDShiva Patterson MA documented as of this encounter Mental Status * Because of a physical, mental or emotional condition, does this person have serious difficulty concentrating, remembering or making decisions? Answer Entry Date Author No 09/29/2024 1:42 PM EDShiva Patterson MA documented in this encounter Medications at Time of Discharge Blood Pressure Monitor [facility] KitIndications:Syn cope, unspecified syncope type,Other fatigue 1 Kit by [facility].(Non-El g; Combo Route) route daily. 1 Kit [...] 8:45 AM EDT Office Visit SEP Neurology [facility] [address] [place] [address] Chuyita Moscoso MD [address] [place] [address] 03/12/2025 1:40 PM EST Office Visit [facility] [address] [address] Chip Burt MD [address] [place] [address] 04/09/2025 10:00 AM EST Office Visit [facility] [place] [address] [facility] [place] [address] Anh Patel APRN 1 [facility] [place] [address] documented as of this encounter Goals [...] WITH DIFF STAT 11/17/2024 10:37 AM EDT [place] light chain disease COMPREHENSIVE METABOLIC PANEL STAT 11/17/2024 10:37 AM EDT [place] light chain disease documented in this encounter Results * (ABNORMAL) URINE CULTURE (NO STAIN) (11/17/2024 10:42 AM EDT) Culture Positive Growth(A) 11/19/2024 1:32 PM EDT [facility] Culture >100,000 CFU/mL Lactobacillus species SUSCEPTIB ILITY RESULT 11/19/2024 1:32 PM EDT [facility] Comment:No further workup. Urine STRUCTURE OF URINARY TRACT PROPER / Unknown 11/17/2024 10:42 AM EDT 11/17/2024 10:47 AM EDT us Fabby Joya MD MICROBIOLOGY - GENERAL SYLVIE RAIN Final Result [facility] [address] [facility] , [place] [address] * (ABNORMAL) URINALYSIS (11/17/2024 10:42 AM EDT) UA Color Yellow 11/17/2024 11:14 AM EDT [facility] UA Appear Clear Clear 11/17/2024 11:14 AM EDT [facility] UA Glucose Negative Negative mg/dL 11/17/2024 11:14 AM EDT [facility] UA Ketones Negative Negative mg/dL 11/17/2024 11:14 AM EDT [facility] UA Blood Trace-Intac t(A) Negative 11/17/2024 11:14 AM EDT [facility] UA pH 6.0 5.0 - 8.0 pH 11/17/2024 11:14 AM EDT [facility] UA Protein Negative Negative mg/dL 11/17/2024 11:14 AM EDT [facility] UA Urobilinogen 0.2 <=1 mg/dL 11:14 AM EDT [facility] UA Bili Negative Negative 11/17/2024 11:14 AM EDT [facility] UA Nitrite Negative Negative 11/17/2024 11:14 AM EDT [facility] UA Leuk Est Small(A) Negative 11/17/2024 11:14 AM EDT [facility] UA Spec Grav 1.015 1.001 - 1.035 no units 11/17/2024 11:14 AM EDT [facility] Comment:Reference range nick d for random specimens only. UA WBC 1 0 - 4 /HPF 11/17/2024 11:14 AM EDT [facility] UA RBC 1 0 - 3 /HPF 11/17/2024 11:14 AM EDT [facility] UA Squam Epi 1+ /LPF 11/17/2024 11:14 AM EDT [facility] Urine STRUCTURE OF URINARY TRACT PROPER / Unknown 11/17/2024 10:42 AM EDT 11/17/2024 10:47 AM EDT us Fabby Joya MD URINE ORDERABLES Final Result [address] [place] [address] * (ABNORMAL) CBC WITH DIFF (11/17/2024 10:37 AM EDT) [facility] Signature WBC 7.7 3.7 - 10.3 x10(3)/mcL 11/17/2024 10:42 AM EDT [facility] RBC 4.37 3.90 - 5.20 x10(6)/mcL 11/17/2024 10:42 AM EDT [facility] Hgb 13.6 11.2 - 15.7 g/dL 11/17/2024 10:42 AM EDT [facility] Hct 40.3 34.0 - 45.0 % 11/17/2024 10:42 AM EDT [facility] MCV 92.2 80.0 - 100.0 fL 11/17/2024 10:42 AM EDT [facility] MCH 31.1 26.0 - 34.0 pg 11/17/2024 10:42 AM EDT [facility] MCHC 33.7 30.7 - 35.5 g/dL 11/17/2024 10:42 AM EDT [facility] RDW 13.7 <=14.9 % 11/17/2024 10:42 AM EDT [facility] Platelet 265 155 - 369 x10(3)/mcL 11/17/2024 10:42 AM EDT [facility] MPV 9.2 8.8 - 12.5 fL 11/17/2024 10:42 AM EDT [facility] Neut Percent 48.2 % 11/17/2024 10:42 AM EDT [facility] Comment:Neutrophils equals s egs plus bands Imm Gran% 0.3 % 11/17/2024 10:42 AM EDT [facility] Comment:Automated count of m etamyelocytes, myelocytes and promyelocytes. Lymph Percent 28.0 % 11/17/2024 10:42 AM EDT [facility] [place] Percent 7.9 % 11/17/2024 10:42 AM EDT [facility] Eos Percent 14.8 % 11/17/2024 10:42 AM EDT [facility] Baso Percent 0.8 % 11/17/2024 10:42 AM EDT [facility] Neut # 3.7 1.6 - 6.1 x10(3)/[facility] 11/17/2024 10:42 AM EDT [facility] Comment:Neutrophils equals s egs plus bands IMMGRAN# 0.0 0.0 - 0.1 x10(3)/[facility] 11/17/2024 10:42 AM EDT [facility] Comment:Automated count of m etamyelocytes, myelocytes and promyelocytes. An absolute IG <0.1 is reported as 0.0. Lymph # 2.2 1.2 - 3.9 x10(3)/[facility] 11/17/2024 10:42 AM EDT [facility] [place] # 0.6 0.3 - 0.9 x10(3)/[facility] 11/17/2024 10:42 AM EDT [facility] Eos# 1.1(H) 0.0 - 0.5 x10(3)/[facility] 11/17/2024 10:42 AM EDT [facility] Baso # 0.1 0.0 - 0.1 x10(3)/[facility] 11/17/2024 10:42 AM EDT [facility] Blood VENOUS BLOOD / Unknown Venipuncture / Unknown 11/17/2024 10:37 AM EDT 11/17/2024 10:40 AM EDT us Fredi Trevizo MD HEMATOLOGY ORDERABLES Final Re sult [facility] [address] [place] [address] * COMPREHENSIVE METABOLIC PANEL (11/17/2024 10:37 AM EDT) Sodium 140 136 - 145 mmol/L 11/17/2024 10:57 AM EDT [facility] Potassium 3.9 3.5 - 5.0 mmol/L 11/17/2024 10:57 AM [facility] Chloride 104 98 - 107 mmol/L 11/17/2024 10:57 AM [facility] Total CO2 26 22 - 29 mmol/L 11/17/2024 10:57 AM [facility] Anion Gap 10 7 - 16 mmol/L 11/17/2024 10:57 AM [facility] Calcium 8.8 8.6 - 10.4 mg/dL 11/17/2024 10:57 AM [facility] Glucose Lvl 88 70 - 99 mg/dL 11/17/2024 10:57 AM [facility] BUN 13 6 - 20 mg/dL 11/17/2024 10:57 AM [facility] Creatinine 0.62 0.51 - 1.30 mg/dL 11/17/2024 10:57 AM [facility] Albumin 4.2 3.5 - 5.2 gm/dL 11/17/2024 10:57 AM [facility] Total Protein 6.6 6.4 - 8.3 gm/dL 11/17/2024 10:57 AM [facility] Bili Total 0.3 0.2 - 1.3 mg/dL 11/17/2024 10:57 AM [facility] ALT 17 <=41 U/L 11/17/2024 10:57 AM [facility] AST 19 <=40 U/L 11/17/2024 10:57 AM [facility] Alk Phos 111 36 - 123 U/L 11/17/2024 10:57 AM [facility] eGFR (CKD-EPIcr 2020) 109 >=60 mL/min/1.7 3 m2 11/17/2024 10:57 AM [facility] Comment:Estimated GFR was ca lculated using the CKD-EPIcr (2020) equation refit without race. The equation is recommended by the National Kidney Foundation - [place] [employer] of Nephrology Task Force. 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
--- OUTSIDE RECORDS SUMMARY | 2024-11-17 10:21 | XMS_ITS | Encounter Summary ---
Author [place] [address] Care Team Providers Care Hansard Reporter Name Role Phone Chip Burt MD Primary Care Provider [phone] Reason for Referral * Consultation (Routine) - Authorization Not Needed Specialty Diagnoses / Procedures Referred By Contac t Referred To Contact Cardiology Diagnoses Syncope, unspecified syncope type EKG abnormality Procedures DC OFFICE/OUTPATIENT NEW MODERATE MDM 45 MINUTES Fredi Trevizo MD [address] [place] [address] [address] [place] [address] Phone: tel: fax: [facility] [address] [facility] [address] [place] [address] Phone: tel: fax: Referral ID Status Reason Start Date Expiration Date Visits Requested Visits Authorized [id number] Authorization Not Needed 11/17/2024 11/17/2025 99 99 Comments syncope arrhythmias * Genetic Lab Test (Emergency) - Authorization Not Needed Specialty Diagnoses / Procedures Referred By Contac t Referred To Contact 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 this has progressed into fainting/ falling twice so far. 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 Procedures DC OFFICE/OUTPATIENT NEW MODERATE MDM 45 MINUTES Chip Burt MD [address] [place] [address] Phone: tel: fax: Referral ID Status Reason Start Date Expiration Date V isits Requested Visits Authorized [id number] Pending Review 10/13/2024 10/13/2025 99 99 Encounter Details Date Type Department Care Team (Latest Contact Info) Description 11/17/2024 10:21 AM EDT - 11/17/2024 11:59 PM EDT Hospital Encounter [facility] [address] [facility] [address] [place] [id number] Fredi Trevizo MD [address] [place] [address] [place]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); Syncope, unspecified syncope type; EKG abnormality Discharge Disposition: Home or Self Care Social [...] Sign Reading Time Taken Comments Blood Pressure 105/61 11/17/2024 11:23 AM EDT Pulse 75 11/17/2024 11:23 AM EDT Temperature - - Respiratory Rate 18 11/17/2024 11:23 AM EDT Oxygen Saturation 100% 11/17/2024 11:23 AM EDT Inhaled Oxygen Concentration - - Weight 50.8 kg (112 lb) 11/17/2024 11:23 AM EDT Height 152.4 cm (5') 11/17/2024 11:23 AM EDT Body Mass Index 21.87 11/17/2024 11:23 AM EDT documented in this encounter Functional [...] at Time of Discharge Blood Pressure Monitor [facility] KitIndications:Sync ope, unspecified syncope type,Other fatigue 1 Kit by [facility].(Non-El g; Combo Route) route daily. 1 Kit 11/02/2024 ergocalciferol (VITAMIN D) 1,250 mcg (50,000 unit) Oral CapsuleIndications: Vitamin D deficiency Take 1 Capsule by mouth once a week. 4 Capsule 2 10/11/2024 ibuprofen (ADVIL;MOTRIN) 600 mg tablet Take 1 Tab by mouth every 8 hours as needed for Pain for 21 doses. 21 Tab 0 04/01/2012 sulfamethoxazole-tr imethoprim (BACTRIM DS) 800-160 mg Oral TabletIndications:U TI (urinary tract infection), uncomplicated Take 1 Tablet by mouth every 12 hours for 5 days. 10 Tablet 11/17/2024 5 documented as of this encounter Discharge Disposition Disposition Code Departure Means Destination Home or Self Care documented in this encounter Progress Notes * Fredi Trevizo MD - 11/17/2024 11:20 AM EDT [facility] Hematology and Medical Oncology Patient: Sheryl Thompson CSN: [id number] Date of : 1975 Age: 49 y.o. Date of Service: 11/17/2024 HEMATOLOGY/ONCOLOGY NEW PATIENT VISIT Primary Care Physician: Chip Burt MD Referring Physician: Chip Burt MD Reason for Referral: [place] Disease DIAGNOSIS & TREATMENT HISTORY: Oncology History No history exists. Cancer Staging No matching staging information was found for the patient. CURRENT TREATMENT: None HISTORY OF PRESENT ILLNESS: Patient is a 49 y.o. 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 Labs drawn 10/07/24 with PCP showing no M-protein. K/L with kappa of 24.58 but normal ratio. CBC normal. CMP normal as well. Has fuzziness on the top of her head and causes her eyes to go unfocussed which causes confusion and anxiety. this has progressed into fainting/ falling twice so far. no tolerance to heat when she's hot, it causes increased sweating, sob, and chest pressure. States occurred for a while now. Went to echo this morning. HISTORY: Past Medical History: Diagnosis Date History of bilateral breast implants Kidney infection UTI (urinary tract infection) Past Surgical History: Procedure Laterality Date BREAST ENHANCEMENT SURGERY Bilateral TUBAL LIGATION WISDOM TOOTH EXTRACTION Bilateral Allergies Allergen Reactions Codeine Family History Problem Relation Age of Onset Heart Disease Mother COPD Mother Arrhythmia Mother Brain Cancer Father Arrhythmia Sister Other (MVC) Brother Social History Socioeconomic History Marital status: Spouse name: None Number of children: None Years of education: None Highest education level: None Tobacco Use Smoking status: Some Days Current packs/day: 0.50 Average packs/day: 0.5 packs/day for 25.5 years (12.8 ttl pk-yrs) Types: Cigarettes Start date: 1999 Smokeless tobacco: Never Vaping Use Vaping status: Never Used Substance and Sexual Activity Alcohol use: Yes Alcohol/week: 0.0 - 0.5 oz Comment: socially Drug use: No MEDICATIONS: Current Outpatient Medications Medication Blood Pressure Monitor Misc Kit ergocalciferol (VITAMIN D) 1,250 mcg (50,000 unit) Oral Capsule ibuprofen (ADVIL;MOTRIN) 600 mg tablet dextroamphetamine-amphetamine (ADDERALL XR) 15 mg Oral Capsule, Sust. Release 24 hr nicotine polacrilex (COMMIT) 2 mg Bucl Lozenge oxyCODONE-acetaminophen (PERCOCET) 5-325 mg Oral Tablet sulfamethoxazole-trimethoprim (BACTRIM DS) 800-160 mg Oral Tablet No current facility-administered medications for this encounter. PHYSICAL EXAM: Vitals: 11/17/24 1123 BP: 105/61 Pulse: 75 Resp: 18 SpO2: 100% Wt Readings from Last 3 Encounters: 11/17/24 112 lb (50.8 kg) 11/02/24 112 lb (50.8 kg) 09/29/24 113 lb 3.2 oz (51.3 kg) ECO General:Patient appears well developed, well nourished. LABORATORY DATA: WBC (x10(3)/mcL) Date Value 11/17/2024 7.7 10/07/2024 7.0 06/24/2024 9.6 02/06/2016 13.6 (H) 01/12/2013 7.4 04/23/2012 8.5 Hgb Date Value 11/17/2024 13.6 g/dL 10/07/2024 14.2 g/dL 06/24/2024 15.0 g/dL 02/06/2016 14.7 gm/dL 01/12/2013 13.5 gm/dL 04/23/2012 13.9 gm/dL Hct (%) Date Value 11/17/2024 40.3 10/07/2024 43.7 06/24/2024 43.4 02/06/2016 42.9 01/12/2013 39.9 04/23/2012 40.5 Platelet (x10(3)/mcL) Date Value 11/17/2024 265 10/07/2024 312 06/24/2024 339 02/06/2016 296 01/12/2013 260 04/23/2012 258 Neut Percent (%) Date Value 11/17/2024 48.2 10/07/2024 45.2 06/24/2024 63.3 02/06/2016 74.6 04/23/2012 67.4 Lymph Percent (%) Date Value 11/17/2024 28.0 10/07/2024 36.8 06/24/2024 25.7 02/06/2016 13.9 04/23/2012 25.7 [place] Percent (%) Date Value 11/17/2024 7.9 10/07/2024 8.6 06/24/2024 6.9 02/06/2016 10.1 04/23/2012 5.0 Total Protein (gm/dL) Date Value 11/17/2024 6.6 10/07/2024 6.7 10/07/2024 6.2 (L) 01/12/2013 6.5 Albumin (gm/dL) Date Value 11/17/2024 4.2 10/07/2024 4.1 06/24/2024 4.7 01/12/2013 3.8 Bili Total (mg/dL) Date Value 11/17/2024 0.3 10/07/2024 0.2 06/24/2024 0.4 01/12/2013 0.6 ALT Date Value 11/17/2024 17 U/L 10/07/2024 37 U/L 06/24/2024 17 U/L 01/12/2013 25 IU/L Alk Phos Date Value 11/17/2024 111 U/L 10/07/2024 124 U/L (H) 06/24/2024 147 U/L (H) 01/12/2013 78 IU/L Sodium (mmol/L) Date Value 11/17/2024 140 10/07/2024 139 06/24/2024 141 02/06/2016 141 01/12/2013 142 Potassium (mmol/L) Date Value 11/17/2024 3.9 10/07/2024 4.0 06/24/2024 4.6 02/06/2016 3.4 (L) 01/12/2013 3.7 Chloride (mmol/L) Date Value 11/17/2024 104 10/07/2024 106 06/24/2024 103 02/06/2016 100 01/12/2013 104 Total CO2 (mmol/L) Date Value 11/17/2024 26 10/07/2024 26 06/24/2024 27 02/06/2016 28 01/12/2013 28 Anion Gap (mmol/L) Date Value 11/17/2024 10 10/07/2024 7 06/24/2024 11 02/06/2016 13 01/12/2013 10 Calcium (mg/dL) Date Value 11/17/2024 8.8 10/07/2024 8.9 06/24/2024 9.6 02/06/2016 9.3 01/12/2013 9.0 Glucose Lvl (mg/dL) Date Value 11/17/2024 88 10/07/2024 96 06/24/2024 96 02/06/2016 90 01/12/2013 95 BUN (mg/dL) Date Value 11/17/2024 13 10/07/2024 14 06/24/2024 9 02/06/2016 5 (L) 01/12/2013 4 (L) Creatinine (mg/dL) Date Value 11/17/2024 0.62 10/07/2024 0.64 06/24/2024 0.67 02/06/2016 0.64 01/12/2013 0.6 GFR Afr Am (no units) Date Value 02/06/2016 >60 01/12/2013 >60 GFR Non Afr Am (no units) Date Value 02/06/2016 >60 01/12/2013 >60 IMAGES: No results found. PATHOLOGY & OTHER INVESTIGATIONS: No results found for: FINALDX ASSESSMENT & PLAN Patient is a 49 y.o. 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 Elevated [place] Light Chains Labs drawn 10/07/24 with PCP showing no M-protein. K/L with kappa of 24.58 but normal ratio. CBC normal. CMP normal as well. No M protein and normal ratio. No evidence of multiple myeloma. Syncope EKG abnormalities -Cardiology referral -Mom and sister had pacemaker -Syncopal episodes -Abnormal EKG PRN A total of 32 minutes of the encounter was spent in performing the following complex tasks: 1) Reviewing medical records in [facility] and if applicable outside records as well 2) Ordering labs and reviewing results 3) Obtaining history and performing a physical exam 4) Counseling and educating patient, family, and caregiver(s) 5) Ordering medications, labs/tests (including independent interpretation of results when not reported separately), procedures and coordinating care amongst other healthcare professionals 6) Documentation in the EMR Thank you for the opportunity to assist in the care of this patient, please feel free to contact meif I can be of any assistance. Fredi Trevizo MD Hematology and Medical Oncology [facility] 2` documented in this encounter Plan of Treatment Upcoming Encounters Date Type Department Care Team (Late st Contact Info) Description 01/04/2025 8:45 AM EDT Office [place] [facility] [address] [place] [id number] Chuyita Moscoso MD [address] [place] [address] 03/12/2025 1:40 PM EST Office Visit [facility] [address] [facility] [address] [place] [address] Chip Burt MD [address] [place] [address] 04/09/2025 10:00 AM EST Office [place] [facility] [address] [place] [address] Anh Patel, INTERSTATE [employer] DRIVER [address] [facility] [place], [place] [id number] Scheduled Orders Name Type Priority Associated Diagnoses Orde r Schedule KAPPA/LAMBDA FREE LIGHT CHAINS Lab STAT [place] light chain disease Expected: 11/19/2024, Expires: 11/16/2025 Scheduled Referrals Name Type Priority Associated Diagnoses Orde r Schedule AMB REFERRAL TO CARDIOLOGY Outpatient Referral Routine Syncope, unspecified syncope type EKG abnormality Ordered: 11/17/2024 documented as of this encounter Goals Goal Patient Goal Type Associated Problems Recent Progress Patient-Stated? Author Maintain a healthy diet, exercise regularly and maintain an ideal body weight General No Philippe Hansen MA Stay Tobacco Free Lifestyle No Philippe Hansen MA documented as of this encounter Results * COMPREHENSIVE METABOLIC PANEL (11/17/2024 10:37 AM EDT) Sodium 140 136 - 145 mmol/L 11/17/2024 10:57 AM EDT [facility] Potassium 3.9 3.5 - 5.0 mmol/L 11/17/2024 10:57 AM EDT [facility] Chloride 104 98 - 107 mmol/L 11/17/2024 10:57 AM EDT [facility] Total CO2 26 22 - 29 mmol/L 11/17/2024 10:57 AM [facility] Anion Gap 10 7 - 16 mmol/L 11/17/2024 10:57 AM [facility] Calcium 8.8 8.6 - 10.4 mg/dL 11/17/2024 10:57 AM [facility] Glucose Lvl 88 70 - 99 mg/dL 11/17/2024 10:57 AM EDT [facility] BUN 13 6 - 20 mg/dL 11/17/2024 10:57 AM EDT [facility] Creatinine 0.62 0.51 - 1.30 mg/dL 11/17/2024 10:57 AM T [facility] Albumin 4.2 3.5 - 5.2 gm/dL 11/17/2024 10:57 AM EDT [facility] Total Protein 6.6 6.4 - 8.3 gm/dL 11/17/2024 10:57 AM EDT [facility] Bili Total 0.3 0.2 - 1.3 mg/dL 11/17/2024 10:57 AM EDT [facility] ALT 17 <=41 U/L 11/17/2024 10:57 AM EDT [facility] AST 19 <=40 U/L 11/17/2024 10:57 AM EDT [facility] Alk Phos 111 36 - 123 U/L 11/17/2024 10:57 AM EDT [facility] eGFR (CKD-EPIcr 2020) 109 >=60 mL/min/1.7 3 m2 11/17/2024 10:57 AM EDT [facility] Comment:Estimated GFR was ca lculated using the CKD-EPIcr (2020) equation refit without race. The equation is recommended by the National Kidney [employer] - [place] [employer] Nephrology Task Force. Blood VENOUS BLOOD / Unknown Venipuncture / Unknown 11/17/2024 10:37 AM EDT 11/17/2024 10:40 AM EDT us Fredi Trevizo MD CHEMISTRY ORDERABLES Final Res ult [facility] [address] [place] [address] * (ABNORMAL) CBC WITH DIFF (11/17/2024 10:37 AM EDT) WBC 7.7 3.7 - 10.3 x10(3)/mcL 11/17/2024 10:42 AM EDT [facility] RBC 4.37 3.90 - 5.20 x10(6)/mcL 11/17/2024 10:42 AM EDT [facility] Hgb 13.6 11.2 - 15.7 g/dL 11/17/2024 10:42 AM EDT [facility] Hct 40.3 34.0 - 45.0 % 11/17/2024 10:42 AM EDT [facility] MCV 92.2 80.0 - 100.0 fL 11/17/2024 10:42 AM EDT [facility] MCH 31.1 26.0 - 34.0 pg 11/17/2024 10:42 AM EDT [facility] MCHC 33.7 30.7 - 35.5 g/dL 11/17/2024 10:42 AM EDT [facility] RDW 13.7 <=14.9 % 11/17/2024 10:42 AM EDT [facility] Platelet 265 155 - 369 x10(3)/mcL 11/17/2024 10:42 AM EDT [facility] MPV 9.2 8.8 - 12.5 fL 11/17/2024 10:42 AM EDT [facility] Neut Percent 48.2 % 11/17/2024 10:42 AM EDT [facility] Comment:Neutrophils equals s egs plus bands Imm Gran% 0.3 % 11/17/2024 10:42 AM EDT [facility] Comment:Automated count of m etamyelocytes, myelocytes and promyelocytes. Lymph Percent 28.0 % 11/17/2024 10:42 AM EDT [facility] [place] Percent 7.9 % 11/17/2024 10:42 AM EDT [facility] Eos Percent 14.8 % 11/17/2024 10:42 AM EDT [facility] Baso Percent 0.8 % 11/17/2024 10:42 AM EDT [facility] Neut # 3.7 1.6 - 6.1 x10(3)/[facility] 11/17/2024 10:42 AM EDT [facility] Comment:Neutrophils equals s egs plus bands IMMGRAN# 0.0 0.0 - 0.1 x10(3)/mcL 11/17/2024 10:42 AM EDT [facility] Comment:Automated count of m etamyelocytes, myelocytes and promyelocytes. An absolute IG <0.1 is reported as 0.0. Lymph # 2.2 1.2 - 3.9 x10(3)/mcL 11/17/2024 10:42 AM EDT [facility] [place] # 0.6 0.3 - 0.9 x10(3)/[facility] 11/17/2024 10:42 AM EDT [facility] Eos# 1.1(H) 0.0 - 0.5 x10(3)/[facility] 11/17/2024 10:42 AM EDT [facility] Baso # 0.1 0.0 - 0.1 x10(3)/[facility] 11/17/2024 10:42 AM EDT [facility] Blood VENOUS BLOOD / Unknown Venipuncture / Unknown 11/17/2024 10:37 AM EDT 11/17/2024 10:40 AM EDT us Fredi Trevizo MD HEMATOLOGY ORDERABLES Final Re sult 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
--- OUTSIDE RECORDS SUMMARY | 2024-11-23 10:20 | XMS_ITS | Encounter Summary ---
Author Organization [place] [address] Care Team Providers Care Direct Service Worker Name Role Phone Marleny Burt MD Primary Care Provider [phone] Reason for Referral * Holter Monitor (Routine) - Authorization Not Needed Specialty Diagnoses / Procedures Referred By Contac t Referred To Contact Radiology Diagnoses Syncope, unspecified syncope type Dizziness Intermittent palpitations Abnormal EKG Procedures HOLTER MONITOR RECORDING AND ANALYSIS Marleny Burt MD [address] [place] [address] Phone: tel: fax: Referral ID Status Reason Start Date Expiration Date Visits Requested Visits Authorized [id number] Authorization Not Needed 11/23/2024 11/23/2026 1 1 * MRI/CAT Scan (Urgent) - PCP Precert Acquired Specialty Diagnoses / Procedures Referred By Contac t Referred To Contact Radiology Diagnoses Transient leg weakness Procedures MRI LUMBAR SPINE W WO CONTRAST Marleny Burt MD [address] [place] [address] Phone: tel: fax: Referral ID Status Reason Start Date Expiration Date V isits Requested Visits Authorized [id number] PCP Precert Acquired 11/23/2024 11/23/2025 1 1 * MRI/CAT Scan (Routine) - PCP Precert Acquired Specialty Diagnoses / Procedures [facility] To Contact Radiology Diagnoses Syncope, unspecified syncope type Dizziness Vision changes Transient leg weakness Procedures MRI BRAIN W WO CONTRAST Marleny Burt MD [address] [place] [address] Phone: tel: fax: Referral ID Status Reason Start Date Expiration Date V isits Requested Visits Authorized [id number] PCP Precert Acquired 11/23/2024 11/23/2025 1 1 * Consultation (Routine) - Authorization Not Needed Specialty Diagnoses / Procedures Referred By Contac t Referred To Contact Neurology Diagnoses Syncope, unspecified syncope type Dizziness Vision changes Transient leg weakness Procedures ME OFFICE/OUTPATIENT NEW MODERATE MDM 45 MINUTES Marleny Burt MD [address] [place] [address] Phone: tel: fax: [facility] Neu[facility] [place] [address] [place] [address] Phone: tel: fax: Referral ID Status Reason Start Date Expiration Date Visits Requested Visits Authorized [id number] Authorization Not Needed 11/23/2024 11/23/2025 99 99 * MRI/CAT Scan (Urgent) - PCP Precert Acquired Specialty Diagnoses / Procedures Referred By Contac t Referred To Contact Radiology Diagnoses Syncope, unspecified syncope type Dizziness Vision changes Transient leg weakness Procedures CT ANGIOGRAM HEAD AND NECK W CONTRAST Marleny Burt MD [address] [place] [address] Phone: tel: fax: Referral ID Status Reason Start Date Expiration Date V isits Requested Visits Authorized [id number] PCP Precert Acquired 11/23/2024 11/23/2025 1 1 * MRI/CAT Scan (Emergency) - PCP Precert Acquired Specialty Diagnoses / Procedures Referred By Contac t Referred To Contact Radiology Diagnoses Syncope, unspecified syncope type Dizziness Vision changes Transient leg weakness Procedures CT HEAD WO CONTRAST Marleny Burt MD [address] [place] [address] Phone: tel: fax: Referral ID Status Reason Start Date Expiration Date V isits Requested Visits Authorized [id number] PCP Precert Acquired 11/23/2024 11/23/2025 1 1 * Consultation (Routine) - Closed Specialty Diagnoses / Procedures Referred By Contart t Referred To Contact Behavioral Health Diagnoses Generalized anxiety disorder Marleny Burt MD [address] [place] [address] Phone: tel: fax: [address] [place] [address] Phone: tel: fax: Referral ID Status Reason Start Date Expiration Date V isits Requested Visits Authorized [id number] Closed Specialty Services Required 11/23/2024 11/23/2025 99 99 Question Answer Provider Options First Available Reason for Visit * Reason Comments Dizziness pt state Wednesday a t work she felt overheated light headed and loss of vision. Encounter Details Date Type Department Care Team (Late st Contact Info) Description 11/23/2024 10:20 AM EDT Office Visit [facility] [address] [facility] [address] [place] [address] Marleny Burt MD [address] [place] [address] Syncope, unspecified syncope type (Primary Dx); Dizziness; [...] to: NRT gum -consider Bupoprion Orders: - ME TOBACCO USE CESSATION INTERMEDIATE 3-10 MINUTES UTI [...] Transaminitis labs, monitor US RUQ 10/2024 reassuring [place] light chain disease -Follows with Hematology last [...] Resources/Support: family, friends Reviewed/Discussed following -Care management -[facility] Assistance Line *Labs and imaging [...] 8:45 AM EDT Office Visit [facility] Neu[facility] [address] [place] [address] Chuyita Moscoso MD [address] [place] [address] 03/12/2025 1:40 PM EST Office Visit [facility] [address] [address] Marleny Burt MD [address] [place] [address] 04/09/2025 10:00 AM EST Office Visit [facility] [address] [place] [address] Anh Patel, SAP BI ARCHITECT 1 [facility] VIJAY Guidry [id number] Scheduled Orders Name Type Priority Associated Diagnoses Orde r Schedule ME TOBACCO USE CESSATION INTERMEDIATE 3-10 MINUTES ME Charge Routine Cigarette smoker Ordered: 11/23/2024 UA [...] R29.898-Other symptoms and signs involving the musculoskeletal sbzilz-WYT-16-CM. COMPARISON: No prior lumbar spine MR studies [...] heavy R29.898-Other symptoms and signsinvolving the musculoskeletal xexoid-FJE-31-CM. COMPARISON: No prior lumbar spine MR studies [...] WO CONTRAST 12/01/2024 3:25 PM CLINICAL HISTORY: R42-Fawbjbp and hsdcaenk-ZMT-89-CM P42-Wxcdrzoua and zcwmetizr-QOU-14-CM H53.9-Unspecified visual eytmvqmgxjo-YGB-35-CM R29.898-Other symptoms and signs involving the musculoskeletal kswynd-LTT-57-CM. COMPARISON: Head CT 11/23/2024 PROCEDURE COMMENTS: Multiplanar [...] WO CONTRAST 12/01/2024 3:25 PM CLINICAL HISTORY: C26-Mjmyzdz and fyfojsnv-IWG-80-CM Z50-Urferbebx and nrryudkvu-IFE-65-CM H53.9-Unspecified visual qcdrnfxmbnn-MRY-23-CM R29.898-Other symptoms and signs involving the muklyaipzkobewaowdjlg-VOL-47-CM. COMPARISON: Head CT 11/23/2024 PROCEDURE COMMENTS: Multiplanar [...] AM EDT Impressions 12/07/2024 10:45 AM EDT [facility] Test Date: 2024-12-07 Pat Name: SHERYL CORDERO Department: DEPID Room: Gender: Female [employer] Rep: : 1975 Requested By: MARLENY Villagomez Order Number: [id number] Michael MD: Donnie Lam MD Interpretive Statements Principal Mechanical Engineer Date: 12/01/2024 Referring Provider: Dr. Marleny Burt [...] SHERYL CORDERO Department: DEPID Room: Gender: Female [employer] Rep: : 1975 Requested By: MARLENY Villagomez Order Number: [id number] Reading MD: Donnie Lam MD Interpretive Statements Principal Mechanical Engineer Date: 12/01/2024 Referring Provider: Dr. Marleny Burt [...] WITH CONTRAST, 11/24/2024 10:27 AM CLINICAL HISTORY: B58-Fcegbbf and ufabynxj-PCV-25-CM U23-Vkpibrgkf and qkmpqpswg-IZJ-82-CM H53.9-Unspecified visual yunxcqecrfa-PHN-01-CM R29.898-Other symptoms and signs involving the musculoskeletal ckghpw-RNE-11-CM. COMPARISON: Concurrently obtained CT brain, CTA 06/24/2024 [...] WITH CONTRAST, 11/24/2024 10:27 AM CLINICAL HISTORY: H49-Ceccoir and mdtmueof-REC-56-CM V27-Dhzqasamk and njgjpzuxz-YJZ-72-CM H53.9-Unspecified visual cksizydxspu-SLE-21-CM R29.898-Other symptoms and signs involving the rwgfyvbjlurdhjlvzvfpk-XFX-30-CM. COMPARISON: Concurrently obtained CT brain, CTA 06/24/2024 [...] WO CONTRAST 11/23/2024 1:11 PM CLINICAL HISTORY: Y03-Vadbfcv and mhfbhhdo-VJJ-93-CM D60-Laiiljyfo and ivjzbvkrx-EBC-94-CM H53.9-Unspecified visual ipphadicrqc-HFB-54-CM R29.898-Other symptoms and signs involving the musculoskeletal ekcysp-GMC-21-CM. COMPARISON: None. PROCEDURE COMMENTS: Routine noncontrast head [...] WO CONTRAST 11/23/2024 1:11 PM CLINICAL HISTORY: M03-Ntkfugl and ugpcigzh-JWE-80-CM K57-Obsftibkn and utvzqwmih-AYK-57-CM H53.9-Unspecified visual xgloqvzzsyo-WIZ-47-CM R29.898-Other symptoms and signs involving the ncljkmeqtblcwaruojpvn-STV-76-CM. COMPARISON: None. PROCEDURE COMMENTS: Routine noncontrast head [...] documented as of this encounter Care Teams Direct Service Worker Relationship Specialty Start Date End Date Marleny Burt MD [address] [place] [address] PCP - General Family Medicine 09/29/24 documented as of this encounter
--- OUTSIDE RECORDS SUMMARY | 2024-11-23 13:04 | XMS_ITS | Encounter Summary ---
Author Organization [place] [address] Care Team Providers Care Pharmacist In Charge Name Role Phone Chip Burt MD Primary Care Provider [phone] Reason for Referral * MRI/CAT Scan (Emergency) - PCP Precert Acquired Specialty Diagnoses / Procedures Referred By Contac t Referred To Contact Radiology Diagnoses Syncope, unspecified syncope type Dizziness Vision changes Transient leg weakness Procedures CT HEAD WO CONTRAST Chip Burt MD [address] [place] [address] Phone: tel: fax: Referral ID Status Reason Start Date Expiration Date V isits Requested Visits Authorized [id number] PCP Precert Acquired 11/23/2024 11/23/2025 1 1 Reason for Visit * MRI/CAT Scan (Emergency) - PCP Precert Acquired Specialty Diagnoses / Procedures Referred By Contac t Referred To Contact Radiology Diagnoses Syncope, unspecified syncope type Dizziness Vision changes Transient leg weakness Procedures CT HEAD WO CONTRAST Chip Burt MD [address] [place] [address] Phone: tel: fax: Referral ID Status Reason Start Date Expiration Date V isits Requested Visits Authorized [id number] PCP Precert Acquired 11/23/2024 11/23/2025 1 1 Encounter Details Date Type Department Care Team (Latest Contact Info) Description 11/23/2024 1:04 PM EDT - 11/23/2024 11:59 PM EDT Hospital Encounter [place] [address] Chip Burt MD [address] [place] [address] Syncope, unspecified syncope type; Dizziness; Vision changes; [...] Time of Discharge Blood Pressure Monitor [facility] KitIndications:Syn cope, unspecified syncope type,Other fatigue 1 Kit by [facility].(Non-El g; Combo Route) route daily. 1 [...] Neurology [facility] [address] [place] [address] Chuyita Moscoso MD [address] [place] [address] 03/12/2025 1:40 PM EST Office Visit [facility] [address] [facility] [address] [place] [address] Chip Burt MD [address] [place] [address] 04/09/2025 10:00 AM EST Office Visit [facility] [place] [address] [place], [place] [id number] Anh Patel APRN 1 [facility] [place] [id number] documented as of this encounter Goals Goal [...] WO CONTRAST 11/23/2024 1:11 PM CLINICAL HISTORY: Q13-Xzfwtab and jhmpcdvq-DHW-35-CM X21-Bylmlbqcy and xjzvxxook-KWO-57-CM H53.9-Unspecified visual egtbnvwieie-HCA-10-CM R29.898-Other symptoms and signs involving the musculoskeletal vfabis-RTH-24-CM. COMPARISON: None. PROCEDURE COMMENTS: Routine noncontrast head [...] WO CONTRAST 11/23/2024 1:11 PM CLINICAL HISTORY: L28-Jbupgcn and vcwufoiy-MCU-00-CM D46-Lvvfgfuix and rdsqlikns-YDK-14-CM H53.9-Unspecified visual egsmzkkedlj-YGJ-25-CM R29.898-Other symptoms and signs involving the wbiplcanmxkexuuhexfhk-NXQ-57-CM. COMPARISON: None. PROCEDURE COMMENTS: Routine noncontrast head [...] please contactthe office of the ordering clinician. Chip Burt MD IMG CT ORDERABLES Final Resul t documented in this encounter Visit Diagnoses Diagnosis Syncope, unspecified syncope type Dizziness Dizziness and giddiness Vision changes Unspecified visual disturbance Transient leg weakness documented in this encounter Care Teams Pharmacist In Charge Relationship Specialty Start Date End Date Chip Burt MD [address] [place] [address] PCP - General Family Medicine 09/29/24 documented as of this encounter
--- OUTSIDE RECORDS SUMMARY | 2024-11-24 10:07 | XMS_ITS | Encounter Summary ---
Author Organization [place] [address] Care Team Providers Care Manufacturing Teacher Name Role Phone Chip Burt MD Primary Care Provider [phone] Reason for Referral * MRI/CAT Scan (Urgent) - PCP Precert Acquired Specialty Diagnoses / Procedures Referred By Gisellac t Referred To Contact Radiology Diagnoses Syncope, unspecified syncope type Dizziness Vision changes Transient leg weakness Procedures CT ANGIOGRAM HEAD AND NECK W CONTRAST Chip Burt MD [address] [place] [address] Phone: tel: fax: Referral ID Status Reason Start Date Expiration Date V isits Requested Visits Authorized [id number] PCP Precert Acquired 11/23/2024 11/23/2025 1 1 Reason for Visit * MRI/CAT Scan (Urgent) - PCP Precert Acquired Specialty Diagnoses / Procedures Referred By Contac t Referred To Contact Radiology Diagnoses Syncope, unspecified syncope type Dizziness Vision changes Transient leg weakness Procedures CT ANGIOGRAM HEAD AND NECK W CONTRAST Chip Burt MD [address] [place] [address] Phone: tel: fax: Referral ID Status Reason Start Date Expiration Date V isits Requested Visits Authorized [id number] PCP Precert Acquired 11/23/2024 11/23/2025 1 1 Encounter Details Date Type Department Care Team (Latest Contact Info) Description 11/24/2024 10:07 AM EDT - 11/24/2024 11:59 PM EDT Hospital Encounter [facility] [address] [place] [id number] Chip Burt MD [address] [place] [address] Syncope, unspecified syncope type; Dizziness; Vision changes; [...] Discharge Blood Pressure Monitor [facility] KitIndications:Syn cope, unspecified syncope type,Other fatigue 1 Kit by [facility]Non-El g; Combo Route) route daily. 1 Kit [...] 8:45 AM EDT Office Visit [facility] [address] [place] [address] Chuyita Moscoso MD [address] [place] [address] 03/12/2025 1:40 PM EST Office Visit [facility] [address] [facility] [address] [place] [address] Chip Burt MD [address] [place] [address] 04/09/2025 10:00 AM EST Office Visit [facility] [place] [address] [place] [address] Anh Patel APRN [address] [facility] [address] documented as of this encounter Goals [...] WITH CONTRAST, 11/24/2024 10:27 AM CLINICAL HISTORY: X36-Rlqbeke and urzukbwa-AFX-86-CM B96-Bxabopqty and gyfjuwyom-JLM-88-CM H53.9-Unspecified visual udfnolvbimi-SVG-37-CM R29.898-Other symptoms and signs involving the musculoskeletal ycyuif-ZSA-02-CM. COMPARISON: Concurrently obtained CT brain, CTA 06/24/2024 [...] WITH CONTRAST, 11/24/2024 10:27 AM CLINICAL HISTORY: W03-Nsmerbr and wfoyaxwe-ZKI-05-CM W58-Xwunptnbk and wiwvfclyh-NSG-83-CM H53.9-Unspecified visual tmihlycljis-JLS-63-CM R29.898-Other symptoms and signs involving the hmwxjlvmefgslserswfzy-VFQ-54-CM. COMPARISON: Concurrently obtained CT brain, CTA 06/24/2024 [...] EDT documented in this encounter Care Teams Manufacturing Teacher Relationship Specialty Start Date End Date Chip Burt MD [address] [place] [address] PCP - General Family Medicine 09/29/24 documented as of this encounter
--- OUTSIDE RECORDS SUMMARY | 2024-11-24 13:40 | XMS_ITS | Encounter Summary ---
Author Organization [facility] Address [address] [place] [address] Care Team Providers Care Hvac Controls Technician Name Role Phone Gretchen Juarez MD Primary Care Provider Tiffanie bullard Reason for Visit * Reason Comments Gynecologic Exam Encounter Details Date Type Department Care Team (Late st Contact Info) Description 11/24/2024 1:40 PM EDT Office Visit [facility] Physicians - Obstetrics & Gynecology, [place] [address] [place] [address] Amalia Joya, COMPUTER SCIENCES PROFESSOR [address] [place] [address] Gynecologic exam normal (Primary Dx); Vaginitis and [...] encounter Progress Notes * Kalina Joyay AndreGaurang, COMPUTER SCIENCES PROFESSOR - 11/24/2024 1:40 PM EDT Subjective Subjective: [...] AZALIA (11/24/2024 2:43 PM EDT) Diagnosis Comment [facility]PER[facility] Comment:NEGATIVE FOR INTRAEP ITHELIAL LESION OR MALIGNANCY. Adequacy Comment [facility] Comment: Satisfactory for evaluation. Endocervical and/or squamous metaplastic cells (endocervical component) are present. Performed Comment [facility] Comment:Anh Lainez, Cyto logist (ASCP) Notes Comment [facility] Comment: The Pap smear is a screening test designed to aid in the detection of premalignant and malignant conditions of the uterine cervix. It is not a diagnostic procedure and should not be used as the sole means of detecting cervical cancer. Both false-positive and false-negative reports do occur. HPV 16 Henrik Negative Negative [facility] HPV 18, Henrik Negative Negative [facility] Comment: This nucleic acid amplification test detects fourteen high-risk HPV types: HPV16, HPV18 and twelve other high-risk types (31,33,35,39,45,51,52,56,58,59,66,68) without differentiation. Performed at: - [facility] [id number] Product Safety Lead: Shazia Marrero MD, Phone: [phone] Performed at: = - [facility] [address] [id number] Product Safety Lead: Shazia Marrero MD, Phone: [phone] HPV Other Types, Henrik Negative Negative [facility] Pap Vial 11/24/2024 2:43 PM EDT 11/28/2024 3:07 PM EDT Amalia Joya COMPUTER SCIENCES PROFESSOR PATHOLOGY/CYTOLOGY ORDERABL ES Final Result [facility] [address] [place] [address], [facility] documented in this encounter Visit Diagnoses Diagnosis Gynecologic exam normal- Primary Reserved for inherently not codable concepts WITHOUT codable children Vaginitis and vulvovaginitis Postmenopausal bleeding documented in this encounter Care Teams Hvac Controls Technician Relationship Specialty Start Date End Date Gretchen Juarez MD PCP - General Family Medicine 05/13/12 documented as of this encounter
--- OUTSIDE RECORDS SUMMARY | 2024-11-24 14:40 | XMS_ITS | Encounter Summary ---
Author Organization [facility] Address [address] [place] [address] Care Team Providers Care Molder Foam Rubber Name Role Phone Gretchen Juarez MD Primary Care Provider Tiffanie bullard Encounter Details Date Type Department Care Team (Latest Contact Info) Description 11/24/2024 2:40 PM EDT - 11/24/2024 11:59 PM EDT Hospital Encounter Laboratory [address] [facility] [place] [address] [place] [address] Gynecologic exam normal Discharge Disposition: Home or Self Care Social History Tobacco Use Types Packs/Day Years Used Date Smoking Tobacco: Some Days Cigarettes Smokeless Tobacco: Never Alcohol Use Standard Drinks/Week Comments Yes 0 (1 standard drink = 0.6 oz pur e alcohol) socially Comments No Sex and Gender Information Value Date Recorded Sex Assigned at Not on file Legal Sex Female 7:23 PM EST Gender Identity Not on file Sexual Orientation Not on file documented as of this encounter Medications at Time of Discharge dextroamphetamine -amphetamine (ADDERALL XR) 15 mg Capsule, Sust. Release 24 hr Take 15 mg by mouth. ergocalciferol (ERGOCALCIFEROL) 1,250 mcg (50,000 unit) Capsule Take 50,000 Units by mouth. famotidine (PEPCID) 20 mg PO tablet Take 20 mg by mouth 2 times daily. ibuprofen (MOTRIN) 600 mg PO tablet prn methylPREDNISolon e (MEDROL) 4 mg tablet Take as directed on package insert. May take all tablets for ear day as a single dose in morning with food. sertraline (ZOLOFT) 25 mg tablet 1/2 po qhs for a week then inc to 1 at hs 30 Tab 0 01/15/2016 valACYclovir (VALTREX) 1 gram tablet 2 po bid for 1 day 4 Tablet 3 12/25/2020 documented as of this encounter Plan of Treatment Not on file documented as of this encounter Procedures Procedure Name Priority Date/Time Associated Diagnosis Comments PAP HPV DNA, AZALIA Routine 11/24/2024 2:4 3 PM EDT Gynecologic exam normal documented in this encounter Results * PAP HPV DNA, AZALIA (11/24/2024 2:43 PM EDT) Diagnosis Comment [facility] MEDICARE SPECIALIST AL LAB Comment:NEGATIVE FOR INTRAEP ITHELIAL LESION OR MALIGNANCY. Adequacy Comment [facility] MEDICARE SPECIALIST AL LAB Comment: Satisfactory for evaluation. Endocervical and/or squamous metaplastic cells (endocervical component) are present. Performed Comment [facility] MEDICARE SPECIALIST AL LAB Comment:Anh Lainez, Cyto logist (ASCP) Notes Comment [facility] MEDICARE SPECIALIST AL LAB Comment: The Pap smear is a screening test designed to aid in the detection of premalignant and malignant conditions of the uterine cervix. It is not a diagnostic procedure and should not be used as the sole means of detecting cervical cancer. Both false-positive and false-negative reports do occur. HPV 16 Henrik Negative Negative [facility] HPV 18, Henrik Negative Negative [facility] TERNAL [facility] Comment: This nucleic acid amplification test detects fourteen high-risk HPV types: HPV16, HPV18 and twelve other high-risk types (31,33,35,39,45,51,52,56,58,59,66,68) without differentiation. Performed at: - [address] [id number] Mold Washer: Shazia Marrero MD, Phone: [phone] Performed at: = - [facility] [id number] Mold Washer: Shazia Marrero MD, Phone: [phone] HPV Other Types, Henrik Negative Negative [facility] EXTERNAL [facility] Pap Vial 11/24/2024 2:43 PM EDT 11/28/2024 3:07 PM EDT Amalia Joya EQUITY DIRECTOR PATHOLOGY/CYTOLOGY ORDERABL ES Final Result [facility] EXTER[facility] [address] documented in this encounter Visit Diagnoses Diagnosis Gynecologic exam normal Reserved for inherently not codable concepts WITHOUT codable children documented in this encounter Care Teams Molder Foam Rubber Relationship Specialty Start Date End Date Gretchen Juarez MD PCP - General Family Medicine 05/13/12 documented as of this encounter
--- OUTSIDE RECORDS SUMMARY | 2024-11-30 14:45 | XMS_ITS | Encounter Summary ---
Author Organization [place] [address] Care Team Providers Care Independent Jeweler Name Role Phone Chip Burt MD Primary Care Provider Reason for Visit * Reason Comments Follow-up 1 week Urinary Frequency smell to urine jessica tamez has been getting treated Encounter Details Date Type Department Care Team (Latest Contact Info) Description 11/30/2024 2:45 PM EDT Office Visit [facility] [address] [facility] [address] [place] [phone] Fabby Joya MD [address] [facility] [address] [place] [address] Dizziness (Primary Dx); Urinary frequency; UTI (urinary [...] SEP Neurology [facility] [address] [place] [phone] Chuyita Moscoso MD [address] [place] [address] 03/12/2025 1:40 PM EST Office Visit [facility] [address] [phone] Chip Burt MD [address] [place] [address] 04/09/2025 10:00 AM EST Office Visit [facility] [place] [address] [place] [address] Anh Patel APRN 1 [facility] [place] [address] documented as of this encounter Goals Goal [...] 30 hours. 12/02/2024 1:48 PM EDT [facility] Urine STRUCTURE OF URINARY TRACT PROPER / Unknown 11/30/2024 3:30 PM EDT 11/30/2024 3:30 PM EDT us Fabby Joya MD MICROBIOLOGY - GENERAL ORDERA BLES Final Result [facility] [address] [facility] , [place] [address] * (ABNORMAL) SEP URINALYSIS POC [...] POINT OF CARE TEST ORDERABLES Final Result [facility] [address], [address] [place] [address] documented in this encounter Visit Diagnoses Diagnosis [...] documented as of this encounter Care Teams Independent Jeweler Relationship Specialty Start Date End Date Chip Burt MD [address] [place] [address] PCP - General Family Medicine 09/29/24 documented as of this encounter
--- OUTSIDE RECORDS SUMMARY | 2024-12-01 10:47 | XMS_ITS | Encounter Summary ---
Author Organization [place] [address] Care Team Providers Care Auto Former Machine Operator Name Role Phone Chip Burt MD Primary Care Provider [phone] Reason for Referral * Holter Monitor (Routine) - Authorization Not Needed Specialty Diagnoses / Procedures Referred By Contac t Referred To Contact Radiology Diagnoses Syncope, unspecified syncope type Dizziness Intermittent palpitations Abnormal EKG Procedures HOLTER MONITOR RECORDING AND ANALYSIS Chip Burt MD [address] [place] [address] Phone: tel: fax: Referral ID Status Reason Start Date Expiration Date Visits Requested Visits Authorized [id number] Authorization Not Needed 11/23/2024 11/23/2026 1 1 Reason for Visit * Holter Monitor (Routine) - Authorization Not Needed Specialty Diagnoses / Procedures Referred By Contac t Referred To Contact Radiology Diagnoses Syncope, unspecified syncope type Dizziness Intermittent palpitations Abnormal EKG Procedures HOLTER MONITOR RECORDING AND ANALYSIS Chip Burt MD [address] [place] [address] Phone: tel: fax: Referral ID Status Reason Start Date Expiration Date Visits Requested Visits Authorized [id number] Authorization Not Needed 11/23/2024 11/23/2026 1 1 Encounter Details Date Type Department Care Team (Latest Contact Info) Description 12/01/2024 10:47 AM EDT - 12/01/2024 1:34 PM EDT Hospital Encounter [facility] HOLTER [facility] [place] [address] Chip Burt MD [address] [place] [address] Syncope, unspecified syncope type; Dizziness; Intermittent palpitations; Abnormal EKG Discharge Disposition: Home or Self Care Social [...] Time of Discharge Blood Pressure [place] [facility] [place] Kit[place]ications:Syn cope, unspecified syncope type,Other fatigue 1 Kit by [facility] [place]Non-El g; [...] Description 01/04/2025 8:45 AM EDT Office [place] [facility] [place] [facility] [address] [place] [address] Chuyita Moscoso MD [address] [place] [address] 03/12/2025 1:40 PM EST Office Visit [facility] [address] [facility] [address] [place] [address] Chip Burt MD [address] [place] [address] 04/09/2025 10:00 AM EST Office [place] [facility] [place] [address] [place] [address] Anh Patel APRN [address] [facility] [place] [address] documented as of this encounter Goals Goal Patient Goal Type Associated Problems Recent Progress Patient-Stated? Author Maintain a healthy diet, exercise regularly and maintain an ideal body weight General Philippe Love MA Stay Tobacco Free Lifestyle No Philippe Hansen MA documented as of this encounter Procedures Procedure Name Priority Date/Time Associated Diagnosis Comments HOLTER MONITOR RECORDING AND ANALYSIS Routine 12/01/2024 11:12 AM EDT Syncope, unspecified syncope type Dizziness Intermittent palpitations Abnormal EKG documented in this encounter Results * HOLTER MONITOR RECORDING AND ANALYSIS (12/01/2024 11:12 AM EDT) Anatomical Region Laterality Modality Holter/Event Mon itoring 12/07/2024 8:25 AM EDT Impressions 12/07/2024 10:[address] [facility] Test Date: 2024-12-07 Pat Name: MANA THOMPSON Department: DEPID Room: Gender: Female Electronics Utility Worker: : 1975 Requested By: CHIP Villagomez Order Number: [id number] Michael MD: Donnie Lam MD Interpretive Statements Quality System Manager Date: 12/01/2024 Referring Provider: Dr. Chip Burt MD Patient was monitored for 48 [...] [facility] Test Date: 2024-12-07 Pat Name: MANA THOMPSON Department: DEPID Room: Gender: Female Electronics Utility Worker: : 1975 Requested By: CHIP Villagomez Order Number: [id number] Michael ALVARADO: Donnie Lam MD Interpretive Statements Quality System Manager Date: 12/01/2024 Referring Provider: Dr. Chip Burt MD Patient was monitored for 48 [...] 10:44:58 EDT by Donnie Lam MD us Chip Burt MD IMG HOLTER MONITOR ORDERABLES Final Result documented in this encounter Visit Diagnoses Diagnosis Syncope, unspecified syncope type Dizziness Dizziness and giddiness Intermittent palpitations Abnormal EKG Nonspecific abnormal electrocardiogram (ECG) (EKG) documented in this encounter Care Teams Auto Former Machine Operator Relationship Specialty Start Date End Date Chip Burt MD [address] [place] [address] PCP - General Family Medicine 09/29/24 documented as of this encounter
--- OUTSIDE RECORDS SUMMARY | 2024-12-01 13:35 | XMS_ITS | Encounter Summary ---
Author Organization [place] [address] Care Team Providers Care Safety Specialist Name Role Phone Chip Burt MD Primary Care Provider [phone] Reason for Referral * MRI/CAT Scan (Urgent) - PCP Precert Acquired Specialty Diagnoses / Procedures Referred By Contac t Referred To Contact Radiology Diagnoses Transient leg weakness Procedures MRI LUMBAR SPINE W WO CONTRAST Chip Burt MD [address] [place] [address] Phone: tel: fax: Referral ID Status Reason Start Date Expiration Date V isits Requested Visits Authorized [id number] PCP Precert Acquired 11/23/2024 11/23/2025 1 1 Reason for Visit * MRI/CAT Scan (Urgent) - PCP Precert Acquired Specialty Diagnoses / Procedures Referred By Contac t Referred To Contact Radiology Diagnoses Transient leg weakness Procedures MRI LUMBAR SPINE W WO CONTRAST Chip Burt MD [address] [place] [address] Phone: tel: fax: Referral ID Status Reason Start Date Expiration Date V isits Requested Visits Authorized [id number] PCP Precert Acquired 11/23/2024 11/23/2025 1 1 Encounter Details Date Type Department Care Team (Latest Contact Info) Description 12/01/2024 1:35 PM EDT Hospital Encounter [facility] MRI [address] [place] [address] Chip Burt MD [address] [place] [address] Transient leg weakness Discharge Disposition: Home or [...] Description 01/04/2025 8:45 AM EDT Office Visit [facility] [place] [facility] [address] [place] [address] [place] [address] Chuyita Moscoso MD [address] [place] [address] 03/12/2025 1:40 PM EST Office Visit [facility] [address] [facility] [address] [place] [phone] Chip Burt MD [address] [place], [place] [id number] 04/09/2025 10:00 AM EST Office Visit [facility] H&[facility] [place] [address] [place] [address] Anh Patel APRN 1 [facility] [place], [place] [id number] documented as of this encounter Goals Goal Patient Goal Type Associated Problems Recent Progress Patient-Stated? Author Maintain a healthy diet, exercise regularly and maintain an ideal body weight General No Philippe Hansen MA Stay Tobacco Free Lifestyle No Philippe Hansen MA documented as of this encounter Procedures Procedure Name Priority Date/Time Associated Diagnosis Comments MRI LUMBAR SPINE W WO CONTRAST WINNIE 12/01/2024 3:26 PM EDT Transient leg weakness documented in this encounter Results * MRI LUMBAR SPINE [...] R29.898-Other symptoms and signs involving the musculoskeletal [id number]-PSF-68-CM. COMPARISON: No prior lumbar spine MR studies [...] heavy R29.898-Other symptoms and signsinvolving the musculoskeletal ahjeqy-KSR-76-CM. COMPARISON: No prior lumbar spine MR studies [...] of the ordering clinician. Chip Burt MD [facility] MRI ORDERABLES Final Resu lt documented in this encounter Visit Diagnoses Diagnosis Transient leg weakness documented in this encounter Care Teams Safety Specialist Relationship Specialty Start Date End Date Chip Burt MD [address] [place] [address] PCP - General Family Medicine 09/29/24 documented as of this encounter
--- OUTSIDE RECORDS SUMMARY | 2024-12-01 13:36 | XMS_ITS | Encounter Summary ---
Author Organization [place] [address] Care Team Providers Care Director Of Professional Services Name Role Phone Chip Burt MD Primary Care Provider [phone] Reason for Referral * MRI/CAT Scan (Routine) - PCP Precert Acquired Specialty Diagnoses / Procedures Referred By Contac t Referred To Contact Radiology Diagnoses Syncope, unspecified syncope type Dizziness Vision changes Transient leg weakness Procedures MRI BRAIN W WO CONTRAST Chip Burt MD [address] [place] [address] Phone: tel: fax: Referral ID Status Reason Start Date Expiration Date V isits Requested Visits Authorized [id number] PCP Precert Acquired 11/23/2024 11/23/2025 1 1 Reason for Visit * MRI/CAT Scan (Routine) - PCP Precert Acquired Specialty Diagnoses / Procedures Referred By Contac t Referred To Contact Radiology Diagnoses Syncope, unspecified syncope type Dizziness Vision changes Transient leg weakness Procedures MRI BRAIN W WO CONTRAST Chip Burt MD [address] [place] [address] Phone: tel: fax: Referral ID Status Reason Start Date Expiration Date V isits Requested Visits Authorized [id number] PCP Precert Acquired 11/23/2024 11/23/2025 1 1 Encounter Details Date Type Department Care Team (Latest Contact Info) Description 12/01/2024 1:36 PM EDT - 12/01/2024 11:59 PM EDT Hospital Encounter [facility] MRI [address] [place] [address] Chip Burt MD [facility] [place] [address] Syncope, unspecified syncope type; Dizziness; Vision changes; [...] Time of Discharge Blood Pressure Monitor [facility] KitIndications:Syn cope, unspecified syncope type,Other fatigue [address] [facility].(Non-El g; Combo Route) route [...] Description 01/04/2025 8:45 AM EDT Office Visit [facility] Neurology [facility] [address] [place] [address] Chuyita Moscoso MD [address] [place] [address] 03/12/2025 1:40 PM EST Office Visit [facility] [address] [facility] [address] [place] [phone] Chip Burt MD [address] [place] [address] 04/09/2025 10:00 AM EST Office Visit [facility] [address] [place] [address] Anh Patel APRN 1 [facility] [place] [address] documented as of this encounter Goals Goal Patient Goal Type Associated Problems Recent Progress Patient-Stated? Author Maintain a healthy diet, exercise regularly and maintain an ideal body weight General No Philippe Hansen MA Stay Tobacco Free Lifestyle No Philippe Hansen MA documented as of this encounter Procedures Procedure Name Priority Date/Time Associated Diagnosis Comments MRI BRAIN W WO CONTRAST Routine 12/01/2024 3:25 PM EDT Syncope, unspecified syncope type Dizziness Vision changes Transient leg weakness documented in this encounter Results * MRI BRAIN W WO CONTRAST (12/01/2024 [...] WO CONTRAST 12/01/2024 3:25 PM CLINICAL HISTORY: W20-Efjzvpg and niodezac-BBX-95-CM U09-Tulutlqnm and nlaageibc-ZCC-30-CM H53.9-Unspecified visual ibccaursbzd-KFI-78-CM R29.898-Other symptoms and signs involving the musculoskeletal jqjhzt-DVL-03-CM. COMPARISON: Head CT 11/23/2024 PROCEDURE COMMENTS: Multiplanar [...] WO CONTRAST 12/01/2024 3:25 PM CLINICAL HISTORY: H14-Essmzcv and omuortwt-SPL-33-CM S71-Zwqjtdvbx and rugtgaqmu-YOG-86-CM H53.9-Unspecified visual fgmvzjrrpid-XRB-49-CM R29.898-Other symptoms and signs involving the jnqgcqssxbshgaybtahjo-BNT-78-CM. COMPARISON: Head CT 11/23/2024 PROCEDURE COMMENTS: Multiplanar [...] MAR Action Action Date Dose Rate Site gadoterate meglumine (DOTAREM) prefilled syringe 10 mL 10 mL, Intravenous, ONCE PRN, 1 dose, Starting on Wed12/01/24 at 1423, Until Wed12/01/24 at 1525, Radiology Procedure, VESICANT , MRI (Contrasts) Given 12/01/2024 3:25 PM EDT 10 mL Right Arm documented in this encounter Orders Medications Ordered That Cas[place] ht Not Have Been Administered Count Last Ordered Date First Ordered Date gadoterate meglumine (DOTARE M) prefilled syringe 10 mL 1 12/01/2024 documented in this encounter Care Teams Director Of Professional Services Relationship Specialty Start Date End Date Chip Burt MD [address] [place] [address] PCP - General Family Medicine 09/29/24 documented as of this encounter
--- OUTSIDE RECORDS SUMMARY | 2024-12-06 15:45 | XMS_ITS | Encounter Summary ---
Author Organization [facility] [place] [address] Care Team Providers [employer] Name Role Phone Chip Burt MD Primary Care Provider Reason for Referral * Holter Monitor (Emergency) - Closed Specialty Diagnoses / Procedures Referred By Rosemary singer Referred To Contact Radiology Diagnoses Chest pain, unspecified type Procedures HOLTER MONITOR RECORDING AND ANALYSIS Rohan Bhatt APRN [address] [place] [address] Phone: tel: fax: Referral ID Status Reason Start Date Expiration Date Visits Re quested Visits Authorized [id number] Closed 12/06/2024 12/06/2026 1 1 Reason for Visit * Reason Comments Chest Pain Pt c/o mid CP radiat ing to back. Also sts she is light headed and her legs feel heavy. Sts cannot take deep breath. Cpta:ibuprofen Encounter Details Date Type Department Care Team (Late st Contact Info) Description 12/06/2024 3:45 PM EDT - 12/06/2024 7:29 PM EDT [facility] [address] [place] [phone] Sandra Barahona MD [address] [place] [address] [place] [address] Chest pain, unspecified type (Primary Dx) Discharge Disposition: Home or Self Care Social [...] Sign Reading Time Taken Comments Blood Pressure 97/56 12/06/2024 7:00 PM EDT Pulse 62 12/06/2024 7:00 PM EDT Temperature 36.7 C (98.1 F) 12/06/2024 3:46 PM EDT Respiratory Rate 14 12/06/2024 7:00 PM EDT Oxygen Saturation 98% 12/06/2024 7:00 PM EDT Inhaled Oxygen Concentration - - Weight 52.2 kg (115 lb) 12/06/2024 3:46 PM EDT Height 152.4 cm (5') 12/06/2024 3:46 PM EDT Body Mass Index 22.46 12/06/2024 3:46 PM EDT documented in this encounter Functional [...] 1:42 PM EDT Shiva Hansen MA * Suicide Severity Rating Answer Date of Assessment Author No Risk 12/06/2024 3:38 PM EDT Ember Reyna RN * [place] Suicide Severity Rating Scale (Q shift for moderate and high) Question Answer Date of Assessment Author 1. In the past month, have y ou wished you were or wished you could go to sleep and not wake up? 0 12/06/2024 3:38 PM EDT Kosta Dao RN 2. In the past month, have y ou actually had any thoughts of killing yourself? (If no, skip to question 6) 0 12/06/2024 3:38 PM EDT Kosta Reyna R N 6. Have you ever done anythi ng, started to do anything, or prepared to do anything to end your life? 0 12/06/2024 3:38 PM EDT Kosta Jimenez RN documented as of this encounter Mental Status * Because of a physical, mental or emotional condition, does this person have serious difficulty concentrating, remembering or making decisions? Answer Entry Date Author No 09/29/2024 1:42 PM EDT Shiva Hansen MA documented in this encounter Discharge Instructions * Discharge Instructions* Rohan Bhatt APRN - 12/06/2024 7:10 PM EDT Schedule holter monitor and con continue with cardiology follow-up. Return the emergency room for new or worsening symptoms * Attachments The following attachments cannot be sent through Care Everywhere. * Chest pain (Chinese) documented in this encounter Medications at Time of Discharge Blood Pressure Monitor [facility] KitIndications:Syn cope, unspecified syncope type,Other fatigue 1 Kit by [facility].(Non-El g; Combo Route) route daily. 1 Kit [...] Discharge Disposition Disposition Code Departure Means Destination Comment s Home or Self Fdc documented in this encounter ED Notes * Keivn Rohan Jarvis, CAY[place] - 12/06/2024 3:36 PM EDT CHIEF COMPLAINT Chief Complaint Patient presents with Chest Pain Pt c/o mid CP radiating to back. Also sts she is light headed and her legs feel heavy. Sts cannot take deep breath. Cpta:ibuprofen HPI Sheryl Cordero is a 49 y.o. female with a history of chest pain and anxiety who presents to the emergency room with complaints of chest pain Patient reports sudden onset of tension in chest and lightheadedness. She reports this generally occurs when she is working or cleaning. Denies any shortness of breath. Reports her primary care physician is currently doing an extensive workup regarding the symptoms including MRI of the brain and referral to cardiology.Medical record review reveals echocardiogram with normal EF. Patient denies any fever, cough, SOB, anorexia, nausea, vomiting or any other symptoms. History was obtained from the patient and medical record. Medical records outside the emergency room were reviewed REVIEW OF SYSTEMS See HPI for further details. Remainder of Review of systems is otherwise negative. PAST MEDICAL HISTORY Past Medical History: Diagnosis Date Anxiety History of bilateral breast implants Kidney infection Menopause UTI (urinary tract infection) FAMILY HISTORY Family History Problem Relation Age of Onset Heart Disease Mother 40 - 49 COPD Mother Arrhythmia Mother Cervical Cancer Mother Not sure of age my mom had hysterectomy Brain Cancer Father Arrhythmia Sister Other (MVC) Brother SOCIAL HISTORY Social History Socioeconomic History Marital status: Spouse name: None Number of children: None Years of education: None Highest education level: None Tobacco Use Smoking status: Every Day Current packs/day: 0.50 Average packs/day: 0.5 packs/day for 25.6 years (12.8 ttl pk-yrs) Types: Cigarettes Start date: 05/03/1999 Smokeless tobacco: Never Vaping Use Vaping status: Never Used Substance and Sexual Activity Alcohol use: Not Currently Alcohol/week: 0.6 oz Types: 1 Standard drinks or equivalent per week Comment: Socially Drug use: Never Sexual activity: Not Currently Partners: Male Comment: Post menopausal SURGICAL HISTORY Past Surgical History: Procedure Laterality Date BREAST ENHANCEMENT SURGERY Bilateral TUBAL LIGATION WISDOM TOOTH EXTRACTION Bilateral CURRENT MEDICATIONS Current Facility-Administered Medications: sodium chloride 0.9% IV line flush 50 mL, 50 mL, Intravenous, PRN, Mangus, Rohan R, BLACK OXIDE COATING EQUIPMENT TENDER sodium chloride 0.9% syringe 5-10 mL, 5-10 mL, Intravenous, PRN, Mangus, Rohan R, BLACK OXIDE COATING EQUIPMENT TENDER Current Outpatient Medications: Blood Pressure Monitor [facility] Kit, 1 Kit by [facility].(Non-Drug; Combo Route) route daily., Disp: 1 Kit, Rfl: 0 busPIRone (BUSPAR) 5 mg Oral Tablet, Take 1 Tablet by mouth 2 times daily as needed., Disp: 60 Tablet, Rfl: 1 ergocalciferol (VITAMIN D) 1,250 mcg (50,000 unit) Oral Capsule, Take 1 Capsule by mouth once a week., Disp: 4 Capsule, Rfl: 2 ibuprofen (ADVIL;MOTRIN) 600 mg tablet, Take 1 Tab by mouth every 8 hours as needed for Pain for 21doses., Disp: 21 Tab, Rfl: 0 ALLERGIES Allergies Allergen Reactions Codeine PHYSICAL EXAM ED Triage Vitals Temp 12/06/24 1546 98.1 ??F (36.7 ??C) Pulse 12/06/24 1537 91 Resp 12/06/24 1537 16 BP 12/06/24 1546 111/41 SpO2 12/06/24 1537 100 % Height 12/06/24 1546 5' (1.524 m) Weight 12/06/24 1546 115 lb (52.2 kg) refer to nursing notes for most recent vital signs Constitutional: Awake, Alert & oriented HENT: Normocephalic, Atraumatic, Bilateral external ears normal, Nose normal. Eyes: Conjunctiva normal no discharge. Neck: Normal range of motion, Supple, No stridor. Cardiovascular: Normal heart rate, Normal rhythm. Thorax & Lungs: Normal breath sounds, No respiratory distress, No chest tenderness. Abdomen: Soft, nontender, nondistended, no rebound or guarding Skin: Warm, Dry. Extremities: No edema Neurologic: No focal deficits Psych- anxious LABS/RADIOLOGY/PROCEDURES EK EKG 12 LEAD HOLTER MONITOR RECORDING AND ANALYSIS (Results Pending) XR CHEST PA AND LATERAL Final Result PA AND LATERAL CHEST X-RAY, 12/06/2024 4:26 PM CLINICAL HISTORY: Chest pain. COMPARISON: 06/24/2024. PROCEDURE COMMENTS: Frontal and lateral views of the chest. FINDINGS: The lungs are clear with no airspace consolidation, pneumothorax, or pleural effusion. The heart is normal in size. IMPRESSION: No acute finding. Labs Reviewed CBC WITH DIFF - Abnormal Result Value WBC 9.8 RBC 4.42 Hgb 13.6 Hct 41.6 MCV 94.1 MCH 30.8 MCHC 32.7 RDW 12.9 Platelet 316 MPV 9.0 Neut Percent 69.6 Imm Gran% 0.1 Lymph Percent 22.6 Hamlin Percent 4.9 Eos Percent 2.4 Baso Percent 0.4 Neut # 6.8 (*) IMMGRAN# 0.0 Lymph # 2.2 Hamlin # 0.5 Eos# 0.2 Baso # 0.0 URINALYSIS REFLEX - Abnormal UA Color Yellow UA Appear Clear UA Glucose Negative UA Ketones Negative UA Blood Negative UA pH 6.0 UA Protein Negative UA Urobilinogen 0.2 UA Bili Negative UA Nitrite Negative UA Leuk Est Small (*) UA Spec Grav 1.010 UA WBC 5 (*) UA RBC 1 UA Squam Epi Rare UA Mucus 1+ UA Amorph Trace COMPREHENSIVE METABOLIC PANEL - Normal Sodium 141 Potassium 3.8 Chloride 105 Total CO2 28 Anion Gap 8 Calcium 8.8 Glucose Lvl 75 BUN 10 Creatinine 0.69 Albumin 4.1 Total Protein 6.6 Bili Total 0.4 ALT 14 AST 16 Alk Phos 119 eGFR (CKD-EPIcr 2020) 106 LIPASE LEVEL - Normal Lipase Lvl 21 TROPONIN-T HIGH SENSITIVITY BASELINE W/ REFLEX - Normal vs-kUxggwaog-U <6 Narrative: Ingestion of caleb doses of biotin (>5 mg/day) taken within 8 hours of drawing blood sample can interfere with this immunoassay test. MAGNESIUM LEVEL - Normal Magnesium 1.9 TROPONIN-T HIGH SENSITIVITY 2HR - Normal eo-hYqcttgeu-T 2HR 7 hs-cTnT 2Hr Delta from Baseline >1 Narrative: Ingestion of caleb doses of biotin (>5 mg/day) taken within 8 hours of drawing blood sample can interfere with this immunoassay test. URINE CULTURE (NO STAIN) UA W/REFLEX TO CULTURE Narrative: The following orders were created for panel order UA W/REFLEX TO CULTURE. Procedure Abnormality Status --------- ------ URINALYSIS REFLEX[[id number]] Abnormal Final result EXTRA DEL CID URINE CX[[id number]] Final result Please view results for these tests on the individual orders. COURSE & MEDICAL DECISION MAKING Pertinent Labs & Imaging studies reviewed. (See chart for details) Medications sodium chloride 0.9% syringe 5-10 mL (has no administration in time range) sodium chloride 0.9% IV line flush 50 mL (has no administration in time range) ED Course as of 12/06/241914 Others' Documentation WedDec 06, 2024 1546 EKG per my interpretation normal sinus rhythm with a rate of 68 left anterior fascicular blockno ST elevation or depression normal QT no acute ischemic changes [MJ] ED Course User Index [MJ] Sandra Barahona MD Patient was seen in the emergency department and evaluated for the chief complaint as described in history of present illness. Complete history and physical were performed. Patient's presenting symptoms, physical exam, and diagnostic evaluation are consistent with chest pain. The patient is nontoxic and with stable vital signs at this time. Her exam findings workup are above and are reassuring. EKG without ischemic changes. Laboratory workup including 2 cardiac enzymes as well as electrolytesand CBC are all normal. Chest x-ray without acute findings. Heart score 2. PERC negative. Outpatient Holter monitor ordered. Recommendation for continued follow-up with established ointmentwith cardiology. Patient was given strict return precautions including new or worsening symptoms. She verbalized understand the return precautions and discharge directions. She is agreeable to the plan of care. FINAL IMPRESSION 1. Chest pain, unspecified type Rohan Bhatt APRN 12/06/241917 Rohan Bhatt APRN 12/06/241919 Cosigned by Sandra Barahona MD at 12/06/2024 11:59 PM EDT Associated attestation - Sandra Barahona MD - 12/06/2024 11:59 PM EDT I have reviewed the chief complaint, history of present illness and review of systems as well as the past medical/social/family history sections for this patient. I have participated in the care of this patient and have contributed to a significant portion of the MDM and management plan for the patient. I have reviewed the pertinent clinical information including physical exam, labs, radiographicstudies and the plan. I take responsibility for the MDM of this patient. Patient seen in collaboration with KAITLYNN. ED Course as of 12/06/24 8113 Sandra Barahona's Documentation Wed Dec 06, 2024 1546 EKG per my interpretation normal sinus rhythm with a rate of 68 left anterior fascicular blockno ST elevation or depression normal QT no acute ischemic changes EK EKG 12 LEAD HOLTER MONITOR RECORDING AND ANALYSIS (Results Pending) Chest x-ray unremarkable CBC unremarkable No UTI Normal CMP Normal troponin without significant delta change at 2 hours Low heart score of 2. PERC negative. Discharged with outpatient Holter monitor and cardiology follow-up This chart was completed using voice recognition technology and may contain unintended errors This chart was completed using voice recognition technology and may contain unintended errors documented in this encounter Plan of Treatment Upcoming Encounters Date Type Department Care Team (Late st Contact Info) Description 01/04/2025 8:45 AM EDT Office Visit SEP Neurology [facility] [address] [place] [phone] Chuyita Moscoso MD [address] [place] [address] 03/12/2025 1:40 PM EST Office Visit SEP [facility] [address] [facility] [address] [place] [phone] Chip Burt MD [address] [place] [address] 04/09/2025 10:00 AM EST Office Visit SEP [facility] [address] [address] Anh Patel, [place] 1 [facility] VIJAY Guidry [id number] documented as of this encounter Goals Goal Patient Goal Type Associated Problems Recent Progress Patient-Stated? Author Maintain a healthy diet, exercise regularly and maintain an ideal body weight General No Philippe Hansen MA Stay Tobacco Free Lifestyle No Philippe Hansen MA documented as of this encounter Procedures Procedure Name Priority Date/Time Associated Diagnosis Comments TROPONIN-T HIGH SENSITIVITY 2HR Timed 12/06/2024 6:39 PM EDT URINALYSIS REFLEX STAT 12/06/2024 5:0 4 PM EDT UA W/REFLEX TO CULTURE STAT 5:04 PM EDT EXTRA DEL CID URINE CX STAT 12/06/2024 5 :04 PM EDT URINE CULTURE (NO STAIN) STAT 12/06/2024 5:04 PM EDT TROPONIN-T HIGH SENSITIVITY BASELINE W/ REFLEX STAT 12/06/2024 4:51 PM EDT CBC WITH DIFF STAT 12/06/2024 4:51 PM EDT MAGNESIUM LEVEL STAT 12/06/2024 4:51 PM EDT LIPASE LEVEL STAT 12/06/2024 4:51 PM EDT COMPREHENSIVE METABOLIC PANEL STAT 12/06/2024 4:51 PM EDT XR CHEST PA AND LATERAL WINNIE 12/06/2024 4:26 PM EDT EK EKG 12 LEAD STAT 12/06/2024 3:37 PM EDT documented in this encounter Results * HOLTER MONITOR RECORDING AND ANALYSIS (12/07/2024 3:18 PM EDT) Anatomical Region Laterality Modality Holter/Event Mon itoring 12/13/2024 9:42 AM EDT Impressions 12/13/2024 3:[address] [facility] Test Date: 2024-12-13 Pat Name: SHERYL CORDERO [facility] Gender: Female Silk Screener: : 1975 Requested By: ROHAN Conley Order Number: [id number] Michael MD: Anthony Cummings MD Interpretive Statements Field Party Manager Date: 12/07/2024 Referring Provider: Dr. Chip Burt MD Patient was monitored for 48 hours. INDICATIONS: R07.9 Chest pain, unspecified CONCLUSION: The predominant rhythm was Sinus. The Maximum Heart Rate recorded was 148 bpm, 12/07 15:38:07, the Minimum Heart Rate recorded was 50 bpm, 12/09 07:45:15, and the Average Heart Rate was 79 bpm. There were 4 VE beats with a burden of <1 %. There were 5 SVE beats with a burden of <1 %. There were 11 Patient Triggers. Rare pacs and pvcs. Electronically Signed On 12-13-2024 15:54:08 EDT by Anthony Cummings MD Narrative Procedure Note Anthony Cummings MD - 12/13/[address] [facility] Test Date: 2024-12-13 Pat Name: SHERYL CORDERO Department: DEPID Room: Gender: Female Silk Screener: : 1975 Requested By: ROHAN Conley Order Number: [id number] Michael MD: Anthony Cummings MD Interpretive Statements Field Party Manager Date: 12/07/2024 Referring Provider: Dr. Chip Burt MD Patient was monitored for 48 hours. INDICATIONS: R07.9 Chest pain, unspecified CONCLUSION: The predominant rhythm was Sinus. The Maximum Heart Rate recorded was 148 bpm, 12/07 15:38:07, theMinimum Heart Rate recorded was 50 bpm, 12/09 07:45:15, and the Average HeartRate was 79 bpm. There were 4 VE beats with a burden of <1 %. There were 5 SVE beats with a burden of <1 %. There were 11 Patient Triggers. Rare pacs and pvcs. Electronically Signed On 12-13-2024 15:54:08 EDT by Anthony Cummings MD Rohan Bhatt APRN IMG HOLTER MONITOR ORDERABL ES Final Result * TROPONIN-T HIGH SENSITIVITY 2HR (12/06/2024 6:39 PM EDT) yw-kAbabzdbn-X 2HR 7 <14 ng/L 12/06/2024 7:06 PM EDT [facility] hs-cTnT 2Hr Delta from Baseline >1 <4 ng/L 12/06/2024 7:06 PM EDT [facility] Blood VENOUS BLOOD / Unknown Venipuncture / Unknown 12/06/2024 6:39 PM EDT 12/06/2024 6:48 PM EDT Narrative [facility] - 12/06/2024 7:06 PM EDT Ingestion of caleb doses of biotin (>5 mg/day) taken within 8 hours of drawing blood sample can interfere with this immunoassay test. Rohan Bhatt APRN CHEMISTRY ORDERABLES Final Result Performing Organization Address City/[facility]/ZIP Co de Phone Number [facility] [address] [place] [phone] * URINE CULTURE (NO STAIN) (12/06/2024 5:04 PM EDT) Culture No growth at 30 hours. 12/08/2024 11:43 AM EDT [facility] Urine STRUCTURE OF URINARY TRACT PROPER / Unknown 12/06/2024 5:04 PM EDT 12/06/2024 5:15 PM EDT Rohan Bhatt APRN MICROBIOLOGY - GENERAL ORDE RABLES Final Result [facility] [address] [place] [address] , [place] [address] * EXTRA DEL CID URINE CX (12/06/2024 5:04 PM EDT) Urine STRUCTURE OF URINARY TRACT PROPER / Unknown 12/06/2024 5:04 PM EDT 12/06/2024 5:06 PM EDT Rohan Bhatt BLACK [employer]XIDE COATING EQUIPMENT TENDER MICROBIOLOGY - GENERAL ORDE RONALDO Final Result [facility] [address] [place] [address] * (ABNORMAL) URINALYSIS REFLEX (12/06/2024 5:04 PM EDT) UA Color Yellow 12/06/2024 5:15 PM EDT [facility] UA Appear Clear Clear 12/06/2024 5:15 PM EDT [facility] UA Glucose Negative Negative mg/dL 12/06/2024 5:15 PM EDT [facility] UA Ketones Negative Negative mg/dL 12/06/2024 5:15 PM EDT [facility] UA Blood Negative Negative 12/06/2024 5:15 PM EDT [facility] UA pH 6.0 5.0 - 8.0 pH 12/06/2024 5:15 PM EDT [facility] UA Protein Negative Negative mg/dL 12/06/2024 5:15 PM EDT [facility] UA Urobilinogen 0.2 <=1 mg/dL 5:15 PM EDT [facility] UA Bili Negative Negative 12/06/2024 5:15 PM EDT [facility] UA Nitrite Negative Negative 12/06/2024 5:15 PM EDT [facility] UA Leuk Est Small(A) Negative 12/06/2024 5:15 PM EDT [facility] UA Spec Grav 1.010 1.001 - 1.035 no units 12/06/2024 5:15 PM EDT [facility] Comment:Reference range nick d for random specimens only. UA WBC 5(H) 0 - 4 /HPF 12/06/2024 5:15 PM EDT [facility] UA RBC 1 0 - 3 /HPF 12/06/2024 5:15 PM EDT [facility] UA Squam Epi Rare /LPF 12/06/2024 5:15 PM EDT [facility] UA Mucus 1+ /LPF 12/06/2024 5:15 PM EDT [facility] UA Amorph Trace /HPF 12/06/2024 5:15 PM EDT [facility] Urine STRUCTURE OF URINARY TRACT PROPER / Unknown 12/06/2024 5:04 PM EDT 12/06/2024 5:06 PM EDT Rohan R Kevinus BLACK OXIDE COATING EQUIPMENT TENDER URINE ORDERABLES Final Resu lt [facility] [address] [place] [address] * MAGNESIUM LEVEL (12/06/2024 4:51 PM EDT) Magnesium 1.9 1.6 - 2.4 mg/dL 12/06/2024 5:24 PM EDT [facility] Blood VENOUS BLOOD / Unknown Venipuncture / Unknown 12/06/2024 4:51 PM EDT 12/06/2024 4:56 PM EDT Rohan Bhatt BLACK [employer] COATING EQUIPMENT TENDER CHEMISTRY ORDERABLES Final Result Performing Organization Address [facility]/ZIP Co de Phone Number [facility] [address] [place] [address] * TROPONIN-T HIGH SENSITIVITY BASELINE W/ REFLEX (12/06/2024 4:51 PM EDT) fb-hKutlmdep-D <6 <14 ng/L 12/06/2024 5:19 PM EDT [facility] Blood VENOUS BLOOD / Unknown Venipuncture / Unknown 12/06/2024 4:51 PM EDT 12/06/2024 4:56 PM EDT Narrative [facility] - 12/06/2024 5:19 PM EDT Ingestion of caleb doses of biotin (>5 mg/day) taken within 8 hours of drawing blood sample can interfere with this immunoassay test. us Rohan R Mangus BLACK [employer]XIDE COATING EQUIPMENT TENDER CHEMISTRY ORDERABLES Final Result Performing Organization Address City/[facility]/ZIP Co de Phone Number [facility] [address] [place], [place] [phone] * LIPASE LEVEL (12/06/2024 4:51 PM EDT) Lipase Lvl 21 13 - 60 U/L 12/06/2024 5:24 PM EDT [facility] Blood VENOUS BLOOD / Unknown Venipuncture / Unknown 12/06/2024 4:51 PM EDT 12/06/2024 4:56 PM EDT Rohan R Mangus BLACK OXIDE COATING EQUIPMENT TENDER CHEMISTRY ORDERABLES Final Result Performing Organization Address [facility] de Phone Number [facility] [address] [place] [address] * COMPREHENSIVE METABOLIC PANEL (12/06/2024 4:51 PM EDT) Sodium 141 136 - 145 mmol/L 12/06/2024 5:24 PM EDT [facility] Potassium 3.8 3.5 - 5.0 mmol/L 12/06/2024 5:24 PM EDT [facility] Chloride 105 98 - 107 mmol/L 12/06/2024 5:24 PM EDT [facility] Total CO2 28 22 - 29 mmol/L 12/06/2024 5:24 PM EDT [facility] Anion Gap 8 7 - 16 mmol/L 12/06/2024 5:24 PM EDT [facility] Calcium 8.8 8.6 - 10.4 mg/dL 12/06/2024 5:24 PM EDT [facility] Glucose Lvl 75 70 - 99 mg/dL 12/06/2024 5:24 PM EDT [facility] BUN 10 6 - 20 mg/dL 12/06/2024 5:24 PM EDT [facility] Creatinine 0.69 0.51 - 1.30 mg/dL 12/06/2024 5:24 PM EDT [facility] Albumin 4.1 3.5 - 5.2 gm/dL 12/06/2024 5:24 PM EDT [facility] Total Protein 6.6 6.4 - 8.3 gm/dL 12/06/2024 5:24 PM EDT [facility] Bili Total 0.4 0.2 - 1.3 mg/dL 12/06/2024 5:24 PM EDT [facility] ALT 14 <=41 U/L 12/06/2024 5:24 PM EDT [facility] AST 16 <=40 U/L 12/06/2024 5:24 PM EDT [facility] Alk Phos 119 36 - 123 U/L 12/06/2024 5:24 PM EDT [facility] eGFR (CKD-EPIcr 2020) 106 >=60 mL/min/1.7 3 m2 12/06/2024 5:24 PM EDT [facility] Comment:Estimated GFR was ca lculated using the CKD-EPIcr (2020) equation refit without race. The equation is recommended by the National Kidney Foundation - [place] [employer] Nephrology Task Force. Blood VENOUS BLOOD / Unknown Venipuncture / Unknown 12/06/2024 4:51 PM EDT 12/06/2024 4:56 PM EDT us Rohan Bhatt BLACK OXIDE COATING EQUIPMENT TENDER CHEMISTRY ORDERABLES Final Result [facility] [address] [place] [phone] * (ABNORMAL) CBC WITH DIFF (12/06/2024 4:51 PM EDT) WBC 9.8 3.7 - 10.3 x10(3)/mcL 12/06/2024 4:58 PM EDT [facility] RBC 4.42 3.90 - 5.20 x10(6)/mcL 12/06/2024 4:58 PM EDT [facility] Hgb 13.6 11.2 - 15.7 g/dL 12/06/2024 4:58 PM EDT [facility] Hct 41.6 34.0 - 45.0 % 12/06/2024 4:58 PM EDT [facility] MCV 94.1 80.0 - 100.0 fL 12/06/2024 4:58 PM EDT [facility] MCH 30.8 26.0 - 34.0 pg 12/06/2024 4:58 PM EDT [facility] MCHC 32.7 30.7 - 35.5 g/dL 12/06/2024 4:58 PM EDT [facility] RDW 12.9 <=14.9 % 12/06/2024 4:58 PM EDT [facility] Platelet 316 155 - 369 x10(3)/mcL 12/06/2024 4:58 PM EDT [facility] MPV 9.0 8.8 - 12.5 fL 12/06/2024 4:58 PM EDT [facility] Neut Percent 69.6 % 12/06/2024 4:58 PM EDT [facility] Comment:Neutrophils equals s egs plus bands Imm Gran% 0.1 % 12/06/2024 4:58 PM EDT [facility] Comment:Automated count of m etamyelocytes, myelocytes and promyelocytes. Lymph Percent 22.6 % 12/06/2024 4:58 PM EDT [facility] [place] Percent 4.9 % 12/06/2024 4:58 PM EDT [facility] Eos Percent 2.4 % 12/06/2024 4:58 PM EDT [facility] Baso Percent 0.4 % 12/06/2024 4:58 PM EDT [facility] Neut # 6.8(H) 1.6 - 6.1 x10(3)/mcL 12/06/2024 4:58 PM EDT [facility] Comment:Neutrophils equals s egs plus bands IMMGRAN# 0.0 0.0 - 0.1 x10(3)/mcL 12/06/2024 4:58 PM EDT [facility] Comment:Automated count of m etamyelocytes, myelocytes and promyelocytes. An absolute IG <0.1 is reported as 0.0. Lymph # 2.2 1.2 - 3.9 x10(3)/mcL 12/06/2024 4:58 PM EDT [facility] [place] # 0.5 0.3 - 0.9 x10(3)/mcL 12/06/2024 4:58 PM EDT [facility] Eos# 0.2 0.0 - 0.5 x10(3)/mcL 12/06/2024 4:58 PM EDT [facility] Baso # 0.0 0.0 - 0.1 x10(3)/mcL 12/06/2024 4:58 PM EDT [facility] Blood VENOUS BLOOD / Unknown Venipuncture / Unknown 12/06/2024 4:51 PM EDT 12/06/2024 4:56 PM EDT us Rohan Bhatt BLACK [employer] COATING EQUIPMENT TENDER HEMATOLOGY ORDERABLES Final Result [facility] [address] [place] [address] * XR CHEST PA AND LATERAL (12/06/2024 4:26 PM EDT) Anatomical Region Laterality Modality Chest Radiographic Florencia ging 12/06/2024 4:26 PM EDT Impressions 12/06/2024 4:28 PM EDT No acute finding. Narrative 12/06/2024 4:28 PM EDT PA AND LATERAL CHEST X-RAY, 12/06/2024 4:26 PM CLINICAL HISTORY: Chest pain. COMPARISON: 06/24/2024. PROCEDURE COMMENTS: Frontal and lateral views of the chest. FINDINGS: The lungs are clear with no airspace consolidation, pneumothorax, or pleural effusion. The heart is normal in size. Procedure Note Kevin Lu MD - 12/06/2024 PA AND LATERAL CHEST X-RAY, 12/06/2024 4:26 PM CLINICAL HISTORY: Chest pain. COMPARISON: 06/24/2024. PROCEDURE COMMENTS: Frontal and lateral views of the chest. FINDINGS: The lungs are clear with no airspace consolidation, pneumothorax, orpleural effusion. The heart is normal in size. IMPRESSION: No acute finding. Rohan Jarvis Bhatt BLACK OXIDE COATING EQUIPMENT TENDER IMG DIAGNOSTIC IMAGING ORDE RONALDO Final Result * EK EKG 12 LEAD (12/06/2024 3:37 PM EDT) Anatomical Region Laterality Modality Electrocardiogra phy 12/06/2024 3:43 PM EDT Impressions 12/07/2024 10:[address] [facility] Test Date: 2024-12-06 Pat Name: SHERYL CORDERO Department: DEPID Room: Gender: Female Silk Screener: [facility] : 1975 Requested By: [facility] Order Number: [id number] Reading MD: Donnie Lam MD Measurements Intervals [place] Rate: 68 P: 73 [place]: 159 QRS: -75 QRSD: 98 T: 86 QT: 396 QTc: 424 Interpretive Statements SINUS RHYTHM PATTERN CONSISTENT WITH PULMONARY DISEASE LEFT ANTERIOR FASCICULAR BLOCK Electronically Signed On 12-07-2024 10:17:51 EDT by Donnie Lam MD Narrative Procedure Note Donnie Lam MD - 12/07/[address] [facility] Test Date: 2024-12-06 Pat Name: SHERYL CORDERO Department: DEPID Room: Gender: Female Silk Screener: [facility] : 1975 Requested By: [facility] Order Number: [id number] Reading MD: Donnie Lam MD Measurements Intervals [place] Rate: 68 P: 73 [place]: 159 QRS: -75 QRSD: 98 T: 86 QT: 396 QTc: 424 Interpretive Statements SINUS RHYTHM PATTERN CONSISTENT WITH PULMONARY DISEASE LEFT ANTERIOR FASCICULAR BLOCK Electronically Signed On 12-07-2024 10:17:51 EDT by Donnie Lam MD Sandra Barahona MD IMG ECG ORDERABLES Final Re sult documented in this encounter Visit Diagnoses Diagnosis Chest pain, unspecified type- Primary Chest pain, unspecified type documented in this encounter Administered Medications Inactive Administered Medications - up to 1 most recent administrations Medication Order MAR Action Action Date Dose Rate Site sodium chloride 0.9% IV line flush 50 mL 50 mL, Intravenous, at 999 mL/hr, PRN, Starting on Wed12/06/24 at 1605, Until Wed12/06/24 at 232, Line Care, Flush with 50 mL after IVPB to insure complete administration of the dose. May use the saline infusion to back flush IVPB tubing as needed., Use this order to document priming and flushing IV line after medication administration. sodium chloride 0.9% syringe 5-10 mL 5-10 mL, Intravenous, PRN, Starting on Wed12/06/24 at 1605, Until Wed12/06/24 at 232, Line Care, Flush with 5 mL saline pre/post IVP, and 5 mL prior to IVPB or blood product administration. Protocol for PERIPHERAL IV saline lock maintenance, flush with 3-5 mL saline syringe every 8 hours., Flush peripheral lines every 12 hours, central lines every 8 hours, and after IV medication documented in this encounter Active and Recently Administered Medications Times are shown in EDT. PRN Medication Order 12/04/2024 12/05/2024 12/06/2024 sodium chloride 0.9% IV line flush 50 mL 50 mL, Intravenous, at 999 mL/hr, PRN, Starting on Wed12/06/24 at 1605, Until Wed12/06/24 at 2328, Line Care, Flush with 50 mL after IVPB to insure complete administration of the dose. May use the saline infusion to back flush IVPB tubing as needed., Use this order to document priming and flushing IV line after medication administration. sodium chloride 0.9% syringe 5-10 mL 5-10 mL, Intravenous, PRN, Starting on Wed12/06/24 at 1605, Until Wed12/06/24 at 232, Line Care, Flush with 5 mL saline pre/post IVP, and 5 mL prior to IVPB or blood product administration. Protocol for PERIPHERAL IV saline lock maintenance, flush with 3-5 mL saline syringe every 8 hours., Flush peripheral lines every 12 hours, central lines every 8 hours, and after IV medication documented in this encounter Orders Medications Ordered That Casper ht Not Have Been Administered Count Last Ordered Date First Ordered Date sodium chloride 0.9% IV line flush 50 mL 1 12/06/2024 sodium chloride 0.9% syringe 5-10 mL 1 08/0 10/2024 documented in this encounter Care Teams [employer] Pro Relationship Specialty Start Date End Date Chip Burt MD [address] [place] [address] PCP - General Family Medicine 09/29/24 documented as of this encounter
--- OUTSIDE RECORDS SUMMARY | 2024-12-07 14:56 | XMS_ITS | Encounter Summary ---
Author Organization [place] [address] Care Team Providers Care Wick Tender Name Role Phone Chip Burt MD Primary Care Provider [phone] Reason for Referral * Holter Monitor (Emergency) - Closed Specialty Diagnoses / Procedures Referred By Contac t Referred To Contact Radiology Diagnoses Chest pain, unspecified type Procedures HM HOLTER MONITOR RECORDING AND ANALYSIS Gabriela Bhatt APRN [address] [place] [address] Phone: tel: fax: Referral ID Status Reason Start Date Expiration Date Visits Re quested Visits Authorized [id number] Closed 12/06/2024 12/06/2026 1 1 Reason for Visit * Holter Monitor (Emergency) - Closed Specialty Diagnoses / Procedures Referred By Rosemary singer Referred To Contact Radiology Diagnoses Chest pain, unspecified type Procedures HOLTER MONITOR RECORDING AND ANALYSIS Gabriela Bhatt APRN [address] [place] [address] Phone: tel: fax: Referral ID Status Reason Start Date Expiration Date Visits Re quested Visits Authorized [id number] Closed 12/06/2024 12/06/2026 1 1 Encounter Details Date Type Department Care Team (Latest Contact Info) Description 12/07/2024 2:56 PM EDT - 12/07/2024 11:59 PM EDT Hospital Encounter [facility] [address] [facility] [address] [place] [address] Gabriela Bhatt R, TANBARK LABORER [address] [place] [address] Chest pain, unspecified type Discharge Disposition: Home [...] unspecified syncope type,Other fatigue 1 Kit by [facility]; Combo Route) route daily. 1 Kit [...] Description 01/04/2025 8:45 AM EDT Office Visit [facility] Neurology [facility] [address] [place] [address] [place] [address] Chuyita Moscoso MD [address] [place] [address] 03/12/2025 1:40 PM EST Office Visit [facility] [address] [facility] [address] [place] [phone] Chip Burt MD [address] [place] [address] 04/09/2025 10:00 AM EST Office Visit [facility] H&V [place] [address] [place] [address] Anh Patel [facility]N [facility] [place] [place] [id number] documented as of this encounter Goals Goal [...] AM EDT Impressions 12/13/2024 3:54 PM EDT [facility] Test Date: 2024-12-13 Pat Name: MANA THOMPSON Department: DEPID Room: Gender: Female Heel Dipper: : 1975 Requested By: GABRIELA Conley Order Number: [id number] Michael MD: Anthony Cummings MD Interpretive Statements Line Tester Date: 12/07/2024 Referring Provider: Dr. Chip Burt [...] Note Anthony Cummings MD - 12/13/2024 IMPRESSION [facility] Test Date: 2024-12-13 Pat Name: MANA THOMPSON Department: DEPID Room: Gender: Female Heel Dipper: : 1975 Requested By: GABRIELA Conley Order Number: [id number] Michael MD: Anthony Cummings MD Interpretive Statements Line Tester Date: 12/07/2024 Referring Provider: Dr. Chip Burt [...] EDT by Anthony Cummings MD Gabriela Bhatt TANBARK LABORER IMG HOLTER MONITOR ORDERABL ES Final Result documented in this encounter Visit Diagnoses Diagnosis Chest pain, unspecified type documented in this encounter Care Teams Wick Tender Relationship Specialty Start Date End Date Chip Burt MD [address] [place] [address] PCP - General Family Medicine 09/29/24 documented as of this encounter
--- OUTSIDE RECORDS SUMMARY | 2024-12-08 10:00 | XMS_ITS | Encounter Summary ---
Author Organization [facility] Address [address] [place] [address] Care Team Providers Care Neon Sign Erector Name Role Phone Gretchen Juarez MD Primary Care Provider Tiffanie bullard Reason for Visit * Reason Comments Ultrasound Encounter Details Date Type Department Care Team (Latest Contact Info) Description 12/08/2024 10:00 AM EDT MA/Nurse Visit [facility] Physicians - Obstetrics & Gynecology, [place] [address] [place] [address] Postmenopausal bleeding (Primary Dx) Social History Tobacco Use Types Packs/Day Years [...] on file documented as of this encounter Progress Notes * Justyna Tripp - 12/08/2024 10:00 AM EDT Ultrasound was performed. Results can be found in Procedures tab. 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
--- OUTSIDE RECORDS SUMMARY | 2024-12-11 08:30 | XMS_ITS | Encounter Summary ---
Author Organization [place] [address] Care Team Providers Care Fighting Vehicle Systems Maintainer Name Role Phone Chip Burt MD Primary Care Provider [phone] Reason for Referral * Holter Monitor (Routine) - Authorization Not Needed Specialty Diagnoses / Procedures Referred By Contac t Referred To Contact Radiology Diagnoses Heart palpitations Procedures EV EVENT MONITOR Binh Brody MD [address] [place] [address] Phone: tel: fax: Referral ID Status Reason Start Date Expiration Date Visits Requested Visits Authorized [id number] Authorization Not Needed 12/11/2024 12/11/2026 1 1 * MRI/CAT Scan (Routine) - PCP Precert Acquired Specialty Diagnoses / Procedures Referred By Contac t Referred To Contact Radiology Diagnoses Precordial pain Procedures CT ANGIOGRAM CORONARY W CONTRAST Binh Brody MD [address] [place] [address] Phone: tel: fax: Referral ID Status Reason Start Date Expiration Date V isits Requested Visits Authorized [id number] PCP Precert Acquired 12/11/2024 12/11/2025 1 1 [...] Syncope, unspecified syncope type EKG abnormality Procedures [place] OFFICE/OUTPATIENT NEW MODERATE MDM 45 MINUTES Fredi Trevizo MD 1 [place] [address] Phone: tel: fax: [facility] [place] [address] [address] [facility] [address] [place] [address] Phone: tel: fax: Referral ID Status Reason Start Date Expiration Date Visits Requested Visits Authorized [id number] Authorization Not Needed 11/17/2024 11/17/2025 99 99 Encounter Details Date Type Department Care Team (Late st Contact Info) Description 12/11/2024 8:30 AM EDT Office Visit [facility] [place] [address] Binh Brody MD [address] [place] [address] Precordial pain (Primary Dx); Heart palpitations Social [...] day smoker. No significant alcohol. Works at [employer] Family History: Father had brain cancer Surgical [...] Pressure Monitor Misc Kit 1 Kit by Talent Flush.(Non-Drug; Combo Route) route daily. (Patient not taking: [...] doses. 21 Tab 0 Blood Pressure Monitor [facility] Kit 1 Kit by Misc.(Non-Drug; Combo Route) [...] by Dr. Binh Brody and Blaine Sauceda [facility]. Thank You for choosing [facility] Heart and Vascular. We sincerely thank you for the opportunity to be a part of your care. documented in this encounter Plan of Treatment Upcoming Encounters Date Type Department Care Team (Late st Contact Info) Description 01/04/2025 8:45 AM EDT Office Visit [facility] Neurology [facility] [address] [place] [address] Chuyita Moscoso MD [address] [place] [address] 03/12/2025 1:40 PM EST Office Visit [facility] [address] [place] [address] Chip Brut MD [address] [place] [address] 04/09/2025 10:00 AM EST Office Visit [facility] [place] [address] [place], [place] [id number] Anh Patel, RADIO FREQUENCY ENGINEER 1 [place] [address] Scheduled Orders Name Type Priority Associated Diagnoses [...] Palpitations documented in this encounter Care Teams Fighting Vehicle Systems Maintainer Relationship Specialty Start Date End Date Chip Burt MD [address] [place] [address] PCP - General Family Medicine 09/29/24 documented as of this encounter
--- OUTSIDE RECORDS SUMMARY | 2024-12-15 15:20 | XMS_ITS | Encounter Summary ---
Author Organization [place] [address] Care Team Providers Care Drafter Civil Engineering Name Role Phone Chip Burt MD Primary Care Provider [phone] Reason for Referral * Consultation (Routine) - Closed Specialty Diagnoses / Procedures Referred By Contac t Referred To Contact Neurology Diagnoses Dizziness Syncope, unspecified syncope type Procedures [place] OFFICE/OUTPATIENT NEW MODERATE MDM 45 MINUTES Chip Burt MD [address] [place] [address] Phone: tel: fax: [facility] [place] [facility] [address] [place] [address] Phone: tel: fax: Referral ID Status Reason Start Date Expiration Date Visits Re quested Visits Authorized [id number] Closed 12/15/2024 12/15/2025 99 99 * Consultation (Routine) - Authorization Not Needed Specialty Diagnoses / Procedures Referred By Contac t Referred To Contact Diagnoses Dizziness Syncope, unspecified syncope type Procedures [place] OFFICE/OUTPATIENT NEW MODERATE MDM 45 MINUTES Chip Burt MD [address] [place] [address] Phone: tel: fax: Referral ID Status Reason Start Date Expiration Date Visits Requested Visits Authorized [id number] Authorization Not Needed 12/15/2024 12/15/[address] Patti May in [place] Reason for Visit * Reason Comments Dizziness e and Wednesday wa s horrible with headaches and feeling dizzy. Other pt states getting hi ves on back of knees pt has picture. Encounter Details Date Type Department Care Team (Late st Contact Info) Description 12/15/2024 3:20 PM EDT Office Visit [facility] [address] [facility] [address] [place] [address] Chip Burt MD [address] [place] [address] Syncope, unspecified syncope type (Primary Dx); Dizziness; Intermittent palpitations; Abnormal EKG; Cigarette smoker; Incomplete RBBB; Elevated LDL cholesterol level; [place] light chain disease; Transaminitis; Nausea; Vitamin D [...] PANEL; Future - LIPID PANEL REFLEX; Future [place] light chain disease (Chronic) Overview: Follows with [...] Overview: supp Lab Results Component Value Date AFQB13HE 18.7 (L) 10/07/2024 Orders: - COMPREHENSIVE METABOLIC [...] cardiology appt 12/13/24 (Dr. Patti May in [place]) --pt has not started BB yet -Ophthalmology [...] Transaminitis labs, monitor US RUQ 10/2024 reassuring [place] light chain disease -Follows with Hematology last [...] Description 01/04/2025 8:45 AM EDT Office Visit [facility] [place] [facility] [address] [place] [address] Chuyita Moscoso MD [facility] [place] [address] 03/12/2025 1:40 PM EST Office Visit [facility] [address] [address] Chip Burt MD [address] [place] [address] 04/09/2025 10:00 AM EST Office Visit [facility] [place] [address] [place] [address] Anh Patel, SHIPPING SUPERVISOR 1 [facility] [place] [address] Scheduled Orders Name Type Priority Associated Diagnoses Orde r Schedule COMPREHENSIVE METABOLIC PANEL Lab Routine Syncope, unspecified syncope type Dizziness Intermittent palpitations Abnormal EKG Cigarette smoker Incomplete RBBB [place] light chain disease Transaminitis Nausea Vitamin D [...] block Elevated LDL cholesterol level Pure hypercholesterolemia [place] light chain disease Multiple myeloma, without mention of having achieved remission Transaminitis Nonspecific elevation of levels of transaminase or lactic acid dehydrogenase (LDH) Nausea Nausea alone Vitamin D deficiency Unspecified vitamin D deficiency Generalized anxiety disorder documented in this encounter Care Teams Drafter Civil Engineering Relationship Specialty Start Date End Date Chip Burt MD [address] [place] [address] PCP - General Family Medicine 09/29/24 documented as of this encounter
--- OUTSIDE RECORDS SUMMARY | 2024-12-29 10:25 | XMS_ITS | Encounter Summary ---
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 Procedures OK OFFICE/OUTPATIENT NEW MODERATE MDM 45 MINUTES Chip Burt MD [address] [place] [address] Phone: tel: fax: Referral ID Status Reason Start Date Expiration Date V isits Requested Visits Authorized [id number] Pending Review 10/13/2024 10/13/2025 99 99 Question Answer Service Hematology Provider Options First Available * Ultrasound (Routine) - Pending Review Specialty Diagnoses / Procedures Referred By Rosemary singer Referred To Contact Radiology Diagnoses Elevated LDL cholesterol level Transaminitis Procedures US RIGHT UPPER QUADRANT Chip Burt MD [address] [place] [address] Phone: tel: fax: Referral ID Status Reason Start Date Expiration Date V isits Requested Visits Authorized [id number] Pending Review 10/08/2024 10/08/2025 1 1 Reason for Visit * Reason Onset Date Comments Results 10/08/2024 Labs 10/07- Dr.Gor mota / Results given Medication Management 10/08/2024 FYI pharma cy change Encounter Details Date Type Department Care Team (Latest Contact Info) Description 10/08/2024 Results Follow-Up [facility]P [facility] [address] [place] [address] Chip Burt MD [address] [place] [address] HEPATITIS B SURFACE ANTIBODY, COMPREHENSIVE METABOLIC PANEL, [...] sent to incorrect pharmacy, see message below. [id number] [place] [id number] - [phone] [facility] - [phone] [[id number]] Other: Please put in the patient results [...] D) 1,250 mcg (50,000 unit) Oral Capsule4 Xamdyct59/8/2025-- Sig - Route: Take 1 Capsule by mouth once a week. - Oral cefdinir (OMNICEF) 300 mg Oral Mqintuq18 Jcktemu09/ Sig - Route: Take 1 Capsule by mouth 2 times daily for 7 days. - Oral Prescribing provider: What are your concerns/request: [facility] of [facility]. I spoke to Loretta at [facility], cancelled on their end. [facility] Receipt confirmed by pharmacy per [facility]. Desired outcome: Direct Contact - see encounter details Is medication requested to be corrected prescribed from hospitalist/ER Physician?: No Last appointment date: 09/29 Pharmacy: [id number] - [place] [id number] - [phone] [facility] - [phone] [[id number]] Return Method of Communication: N/A Additional Information: FYI Pharmacy change per patient request, verified original Rx is cancelled,Rx resent to requested pharmacy.No further workup needed. documented in this encounter Plan of Treatment Upcoming Encounters Date Type Department Care Team (Late st Contact Info) Description 01/04/2025 8:45 AM EDT Office Visit [facility] Neurology [facility] [address] [place] [address] Chuyita Moscoso MD [address] [place] [address] 03/12/2025 1:40 PM EST Office Visit SEP [facility] [address] [facility] [address] [place] [address] Chip Burt MD [address] [place] [address] 04/09/2025 10:00 AM EST Office Visit [facility] [place] [address] [place] [address] Anh Patel APRN 1 [facility] [place] [address] Scheduled Referrals Name Type Priority Associated Diagnoses Order Schedule AMB REFERRAL TO HEMATOLOGY ONCOLOGY Outpatient Referral 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 COMPARISON: Noncontrast abdomen and pelvis CT 02/06/2016. [...] mm. No pericholecystic fluid or other ascites. Metal Trades Instructor indicates clinically negative Willson's sign while scanning. Limited assessment of proximal pancreas is unremarkable. Right kidney measures 9.2 cm in length. Total renal volume is 82.4 cm3. No hydronephrosis, solid or cystic mass lesion or echogenic shadowing stone. Procedure Note Katey Hdz MD - 10/13/2024 US RIGHT UPPER QUADRANT: 10/13/2024 10:00 AM CLINICAL HISTORY: 49 years-old; E78.00-Pure hypercholesterolemia, edrojfwacvq-UWQ-22-CM R74.01-Elevation of levels of liver transaminase ykdjjq-HMM-09-CM. COMPARISON: Noncontrast abdomen and pelvis CT 02/06/2016. [...] 1 mm. No pericholecystic fluidor other ascites. Metal Trades Instructor indicates clinically negative Willson's signwhile scanning. Limited [...] the ordering clinician. us Chip Burt MD [facility] US ORDERABLES Final Resul t documented in this encounter Visit Diagnoses Diagnosis Elevated LDL cholesterol level- Primary Pure hypercholesterolemia Transaminitis Nonspecific elevation of levels of transaminase or lactic acid dehydrogenase (LDH) Vitamin D deficiency Unspecified vitamin D deficiency Acute cystitis without hematuria Acute cystitis [place] light chain disease Multiple myeloma, without mention [...] documented as of this encounter Care Teams Investigator Internal Affairs Relationship Specialty Start Date End Date Chip Burt MD [address] [place] [address] PCP - General Family Medicine 09/29/24 documented as of this encounter
--- OUTSIDE RECORDS SUMMARY | 2024-12-29 10:25 | XMS_ITS | Encounter Summary ---
Author Organization [place] [address] Care Team Providers Care Delinquent Tax Collector Assistant Name Role Phone Chip Burt MD Primary Care Provider [phone] Encounter Details Date Type Department Care Team (Late st Contact Info) Description 11/17/2024 Results Follow-Up [facility] 1500 [facility] [address] [place] [address] Fabby Joya MD 1500 [facility] 201 [place] [address] URINALYSIS, URINE CULTURE (NO STAIN) Social History [...] 8:45 AM EDT Office Visit SEP Neurology [facility] [address] [place] [address] Chuyita Moscoso MD [address] [place] [address] 03/12/2025 1:40 PM EST Office Visit SEP [facility] [address] [facility] [address] [place] [address] Chip Burt MD [address] [place] [address] 04/09/2025 10:00 AM EST Office Visit [facility]P [facility] [place] [address] [place] [address] Anh Patel, CAYDEN 1 [facility] [place], [place] [address] documented as of this encounter Goals Goal [...] specified documented in this encounter Care Teams Delinquent Tax Collector Assistant Relationship Specialty Start Date End Date Chip Burt MD [address] [place] [address] PCP - General Family Medicine 09/29/24 documented as of this encounter
--- OUTSIDE RECORDS SUMMARY | 2024-12-29 10:25 | XMS_ITS | Encounter Summary ---
Author Organization [place] [address] Care Team Providers Care Evaporator Supervisor Name Role Phone Chip Burt MD Primary Care Provider [phone] Encounter Details Date Type Department Care Team (Late st Contact Info) Description 10/14/2024 Results Follow-Up SEP [facility] [address] [facility] [address] [place] [phone] Chip Burt MD [address] [place] [address] RIGHT UPPER QUADRANT Social History Tobacco Use [...] 3:38 PM EDT Ember Reyna RN * [place] Suicide Severity Rating Scale (Q shift for [...] Neurology [facility] [address] [place] [address] Chuyita Moscoso MD [address] [place] [address] 03/12/2025 1:40 PM EST Office Visit SEP [facility] [address] [address] Chip Burt MD [address] [place] [address] 04/09/2025 10:00 AM EST Office Visit SEP [facility] [place] [address] [place] [address] Anh Patel APRN 1 [facility] [place] [address] documented as of this encounter Goals Goal Patient Goal Type Associated Problems Recent Progress Patient-Stated? Author Maintain a healthy diet, exercise regularly and maintain an ideal body weight General No Philippe Hansen MA Stay Tobacco Free Lifestyle No Philippe Hansen MA documented as of this encounter Visit Diagnoses Not on filedocumented in this encounter Care Teams Evaporator Supervisor Relationship Specialty Start Date End Date Chip Burt MD [address] [place] [address] PCP - General Family Medicine 09/29/24 documented as of this encounter
--- OUTSIDE RECORDS SUMMARY | 2024-12-29 10:25 | XMS_ITS | Encounter Summary ---
Author Organization [place] [address] Care Team Providers Care Online Facilitator Name Role Phone Chip Burt MD Primary Care Provider Reason for Visit * Reason Onset Date Comments Results 11/23/2024 Encounter Details Date Type Department Care Team (Late st Contact Info) Description 11/23/2024 Telephone [facility] 1500 [facility] [address] [place] [address] Leti Bustillo MA Results Social [...] SEP Neurology [facility] [address] [facility] [address] Chuyita Moscoso MD [address] [place] [address] 03/12/2025 1:40 PM EST Office Visit SEP [facility] [address] [facility] [address] [place] [address] Chip Burt MD [address] [place] [address] 04/09/2025 10:00 AM EST Office Visit [facility] [place] [address] [place] [address] [address] [facility] [facility] [address] documented as of this encounter Goals Goal Patient Goal Type Associated Problems Recent Progress Patient-Stated? Author Maintain a healthy diet, exercise regularly and maintain an ideal body weight General No Philippe Hansen MA Stay Tobacco Free Lifestyle No Philippe Hansen MA documented as of this encounter Visit Diagnoses Not on filedocumented in this encounter Care Teams Online Facilitator Relationship Specialty Start Date End Date Chip Burt MD [address] [place] [address] PCP - General Family Medicine 09/29/24 documented as of this encounter
--- OUTSIDE RECORDS SUMMARY | 2024-12-29 10:25 | XMS_ITS | Encounter Summary ---
Author Organization [place] [address] Care Team Providers Care Faculty Dean Name Role Phone Chip Burt MD Primary Care Provider [phone] Reason for Visit * Reason Onset Date Comments Other 11/17/2024 Encounter Details Date Type Department Care Team (Late st Contact Info) Description 11/17/2024 Telephone [facility] 1500 [facility] [address] [place] [address] Leti Bustillo MA Other Social [...] Neurology [facility] [address] [place] [address] Chuyita Moscoso MD [address] [place] [address] 03/12/2025 1:40 PM EST Office Visit SEP [facility] [address] [place] [address] Chip Burt MD [address] [place] [address] 04/09/2025 10:00 AM EST Office Visit SEP [facility] [place] [address] [place] [address] Anh Patel, CREDIT RISK MODELER [address] [facility] [place] [address] documented as of this encounter Goals Goal Patient Goal Type Associated Problems Recent Progress Patient-Stated? Author Maintain a healthy diet, exercise regularly and maintain an ideal body weight General No Philippe Hansen MA Stay Tobacco Free Lifestyle No Philippe Hansen MA documented as of this encounter Visit Diagnoses Not on filedocumented in this encounter Care Teams Faculty Dean Relationship Specialty Start Date End Date Chip Burt MD [address] [place] [address] PCP - General Family Medicine 09/29/24 documented as of this encounter
--- OUTSIDE RECORDS SUMMARY | 2024-12-29 10:25 | XMS_ITS | Encounter Summary ---
Author Organization [place] [address] Care Team Providers Care Teletype Mechanic Name Role Phone Chip Burt MD Primary Care Provider Encounter Details Date Type Department Care Team (Late st Contact Info) Description 11/17/2024 Telephone [facility] [address] [facility] [place] [address] Keri Peralta MA Social History [...] Peralta MA - 11/17/2024 10:30 AM EDT [place] lambda ordered by Dr. Trevizo on 11/17/24. Needs PA documented in this encounter Plan of Treatment Upcoming Encounters Date Type Department Care Team (Late st Contact Info) Description 01/04/2025 8:45 AM EDT Office Visit SEP Neurology [facility] [address] [place] [address] Chuyita Moscoso MD [facility] [place] [address] 03/12/2025 1:40 PM EST Office Visit SEP [facility] [address] [facility] [address] [place] [address] Chip Burt MD [address] [place] [address] 04/09/2025 10:00 AM EST Office Visit SEP H&V [address] [address] Anh Patel, TENDERIZER TENDER [address] [facility] [place], [place] [address] documented as of this encounter Goals Goal Patient Goal Type Associated Problems Recent Progress Patient-Stated? Author Maintain a healthy diet, exercise regularly and maintain an ideal body weight General No Philippe Hansen MA Stay Tobacco Free Lifestyle No Philippe Hansen MA documented as of this encounter Visit Diagnoses Not on filedocumented in this encounter Care Teams Teletype Mechanic Relationship Specialty Start Date End Date Chip Burt MD [address] [place], [place] [address] PCP - General Family Medicine 09/29/24 documented as of this encounter
--- OUTSIDE RECORDS SUMMARY | 2024-12-29 10:25 | XMS_ITS | Encounter Summary ---
Author Organization [place] [address] Care Team Providers Care Environmental Engineering Assistant Name Role Phone Chip Burt MD Primary Care Provider [phone] Reason for Visit * Reason Onset Date Comments Follow Up 12/20/2024 Short Term Disab ility Encounter Details Date Type Department Care Team (Late st Contact Info) Description 12/20/2024 Telephone [facility] 1500 [facility] [address] [place] [address] Leti Bustillo MA Follow Up [...] should be done and already faxed o auzl to Tim Saab. Pt stated that Dr Burt filled out short term [facility] 12/15. Pt stated pt [...] Description 01/04/2025 8:45 AM EDT Office Visit [facility] [address] [place] [address] Chuyita Moscoso MD [address] [place] [address] 03/12/2025 1:40 PM EST Office Visit SEP [facility] [address] [place] [address] Chip Burt MD [address] [place] [address] 04/09/2025 10:00 AM EST Office Visit [facility] [place] [address] [place] [address] Anh Patel APRN [address] [place] [address] documented as of this encounter Goals Goal Patient Goal Type Associated Problems Recent Progress Patient-Stated? Author Maintain a healthy diet, exercise regularly and maintain an ideal body weight General No Philippe Hansen MA Stay Tobacco Free Lifestyle No Philippe Hansen MA documented as of this encounter Visit Diagnoses Not on filedocumented in this encounter Care Teams Environmental Engineering Assistant Relationship Specialty Start Date End Date Chip Burt MD [address] [place] [address] PCP - General Family Medicine 09/29/24 documented as of this encounter
--- OUTSIDE RECORDS SUMMARY | 2024-12-29 10:27 | XMS_ITS | Encounter Summary ---
Author Organization [place] [address] Care Team Providers Care Car Blocker Name Role Phone Chip Hobbs MD Primary Care Provider [phone] Reason for Visit * Reason Onset Date Comments Paperwork/forms 12/04/2024 Encounter Details Date Type Department Care Team (Late st Contact Info) Description 12/04/2024 Telephone [facility] [address] [place] [phone] Chip Hobbs MD [address] [place] [address] Paperwork/forms Social History Tobacco Use Types Packs/Day [...] 3:38 PM EDT Ember Reyna RN * [place] Suicide Severity Rating Scale (Q shift for [...] question 6) 0 12/06/2024 3:38 PM EDT Ksota Reyna R N 6. Have you ever [...] AM EDT Office Visit SEP Neurology [facility] [address] [place] [place] [address] Chuyita Moscoso MD [address] [place] [address] 03/12/2025 1:40 PM EST Office Visit [facility]P [facility] [address] [place] [phone] Chip Hobbs MD [address] [place] [address] 04/09/2025 10:00 AM EST Office Visit [facility] [place] [address] [place] [address] Anh Patel, DENTAL TECHNICIAN INSTRUCTOR 1 [facility] [place] [address] documented as of this encounter Goals Goal Patient Goal Type Associated Problems Recent Progress Patient-Stated? Author Maintain a healthy diet, exercise regularly and maintain an ideal body weight General No Philippe Hansen MA Stay Tobacco Free Lifestyle No Philippe Hansen MA documented as of this encounter Visit Diagnoses Not on filedocumented in this encounter Care Teams Car Blocker Relationship Specialty Start Date End Date Chip Hobbs MD [address] [place] [address] PCP - General Family Medicine 09/29/24 documented as of this encounter
--- OUTSIDE RECORDS SUMMARY | 2024-12-29 10:27 | XMS_ITS | Encounter Summary ---
Author Organization [facility] [place] [address] Care Team Providers Care Sat Instructor Name Role Phone Chip Burt MD Primary Care Provider [phone] Encounter Details Date Type Department Care Team [...] of Assessment Author No 09/29/2024 1:42 PM Shiav Lopez MA * Because of a physical, [...] 8:45 AM EDT Office Visit SEP Neurology [facility] [address] [place] [address] Chuyita Moscoso MD [address] [place] [address] 03/12/2025 1:40 PM EST Office Visit SEP [facility] [address] [facility] [address] [place] [phone] Chip Burt MD [address] [place] [address] 04/09/2025 10:00 AM EST Office Visit SEP [facility] [place] [address] [place], [place] [phone] Anh Patel APRN 1 [place] [address] documented as of this encounter Goals Goal Patient Goal Type Associated Problems Recent Progress Patient-Stated? Author Maintain a healthy diet, exercise regularly and maintain an ideal body weight General No Philippe Hansen MA Stay Tobacco Free Lifestyle No Philippe Hansen MA documented as of this encounter Visit Diagnoses Not on filedocumented in this encounter Care Teams Sat Instructor Relationship Specialty Start Date End Date Chip Burt MD [address] [place] [address] PCP - General Family Medicine 09/29/24 documented as of this encounter
--- OUTSIDE RECORDS SUMMARY | 2024-12-29 10:27 | XMS_ITS | Encounter Summary ---
Author Organization [place] [address] Care Team Providers Care Motion Picture Film Examiner Name Role Phone Chip Burt MD Primary Care Provider [phone] Encounter Details Date Type Department Care Team (Late st Contact Info) Description 12/02/2024 Results Follow-Up [facility] [address] [place] [address] Fabby Joya MD [address] [place] [address] URINE CULTURE (NO STAIN) Social History Tobacco [...] 8:45 AM EDT Office Visit SEP Neurology [facility] [address] [place] [address] Chuyita Moscoso MD [address] [place] [address] 03/12/2025 1:40 PM EST Office Visit SEP [facility] [address] [facility] [address] [place] [address] Chip Burt MD [address] [place] [address] 04/09/2025 10:00 AM EST Office Visit SEP [facility] [place] [address] [place] [address] Anh Patel APRN 1 [facility] [place] [address] Scheduled Orders Name Type Priority [...] hematuria documented in this encounter Care Teams Motion Picture Film Examiner Relationship Specialty Start Date End Date Chip Burt MD [address] [place] [address] PCP - General Family Medicine 09/29/24 documented as of this encounter
--- OUTSIDE RECORDS SUMMARY | 2024-12-29 10:27 | XMS_ITS | Clinical Summary ---
Author Organization [facility] Address [address] [place] [address] Care Team Providers Care Product Safety Technician Name Role Phone Gretchen Juarez MD [...] 12/08/2024 10:00 AM EDT MA/Nurse [facility] [place] [address] [address] Postmenopausal bleeding (Primary Dx) 11/28/2024 Results Follow-Up [facility] [place] [address] [address] Amalia Joya APRN PAP HPV DNA, AZALIA 11/24/2024 2:40 PM EDT - 11/24/2024 11:59 PM EDT Hospital Encounter Laboratory [address] [place] [address] Gynecologic exam normal Discharge Disposition: Home or Self Care 11/24/2024 1:40 PM EDT Office [facility] [place] [address] [place], [place] [address] Amalia Joya [...] AZALIA (11/24/2024 2:43 PM EDT) Diagnosis Comment [facility] Comment:NEGATIVE FOR INTRAEP ITHELIAL LESION OR MALIGNANCY. Adequacy Comment [facility] Comment: Satisfactory for evaluation. Endocervical and/or squamous metaplastic cells (endocervical component) are present. Performed Comment [facility] Comment:Anh Lainez, Cyto logist (ASCP) Notes Comment [facility] Comment: The Pap smear is a screening test designed to aid in the detection of premalignant and malignant conditions of the uterine cervix. It is not a diagnostic procedure and should not be used as the sole means of detecting cervical cancer. Both false-positive and false-negative reports do occur. HPV 16 Henrik Negative Negative [facility] EXT ERNA[facility] HPV 18, Henrik Negative Negative [facility] EX TERNAL [facility] Comment: This nucleic acid amplification test detects fourteen high-risk HPV types: HPV16, HPV18 and twelve other high-risk types (31,33,35,39,45,51,52,56,58,59,66,68) without differentiation. Performed at: [address], [place] [id number] Special Investigation Unit Investigator: Shazia Marrero MD, Phone: [phone] Performed at: = - [facility]za[place], [place] [id number] Special Investigation Unit Investigator: Shazia Marrero MD, Phone: [phone] HPV Other Types, Henrik Negative Negative [facility] Pap Vial 11/24/2024 2:43 PM EDT 11/28/2024 3:07 PM EDT us Amalia Joya HEAVY DUTY TRUCK MECHANIC PATHOLOGY/CYTOLOGY ORDERABL ES Final Result [facility] [address] [place] [address], [facility] from Last 3 Months Insurance [place] [employer] [facility] [address] [place] [address] Care Teams Product Safety Technician Relationship Specialty Start Date End Date Gretchen Juarez MD PCP - General Family Medicine 05/13/12
--- OUTSIDE RECORDS SUMMARY | 2024-12-29 10:27 | XMS_ITS | Encounter Summary ---
Author Organization [facility] Address [address] [place] [address] Care Team Providers Care Muleser Name Role Phone Gretchen Juarez MD Primary Care Provider Tiffanie bullard Encounter Details Date Type Department Care Team (Late st Contact Info) Description 11/28/2024 Results Follow-Up [facility] Physicians - Obstetrics & Gynecology, [place] [address] [place] [address] Amlaia Joya APRN [address] [place], [place] [phone] PAP HPV DNA, AZALIA Social History Tobacco [...] on filedocumented in this encounter Care Teams Muleser Relationship Specialty Start Date End Date Gretchen Juarez MD PCP - General Family Medicine 05/13/12 documented as of this encounter
--- OUTSIDE RECORDS SUMMARY | 2024-12-29 10:27 | XMS_ITS | Encounter Summary ---
Author Organization [facility] [place] [address] Care Team Providers Care Clinical Science Liaison Name Role Phone Chip Burt MD Primary Care Provider [phone] Encounter Details Date Type Department Care Team [...] SEP Neurology [facility] [address] [place] [address] Chuyita Moscoso MD [address] [place] [address] 03/12/2025 1:40 PM EST Office Visit SEP [facility] [address] [facility] [address] [place] [phone] Chip Burt MD [address] [place] [address] 04/09/2025 10:00 AM EST Office Visit [facility]P [facility] [place] [address] [place], [place] [address] Anh Patel APRN 1 [place] [address] documented as of this encounter Goals Goal Patient Goal Type Associated Problems Recent Progress Patient-Stated? Author Maintain a healthy diet, exercise regularly and maintain an ideal body weight General No Philippe Hansen MA Stay Tobacco Free Lifestyle No Philippe Hansen MA documented as of this encounter Visit Diagnoses Not on filedocumented in this encounter Care Teams Clinical Science Liaison Relationship Specialty Start Date End Date Chip Burt MD [address] [place] [address] PCP - General Family Medicine 09/29/24 documented as of this encounter
--- OUTSIDE RECORDS SUMMARY | 2024-12-29 10:27 | XMS_ITS | Encounter Summary ---
Author Organization [place] [address] Care Team Providers Care Reinforcing Iron And Rebar Workers Name Role Phone Chip Burt MD Primary Care Provider [phone] Reason for Visit * Reason Onset Date Comments Central Order Completion Outreach 11/30/2024 [email or web address] Encounter Details Date Type Department Care Team (Late st Contact Info) Description 11/30/2024 Patient Outreach SEP [facility] [address] [place] [address] Chip Burt MD [address] [place] [address] Central Order Completion Outreach (cologuard) Social History [...] AM EDT Office Visit SEP Neurology [address] [place] [phone] Chuyita Moscoso MD [address] [place] [address] 03/12/2025 1:40 PM EST Office Visit [facility]P [facility] [address] [phone] Chip Burt MD [address] [place] [address] 04/09/2025 10:00 AM EST Office Visit SEP [facility] [place] [address] [place] [address] Anh Patel, MILLER APPRENTICE 1 [place] [address] documented as of this encounter Goals Goal Patient Goal Type Associated Problems Recent Progress Patient-Stated? Author Maintain a healthy diet, exercise regularly and maintain an ideal body weight General No Philippe Hansen MA Stay Tobacco Free Lifestyle No Philippe Hansen MA documented as of this encounter Visit Diagnoses Not on filedocumented in this encounter Care Teams Reinforcing Iron And Rebar Workers Relationship Specialty Start Date End Date Chip Burt MD [address] [place] [address] PCP - General Family Medicine 09/29/24 documented as of this encounter
--- OUTSIDE RECORDS SUMMARY | 2024-12-29 10:27 | XMS_ITS | Encounter Summary ---
Author Organization [place] [address] Care Team Providers Care Drip Molder Name Role Phone Chip Burt MD Primary Care Provider Reason for Visit * Reason Onset Date Comments Release of Information 12/16/2024 Encounter Details Date Type Department Care Team (Late st Contact Info) Description 12/16/2024 Telephone [facility] [address] [facility] [address] [place], [place] [phone] Chip Burt MD [address] [place] [address] Release of Information Social History Tobacco Use [...] AM EDT Medical record request sent to [facility] for processing documented in this encounter Plan of Treatment Upcoming Encounters Date Type Department Care Team (Late st Contact Info) Description 01/04/2025 8:45 AM EDT Office Visit SEP Neurology [facility] [address] [place] [address] Chuyita Moscoso MD [facility]0 [place] [address] 03/12/2025 1:40 PM EST Office Visit SEP [facility] [address] [address] Chip Burt MD [address] [place] [address] 04/09/2025 10:00 AM EST Office Visit SEP [facility] [address] [address] Anh Patel, BOOK SHELVER 1 [facility] [address] [place], [place] [address] documented as of this encounter Goals Goal Patient Goal Type Associated Problems Recent Progress Patient-Stated? Author Maintain a healthy diet, exercise regularly and maintain an ideal body weight General No Philippe Hansen MA Stay Tobacco Free Lifestyle No Philippe Hansen MA documented as of this encounter Visit Diagnoses Not on filedocumented in this encounter Care Teams Drip Molder Relationship Specialty Start Date End Date Chip Burt MD [address] [place], [place] [phone] PCP - General Family Medicine 09/29/24 documented as of this encounter
--- OUTSIDE RECORDS SUMMARY | 2024-12-29 10:27 | XMS_ITS | Encounter Summary ---
Author Organization [place] [address] Care Team Providers Care Extract Operator Name Role Phone Chip Burt MD Primary Care Provider [phone] Encounter Details Date Type Department Care Team (Late st Contact Info) Description 12/15/2024 Results Follow-Up SEP [facility] [address] [facility] [address] [place] [phone] Chip Burt MD [address] [place] [address] URINE CULTURE (NO STAIN) Social History Tobacco [...] AM EDT Office Visit SEP Neurology [facility] [address] [place] [address] Chuyita Moscoso MD [address] [place] [address] 03/12/2025 1:40 PM EST Office Visit SEP [facility] [address] [facility] [address] [place] [address] Chip Burt MD [address] [place] [address] 04/09/2025 10:00 AM EST Office Visit SEP [facility] [place] [address] [place] [address] Anh Patel APRN 1 [facility] [place], [place] [address] documented as of this encounter Goals Goal Patient Goal Type Associated Problems Recent Progress Patient-Stated? Author Maintain a healthy diet, exercise regularly and maintain an ideal body weight General Philippe Love MA Stay Tobacco Free Lifestyle Philippe Love MA documented as of this encounter Visit Diagnoses Not on filedocumented in this encounter Care Teams Extract Operator Relationship Specialty Start Date End Date Chip Burt MD [address] [place] [address] PCP - General Family Medicine 09/29/24 documented as of this encounter
--- OUTSIDE RECORDS SUMMARY | 2024-12-29 10:28 | XMS_ITS | Encounter Summary ---
Author Organization [place] [address] Care Team Providers Care Transportation Specialist Name Role Phone Chip Burt MD Primary Care Provider [phone] Reason for Visit * Reason Onset Date Comments Other 12/08/2024 faxed forms Encounter Details Date Type Department Care Team (Late st Contact Info) Description 12/08/2024 Telephone [facility] [address] [facility] [address] [place] [phone] Chip Burt MD [address] [place] [address] Other (faxed forms) Social History Tobacco Use [...] to patient if not the patient): concepción ewst/ daniel matthews What is needed OR why [...] 8:45 AM EDT Office Visit SEP Neurology [facility] [address] [place] [phone] Chuyita Moscoso MD [address] [place], [place] [address] 03/12/2025 1:40 PM EST Office Visit SEP [facility] [address] [place] [phone] Chip Burt MD [address] [place] [address] 04/09/2025 10:00 AM EST Office Visit SEP [facility] [place] [address] [place] [address] Anh Patel, CAYDEN 1 [place], [place] [phone] documented as of this encounter Goals Goal Patient Goal Type Associated Problems Recent Progress Patient-Stated? Author Maintain a healthy diet, exercise regularly and maintain an ideal body weight General No Philippe Hansen MA Stay Tobacco Free Lifestyle No Philippe Hansen MA documented as of this encounter Visit Diagnoses Not on filedocumented in this encounter Care Teams Transportation Specialist Relationship Specialty Start Date End Date Chip Burt MD [address] [place] [address] PCP - General Family Medicine 09/29/24 documented as of this encounter
--- OUTSIDE RECORDS SUMMARY | 2024-12-29 10:28 | XMS_ITS | Encounter Summary ---
Author Organization [facility] [place] [address] Care Team Providers Care Marine Propulsion Technician Name Role Phone Chip Burt MD [...] 3:38 PM EDT Ember Reyna RN * [place] Suicide Severity Rating Scale (Q shift for [...] 8:45 AM EDT Office Visit SEP Neurology [facility] [address] [place] [address] Chuyita Moscoso MD [address] [place] [address] 03/12/2025 1:40 PM EST Office Visit [facility] [address] [phone] Chip Burt MD [address] [place] [address] 04/09/2025 10:00 AM EST Office Visit SEP [facility] [place] [address] [place], [place] [phone] Anh Patel APRN 1 [facility] [place] [address] documented as of this encounter Goals Goal Patient Goal Type Associated Problems Recent Progress Patient-Stated? Author Maintain a healthy diet, exercise regularly and maintain an ideal body weight General No Philippe Hansen MA Stay Tobacco Free Lifestyle No Philippe Hansen MA documented as of this encounter Visit Diagnoses Not on filedocumented in this encounter Care Teams Marine Propulsion Technician Relationship Specialty Start Date End Date Chip Burt MD [address] [place] [address] PCP - General Family Medicine 09/29/24 documented as of this encounter
--- OUTSIDE RECORDS SUMMARY | 2024-12-29 10:28 | XMS_ITS | Encounter Summary ---
Author Organization [facility] [place] [address] Care Team Providers Care Donkey Ride Operator Name Role Phone Chip Burt MD Primary Care Provider [phone] Encounter Details Date Type Department Care Team [...] 8:45 AM EDT Office Visit SEP Neurology [facility] [address] [place] [address] Chuyita Moscoso MD [address] [place] [address] 03/12/2025 1:40 PM EST Office Visit SEP [facility] [address] [facility] [address] [place] [phone] Chip Burt MD [address] [place] [address] 04/09/2025 10:00 AM EST Office Visit SEP [facility] [place] [address] [place], [place] [phone] Anh Patel APRN 1 [place] [address] documented as of this encounter Goals Goal Patient Goal Type Associated Problems Recent Progress Patient-Stated? Author Maintain a healthy diet, exercise regularly and maintain an ideal body weight General No Philippe Hansen MA Stay Tobacco Free Lifestyle No Philippe Hansen MA documented as of this encounter Visit Diagnoses Not on filedocumented in this encounter Care Teams Donkey Ride Operator Relationship Specialty Start Date End Date Chip Burt MD [address] [place] [address] PCP - General Family Medicine 09/29/24 documented as of this encounter
--- OUTSIDE RECORDS SUMMARY | 2024-12-29 10:28 | XMS_ITS | Encounter Summary ---
Author Organization [place] [address] Care Team Providers Care Underground Utility Locator Name Role Phone Chip Burt MD Primary Care Provider [phone] Reason for Visit * Reason Onset Date Comments Results 11/23/2024 11/24/24 CT Angio gram Encounter Details Date Type Department Care Team (Late st Contact Info) Description 11/23/2024 Results Follow-Up SEP [facility] [address] [facility] [address] [place] [phone] Chip Burt MD [address] [place] [address] CT HEAD WO CONTRAST, CT ANGIOGRAM HEAD [...] Description 01/04/2025 8:45 AM EDT Office Visit [facility] Neurology [facility] [address] [place] [address] Chuyita Moscoso MD [address] [place] [address] 03/12/2025 1:40 PM EST Office Visit SEP [facility] [address] [place] [phone] Chip Burt MD [address] [place] [address] 04/09/2025 10:00 AM EST Office Visit SEP [facility] [place] [address] [place], [place] [address] Anh Patel APRN 1 [place] [address] documented as of this encounter Goals Goal Patient Goal Type Associated Problems Recent Progress Patient-Stated? Author Maintain a healthy diet, exercise regularly and maintain an ideal body weight General No Philippe Hansen MA Stay Tobacco Free Lifestyle No Philippe Hansen MA documented as of this encounter Visit Diagnoses Not on filedocumented in this encounter Care Teams Underground Utility Locator Relationship Specialty Start Date End Date Chip Burt MD [address] [place] [address] PCP - General Family Medicine 09/29/24 documented as of this encounter
--- OUTSIDE RECORDS SUMMARY | 2024-12-29 10:28 | XMS_ITS | Clinical Summary ---
Author Organization [facility] Address [address] [place] [address] Phone Care Team Providers Care Candy Dipper Name Role Phone Chip Burt MD Primary Care Provider [phone] Allergies Active Allergy Reactions Criticality Noted Date [...] Capsule 2 5 Active Blood Pressure Monitor [facility] KitIndications:S yncope, unspecified syncope type,Other fatigue 1 Kit by [facility].(Non-Drug; Combo Route) route daily. 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 Overview (12/15/2024): Follows [...] (11/02/2024): supp Lab Results Component Value Date [id number] 18.7 (L) 10/07/2024 Cigarette smoker 09/29/2024 Overview [...] Care Team Description 12/20/2024 Telephone [place] [address] [facility] [address] [address] Leti Bustillo MA Follow Up (Short Term Disability ) 12/16/2024 Telephone [place] [address] [facility] [address] [address] Chip Burt MD Release of Information 12/15/2024 3:20 PM EDT Office Visit [place] [address] [facility] [address] [address] Chip Burt MD Syncope, unspecified syncope type (Primary Dx); Dizziness; Intermittent palpitations; Abnormal EKG; Cigarette smoker; Incomplete RBBB; Elevated LDL cholesterol level; Golovin light chain disease; Transaminitis; Nausea; Vitamin D deficiency; Generalized anxiety disorder 12/15/2024 Results Follow-Up [place] [address] [facility] [address] [address] Chip Burt MD URINE CULTURE (NO STAIN) 12/15/2024 Travel 12/11/2024 8:30 AM EDT Office Visit [facility] H&V [address] [phone] Binh Brody MD Precordial pain (Primary Dx); Heart palpitations 12/11/2024 Travel 12/08/2024 Telephone [place] [address] [facility] [address] [address] Chip Burt MD Other (faxed forms) 12/07/2024 2:56 PM EDT - 12/07/2024 11:59 PM EDT Hospital Encounter [facility] [address] [facility] [address] [place] [address] Rohan Bhatt APRN Chest pain, unspecified type Discharge Disposition: Home or Self Care 12/06/2024 3:45 PM EDT - 12/06/2024 7:29 PM EDT Emergency [facility] [address] [place] [phone] Sandra Barahona MD Chest pain, unspecified type (Primary Dx) Discharge Disposition: Home or Self Care 12/06/2024 Travel 12/04/2024 Telephone [facility] [address] [facility] [address] [place] [address] Chip Burt MD Paperwork/forms 12/02/2024 Results Follow-Up [facility] 1500 [facility] [address] [place] [phone] Fabby Joya MD URINE CULTURE (NO STAIN) 12/01/2024 1:36 PM EDT - 12/01/2024 11:59 PM EDT Hospital Encounter [facility] MRI [address] [place] [address] Chip Burt MD Syncope, unspecified syncope type; Dizziness; Vision changes; Transient leg weakness Discharge Disposition: Home or Self Care 12/01/2024 1:35 PM EDT Hospital Encounter [facility] MRI [address] [place] [address] Chip Burt MD Transient leg weakness Discharge Disposition: Home or Self Care 12/01/2024 10:47 AM EDT - 12/01/2024 1:34 PM EDT Hospital Encounter [facility] [address] [place] [address] Chip Burt MD Syncope, unspecified syncope type; Dizziness; Intermittent palpitations; Abnormal EKG Discharge Disposition: Home or Self Care 11/30/2024 2:45 PM EDT Office Visit [facility] [address] [facility] [address] [place] [phone] Fabby Joya MD Dizziness (Primary Dx); Urinary frequency; UTI (urinary tract infection), uncomplicated 11/30/2024 Travel 11/30/2024 Patient Outreach [facility] [address] [place] [address] Chip Burt MD Central Order Completion Outreach (cologuard) 11/24/2024 10:07 AM EDT - 11/24/2024 11:59 PM EDT Hospital Encounter [place] [address] [place] [address] Chip Burt MD Syncope, unspecified syncope type; Dizziness; Vision changes; Transient leg weakness Discharge Disposition: Home or Self Care 11/23/2024 1:04 PM EDT - 11/23/2024 11:59 PM EDT Hospital Encounter [place] [address] [place] [address] Chip Burt MD Syncope, unspecified syncope type; Dizziness; Vision changes; Transient leg weakness Discharge Disposition: Home or Self Care 11/23/2024 10:20 AM EDT Office Visit [facility] [address] [place] [address] Chip Burt MD Syncope, unspecified syncope type (Primary Dx); Dizziness; Vision changes; Intermittent palpitations; Abnormal EKG; Cigarette smoker; UTI (urinary tract infection), uncomplicated; Elevated LDL cholesterol level; Transaminitis; Transient leg weakness; Generalized anxiety disorder 11/23/2024 Results Follow-Up [facility] [address] [employer] [address] [place] [phone] HEAD WO CONTRAST, CT ANGIOGRAM HEAD AND NECK W CONTRAST 11/23/2024 Telephone [facility] [address] [facility] [address] [place] [address] Leti Bustillo MA Results 11/17/2024 10:21 AM EDT - 11/17/2024 11:59 PM EDT Hospital Encounter [facility] [address] [place] [address] Fredi Trevizo MD Golovin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); Syncope, unspecified syncope type; EKG abnormality Discharge Disposition: Home or Self Care 11/17/2024 10:20 AM EDT Hospital Encounter [facility] [address] [place] [address] Golovin light chain disease; Elevated LDL cholesterol level; Vitamin D deficiency; Urinary frequency Discharge Disposition: Home or Self Care 11/17/2024 7:55 AM EDT - 11/17/2024 10:19 AM EDT Hospital Encounter [facility] [address] [place] [address] Chip Burt MD Discharge Disposition: Home or Self Care 11/17/2024 7:54 AM EDT Hospital Encounter [facility] [address] [place] [address] Chip Burt MD Syncope, unspecified syncope type; Palpitations; Other fatigue Discharge Disposition: Home or Self Care 11/17/2024 Results Follow-Up [facility] [address] [employer] [address] [place] [address] Fabby Joya MD URINALYSIS, URINE CULTURE (NO STAIN) 11/17/2024 Telephone [facility] [address] [place] [address] Keri Peralta MA 11/17/2024 Telephone [facility] [address] [place] [address] Leti Bustillo MA Other 11/02/2024 11:00 AM EDT Office Visit [facility] [address] [employer] [address] [place] [address] Chip Burt MD Syncope, unspecified syncope type (Primary Dx); Dizziness; Cigarette smoker; Elevated LDL cholesterol level; Transaminitis; Vitamin D deficiency; Perimenopause; Other fatigue 10/14/2024 Results Follow-Up [facility] [address] [facility] [address] [place] [address] Chip Burt MD US RIGHT UPPER QUADRANT 10/13/2024 9:06 AM EDT - 10/13/2024 11:59 PM EDT Hospital Encounter [facility] [address] [place] [address] Chip Burt MD Elevated LDL cholesterol level; Transaminitis Discharge Disposition: Home or Self Care 10/13/2024 Telephone [facility] [place], [place] [phone] Fredi Trevizo MD New Patient Heme (New Pt Referred by: Oumar Burt DX: Golovin light chain disease) 10/11/2024 Orders Only [facility] [address] [place] [address] Leti Bustillo MA Vitamin D deficiency 10/11/2024 Orders Only [facility] [address] [facility] [address] [place], [place] [phone] Chip Burt MD UTI (urinary tract infection), uncomplicated (Primary Dx) 10/08/2024 Results Follow-Up [facility] [address] [place] [address] Chip Burt MD HEPATITIS B SURFACE ANTIBODY, COMPREHENSIVE METABOLIC PANEL, LIPID SCREEN, Additional followed-up results: 21 10/07/2024 10:10 AM EDT - 10/07/2024 11:59 PM EDT Hospital Encounter [facility] [address] [place] [address] Annual physical exam; Syncope, unspecified syncope type; Palpitations; Incomplete RBBB; Abnormal EKG; Family history of heart disease; Cigarette smoker; Myalgia; Perimenopause; Other fatigue Discharge Disposition: Home or Self Care 09/29/2024 1:40 PM EDT Office Visit [facility] [address] [place] [phone] Chip Burt MD Annual physical exam (Primary [...] had hysterectomy Heart Disease Mother Jayashree Alva Arrhythmogeni c Right Ventricular Cardiomyopathy Arrhythmia Sister [...] 8:45 AM EDT Office Visit [facility] [address] [place] [address] Chuyita Moscoso MD [address] [place], [place] [phone] 03/12/2025 1:40 PM EST Office Visit [facility] [address] [facility] [address] [place] [phone] Chip Burt MD [address] [place] [address] 04/09/2025 10:00 AM EST Office Visit [facility] H&[facility] [address] [place], [place] [phone] Anh Patel, ADAPTED PHYSICAL EDUCATION SPECIALIST [address] [place], [place] [phone] Health Maintenance Due Date Last Done Comments [...] WITH DIFF STAT 11/17/2024 10:37 AM EDT Golovin light chain disease COMPREHENSIVE METABOLIC PANEL STAT 11/17/2024 10:37 AM EDT Golovin light chain disease EC ECHOCARDIOGRAM COMPLETE W [...] Syncope, unspecified syncope type Palpitations Other fatigue 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 Anatomical Region Laterality Modality Holter/Event Mon itoring 12/13/2024 9:42 AM EDT Impressions 12/13/2024 3:54 PM EDT [facility] Test Date: 2024-12-13 Pat Name: SHERYL CORDERO Department: DEPID Room: Gender: Female Valve Repairer Reclamation: : 1975 Requested By: ROHAN Conley Order Number: [id number] Michael MD: Anthony Cummings MD Interpretive Statements Admissions Evaluator Date: 12/07/2024 Referring Provider: Dr. Chip Burt [...] Note Anthony Cummings MD - 12/13/2024 IMPRESSION [facility] Test Date: 2024-12-13 Pat Name: SHERYL CORDERO Department: DEPID Room: Gender: Female Valve Repairer Reclamation: : 1975 Requested By: ROHAN Conley Order Number: [id number] Michael MD: Anthony Cummings MD Interpretive Statements Admissions Evaluator Date: 12/07/2024 Referring Provider: Dr. Chip Burt [...] HIGH SENSITIVITY 2HR (12/06/2024 6:39 PM EDT) [facility] sv-cJhmtzbgq-N 2HR 7 <14 ng/L 12/06/2024 7:06 PM EDT [facility] hs-cTnT 2Hr Delta from Baseline >1 <4 ng/L 12/06/2024 7:06 PM EDT [facility] Blood VENOUS BLOOD / Unknown Venipuncture / Unknown 12/06/2024 6:39 PM EDT 12/06/2024 6:48 PM EDT Narrative [facility] - 12/06/2024 7:06 PM EDT Ingestion of caleb doses of biotin (>5 mg/day) taken within 8 hours of drawing blood sample can interfere with this immunoassay test. Rohan Bhatt APRN CHEMISTRY ORDERABLES Final Result [facility] [address] [place] [address] * (ABNORMAL) URINALYSIS REFLEX (12/06/2024 5:04 PM EDT) Only the most recent of2 resultswithin the time period is included. Pathologist [facility] UA Color Yellow 12/06/2024 5:15 PM EDT [facility] UA Appear Clear Clear 12/06/2024 5:15 PM EDT [facility] UA Glucose Negative Negative mg/dL 12/06/2024 5:15 PM EDT [facility] UA Ketones Negative Negative mg/dL 12/06/2024 5:15 PM EDT [facility] UA Blood Negative Negative 12/06/2024 5:15 PM EDT [facility] UA pH 6.0 5.0 - 8.0 pH 12/06/2024 5:15 PM EDT [facility] UA Protein Negative Negative mg/dL 12/06/2024 5:15 PM EDT [facility] UA Urobilinogen 0.2 <=1 mg/dL 5:15 PM EDT [facility] UA Bili Negative Negative 12/06/2024 5:15 PM EDT [facility] UA Nitrite Negative Negative 12/06/2024 5:15 PM EDT [facility] UA Leuk Est Small(A) Negative 12/06/2024 5:15 PM EDT [facility] UA Spec Grav 1.010 1.001 - 1.035 no units 12/06/2024 5:15 PM EDT [facility] Comment:Reference range nick d for random specimens only. UA WBC 5(H) 0 - 4 /HPF 12/06/2024 5:15 PM EDT [facility] UA RBC 1 0 - 3 /HPF 12/06/2024 5:15 PM EDT [facility] UA Squam Epi Rare /LPF 12/06/2024 5:15 PM EDT [facility] UA Mucus 1+ /LPF 12/06/2024 5:15 PM EDT [facility] UA Amorph Trace /HPF 12/06/2024 5:15 PM EDT [facility] Urine STRUCTURE OF URINARY TRACT PROPER / Unknown 12/06/2024 5:04 PM EDT 12/06/2024 5:06 PM EDT us Rohan Bhatt ADAPTED PHYSICAL EDUCATION SPECIALIST URINE ORDERABLES Final Resu lt [facility] [address] [place] [address] * EXTRA DEL CID URINE CX (12/06/2024 5:04 PM EDT) Only the most recent of2 resultswithin the time period is included. Urine STRUCTURE OF URINARY TRACT PROPER / Unknown 12/06/2024 5:04 PM EDT 12/06/2024 5:06 PM EDT Rohan Bhatt APRN MICROBIOLOGY - GENERAL ORDE RABLES Final Result [facility] [address] [place] [address] * URINE CULTURE (NO STAIN) (12/06/2024 5:04 PM EDT) Only the most recent of4 resultswithin the time period is included. Culture No growth at 30 hours. 12/08/2024 11:43 AM EDT [facility] Urine STRUCTURE OF URINARY TRACT PROPER / Unknown 12/06/2024 5:04 PM EDT 12/06/2024 5:15 PM EDT Rohan Bhatt APRN MICROBIOLOGY - GENERAL ORDE RABJODEE Final Result Performing Organization Address [facility] Co de Phone Number [facility] [address] [facility] , [place] [address] * TROPONIN-T HIGH SENSITIVITY BASELINE W/ REFLEX (12/06/2024 4:51 PM EDT) Only the most recent of2 resultswithin the time period is included. qn-mJetrxcwx-M <6 <14 ng/L 12/06/2024 5:19 PM EDT [facility] Blood VENOUS BLOOD / Unknown Venipuncture / Unknown 12/06/2024 4:51 PM EDT 12/06/2024 4:56 PM EDT Narrative [facility] - 12/06/2024 5:19 PM EDT Ingestion of caleb doses of biotin (>5 mg/day) taken within 8 hours of drawing blood sample can interfere with this immunoassay test. Rohan Bhatt APRN CHEMISTRY ORDERABLES Final Result [facility] [address] [place] [address] * (ABNORMAL) CBC WITH DIFF (12/06/2024 4:51 PM EDT) Only the most recent of3 resultswithin the time period is included. WBC 9.8 3.7 - 10.3 x10(3)/mcL 12/06/2024 4:58 PM EDT [facility] RBC 4.42 3.90 - 5.20 x10(6)/mcL 12/06/2024 4:58 PM EDT [facility] Hgb 13.6 11.2 - 15.7 g/dL 12/06/2024 4:58 PM EDT [facility] Hct 41.6 34.0 - 45.0 % 12/06/2024 4:58 PM EDT [facility] MCV 94.1 80.0 - 100.0 fL 12/06/2024 4:58 PM EDT [facility] MCH 30.8 26.0 - 34.0 pg 12/06/2024 4:58 PM EDT [facility] MCHC 32.7 30.7 - 35.5 g/dL 12/06/2024 4:58 PM EDT [facility] RDW 12.9 <=14.9 % 12/06/2024 4:58 PM EDT [facility] Platelet 316 155 - 369 x10(3)/mcL 12/06/2024 4:58 PM EDT [facility] MPV 9.0 8.8 - 12.5 fL 12/06/2024 4:58 PM EDT [facility] Neut Percent 69.6 % 12/06/2024 4:58 PM EDT [facility] Comment:Neutrophils equals s egs plus bands Imm Gran% 0.1 % 12/06/2024 4:58 PM EDT [facility] Comment:Automated count of m etamyelocytes, myelocytes and promyelocytes. Lymph Percent 22.6 % 12/06/2024 4:58 PM EDT [facility] Early Percent 4.9 % 12/06/2024 4:58 PM EDT [facility] Eos Percent 2.4 % 12/06/2024 4:58 PM EDT [facility] Baso Percent 0.4 % 12/06/2024 4:58 PM EDT [facility] Neut # 6.8(H) 1.6 - 6.1 x10(3)/[facility] 12/06/2024 4:58 PM EDT [facility] Comment:Neutrophils equals s egs plus bands IMMGRAN# 0.0 0.0 - 0.1 x10(3)/[facility] 12/06/2024 4:58 PM EDT [facility] Comment:Automated count of m etamyelocytes, myelocytes and promyelocytes. An absolute IG <0.1 is reported as 0.0. Lymph # 2.2 1.2 - 3.9 x10(3)/[facility] 12/06/2024 4:58 PM EDT [facility] Early # 0.5 0.3 - 0.9 x10(3)/[facility] 12/06/2024 4:58 PM EDT [facility] Eos# 0.2 0.0 - 0.5 x10(3)/[facility] 12/06/2024 4:58 PM EDT [facility] Baso # 0.0 0.0 - 0.1 x10(3)/[facility] 12/06/2024 4:58 PM EDT [facility] Blood VENOUS BLOOD / Unknown Venipuncture / Unknown 12/06/2024 4:51 PM EDT 12/06/2024 4:56 PM EDT us Rohan Bhatt ADAPTED PHYSICAL EDUCATION SPECIALIST HEMATOLOGY ORDERABLES Final Result [facility] [address] [place] [address] * MAGNESIUM LEVEL (12/06/2024 4:51 PM EDT) Only the most recent of2 resultswithin the time period is included. Magnesium 1.9 1.6 - 2.4 mg/dL 12/06/2024 5:24 PM EDT [facility] Blood VENOUS BLOOD / Unknown Venipuncture / Unknown 12/06/2024 4:51 PM EDT 12/06/2024 4:56 PM EDT us Rohan Conley Mangus ADAPTED PHYSICAL EDUCATION SPECIALIST CHEMISTRY ORDERABLES Final Result Performing Organization Address [facility] de Phone Number [facility] [address] [place], [place] [phone] * LIPASE LEVEL (12/06/2024 4:51 PM EDT) Lipase Lvl 21 13 - 60 U/L 12/06/2024 5:24 PM EDT [facility] Blood VENOUS BLOOD / Unknown Venipuncture / Unknown 12/06/2024 4:51 PM EDT 12/06/2024 4:56 PM EDT us Rohan R Mangus ADAPTED PHYSICAL EDUCATION SPECIALIST CHEMISTRY ORDERABLES Final Result Performing Organization Address [facility] de Phone Number [facility] [address] [place] [address] * COMPREHENSIVE METABOLIC PANEL (12/06/2024 4:51 PM EDT) Only the most recent of3 resultswithin the time period is included. Sodium 141 136 - 145 mmol/L 12/06/2024 5:24 PM EDT [facility] Potassium 3.8 3.5 - 5.0 mmol/L 12/06/2024 5:24 PM EDT [facility] Chloride 105 98 - 107 mmol/L 12/06/2024 5:24 PM EDT [facility] Total CO2 28 22 - 29 mmol/L 12/06/2024 5:24 PM EDT [facility] Anion Gap 8 7 - 16 mmol/L 12/06/2024 5:24 PM EDT [facility] Calcium 8.8 8.6 - 10.4 mg/dL 12/06/2024 5:24 PM EDT [facility] Glucose Lvl 75 70 - 99 mg/dL 12/06/2024 5:24 PM EDT [facility] BUN 10 6 - 20 mg/dL 12/06/2024 5:24 PM EDT [facility] Creatinine 0.69 0.51 - 1.30 mg/dL 12/06/2024 5:24 PM EDT [facility] Albumin 4.1 3.5 - 5.2 gm/dL 12/06/2024 5:24 PM EDT [facility] Total Protein 6.6 6.4 - 8.3 gm/dL 12/06/2024 5:24 PM EDT [facility] Bili Total 0.4 0.2 - 1.3 mg/dL 12/06/2024 5:24 PM EDT [facility] ALT 14 <=41 U/L 12/06/2024 5:24 PM EDT [facility] AST 16 <=40 U/L 12/06/2024 5:24 PM EDT [facility] Alk Phos 119 36 - 123 U/L 12/06/2024 5:24 PM EDT [facility] eGFR (CKD-EPIcr 2020) 106 >=60 mL/min/1.7 3 m2 12/06/2024 5:24 PM EDT [facility] Comment:Estimated GFR was ca lculated using the CKD-EPIcr (2020) equation refit without race. The equation is recommended by the National Kidney [employer] - [place] [employer] Nephrology Task Force. Blood VENOUS BLOOD / Unknown Venipuncture / Unknown 12/06/2024 4:51 PM EDT 12/06/2024 4:56 PM EDT us Rohan Bhatt ADAPTED PHYSICAL EDUCATION SPECIALIST CHEMISTRY ORDERABLES Final Result [facility] [address] [place] [address] * XR CHEST PA AND [...] IMPRESSION: No acute finding. us Rohan Bhatt ADAPTED PHYSICAL EDUCATION SPECIALIST IMG DIAGNOSTIC IMAGING ORDE RABJODEE Final Result * EK EKG 12 LEAD (12/06/2024 3:37 PM EDT) Anatomical Region Laterality Modality Electrocardiogra phy 12/06/2024 3:43 PM EDT Impressions 12/07/2024 10:17 AM EDT [facility] Date: 2024-12-06 Pat Name: SHERYL CORDERO Department: DEPID Room: Gender: Female Valve Repairer Reclamation: [facility] : 1975 Requested By: [facility] Order Number: [id number] Reading MD: Donnie Lam MD Measurements Intervals [place] Rate: 68 P: 73 ID: [id number] QRS: -75 QRSD: 98 T: 86 QT: 396 QTc: 424 Interpretive Statements SINUS RHYTHM PATTERN CONSISTENT WITH PULMONARY DISEASE LEFT ANTERIOR FASCICULAR BLOCK Electronically Signed On 12-07-2024 10:17:51 EDT by Donnie Lam MD Narrative Procedure Note Donnie Lam MD - 12/07/[address] [facility] Test Date: 2024-12-06 Pat Name: SHERYL CORDERO Department: DEPID Room: Gender: Female Valve Repairer Reclamation: [facility] : 1975 Requested By: [facility] Order Number: [id number] [place] MD: Donnie Lam MD Measurements Intervals [place] Rate: 68 P: 73 ID: [id number] QRS: -75 QRSD: 98 T: 86 [...] R29.898-Other symptoms and signs involving the musculoskeletal snktrk-QXR-89-CM. COMPARISON: No prior lumbar spine MR studies [...] heavy R29.898-Other symptoms and signsinvolving the musculoskeletal eqyllr-SQQ-80-CM. COMPARISON: No prior lumbar spine MR studies [...] the ordering clinician. us Chip Burt MD [facility] MRI ORDERABLES Final [...] WO CONTRAST 12/01/2024 3:25 PM CLINICAL HISTORY: E43-Lbhlhjq and ayckysnx-XAT-39-CM T00-Fscvmwnjv and byeayxcnf-NJA-21-CM H53.9-Unspecified visual bvzrbfxmshc-ASZ-85-CM R29.898-Other symptoms and signs involving the musculoskeletal uvckec-WVG-80-CM. COMPARISON: Head CT 11/23/2024 PROCEDURE COMMENTS: Multiplanar [...] WO CONTRAST 12/01/2024 3:25 PM CLINICAL HISTORY: F36-Sibgmyy and nsrusuym-QRY-67-CM B55-Lplczonay and pzljtkqsw-JRJ-26-CM H53.9-Unspecified visual zpofmitecto-KRZ-30-CM R29.898-Other symptoms and signs involving the qxajqrmcglqlewzmjyoyd-VQL-42-CM. COMPARISON: Head CT 11/23/2024 PROCEDURE COMMENTS: Multiplanar [...] SEP URINALYSIS POC (11/30/2024 3:24 PM EDT) [facility] UA Color POC Yellow Color [...] POINT OF CARE TEST ORDERABLES Final Result [facility] [address] [facility], [address] [place] [address] * CT ANGIOGRAM HEAD AND NECK W [...] WITH CONTRAST, 11/24/2024 10:27 AM CLINICAL HISTORY: N65-Gjgdzst and jxfbguxl-NXI-26-CM E30-Uznfbrwyr and xihvcyvvd-TLV-77-CM H53.9-Unspecified visual mmwkzqdjety-FAS-20-CM R29.898-Other symptoms and signs involving the musculoskeletal vgmpeq-RCD-56-CM. COMPARISON: Concurrently obtained CT brain, CTA 06/24/2024 [...] WITH CONTRAST, 11/24/2024 10:27 AM CLINICAL HISTORY: Y86-Valysbi and ctdaijcw-BPE-61-CM T21-Qefnslxsy and msdszaysj-TVK-90-CM H53.9-Unspecified visual swvjxuarexm-OXR-79-CM R29.898-Other symptoms and signs involving the ebwawxdtwzhdmrjntlmts-FRW-26-CM. COMPARISON: Concurrently obtained CT brain, CTA 06/24/2024 [...] estimates of stenosis. us Chip Burt MD [facility] CT ORDERABLES Final [...] WO CONTRAST 11/23/2024 1:11 PM CLINICAL HISTORY: M29-Hgksdrb and fvooxwng-VJD-66-CM V49-Gykdmrxxj and ygbbxnntq-YLW-57-CM H53.9-Unspecified visual niisfkrgskf-KXR-38-CM R29.898-Other symptoms and signs involving the musculoskeletal yvamjp-VJB-25-CM. COMPARISON: None. PROCEDURE COMMENTS: Routine noncontrast head [...] WO CONTRAST 11/23/2024 1:11 PM CLINICAL HISTORY: K99-Xxlcrnh and jvlbspxg-SAC-41-CM W64-Afqtgsapj and kkdsovpzn-DBT-75-CM H53.9-Unspecified visual xlbuagkpmii-ZWB-10-CM R29.898-Other symptoms and signs involving the sasbefftlszmuvdzsuvtf-RAN-34-CM. COMPARISON: None. PROCEDURE COMMENTS: Routine noncontrast head [...] UA Color Yellow 11/17/2024 11:14 AM EDT [facility] UA Appear Clear Clear 11/17/2024 11:14 AM EDT [facility] UA Glucose Negative Negative mg/dL 11/17/2024 11:14 AM EDT [facility] UA Ketones Negative Negative mg/dL 11/17/2024 11:14 AM EDT [facility] UA Blood Trace-Intac t(A) Negative 11/17/2024 11:14 AM EDT [facility] UA pH 6.0 5.0 - 8.0 pH 11/17/2024 11:14 AM EDT [facility] UA Protein Negative Negative mg/dL 11/17/2024 11:14 AM EDT [facility] UA Urobilinogen 0.2 <=1 mg/dL 11:14 AM EDT [facility] UA Bili Negative Negative 11/17/2024 11:14 AM EDT [facility] UA Nitrite Negative Negative 11/17/2024 11:14 AM EDT [facility] UA Leuk Est Small(A) Negative 11/17/2024 11:14 AM EDT [facility] UA Spec Grav 1.015 1.001 - 1.035 no units 11/17/2024 11:14 AM EDT [facility] Comment:Reference range nick d for random specimens only. UA WBC 1 0 - 4 /HPF 11/17/2024 11:14 AM EDT [facility] UA RBC 1 0 - 3 /HPF 11/17/2024 11:14 AM EDT [facility] UA Squam Epi 1+ /LPF 11/17/2024 11:14 AM EDT [facility] Urine STRUCTURE OF URINARY TRACT PROPER / Unknown 11/17/2024 10:42 AM EDT 11/17/2024 10:47 AM EDT us Fabby Joya MD URINE ORDERABLES Final Result [facility] [address] [place] [address] * EC ECHOCARDIOGRAM COMPLETE W [...] AM CLINICAL HISTORY: 49 years-old; E78.00-Pure hypercholesterolemia, geobfywfbgi-YJA-40-CM R74.01-Elevation of levels of liver transaminase xffojm-FOS-79-CM. COMPARISON: Noncontrast abdomen and pelvis CT 02/06/2016. [...] mm. No pericholecystic fluid or other ascites. Golf Sales Manager indicates clinically negative Willson's sign while scanning. Limited assessment of proximal pancreas is unremarkable. Right kidney measures 9.2 cm in length. Total renal volume is 82.4 cm3. No hydronephrosis, solid or cystic mass lesion or echogenic shadowing stone. Procedure Note Katey Hdz MD - 10/13/2024 US RIGHT UPPER QUADRANT: 10/13/2024 10:00 AM CLINICAL HISTORY: 49 years-old; E78.00-Pure hypercholesterolemia, cdfutkvgeho-IPT-86-CM R74.01-Elevation of levels of liver transaminase ulrtfq-CDL-02-CM. COMPARISON: Noncontrast abdomen and pelvis CT 02/06/2016. [...] 1 mm. No pericholecystic fluidor other ascites. Golf Sales Manager indicates clinically negative Willson's signwhile scanning. [...] of the ordering clinician. Chip Burt MD [facility] US ORDERABLES Final Resul t * (ABNORMAL) SERUM IMMUNOTYPING (10/07/2024 10:27 AM EDT) IgA 130 70 - 400 mg/dL 10/09/2024 1:38 PM EDT [facility] IgG 962 700 - 1,600 mg/dL 10/09/2024 1:38 PM EDT [facility] IgM 116 40 - 230 mg/dL 10/09/2024 1:38 PM EDT [facility] Albumin SPE 3.8 3.1 - 5.0 gm/dL 10/09/2024 1:38 PM EDT [facility] Alpha 1 Globulin 0.3 0.1 - 0.3 gm/dL 10/09/2024 1:38 PM EDT [facility] Alpha 2 Globulin 0.6 0.5 - 1.0 gm/dL 10/09/2024 1:38 PM EDT [facility] Beta Globulin 0.7 0.5 - 1.4 gm/dL 10/09/2024 1:38 PM EDT [facility], [facility] Gamma Globulin MARY 0.8 0.6 - 1.6 gm/dL 10/09/2024 1:38 PM EDT [facility], [facility] Total Protein 6.2(L) 6.4 - 8.3 gm/dL 10/09/2024 1:38 PM EDT [facility] SPE/IT Interp M-protein not apparent on serum protein electrophoresis. M-protein not apparent on immunotyping (IT). This test has been reviewed and approved by Leo Ferrara MD, JAIRO. 10/09/2024 1:38 PM EDT [facility] [employer], [facility] Blood VENOUS BLOOD / Unknown Venipuncture / Unknown 10/07/2024 10:27 AM EDT 10/07/2024 10:27 AM EDT us Chip Burt MD IMMUNOLOGY ORDERABLES Final R esult [facility] [employer], [facility] [address] [facility] , [place] [address] * ANEMIA REFLEX (10/07/2024 10:27 AM EDT) Blood VENOUS BLOOD / Unknown Venipuncture / Unknown 10/07/2024 10:27 AM EDT 10/07/2024 10:27 AM EDT us Chip Burt MD CHEMISTRY ORDERABLES Final Re sult Performing Organization Address [facility]/ZIP Co de Phone Number [facility] [address] [place] [address] * IRON+TIBC (10/07/2024 10:27 AM EDT) Iron 75 30 - 160 mcg/dL 10/07/2024 2:43 PM EDT [facility] Transferrin 218 200 - 360 mg/dL 10/07/2024 2:43 PM EDT [facility] Transferrin Saturation 25 20 - 50 % 10/07/2024 2:43 PM EDT [facility] TIBC 305 250 - 400 mcg/dL 10/07/2024 2:43 PM EDT [facility] [employer], [facility] Blood VENOUS BLOOD / Unknown Venipuncture / Unknown 10/07/2024 10:27 AM EDT 10/07/2024 10:27 AM EDT Chip Burt MD CHEMISTRY ORDERABLES Final Re sult Performing Organization Address [facility] Co de Phone Number [facility] [employer] [employer] [address] [facility], [place] [address] * LH/FSH (10/07/2024 10:27 AM EDT) LH 43.70 mIU/mL 10/07/2024 2:23 PM EDT [facility] [employer], [employer] Comment: Suggested Reference Ranges (mIU/mL) Females Follicular Phase 2.4 - 12.6 Ovulation Phase 14.0 - 95.6 Luteal Phase 1.0 - 11.4 Postmenopause 7.7 - 58.5 Males 1.7 - 8.6 FSH 83.20 mIU/mL 10/07/2024 2:23 PM EDT [facility] [employer], [employer] Comment: Suggested Reference Range (mIU/mL) Females Follicular Phase 3.5 - 12.5 Ovulation Phase 4.7 - 21.5 Luteal Phase 1.7 - 7.7 Postmenopause 25.8 - 134.8 Males 1.5 - 12.4 Blood VENOUS BLOOD / Unknown Venipuncture / Unknown 10/07/2024 10:27 AM EDT 10/07/2024 10:27 AM EDT Narrative [facility] [employer] - 10/07/2024 2:23 PM EDT Ingestion of caleb doses of biotin (>5 mg/day) taken within 8 hours of drawing blood sample can interfere with this immunoassay test. Chip Burt MD IMMUNOLOGY ORDERABLES Final R esult Performing Organization Address [facility] Co de Phone Number [facility] [employer] [address] , [place] [address] * VITAMIN B12/ FOLIC ACID (10/07/2024 10:27 AM EDT) Vitamin B12 409 232 - 1,245 pg/mL 10/07/2024 2:31 PM EDT [facility] Folate 9.87 >=4.80 ng/mL 10/07/2024 2:31 PM EDT [facility] Blood VENOUS BLOOD / Unknown Venipuncture / Unknown 10/07/2024 10:27 AM EDT 10/07/2024 10:27 AM EDT Narrative [facility] - 10/07/2024 2:31 PM EDT Ingestion of caleb doses of biotin (>5 mg/day) taken within 8 hours of drawing blood sample can interfere with this immunoassay test. us Chip Burt MD CHEMISTRY ORDERABLES Final Re sult Performing Organization Address [facility] Co de Phone Number [facility] [employer] [address] , [place] [address] * (ABNORMAL) VITAMIN D 25 HYDROXY (10/07/2024 10:27 AM EDT) Vit D 25 OH 18.7(L) 30.0 - 150.0 ng/mL 10/07/2024 2:31 PM EDT [employer] [facility] Comment: Preferred: >= 30 ng/mL [...] ORDERABLES Final Re sult Performing Organization Address City/[facility] Co de Phone Number [facility] [employer], [address] , [place] [address] * (ABNORMAL) KAPPA/LAMBDA FREE LIGHT CHAINS (10/07/2024 10:27 AM EDT) [employer] Free Light Chains 24.58(H) 3.30 - 19.40 mg/L 10/09/2024 10:35 AM EDT [facility] [employer], [facility] Lambda Free Light Chains 16.63 5.70 - 26.30 mg/L 10/09/2024 10:35 AM EDT [facility] [employer], [facility] Golovin/Lambda FLC Ratio 1.48 0.26 - 1.65 10/09/2024 10:35 AM EDT [facility] [employer], [facility] Blood VENOUS BLOOD / Unknown Venipuncture / Unknown 10/07/2024 10:27 AM EDT 10/07/2024 10:27 AM EDT Chip Burt MD CHEMISTRY ORDERABLES Final Re sult Performing Organization Address [facility]/ZIP Co de Phone Number [facility] [employer], [address] , [place] [address] * ESTROGENS, FRACTIONATED BY TMS -REF LAB (10/07/2024 10:27 AM EDT) Estradiol 18.0 pg/mL 10/17/2024 3:03 PM EDT [employer] Comment: REFERENCE INTERVAL: Estradiol by Barrel Raiser Helper For a complete set of all established reference intervals, refer to [employer]/Tests/Pub/[id number]. This test was developed and its performance characteristics determined by [employer]. It has not been cleared or approved by the [place] Food and Drug Administration. This test was performed in a CLIA certified laboratory and is intended for clinical purposes. Estrone by 13.6 pg/mL 10/17/2024 3:03 PM EDT [employer] Comment: INTERPRETIVE INFORMATION: Estrone by Barrel Raiser Helper For a complete set of all established reference intervals, refer to [employer]/Tests/Pub/[id number]. This test was developed and its performance characteristics determined by [employer]. It has not been cleared or approved by the [place] Food and Drug Administration. This test was performed in a CLIA certified laboratory and is intended for clinical purposes. Estrogens Total 31.6 pg/mL 3:03 PM EDT [employer] Comment: Reference interval of estrogens (pg/mL) Estrone Estradiol Total Estrogens Early follicular <150.0 30.0-100.0 30.0-250.0 Late follicular 100.0-250.0 100.0-400.0 200.0-650.0 Luteal <200.0 50.0-150.0 50.0-350.0 Post-menopausal 3.0-32.0 2.0-21.0 5.0-52.0 REFERENCE INTERVAL: Estrogens Total Calculation For a complete set of all established reference intervals, refer to [employer]/Tests/Pub/[id number]. Performed By: [employer] [address] [id number] Search Engine Optimization Consultant: Larry Olivarez MD, PhD CLIA Number: [id number] Blood VENOUS BLOOD / Unknown Venipuncture / Unknown 10/07/2024 10:27 AM EDT 10/11/2024 5:27 PM EDT us Chip Burt MD CHEMISTRY ORDERABLES Final Re sult [employer] [address] [id number] * HEPATITIS B SURFACE ANTIBODY (10/07/2024 10:27 AM EDT) Pathologist [facility] Hep Bs Ab 6.52 mIU/mL 10/07/2024 2:36 PM EDT [facility] [employer] [facility] Comment: < 10 mIU/mL - Non-reactive (Result not consistent with protective immunity.) >= 10 mIU/mL - Reactive (Result consistent with protective immunity.) Blood VENOUS BLOOD / Unknown Venipuncture / Unknown 10/07/2024 10:27 AM EDT 10/07/2024 10:27 AM EDT Narrative [facility] [employer] [facility] - 10/07/2024 2:36 PM EDT Test performed using [employer] Ele[employer]ys electrochemiluminescence immunassay (ECLIA). Chip Burt MD IMMUNOLOGY ORDERABLES Final R esult Performing Organization Address [facility] Co de Phone Number [facility] [employer] , [place] [address] * THYROID STIMULATING HORMONE (10/07/2024 10:27 AM EDT) [facility] TSH 2.840 0.270 - 4.200 mcIU/mL 10/07/2024 2:43 PM EDT [facility] Blood VENOUS BLOOD / Unknown Venipuncture / Unknown 10/07/2024 10:27 AM EDT 10/07/2024 10:27 AM EDT Narrative [facility] - 10/07/2024 2:43 PM EDT Ingestion of caleb doses of biotin (>5 mg/day) taken within 8 hours of drawing blood sample can interfere with this immunoassay test. Chip Burt MD CHEMISTRY ORDERABLES Final Re sult Performing Organization Address [facility] Co de Phone Number [facility] [employer] , [place] [address] * T4, FREE (THYROXINE) (10/07/2024 10:27 AM EDT) [facility] Free T4 0.95 0.80 - 1.80 ng/dL 10/07/2024 2:43 PM EDT [facility], [facility] Blood VENOUS BLOOD / Unknown Venipuncture / Unknown 10/07/2024 10:27 AM EDT 10/07/2024 10:27 AM EDT Narrative [facility] [employer] [facility] - 10/07/2024 2:43 PM EDT Ingestion of caleb doses of biotin (>5 mg/day) taken within 8 hours of drawing blood sample can interfere with this immunoassay test. Chip Burt MD CHEMISTRY ORDERABLES Final Re sult Performing Organization Address [facility] Co de Phone Number [facility] [employer] [address] , [place] [id number] * PHOSPHORUS LEVEL (10/07/2024 10:27 AM EDT) Phosphorus 3.1 2.5 - 4.5 mg/dL 10/07/2024 2:43 PM EDT [facility] [employer] [facility] Blood VENOUS BLOOD / Unknown Venipuncture / Unknown 10/07/2024 10:27 AM EDT 10/07/2024 10:27 AM EDT us Chip Burt MD CHEMISTRY ORDERABLES Final Re sult Performing Organization Address [facility] Co de Phone Number [facility] [address] [facility] , [place] [address] * NT PROBNP (10/07/2024 10:27 AM EDT) NT Pro-BNP <36 <=192 pg/mL 10/07/2024 2:09 PM EDT [facility] [employer] [facility] Blood VENOUS BLOOD / Unknown Venipuncture / Unknown 10/07/2024 10:27 AM EDT 10/07/2024 10:27 AM EDT Narrative [facility] [employer] [facility] - 10/07/2024 2:09 PM EDT An [...] ORDERABLES Final Re sult Performing Organization Address [facility] de Phone Number [facility] [employer] [address] , [place] [address] * HEMOGLOBIN A1C (10/07/2024 10:27 AM EDT) Hgb A1C 5.6 4.2 - 5.6 % 10/07/2024 2:19 PM EDT [facility] [employer] [facility] Est. Avg Glucose 114 mg/dL 10/07/2024 2:19 PM EDT [facility] [employer] [facility] Blood VENOUS BLOOD / Unknown Venipuncture / Unknown 10/07/2024 10:27 AM EDT 10/07/2024 10:27 AM EDT Narrative [facility] [employer] [facility] - 10/07/2024 2:19 PM EDT [...] ORDERABLES Final Re sult Performing Organization Address [facility] de Phone Number [facility] [employer] [address] , [place] [address] * CREATINE KINASE (10/07/2024 10:27 AM EDT) CK 177 26 - 192 U/L 10/07/2024 2:43 PM EDT [facility] [employer] [facility] Blood VENOUS BLOOD / Unknown Venipuncture / Unknown 10/07/2024 10:27 AM EDT 10/07/2024 10:27 AM EDT Chip Burt MD CHEMISTRY ORDERABLES Final Re sult [employer] [facility] [address] [facility] , [place] [address] * (ABNORMAL) LIPID SCREEN (10/07/2024 10:27 AM EDT) Cholesterol 191 <200 mg/dL 10/07/2024 2:43 PM EDT [facility] Comment: < 200 Desirable 200 - 239 Borderline High >= 240 High Triglyceride 64 <150 mg/dL 10/07/2024 2:43 PM EDT [facility] Comment: < 150 Normal 150 - 199 Borderline High 200 - 499 High >= 500 Very High HDL 51 >=40 mg/dL 10/07/2024 2:43 PM EDT [facility] Comment: > 60 Optimal 40 - 60 Acceptable < 40 Low LDL Calculated 128(H) <100 mg/dL 10/07/2024 2:43 PM EDT [facility] Comment: < 100 Optimal 100 - 129 Near or above optimal 130 - 159 Borderline High 160 - 189 High >= 190 Very High The National Institutes of Health (NIH) equation is used for all lipid panels that report calculated LDL (LDL-C). Non-HDL-C Calculated 140(H) <=129 mg/dL 10/07/2024 2:43 PM EDT [facility] Comment: <130 Desirable 130-159 Above Desirable 160-189 Borderline High 190-219 High >= 220 Very High Fasting Specimen? Yes None 025 2:43 PM EDT [facility] [employer] [facility] Blood VENOUS BLOOD / Unknown Venipuncture / Unknown 10/07/2024 10:27 AM EDT 10/07/2024 10:27 AM EDT us Chip Burt MD CHEMISTRY ORDERABLES Final Re bandart [facility] [employer] [facility] [address] [facility] , [place] [address] * (ABNORMAL) POCT EKG (09/29/2024 2:53 PM EDT) 09/29/2024 2:53 PM EDT [facility] - 09/29/2024 2:57 PM EDT SR LAD, possible LAE, iRBBB w/LAFB T wave inversions V1-V3 similar to previous 06/2024, 12/2023 No other STTW changes compared to prior us Chip Burt MD POINT OF CARE CARDIOLOGY Wandy l Result SEP OFFICE * LOSS PREVENTION AGENT CYTOLOGY REPORT (11/07/2015 1:27 PM EDT) Emergency Dispatcher Cytology Report PATIENT NAME:SHERYL CORDERO Emergency Dispatcher Cytology Report Accession Number Collected Date/Time Received Date/Time [id number] 11/07/15 13:27 EDT 11/07/15 16:13 EDT GY [...] before definitive therapy. Processed using the ThinPrep Flight Operations Inspector automated cytology screening device (FabZat). Millwright Instructor: JERARDO 11/08/2015 Completed by: NICCI Russell (Electronically signed by) 11/08/2015 [facility] 11/07/2015 1:27 PM EDT us Amalia Joya APRN PATHOLOGY ORDERABLES Final Res ult Performing Organization Address City/[facility]/ZIP Co de Phone Number [facility] [address] [place] [address] from Last 3 Months or Most Recently Relevant to Health Maintenance Insurance [address] [place] [address], [place] [address] [facility] BY [facility] [address] [facility] [address] PLAN BY [facility] [place] PPO [facility] PLAN BY [facility] Care Teams Candy Dipper Relationship Specialty Start Date End Date Chip Burt MD [address] [place] [address] PCP - General Family Medicine 09/29/24
--- NOTE | 2024-12-29 10:30 | MR_ITS ---
APPROVED REPORT Hostler Helper: CLINICAL INDICATION [facility] evaluation TECHNIQUE Image Acquisition: Cardiac magnetic resonance (CMR) was performed on Siemens Espree MRI 1.5T scanner. Software platform sequences were performed using the [employer] MR B19 platform. A set of three-plane, low-resolution, large aewnb-bd-mgjz localizers were initially acquired. Then axial, coronal, sagittal TrueFISP, as well as axial HASTE images, were obtained. These were followed by gated TrueFISP breathold cinematic sequences obtained in the short axis with 8 mm slices and 2 mm gaps, 2-chamber (vertical long axis), 3-chamber, 4-chamber (horizontal long axis). A bolus of contrast was injected intravenously with first-pass sequences obtained in the short axis and four-chamber planes. After approximately 10 minutes, a TI longwall foreman sequence was performed to determine the optimal TI time. Using the optimized TI time, delayed contrast enhancement segmented inversion???recovery TurboFLASH sequences were obtained in the short axis, 2-chamber, 3-chamber, and 4-chamber projections. 2D-velocity phase mapping was performed. Functional parameters were calculated by offline analysis on an independent workstation ([employer], [employer]). Contrast: ProHance??? (Gadoteridol) FINDINGS MORPHOLOGY AND FUNCTION Left ventricle: The left ventricle is normal in size. The indexed left ventricular end-diastolic volume (LVEDVi) is 70 ml/m2 (reference range 57-105 ml/m2 in males, 56-96 ml/m2 in females). Normal left ventricular systolic function is present. There is normal left ventricular wall thickness. There are no regional wall motion abnormalities noted. LVEF is calculated at 61.0% (reference range 57-77%). Right ventricle: The right ventricle is normal in size. The indexed right ventricular end-diastolic volume (RVEDVi) is 63 ml/m2 (reference range 61-121 ml/m2 in males, 48-112 ml/m2 in females). Normal right ventricular systolic function is present. There are no right ventricular regional wall motion abnormalities or aneurysms noted. RVEF is calculated at 63.9% (reference range 52-72% in males, 51-71% in females). Atria: The left atrium is normal in size. The maximum indexed left atrial volume is 28 ml/m2 (reference range 26-52 ml/m2 in males, 27-53 ml/m2 in females). The right atrium is normal in size. The maximum indexed right atrial volume is 18 ml/m2 (reference range 18-90 ml/m2). Aorta: The diameter of the aortic annulus is normal, measuring 22 mm (coronal view reference range 21-30 mm in males, 19-27 mm in females). The diameter of the aortic sinus is normal, measuring 28 mm (coronal view reference range 25-42 mm in males, 24-36 mm in females). The diameter of the sinotubular junction is normal, measuring 23 mm (coronal view reference range 18-32 mm in males, 18-28 mm in females). The diameters of the ascending and descending thoracic aorta are normal. Main pulmonary artery: The main pulmonary artery diameter is normal. Pericardium: The pericardial thickness is normal. The pericardial thickness measures 1.5 mm (normal < 4.0 mm). There is no pericardial effusion. VALVES Mild tricuspid regurgitation is present. Systolic anterior motion of the mitral valve is not visualized. Ratio of pulmonary to systemic flow, Qp:Qs ratio = 1.16 (normal < or = 1.2, hemodynamically significant shunt > 1.5), demonstrating no evidence of hemodynamically significant shunt. TISSUE CHARACTERIZATION Resting Perfusion: Normal myocardial blood flow at rest. No evidence of resting hypoperfusion. Myocardial Fibrosis and/or edema: Normal gadolinium kinetics are present. No evidence of late gadolinium enhancement is noted, consistent with absence of myocardial scarring, infarction, or necrosis. T2-weighted imaging demonstrates no evidence of myocardial edema or inflammation. OTHER Breast implants are incidentally noted bilaterally. IMPRESSION Normal LV size with normal LV systolic function. LVEDVi= 70 ml/m2 and LVEF= 61.0%. Normal RV size with normal RV systolic function. RVEDVi= 63 ml/m2 and RVEF= 63.9%. No atrial enlargement. Mild tricuspid regurgitation. No CMR evidence of myocardial scarring, infarction, or necrosis. No evidence of myocardial edema or inflammation. Perfusion analysis demonstrates normal blood flow at rest with no evidence of resting hypoperfusion. Ratio of pulmonary to systemic flow, Qp:Qs ratio = 1.16 (normal < or = 1.2, hemodynamically significant shunt > 1.5), demonstrating no evidence of hemodynamically significant shunt. This CMR demonstrates normal biventricular size and systolic function. No evidence of prior infarct, fibrosis, or scarring. No CMR evidence of ARVC. COMPARISON None CRITICAL RESULT None COMMUNICATION The above findings were relayed to the patient at the time of the routine outpatient cardiology follow-up visit, prior to dictation of this report. The findings of this cardiac MR were reviewed, reported, and signed by Rene Peacock MD (Container Packer Operator). Conclusion Electronically signed by : Ania Peacock MD 01/07/2025 20:49:26
[2024-12-29] MEDS: GADOTERIDOL INJ 20ML SYRINGE 12 ML IV (12:02)
[2024-12-29] MEDS: SODIUM CHLORIDE 0.9% 10ML SYR (RAD ONLY) 10 ML IV (12:02)
[2024-12-29] MEDS: 0.9 % SODIUM CHLORIDE 50 ML VIAL 20 ML IV (12:02)
== END 2024-12-29 23:59 | disposition home or self-care (01) ==
LOC: RAD 10:23
PROVIDERS: PCP Nurse Practitioner; Visit Provider Nurse Practitioner
DX: I07.1 Rheumatic tricuspid insufficiency (principal); R55 Syncope and collapse; M54.9 Dorsalgia, unspecified; G89.29 Other chronic pain; R42 Dizziness and giddiness; R94.31 Abnormal electrocardiogram [ECG] [EKG]; Z82.49 Family history of ischemic heart disease and other diseases of the circulatory system
CPT/HCPCS: 75561; A9576

== ENCOUNTER 2025-03-22 12:45 | Day surgery (SDC) | payer BC, SELFPAY ==
[2025-03-22 13:05] VITALS: BMI 22.4
[2025-03-22 13:11] VITALS: BP 121/73; PULSE 85; RESP 16; TEMP 36.6; O2SAT 100
--- OUTSIDE RECORDS SUMMARY | 2025-03-22 13:57 | XMS_ITS | Encounter Summary ---
Author Organization [facility] Address [address] [place] [address] Care Team Providers Care Tools Administrator Name Role Phone Gretchen Juarez MD Primary Care Provider Tiffanie bullard Reason for Visit * Reason Onset Date Comments Other 01/17/2025 Labs/visit Encounter Details Date Type Department Care Team (Late st Contact Info) Description 01/17/2025 Telephone [facility] Physicians - Obstetrics & Gynecology, [place] [address] [place] [phone] Amalia Joya, ASSISTANT DIRECTOR OF NURSING 1954 [facility], 1928–[address] [place] [address] Other (Labs/visit) Social History Tobacco Use Types Packs/Day Years [...] on file documented as of this encounter Miscellaneous Notes * Telephone Encounter - Lucia Pantoja - 01/17/2025 10:53 AM EDT Pt called stating her PCP said she is post menopausal but still has some lingering symptoms. Pt would like to know if she could have some lab work done to see where her hormone levels are or if Sm would want her to come in for a visit documented in this encounter Plan of Treatment Not on file documented as of this encounter Visit Diagnoses Not on filedocumented in this encounter Care Teams Tools Administrator Relationship Specialty Start Date End Date Gretchen Juarez MD PCP - General Family Medicine 05/13/12 documented as of this encounter
--- OUTSIDE RECORDS SUMMARY | 2025-03-22 13:57 | XMS_ITS | Encounter Summary ---
Author Organization [facility] Address [address] [place] [address] Care Team Providers Care General Office Dispatcher Name Role Phone Gretchen Juarez MD Primary Care Provider Tiffanie bullard Encounter Details Date Type Department Care Team (Late st Contact Info) Description 11/28/2024 Results Follow-Up [facility] Physicians - Obstetrics & Gynecology, [place] [address] [place] [address] Amalia Joya APRN 1954 [place], [place] [id number] PAP HPV DNA, AZALIA Social History Tobacco [...] on filedocumented in this encounter Care Teams General Office Dispatcher Relationship Specialty Start Date End Date Gretchen Juarez MD PCP - General Family Medicine 05/13/12 documented as of this encounter
--- OUTSIDE RECORDS SUMMARY | 2025-03-22 13:58 | XMS_ITS | Clinical Summary ---
Author Organization [facility] Address [address] [place] [address] Care Team Providers Care Processing Engineer Name Role Phone Gretchen Juarez MD Primary [...] Encounters Date Type Department Care Team Description 01/17/2025 Telephone [facility] Physicians - Obstetrics & Gynecology, [place] [address] [place] [phone] Amalia Joya, [place] Other (Labs/visit) from Last 3 Months Family History Medical [...] Tobacco Cessation Counseling 1987 Tetanus Vaccination (Every 10 Years) 1993 Pneumococcal Vaccine: 50+ Ye ars (1 of 2 - PCV) 1994 Depression Screening 05/03/2024 COVID-19 Vaccine (2 - 2024-2 6 season) 2025 09/19/2020 Influenza Vaccination (#1) 2025 03/18/2020 Breast Cancer Screening 2025 Zoster-RZV(Shingrix) (1 of 2) 2025 Cervical Cancer Screening 11/25/20272024, 11/07/2015, 11/07/2015 Lipid Screening 10/07/2029 10/07/2024 Influenza Vaccination (Yearly) Discontinued 03/18/2020 Procedures Procedure Name Priority Date/Time Associated Diagnosis Comments PAP HPV DNA, AZALIA Routine 11/24/2024 2:4 3 PM EDT Gynecologic exam normal from Last 3 Months or Most Recently Relevant to Health Maintenance Results * PAP HPV DNA, AZALIA (11/24/2024 2:43 PM EDT) Diagnosis Comment [facility] Comment:NEGATIVE FOR INTRAEP ITHELIAL LESION OR MALIGNANCY. Adequacy Comment [facility] Comment: Satisfactory for evaluation. Endocervical and/or squamous metaplastic cells (endocervical component) are present. Performed Comment [facility] Comment:Anh Lainez, Cyto logist (ASCP) Notes Comment [facility] Comment: The Pap smear [...] types (31,33,35,39,45,51,52,56,58,59,66,68) without differentiation. Performed at: - [facility] [id number] Paradichlorobenzene Tender: Shazia Marrero MD, Phone: [phone] Performed at: =G - [facility] [id number] Paradichlorobenzene Tender: Shazia Marrero MD, Phone: [phone] HPV Other Types, Henrik Negative Negative [facility] Pap Vial 11/24/2024 2:43 PM EDT 11/28/2024 3:07 PM EDT Amalia Joya NET PROGRAMMER ANALYST PATHOLOGY/CYTOLOGY ORDERABL ES Final Result [facility] [address] [place] [address], [facility] from Last 3 Months or Most Recently Relevant to Health Maintenance Insurance [place] [address] [facility] Care Teams Processing Engineer Relationship Specialty Start Date End Date Gretchen Juarez MD PCP - General Family Medicine 05/13/12
--- NOTE | 2025-03-22 14:52 | P.PCN_ITS ---
[facility] Procedure Note Date: 03/22/25 Time: 14:00 Procedure Note:: Procedure: upright tilt table test Indication: Dizziness near syncope Pretest vital signs: blood pressure 105/54, heart rate 66, oxygen 100% Procedure summary: Patient was prepared per protocol. She was tilted to an upright position of 70 degrees for a total of 30 minutes. Please see attached progress flow sheet. Complications: None Conclusion: No change in BP, rise in heart rate greater than 30 bpm. Findings suggestive of POTS. Dictated for Dr. Ania Peacock by Brennon May APRN
== END 2025-03-22 23:59 | disposition home or self-care (01) ==
LOC: RT 03-23 09:14
PROVIDERS: Visit Provider Internal Medicine
DX: R55 Syncope and collapse (principal); R42 Dizziness and giddiness; F17.210 Nicotine dependence, cigarettes, uncomplicated; Z79.899 Other long term (current) drug therapy; Z88.5 Allergy status to narcotic agent; Z82.49 Family history of ischemic heart disease and other diseases of the circulatory system
CPT/HCPCS: 93660